=== PATIENT | female | born 1955 | race Caucasian/White ===

== ENCOUNTER 2017-07-23 10:05 | Outpatient (POV) | payer BC, SELFPAY | END 2017-07-23 13:45 | disposition home or self-care (01) | PROVIDERS: Visit Provider Podiatrist | DX: Z98.890 Other specified postprocedural states (principal) | CPT/HCPCS: 99024; 73630 ==

== ENCOUNTER → 2018-02-24 13:40 | Outpatient (POV) | payer BC, SELFPAY | PROVIDERS: Visit Provider Nurse Practitioner Acute Care | DX: Z00.00 Encounter for general adult medical examination without abnormal findings (principal) ==

== ENCOUNTER → 2018-03-19 13:29 | Outpatient (CLI) | payer BC, SELFPAY ==
--- NOTE | 2018-03-19 13:33 | XR_ITS ---
XR foot wt bearing LT 3V HISTORY: ITS.REASON: Pain ORDERING PHYSICIAN: Magda Mcrae DPM PATIENT AGE: 62 years COMPARISON: None FINDINGS: There are mild/moderate osteoarthritic changes of the first metatarsophalangeal joint. A small accessory center of ossification is present along the dorsal and proximal aspect of the navicular. There is a minimally displaced fracture involving the distal aspect of the proximal phalanx of the third digit age indeterminate. Not apparent on 04/18/2017. There is 2 mm lateral displacement of the distal fracture fragment. There is a longitudinal lucency through the mid and distal aspect of the proximal phalanx of the second toe. This however did have a similar appearance on the previous exam consistent with an old fracture IMPRESSION: 1. Non-displaced fracture distal aspect of the proximal phalanx of the fourth toe 2. Old fracture proximal phalanx second toe. 3. Osteoarthritis of the first MTP joint
== END ==
PROVIDERS: Visit Provider Podiatrist
DX: S99.922A Unspecified injury of left foot, initial encounter (principal)
CPT/HCPCS: 73630

== ENCOUNTER → 2018-05-05 10:45 | Outpatient (CLI) | payer BC, SELFPAY ==
[2018-05-05 10:57] LABS: Hematocrit 34.8 % (37.0-47.0); Hemoglobin 10.7 g/dL (12.2-16.2)
== END ==
PROVIDERS: Family Provider Family Medicine; PCP Family Medicine; Visit Provider Surgery
DX: D64.9 Anemia, unspecified (principal)
CPT/HCPCS: 36415; 85014; 85018

== ENCOUNTER → 2018-07-02 12:12 | Outpatient (CLI) | payer BC, SELFPAY ==
--- NOTE | 2018-07-02 12:17 | XR_ITS ---
XR hip RT 2-3V w/pelvis HISTORY: ITS.REASON: BACK AND RT HIP PAIN ORDERING PHYSICIAN: Deana Veras PATIENT AGE: 62 years COMPARISON: None FINDINGS: There are mild osteoarthritic changes of the right hip. No fracture or dislocation. No obvious lytic or blastic change. IMPRESSION: Mild osteoarthritis of the right hip
--- NOTE | 2018-07-02 12:17 | XR_ITS ---
EXAM: XR lumbar spine min 4V HISTORY: ITS.REASON: LOW BACK AND RT HIP PAIN ORDERING PHYSICIAN: Deana Veras PATIENT AGE: 62 years COMPARISON: None FINDINGS: There are 6 nonrib area in lumbar vertebra. Multilevel degenerative disc disease is present from L1 to S1. There is mild wedging at T11, T12 and L1 which appears old. Anterior osteophytes are present from T11 to L5. Severe degenerative disc disease is present at L3-L4 and L4-L5. There is mild retrolisthesis of L4 on L5 of 5 mm and mild anterolisthesis of L5 on SX of 4 mm. Facet hypertrophic changes are present at L4, L5, and L6. No acute fracture or dislocation. No lytic or blastic change. IMPRESSION: Multilevel lumbar spondylosis with osteophytes, degenerative disc disease, and facet arthritic change replacing above for detailed description
== END ==
PROVIDERS: PCP Family Medicine; Visit Provider Family Medicine
DX: M54.5 Low back pain (principal); M25.551 Pain in right hip
CPT/HCPCS: 72110; 73502

== ENCOUNTER → 2018-07-14 12:57 | Outpatient (POV) | payer BC, SELFPAY ==
[2018-07-14 13:16] VITALS: BP 150/93; PULSE 96; RESP 18; O2SAT 99
--- NOTE | 2018-07-14 15:03 | HMH.PMCON ---
Assessment and Plan (1) Sacroiliitis Current visit: Yes Status: Chronic Category: Medical Code(s): M46.1 - Sacroiliitis, not elsewhere classified - Assessment and plan all Dx Assessment and Plan for all problems:: We will schedule bilateral SI joint injections for the patient. Patient has completed physical therapy and is continuing a home stretching program. She is on anti-inflammatories at this time. This note was dictated using voice recognition software and may contain errors or omissions HPI - Data of Consult Consult date: 07/14/18 Requesting Physician: Kely Engle APRN Primary Care Provider: Deana Veras - Consult Narrative Reason for consult: Hip pain History of present illness: Ms. Gonzalez is a 62 year old female resents today for consultation in regards to her chronic low back pain and right hip pain. Patient states all activity increases pain while heat rest and elevation of her hip decreases pain. She has sharp pains in her right leg at times it does not ever past her knee. Patient has tried and completed physical therapy with no relief. Patient is tried multiple medications including [place], meloxicam, morphine, oxycodone, venlafaxine with no relief. She rates her pain a 7 out of 10 today. CC: Kely Engle APRN [facility] History I have reviewed the patient's past medical history: Yes Medical History: Reports:: Cancer, Hyperlipidemia, Hypertension Denies:: Diabetes Mellitus Type 1, Diabetes Mellitus Type 2, Internal Pacemaker, Lung Disease, Seizures Other Medical History: Denies: Blood Transfusion Reaction Laterality Cases: Bilateral: Tonsillectomy, Other Other Surgeries: Yes: Colon Resection, Colostomy, Hysterectomy-Total, Sinus Surgery, Thyroidectomy, Other. No: Pacemaker Amputation: No Fractures: No - *Social History Smoking Status: Never smoker Alcohol Intake: never Alcohol Intake Frequency:: holidays/special occasions only Occupational Status: other Housing: house - Psychiatric History Expresses thoughts of harming self/others: None Suicide Plan Description: No Plan *Family Hx:: Heart Attack, Hypertension, Diabetes Review of Systems - Review of Systems ROS General: no recent weight change, no fever, no sleep disturbances Respiratory: no cough, no shortness of air, no recurring pulmonary infections Cardiovascular/Peripheral Vascular: No chest pain, No palpitations, no edema, no shortness of breath. Gastrointestinal: no incontinence, normal bowel movements reported Genitourinary: no incontinence Musculoskeletal: Right hip pain, low back pain Psychiatric: normal mood/ affect Neurological: [denies weakness in extremities], [denies balance issues] Meds Home Medications Medication Instructions Recorded Confirmed Type biotin 5 mg capsule 5 mg PO QDAY 08/07/17 05/14/18 History bisoprolol fumarate 5 mg tablet 5 mg PO QDAY 08/07/17 05/14/18 History docosahexanoic acid (dha)-epa 120 1 cap PO QDAY 08/07/17 05/14/18 History mg-180 mg capsule estradiol 1 mg tablet 0.5 mg PO QDAY 08/07/17 05/14/18 History fenofibrate nanocrystallized 145 145 mg PO ONCE 08/07/17 05/14/18 History mg tablet fexofenadine 180 mg tablet 180 mg PO Q24H 08/07/17 05/14/18 History levothyroxine 175 mcg tablet 175 mcg PO DAILY 08/07/17 05/14/18 History magnesium 250 mg tablet 250 mg PO ONCE 08/07/17 05/14/18 History omeprazole 20 mg capsule,delayed 20 mg PO ONCE 08/07/17 05/14/18 History release Calcium Carbonate/Vitamin D3 1 each PO BID 04/03/18 05/14/18 History [Calcium 500-Vit D3 600 Tablet] Cyanocobalamin (Vitamin B-12) 1,000 mcg PO DAILY 04/03/18 05/14/18 History [Vitamin B12 2.5mg Tab] Ergocalciferol (Vitamin D2) 500 unit PO DAILY 04/03/18 05/14/18 History [Vitamin D] Fluticasone Furoate [Flonase 1 spray NS DAILY 04/03/18 05/14/18 History Sensimist] Folic Acid [Folic Acid 1mg tablet] 1 mg PO DAILY 04/03/18 05/14/18 History Ipratropium [place] [Ipratropium
--- NOTE | 2018-07-14 15:07 | P.CONS_ITS ---
Assessment and Plan (1) Sacroiliitis Current visit: Yes Status: Chronic Category: Medical Code(s): M46.1 - Sacroiliitis, not elsewhere classified - Assessment and plan all Dx Assessment and Plan for all problems:: We will schedule bilateral SI joint injections for the patient. Patient has completed physical therapy and is continuing a home stretching program. She is on anti-inflammatories at this time. This note was dictated using voice recognition software and may contain errors or omissions HPI - Data of Consult Consult date: 07/14/18 Requesting Physician: Kely Engle APRN Primary Care Provider: Deana Veras - Consult Narrative Reason for consult: Hip pain History of present illness: Ms. Gonzalez is a 62 year old female resents today for consultation in regards to her chronic low back pain and right hip pain. Patient states all activity increases pain while heat rest and elevation of her hip decreases pain. She has sharp pains in her right leg at times it does not ever past her knee. Patient has tried and completed physical therapy with no relief. Patient is tried multiple medications including [place], meloxicam, morphine, oxycodone, venlafaxine with no relief. She rates her pain a 7 out of 10 today. CC: Kely Engle APRN [facility] History I have reviewed the patient's past medical history: Yes Medical History: Reports:: Cancer, Hyperlipidemia, Hypertension Denies:: Diabetes Mellitus Type 1, Diabetes Mellitus Type 2, Internal Pacemaker, Lung Disease, Seizures Other Medical History: Denies: Blood Transfusion Reaction Laterality Cases: Bilateral: Tonsillectomy, Other Other Surgeries: Yes: Colon Resection, Colostomy, Hysterectomy-Total, Sinus Surgery, Thyroidectomy, Other. No: Pacemaker Amputation: No Fractures: No - *Social History Smoking Status: Never smoker Alcohol Intake: never Alcohol Intake Frequency:: holidays/special occasions only Occupational Status: other Housing: house - Psychiatric History Expresses thoughts of harming self/others: None Suicide Plan Description: No Plan *Family Hx:: Heart Attack, Hypertension, Diabetes Review of Systems - Review of Systems ROS General: no recent weight change, no fever, no sleep disturbances Respiratory: no cough, no shortness of air, no recurring pulmonary infections Cardiovascular/Peripheral Vascular: No chest pain, No palpitations, no edema, no shortness of breath. Gastrointestinal: no incontinence, normal bowel movements reported Genitourinary: no incontinence Musculoskeletal: Right hip pain, low back pain Psychiatric: normal mood/ affect Neurological: [denies weakness in extremities], [denies balance issues] Meds Home Medications Medication Instructions Recorded Confirmed Type biotin 5 mg capsule 5 mg PO QDAY 08/07/17 05/14/18 History bisoprolol fumarate 5 mg tablet 5 mg PO QDAY 08/07/17 05/14/18 History docosahexanoic acid (dha)-epa 120 1 cap PO QDAY 08/07/17 05/14/18 History mg-180 mg capsule estradiol 1 mg tablet 0.5 mg PO QDAY 08/07/17 05/14/18 History fenofibrate nanocrystallized 145 145 mg PO ONCE 08/07/17 05/14/18 History mg tablet fexofenadine 180 mg tablet 180 mg PO Q24H 08/07/17 05/14/18 History levothyroxine 175 mcg tablet 175 mcg PO DAILY 08/07/17 05/14/18 History magnesium 250 mg tablet 250 mg PO ONCE 08/07/17 05/14/18 History omeprazole 20 mg capsule,delayed 20 mg PO ONCE 08/07/17
== END ==
PROVIDERS: PCP Family Medicine; Visit Provider Clinical Nurse Specialist Family Health
DX: M46.1 Sacroiliitis, not elsewhere classified (principal)
CPT/HCPCS: 99202

== ENCOUNTER → 2018-08-18 10:08 | Outpatient (POV) | payer BC, SELFPAY ==
[2018-08-18 10:18] VITALS: BP 121/78; PULSE 100; RESP 18; O2SAT 99; BMI 33.9
--- NOTE | 2018-08-18 10:38 | HMH.PAINSOAP ---
[facility] Pain Management SOAP Note Subjective:: Patient is a pleasant 62-year-old white female who presents today for follow-up after bilateral SI joint injections. Patient had 80% relief of the pain in her legs however she still having back pain. Patient states pain is worse when she is walking and standing however it is alleviated when she leans forward. Patient finds herself leaning forward quite a bit. Patient has not had any epidural injections or a recent MRI. We will start with an epidural injection to see if this is beneficial for her if not we did discuss potentially a mild procedure. ROS General: no recent weight change, no fever, no sleep disturbances Respiratory: no cough, no shortness of air, no recurring pulmonary infections Cardiovascular/Peripheral Vascular: No chest pain, No palpitations, no edema, no shortness of breath. Gastrointestinal: no incontinence, normal bowel movements reported Genitourinary: no incontinence Musculoskeletal: Back pain the leg pain Psychiatric: normal mood/ affect Neurological: [denies weakness in extremities], [denies balance issues] Objective:: Physical Exam General: Alert and oriented x3, no acute distress, pleasant and cooperative, [on room air] Lungs: Resps E/U, Symmetrical chest expansion, Eyes: PERRL Musculoskeletal: Flexion and extension of lumbar spine somewhat guarded secondary to pain, deep tendon reflexes normal, strength in upper and lower extremities [5/5], [abnormal gait noted] Neurological: speech clear, in file operator equal, no gross sensory deficits Assessment:: Degenerative disc disease lumbar spine with lumbar radiculopathy, spinal stenosis, sacroiliitis Plan:: We will plan on L4-L5 lumbar epidural steroid injection to see if this beneficial for the patient if it is not we will get an updated MRI to determine her level spinal stenosis. Patient may be a mild candidate in the future. I did briefly discuss this with her and provide her information. This note was dictated using voice recognition software and may contain errors or omissions
== END ==
PROVIDERS: PCP Family Medicine; Visit Provider Clinical Nurse Specialist Family Health
DX: M51.16 Intervertebral disc disorders with radiculopathy, lumbar region (principal); M46.1 Sacroiliitis, not elsewhere classified; M48.00 Spinal stenosis, site unspecified
CPT/HCPCS: 99213

== ENCOUNTER → 2018-09-29 11:31 | Outpatient (POV) | payer BC, SELFPAY ==
--- NOTE | 2018-09-29 12:23 | P.CONS_ITS ---
[facility] Pain Management SOAP Note Subjective:: Patient is a pleasant 62-year-old white female who we are treating for back pain. Patient status post lumbar epidural steroid injection she rates her pain a 0 out of 10 right now she is doing extremely well. She has 80-90% relief of her symptoms. She is much more functional. Patient is not on any anticoagulation therapy and she is continuing a home stretching program. ROS General: no recent weight change, no fever, no sleep disturbances Respiratory: no cough, no shortness of air, no recurring pulmonary infections Cardiovascular/Peripheral Vascular: No chest pain, No palpitations, no edema, no shortness of breath. Gastrointestinal: no incontinence, normal bowel movements reported Genitourinary: no incontinence Musculoskeletal: Back pain, leg pain Psychiatric: normal mood/ affect Neurological: [denies weakness in extremities], [denies balance issues] Objective:: Physical Exam General: Alert and oriented x3, no acute distress, pleasant and cooperative, [on room air] Lungs: Resps E/U, Symmetrical chest expansion, Eyes: PERRL Musculoskeletal: Flexion and extension of lumbar spine somewhat guarded secondary to pain, deep tendon reflexes normal, strength in upper and lower extremities [5/5], [abnormal gait noted] Neurological: speech clear, process safety manager equal, no gross sensory deficits Assessment:: Degenerative disc disease lumbar spine with lumbar radiculopathy Plan:: We will schedule an L4-L5 lumbar epidural steroid injection for the patient in 2 months. She has been instructed to call the office if she has any issues prior to this. Dr. Aguilar has reviewed this note and agrees with this plan of care. This note was dictated using voice recognition software and may contain errors or omissions
[2018-09-29 12:31] VITALS: BP 131/86; PULSE 92; RESP 18; O2SAT 98; BMI 32.3
== END ==
PROVIDERS: PCP Family Medicine; Visit Provider Clinical Nurse Specialist Family Health
DX: M51.16 Intervertebral disc disorders with radiculopathy, lumbar region (principal)
CPT/HCPCS: 99213

== ENCOUNTER → 2018-09-30 14:26 | Outpatient (CLI) | payer BC, SELFPAY ==
--- NOTE | 2018-09-30 14:30 | XR_ITS ---
XR foot wt bearing RT 3V HISTORY: ITS.REASON: pain ORDERING PHYSICIAN: Magda Mcrae DPM PATIENT AGE: 62 years COMPARISON: 07/23/2017 FINDINGS: There has been prior bunionectomy and osteotomy of the distal aspect of the first metatarsal with mild lateral angulation of the distal aspect of the first metatarsal. A small K wire and a dorsally placed screw through the distal first metatarsal is once again noted. Moderate osteoarthritic changes are present at the second metatarsophalangeal joint with minimal dysplastic changes of the distal aspect of the second metatarsal. This has a similar appearance compared to the previous exam. Normal alignment. IMPRESSION: Overall no change status post bunionectomy and osteotomy at the distal first metatarsal with mild osteoarthritis of the first MTP joint No change moderate osteoarthritic changes of the second MTP joint
== END ==
PROVIDERS: PCP Family Medicine; Visit Provider Podiatrist
DX: M79.671 Pain in right foot (principal)
CPT/HCPCS: 73630

== ENCOUNTER → 2018-10-30 14:26 | Outpatient (CLI) | payer BC, SELFPAY ==
[2018-10-30 14:41] LABS: Basophils # 0.1 K/mm3 (0-0.2); Basophils % 0.9 % (0.1-2.0); Eosinophils # 0.3 K/mm3 (0.0-0.4); Eosinophils % 3.3 % (0.1-12.0); Hematocrit 43.6 % (37.0-47.0); Lymphocytes # 2.6 K/mm3 (0.7-4.5); Lymphocytes % 30.4 % (10-50); Mean Corpuscular HGB Conc 32.2 g/dL (31.8-35.4); Mean Corpuscular Hemoglobin 27.5 pg (27.0-31.2); Mean Corpuscular Volume 85.6 fl (81-99); Mean Platelet Volume 7.7 fl (7.4-10.4); Monocytes # 0.5 K/mm3 (0.1-1.0); Monocytes % 5.2 % (1.7-9.3); Neutrophils # 5.2 K/mm3 (1.8-7.8); Neutrophils % 60.2 % (37.0-80.0); Platelet Count 328 K/mm3 (142-424); White Blood Count 8.6 K/mm3 (4.8-10.8)
[2018-10-30 15:27] LABS: Ferritin 25 ng/mL (8-388)
[2018-11-01 07:16] LABS: Iron 76 ug/dL (27-139); UIBC 329 ug/dL (118-369)
[2018-11-01 14:27] LABS: Peripheral Smear Review Scanned Result
[2018-11-02 18:26] LABS: Iron Saturation 19 % (15-55)
== END ==
PROVIDERS: Visit Provider Internal Medicine Medical Oncology
DX: R79.9 Abnormal finding of blood chemistry, unspecified (principal); Z86.2 Personal history of diseases of the blood and blood-forming organs and certain disorders involving the immune mechanism; Z85.850 Personal history of malignant neoplasm of thyroid
CPT/HCPCS: 36415; 82728; 83540; 83550; 85025

== ENCOUNTER → 2018-11-10 10:38 | Outpatient (CLI) | payer BC, SELFPAY ==
--- NOTE | 2018-11-10 10:43 | XR_ITS ---
XR foot wt bearing RT 3V HISTORY: Follow-up ORIF ITS.REASON: post-op ORDERING PHYSICIAN: Magda Mcrae DPM PATIENT AGE: 62 years COMPARISON: 10/22/2018 FINDINGS: AP and is once again noted extending from the tip of the distal phalanx of the second digit to the distal aspect of the second metatarsal with good alignment. Osteoarthritic changes are present at the second metatarsophalangeal junction and there has been a prior osteotomy at the distal aspect of the proximal phalanx and at the PIP joint. Postsurgical changes are present at the distal aspect of the first metatarsal. IMPRESSION: Overall no change in the postsurgical change of the second digit and the older postsurgical changes at the first digit.
== END ==
PROVIDERS: PCP Family Medicine; Visit Provider Podiatrist
DX: Z98.890 Other specified postprocedural states (principal)
CPT/HCPCS: 73630

== ENCOUNTER → 2018-11-25 09:48 | Outpatient (CLI) | payer BC, SELFPAY ==
--- NOTE | 2018-11-25 09:53 | XR_ITS ---
XR foot wt bearing RT 3V HISTORY: Follow-up surgery, pain ITS.REASON: post-op ORDERING PHYSICIAN: Magda Mcrae DPM PATIENT AGE: 62 years COMPARISON: 11/10/2018 FINDINGS: A pin and is once again noted extending from the tip of the distal phalanx of the second digit to the distal aspect of the second metatarsal with good alignment. Osteoarthritic changes are present at the second metatarsophalangeal junction and there has been a prior osteotomy at the distal aspect of the proximal phalanx and at the PIP joint. Postsurgical changes are present at the distal aspect of the first metatarsal. IMPRESSION: Overall no change in the postsurgical change of the second digit and the older postsurgical changes at the first digit.
== END ==
PROVIDERS: PCP Family Medicine; Referring Provider Urology; Visit Provider Podiatrist
DX: Z98.890 Other specified postprocedural states (principal)
CPT/HCPCS: 73630

== ENCOUNTER → 2018-11-26 09:53 | Outpatient (CLI) | payer BC, SELFPAY ==
--- NOTE | 2018-11-26 09:54 | US_ITS ---
US Kidney CLINICAL INDICATION: ITS.REASON: N39.0 Urinary tract infection, site not specified ORDERING PHYSICIAN: Braulio Monaco MD PATIENT AGE: 62 years Comparison: None FINDINGS: No hydronephrosis mass perinephric fluid or other significant anomalies are evident. IMPRESSION: Negative bilateral renal ultrasound
--- NOTE | 2018-11-26 09:54 | XR_ITS ---
XR KUB HISTORY: ITS.REASON: recuurent uti ORDERING PHYSICIAN: Braulio Monaco MD PATIENT AGE: 62 years COMPARISON: 07/02/2018 FINDINGS: The bowel gas pattern is unremarkable. No obvious obstruction.. No abnormal calcifications are evident. No obvious renal or ureteral calculi.. Degenerative changes are present in the lumbar spine. Calcification noted in the left upper pelvis unchanged. Osteoarthritic changes are present in the right hip. IMPRESSION: No acute finding
== END ==
PROVIDERS: PCP Family Medicine; Visit Provider Urology
DX: N39.0 Urinary tract infection, site not specified (principal)
CPT/HCPCS: 74018; 76770

== ENCOUNTER → 2018-12-22 13:33 | Outpatient (POV) | payer MEDICARE, SELFPAY ==
[2018-12-22 13:54] VITALS: BP 133/87; PULSE 92; RESP 18; O2SAT 99; BMI 33.9
--- NOTE | 2018-12-22 14:53 | HMH.PAINSOAP ---
[facility] Pain Management SOAP Note Subjective:: The patient is a pleasant 62-year-old white female who we are treating for back pain lumbar radicular symptoms. She is a follow-up for a lumbar epidural steroid injection. She had improvement, rating pain 0 out of 10. She does report some continued pain with standing and walking. We did discuss the mild procedure and asked about recent diagnostic imaging. Patient does report relief of symptoms when leaning forward. She continues a home stretching program and anti-inflammatories. ROS General: no recent weight change, no fever, no sleep disturbances Respiratory: no cough, no shortness of air, no recurring pulmonary infections Cardiovascular/Peripheral Vascular: No chest pain, No palpitations, no edema, no shortness of breath. Gastrointestinal: no incontinence, normal bowel movements reported Genitourinary: no incontinence Musculoskeletal: Back pain, leg pain Psychiatric: normal mood/ affect, Neurological: [denies weakness in extremities], [denies balance issues] Objective:: Physical Exam General: Alert and oriented x3, no acute distress, pleasant and cooperative, [on room air] Lungs: Resps E/U, Symmetrical chest expansion, Eyes: PERRL Musculoskeletal: Flexion and extension of lumbar spine somewhat guarded secondary to pain, deep tendon reflexes normal, strength in upper and lower extremities [5/5], slightly antalgic gait noted Neurological: speech clear, rotary cutter feeder equal, no gross sensory deficits Assessment:: Degenerative disc of lumbar spine with lumbar radicular symptoms and spinal stenosis with neurogenic claudication. Plan:: We will order imaging studies, MRI for the patient and determine if she is a candidate for the mild procedure. We will follow-up with the patient after the MRI and discuss plan of care. Patient has been instructed to call with any issues prior to the next appointment. Dr. Aguilar has reviewed this note and agrees with this plan of care. This note was dictated using voice recognition software and may contain errors or omissions
--- NOTE | 2018-12-22 14:57 | P.CONS_ITS ---
[facility] Pain Management SOAP Note Subjective:: The patient is a pleasant 62-year-old white female who we are treating for back pain lumbar radicular symptoms. She is a follow-up for a lumbar epidural steroid injection. She had improvement, rating pain 0 out of 10. She does report some continued pain with standing and walking. We did discuss the mild procedure and asked about recent diagnostic imaging. Patient does report relief of symptoms when leaning forward. She continues a home stretching program and anti-inflammatories. ROS General: no recent weight change, no fever, no sleep disturbances Respiratory: no cough, no shortness of air, no recurring pulmonary infections Cardiovascular/Peripheral Vascular: No chest pain, No palpitations, no edema, no shortness of breath. Gastrointestinal: no incontinence, normal bowel movements reported Genitourinary: no incontinence Musculoskeletal: Back pain, leg pain Psychiatric: normal mood/ affect, Neurological: [denies weakness in extremities], [denies balance issues] Objective:: Physical Exam General: Alert and oriented x3, no acute distress, pleasant and cooperative, [on room air] Lungs: Resps E/U, Symmetrical chest expansion, Eyes: PERRL Musculoskeletal: Flexion and extension of lumbar spine somewhat guarded secondary to pain, deep tendon reflexes normal, strength in upper and lower extremities [5/5], slightly antalgic gait noted Neurological: speech clear, 3rd mate equal, no gross sensory deficits Assessment:: Degenerative disc of lumbar spine with lumbar radicular symptoms and spinal stenosis with neurogenic claudication. Plan:: We will order imaging studies, MRI for the patient and determine if she is a candidate for the mild procedure. We will follow-up with the patient after the MRI and discuss plan of care. Patient has been instructed to call with any issues prior to the next appointment. Dr. Aguilar has reviewed this note and agrees with this plan of care. This note was dictated using voice recognition software and may contain errors or omissions
== END ==
PROVIDERS: PCP Family Medicine; Visit Provider Clinical Nurse Specialist Family Health
DX: M48.062 Spinal stenosis, lumbar region with neurogenic claudication (principal)
CPT/HCPCS: 99212

== ENCOUNTER → 2018-12-31 08:29 | Outpatient (CLI) | payer MEDICARE, SELFPAY | PROVIDERS: PCP Family Medicine; Visit Provider Clinical Nurse Specialist Family Health | DX: M54.9 Dorsalgia, unspecified (principal); F40.240 Claustrophobia; Z53.8 Procedure and treatment not carried out for other reasons ==

== ENCOUNTER → 2019-01-06 09:55 | Outpatient (CLI) | payer MEDICARE, SELFPAY ==
--- NOTE | 2019-01-06 10:00 | XR_ITS ---
XR foot wt bearing RT 3V HISTORY: ITS.REASON: pain ORDERING PHYSICIAN: Magda Mcrae DPM PATIENT AGE: 63 years COMPARISON: 11/25/2018 FINDINGS: The pin has been removed from the second toe. There has been a prior osteotomy of the distal aspect of the proximal phalanx of the second toe. There is good alignment. Osteoarthritic changes are present at the second metatarsophalangeal joint and there are postsurgical changes of the first metatarsal distally. IMPRESSION: Follow-up hardware removal of the second toe with good alignment
== END ==
PROVIDERS: PCP Family Medicine; Visit Provider Podiatrist
DX: Z98.890 Other specified postprocedural states (principal)
CPT/HCPCS: 73630

== ENCOUNTER → 2019-01-08 07:46 | Outpatient (CLI) | payer MEDICARE, SELFPAY ==
[2019-01-08 08:11] LABS: Basophils # 0.1 K/mm3 (0-0.2); Basophils % 0.7 % (0.1-2.0); Eosinophils # 0.2 K/mm3 (0.0-0.4); Eosinophils % 2.5 % (0.1-12.0); Hematocrit 42.5 % (37.0-47.0); Lymphocytes # 2.9 K/mm3 (0.7-4.5); Lymphocytes % 36.1 % (10-50); Mean Platelet Volume 7.9 fl (7.4-10.4); Monocytes # 0.5 K/mm3 (0.1-1.0); Monocytes % 6.1 % (1.7-9.3); Neutrophils # 4.3 K/mm3 (1.8-7.8); Neutrophils % 54.6 % (37.0-80.0); Platelet Count 280 K/mm3 (142-424); Red Blood Count 5.01 M/mm3 (4.20-5.40); Red Cell Distribution Width 14.8 % (11.5-17.5); White Blood Count 7.9 K/mm3 (4.8-10.8)
[2019-01-08 11:07] LABS: Ferritin 71 ng/mL (8-388)
[2019-01-08 11:08] LABS: Alanine Aminotransferase 69 U/L (12-78); Albumin Level 3.2 gm/dL (3.4-5.0); Alkaline Phosphatase 53 U/L (46-116); Anion Gap 16.5 mEq/L (5-15); Aspartate Amino Transferase 30 U/L (15-37); Bilirubin,Total 0.4 mg/dL (0.2-1.0); Blood Urea Nitrogen 21 mg/dL (7-18); Calcium 7.9 mg/dL (8.5-10.1); Carbon Dioxide 23 mmol/L (21.0-32.0); Chloride 104 mmol/L (98-107); Creatinine,Serum 1.01 mg/dL (0.55-1.02); Estimated Glomerular Filt Rate 55 ml/min (>60); GFR (African American) 67 ML/MIN (>60); Globulin 3.3 gm/dl (1.3-3.2); Glucose 140 mg/dL (74-106); Potassium 4.5 mmoL/L (3.5-5.1); Sodium 139 mmol/L (136-145); Total Protein,Serum 6.5 gm/dL (6.4-8.2)
[2019-01-08 11:11] LABS: C-Reactive Protein < 0.2 mg/L (0.0-0.9)
[2019-01-08 11:57] LABS: Erythrocyte Sedimentation Rate 10 mm/hr (0-30)
[2019-01-09 07:18] LABS: Iron 136 ug/dL (27-139); UIBC 216 ug/dL (118-369)
[2019-01-09 20:51] LABS: Iron Saturation 39 % (15-55)
[2019-01-10 07:49] LABS: Peripheral Smear Review Scanned Result
== END ==
PROVIDERS: Internal Medicine Medical Oncology; Visit Provider Podiatrist
DX: Z98.890 Other specified postprocedural states (principal); D64.9 Anemia, unspecified
CPT/HCPCS: 36415; 80053; 82728; 83540; 83550; 85025; 85651; 86140

== ENCOUNTER 2019-01-14 09:45 | Outpatient (RCR) | payer MEDICARE, SELFPAY ==
--- NOTE | 2019-01-14 10:16 | HMH.PTOPWND ---
Rehab Outpt Wound Evaluation Rehab OP Wound Evaluation Start: 01/14/19 09:50 Freq: Status: Active Protocol: Document 01/14/19 10:05 JANETTE (Rec: 01/14/19 10:16 PHOJEANNE [id number]) Electronically Signed By Herman Tam, PT 01/14/19 10:05 Subjective/History History History Pt is 63 yowf who presents 12 wks S/P right 2nd toe hammertoe repair with ORIF. She presents with c/o increased edema in the right 2nd toe and less in the right foot. She reprts no c/opain at rest, but some pain with walking rated 3/10. She reports PMH of right 1st toe bunionectomy, right foot neuroma removal, MARLENI, bladder repair, colon resection, and basal cell carcinoma removal. Subjective Subjective Currently no c/o pain, only pain with walking. Lymphedema Eval Classification of Lymphedema Secondary Lymphedema Yes Stemmer's sign Stemmer's Sign no Stage of Lymphedema Lymphedema stages Stage 0 (subjective c/o heaviness and aching) Skin Changes Dry Skin Yes Discoloration of Skin Yes Pain Scale Pain Scale (0-10) 3 Affected Extremities Areas Affected by Lymphedema/Edema Right Lower Extremity Manual Lymphatic Drainage Treatment Area MLD Treatment Area Right Lower Extremity Wound Problems/Impairments Impairments Problems/Impairmments Impaired Strength,Impaired Endurance,Impaired Gait Pattern,Impaired Walking, Increased Edema,Lymphedema Present,Subjective C/O Pain, Impaired Self Care/Self Management Prognosis Rehab Potential Good Clinical Impression Consistent with Diagnosis Yes Short Term Goals Number of Weeks 4 Increase Ability to Walk Yes Decrease Edema Yes: by 25% Decrease Subjective C/O Pain Yes: 2/10 Patient to Understand Lymphedema Yes Treatment and Exercises [facility] Goals Number of Weeks 8 Increase Ability to Walk Yes Decrease Edema Yes: by 75% Decrease Subjective C/O Pain Yes: 1/ Patient to be Ind w/ HEP Yes Patient to be Ind w/ Lymphedema Yes Management Patient to Adhere Lymphedema Precautio
== END 2019-01-14 09:50 | disposition home or self-care (01) ==
LOC: PT 09:45
PROVIDERS: Visit Provider Podiatrist
DX: R60.0 Localized edema (principal); Z98.890 Other specified postprocedural states
CPT/HCPCS: 97110; 97140; 97162

== ENCOUNTER → 2019-05-18 08:32 | Outpatient (CLI) | payer MEDICARE, SELFPAY ==
--- NOTE | 2019-05-18 08:36 | XR_ITS ---
PROCEDURE: XR KNEE LT 4V CLINICAL INDICATION: Bilateral knee pain Left knee pain the COMPARISON: [id number] KNEE-4 OR 5 VIEWS-RT from 02/19/2017 FINDINGS: No fracture or dislocation. No lytic or blastic change. There is normal mineralization. There are moderate to severe osteoarthritic changes involving all 3 compartments worse at the patellofemoral joint with severe loss of joint space laterally at the patellofemoral joint. No fracture or dislocation. Osteophyte versus loose body noted lateral to the patella. IMPRESSION: Moderate to severe osteoarthritic changes most severe at the patellofemoral joint Dictated by: Ollie Laguna MD 05/18/2019 09:35 Electronically signed by Ollie Laguna MD in [place] 05/18/2019 09:35
--- NOTE | 2019-05-18 08:36 | XR_ITS ---
PROCEDURE: XR KNEE RT 4V CLINICAL INDICATION: knee pain Worsening knee pain COMPARISON: [id number] KNEE-4 OR 5 VIEWS-RT from 02/19/2017 FINDINGS: No fracture or dislocation. No lytic or blastic change. There is normal mineralization. There are moderate to severe osteoarthritic changes of the lateral compartment and patellofemoral joint. There is mild right lateral tibial translation. There is prominent bony spurring. Along the lateral aspect of the medial compartment posteriorly there is a loose body which measures approximately 7 mm. An additional loose body is present along the right superior lateral aspect of the patella at 10 mm. Other findings:None. IMPRESSION: Moderate to severe osteoarthritis which is slightly progressed since the previous exam with loose bodies Dictated by: Ollie Laguna MD 05/18/2019 09:33 Electronically signed by Ollie Laguna MD in [place] 05/18/2019 09:33
== END ==
PROVIDERS: PCP Family Medicine; Visit Provider Orthopaedic Surgery
DX: M25.562 Pain in left knee (principal); M25.561 Pain in right knee
CPT/HCPCS: 73564

== ENCOUNTER → 2019-08-25 11:20 | Outpatient (CLI) | payer MEDICARE, SELFPAY ==
[2019-08-25 12:11] LABS: Basophils # 0.1 K/mm3 (0-0.2); Basophils % 0.8 % (0.1-2.0); Eosinophils # 0.2 K/mm3 (0.0-0.4); Eosinophils % 1.9 % (0.1-12.0); Hematocrit 46.4 % (37.0-47.0); Hemoglobin 14.5 g/dL (12.2-16.2); Lymphocytes # 2.6 K/mm3 (0.7-4.5); Lymphocytes % 25.8 % (10-50); Mean Corpuscular HGB Conc 31.3 g/dL (31.8-35.4); Mean Corpuscular Hemoglobin 26.7 pg (27.0-31.2); Mean Corpuscular Volume 85.3 fl (81-99); Mean Platelet Volume 8.7 fl (7.4-10.4); Monocytes # 0.4 K/mm3 (0.1-1.0); Monocytes % 4.5 % (1.7-9.3); Neutrophils # 6.7 K/mm3 (1.8-7.8); Neutrophils % 67.1 % (37.0-80.0); Platelet Count 341 K/mm3 (142-424); Red Blood Count 5.44 M/mm3 (4.20-5.40); Red Cell Distribution Width 14.7 % (11.5-17.5)
[2019-08-25 14:13] LABS: Alanine Aminotransferase 40 U/L (12-78); Albumin Level 3.4 gm/dL (3.4-5.0); Anion Gap 14.9 mEq/L (5-15); Aspartate Amino Transferase 27 U/L (15-37); Bilirubin,Total 0.5 mg/dL (0.2-1.0); Blood Urea Nitrogen 24 mg/dL (7-18); Calcium 8.6 mg/dL (8.5-10.1); Carbon Dioxide 26 mmol/L (21.0-32.0); Chloride 104 mmol/L (98-107); Creatinine,Serum 1.23 mg/dL (0.55-1.02); Estimated Glomerular Filt Rate 44 ml/min (>60); GFR (African American) 53 ML/MIN (>60); Globulin 3.3 gm/dl (1.3-3.2); Potassium 4.9 mmoL/L (3.5-5.1); Sodium 140 mmol/L (136-145); Total Protein,Serum 6.7 gm/dL (6.4-8.2)
[2019-08-25 14:22] LABS: Alkaline Phosphatase 2 U/L (46-116); Glucose 151 mg/dL (74-106)
== END ==
PROVIDERS: Visit Provider Surgery
DX: K46.9 Unspecified abdominal hernia without obstruction or gangrene (principal)
CPT/HCPCS: 36415; 80053; 85025

== ENCOUNTER → 2019-09-01 09:42 | Outpatient (CLI) | payer MEDICARE, SELFPAY ==
--- NOTE | 2019-09-01 09:42 | CT_ITS ---
PROCEDURE: CT ABDOMEN PELVIS WO CON CLINICAL INDICATION: HO Colostomy/HO ileostomy and take down Hernia, fistula, palpable abnormality at prior ileostomy site COMPARISON: ABDPELW/O CT ABD PELVIS W/O CONTRAST from 08/21/2016 TECHNIQUE: Axial images obtained with sagittal and coronal reformats. All CT scans at the facility use one or more dose reduction, viz: automated exposure control, ma/kV adjustment per patient size (including targeted exams where dose is matched to indication, i.e. head), or iterative reconstruction technique. FINDINGS: LOWER THORAX: No acute finding ABDOMEN & PELVIS: There is diffuse fatty infiltration of the liver. The gallbladder, spleen, adrenal glands, and pancreas have an unremarkable unenhanced CT appearance. Kidneys also have an unremarkable unenhanced appearance. No renal or ureteral calculi. There is a small hiatal hernia. Oral contrast was given. No intestinal obstruction or free air is evident. IV access was not able to be obtained. There are post surgical changes of the transverse colon with a suture line at this area. There is a BB placed along the skin surface in the right lower abdomen anteriorly. This was the site of the previous ileostomy. There is some stranding of the fat in this area. There is no evidence of hernia or abscess. There is also stranding of the fat in the anterior abdominal wall more medial to the placed BB toward the umbilical region. There is diverticulosis of the sigmoid colon but no evidence of diverticulitis. There has been a prior hysterectomy. No evidence of appendicitis. No intestinal obstruction or free air. There are degenerative changes of the lumbar spine. Lipoma is present in the left ileo psoas muscle in the proximal thigh region measuring 3.7 by 5.7 cm IMPRESSION: 1. Postsurgical changes of the anterior abdominal wall from previous ileostomy takedown. No evidence of abscess or hernia at this region 2. Other nonacute findings as described above. Dictated by: Ollie Laguna MD 09/02/2019 10:41 Electronically signed by Ollie Laguna MD in [place] 09/02/2019 10:41
== END ==
PROVIDERS: PCP Family Medicine; Visit Provider Surgery
DX: K46.9 Unspecified abdominal hernia without obstruction or gangrene (principal); L98.8 Other specified disorders of the skin and subcutaneous tissue
CPT/HCPCS: 74176

== ENCOUNTER → 2019-09-29 09:09 | Outpatient (POV) | payer MEDICARE, SELFPAY ==
[2019-09-29 09:21] VITALS: BP 101/80; PULSE 95; RESP 18; O2SAT 99; BMI 33.9
--- NOTE | 2019-09-29 09:26 | HMH.PAINSOAP ---
[facility] Pain Management SOAP Note Subjective:: Patient is a pleasant 63-year-old white female who presents today for follow-up. Patient had epidural injections back in November and did extremely well. She was set up for an MRI however was unable to do it due to claustrophobia. Patient and I had a discussion at that time about a mild procedure she still interested in potentially pursuing this. She has difficulty with walking and standing. She finds herself leaning forward to get relief. Patient also would like to have an additional epidural given the efficacy of the last one. She had 80% relief up to 3 months. Patient is continuing a home stretching program. Patient would like to avoid surgery if possible. We will set her up for an epidurogram and a lumbar epidural steroid injection. She rates her pain a 6 out of 10 today. ROS General: no recent weight change, no fever, no sleep disturbances Respiratory: no cough, no shortness of air, no recurring pulmonary infections Cardiovascular/Peripheral Vascular: No chest pain, No palpitations, no edema, no shortness of breath. Gastrointestinal: no new onset incontinence, normal bowel movements reported Genitourinary: no new onset incontinence Musculoskeletal: Back pain, leg pain Psychiatric: normal mood/ affect, [denies depression], [denies anxiety] Neurological: [denies new onset weakness in extremities], [denies new onset balance issues] Objective:: Physical Exam General: Alert and oriented x3, no acute distress, pleasant and cooperative, [on room air] Lungs: Resps E/U, Symmetrical chest expansion, Eyes: PERRL Musculoskeletal: Flexion and extension of lumbar spine somewhat guarded secondary to pain, deep tendon reflexes normal, strength in upper and lower extremities [5/5], antalgic gait noted Neurological: speech clear, health care legal assistant equal, no gross sensory deficits Assessment:: Degenerative disc disease lumbar spine with lumbar radiculopathy, spinal stenosis with neurogenic claudication Plan:: We will set the patient up for an L4-L5 lumbar epidural steroid injection and epidurogram to determine if she is a mild candidate. I will follow-up with her after this reassess her symptoms at that time she has been instructed to call the office if she has any issues prior to her next appointment. She was given information on the mild procedure. Patient's not on any anticoagulation therapy. Dr. Aguilar has reviewed this note and agrees with this plan of care. This note was dictated using voice recognition software and may contain errors or omissions [facility] History I have reviewed the patient's past medical history: Yes Medical History: Reports:: Cancer, Gastroesophageal Reflux Disease(GERD), Hyperlipidemia, Hypertension Denies:: Diabetes Mellitus Type 1, Diabetes Mellitus Type 2, Internal Pacemaker, Lung Disease, MRSA, Seizures *Have you ever received a pneumonia vaccine?: No *Have you received a flu vaccine this season?: No Other Medical History: Reports: Hypothyroidism. Denies: Blood Transfusion Reaction Laterality Cases: Bilateral: Tonsillectomy, Other Other Surgeries: Yes: Cancer Surgery, Colonoscopy, Colon Resection, Colostomy, EGD, Hysterectomy-Total, Sinus Surgery, Thyroidectomy, Other. No: Pacemaker Amputation: No Fractures: No - *Social History Smoking Status: Never smoker Alcohol Intake: current Alcohol Intake Frequency:: holidays/special occasions only Substance Use Type: denies use *Occupational Status:: retired Housing: house Household Members: significant other *Travel in the last 8 weeks: None Family Hx:: Cancer, Coronary Artery Disease, Diabetes, Heart Attack, Hyperlipidemia, Hypertension
== END ==
PROVIDERS: PCP Family Medicine; Visit Provider Clinical Nurse Specialist Family Health
DX: M51.16 Intervertebral disc disorders with radiculopathy, lumbar region (principal); M48.062 Spinal stenosis, lumbar region with neurogenic claudication
CPT/HCPCS: 99212

== ENCOUNTER → 2019-10-26 15:22 | Outpatient (POV) | payer MEDICARE, SELFPAY ==
--- NOTE | 2019-10-27 10:59 | HMH.PAINSOAP ---
[facility] Pain Management SOAP Note Subjective:: Patient is a very pleasant 63-year-old white female. Patient is following up after lumbar epidural steroid injection. Patient does get minimal relief from this. However she does need an epidurogram to determine if she is a candidate for a mild procedure. Patient does have neurogenic claudication when standing and walking. Pain is relieved by sitting and bending forward. Patient is not on any blood thinners. She rates her pain today a 6 out of 10. ROS General: no recent weight change, no fever, no sleep disturbances Respiratory: no cough, no shortness of air, no recurring pulmonary infections Cardiovascular/Peripheral Vascular: No chest pain, No palpitations, no edema, no shortness of breath. Gastrointestinal: no new onset incontinence, normal bowel movements reported Genitourinary: no new onset incontinence Musculoskeletal: Back pain, leg pain Psychiatric: normal mood/ affect, Neurological: Leg weakness when walking, [denies new onset balance issues] Objective:: Physical Exam General: Alert and oriented x3, no acute distress, pleasant and cooperative, [on room air] Lungs: Resps E/U, Symmetrical chest expansion, Eyes: PERRL Musculoskeletal: Flexion and extension of lumbar spine somewhat guarded secondary to pain, deep tendon reflexes normal, strength in upper and lower extremities [5/5], slightly antalgic gait noted Neurological: speech clear, certified diabetes educator equal, no gross sensory deficits Assessment:: Degenerative disc disease lumbar spine with lumbar spinal stenosis and neurogenic claudication Plan:: We will set the patient up for an epidurogram to determine if she is a candidate for a mild procedure. I discussed the procedure with her she would like to move forward with this. I have answered all of her questions. She is been instructed to call the office if she has any issues prior to her next appointment. Dr. Aguilar has reviewed this note and agrees with this plan of care. This note was dictated using voice recognition software and may contain errors or omissions [facility] History I have reviewed the patient's past medical history: Yes Medical History: Reports:: Cancer (thyroid CA), Gastroesophageal Reflux Disease(GERD), Hyperlipidemia, Hypertension Denies:: Diabetes Mellitus Type 1, Diabetes Mellitus Type 2, Internal Pacemaker, Lung Disease, MRSA, Seizures *Have you ever received a pneumonia vaccine?: Yes *Have you received a flu vaccine this season?: Yes Other Medical History: Reports: Hypothyroidism, Thyroid Disease. Denies: Blood Transfusion Reaction Laterality Cases: Bilateral: Tonsillectomy, Other Other Surgeries: Yes: Cancer Surgery, Colonoscopy, Colon Resection, Colostomy, EGD, Hysterectomy-Total, Sinus Surgery, Thyroidectomy, Other. No: Pacemaker Amputation: No Fractures: No - *Social History Smoking Status: Never smoker Alcohol Intake: never Alcohol Intake Frequency:: holidays/special occasions only Substance Use Type: denies use *Occupational Status:: retired Housing: house Household Members: significant other *Travel in the last 8 weeks: None Family Hx:: Cancer, Coronary Artery Disease, Diabetes, Heart Attack, Hyperlipidemia, Hypertension
== END ==
PROVIDERS: Visit Provider Clinical Nurse Specialist Family Health
DX: M48.062 Spinal stenosis, lumbar region with neurogenic claudication (principal); Z79.899 Other long term (current) drug therapy; Z79.890 Hormone replacement therapy; Z91.048 Other nonmedicinal substance allergy status
CPT/HCPCS: 99211

== ENCOUNTER 2019-11-13 10:34 | Day surgery (SDC) | payer MEDICARE, SELFPAY ==
[2019-11-13 10:45] VITALS: BP 171/97; PULSE 101; RESP 18; TEMP 35.9; O2SAT 98
--- NOTE | 2019-11-13 11:00 | HMH.PMPROC ---
- Procedure Date: 11/13/19 Time: 11:00 Anesthesiologist:: Maycol Aguilar MD Complications:: None Pre-procedure Diagnosis:: Degenerative disc disease of lumbar spine with lumbar radiculopathy symptoms with neurogenic claudication symptoms and spinal stenosis of lumbar spine Post-procedure Diagnosis:: Degenerative disc disease of lumbar spine with lumbar radiculopathy symptoms and spinal stenosis with neurogenic claudication symptoms Indications for Procedure:: Patient is a pleasant 63-year-old white female who we are treating for low back pain with lumbar radicular symptoms. She does have significant neurogenic claudication symptoms especially with standing and walking. Most of her pain is in her back and down her legs. She is unable to exercise. She is also had severe pain in her back and down her legs recently. We will do a lumbar epidural steroid injection today with an epidurogram to assess levels of spinal stenosis. Her pain is affecting activities of daily living and affecting her functionality. We will do a lumbar epidural steroid injection today to keep her out of the emergency room and off of oral opioids. Procedure Details:: Lumbar epidural steroid injection under fluoroscopy Informed consent was obtained and the risk and benefits of the procedure was explained to the patient. The patient was taken to the procedure room. The patient was placed prone on the procedure table. The patient was prepped and draped in sterile fashion. C-arm fluoroscopy was used to view the lumbar spine. Skin and subcutaneous tissues were anesthetized using lidocaine. I placed an 18-gauge epidural needle and advanced into the L4-L5 interspace using fluoroscopic guidance and [id number] to air. After confirmation of needle placement in the epidural space with dye I injected 2 mL of lidocaine 1.5% with Depo-Medrol 80 mg. Patient tolerated the procedure well with no complications. Plan and Disposition:: We will follow-up with her in 2 weeks. Will reevaluate her symptoms. Given the spread of dye she does have significant stenosis at L3-L4 and L4-L5. I do believe she would benefit from minimally invasive lumbar decompression at L3-L4 and L4-L5 bilaterally.
[2019-11-13 11:03] VITALS: BP 140/78; PULSE 85; RESP 18
[2019-11-13 11:04] VITALS: BP 148/89; PULSE 79; RESP 18; O2SAT 99
[2019-11-13 11:15] VITALS: BP 151/83; PULSE 99; RESP 18; O2SAT 95
== END 2019-11-13 11:16 | disposition home or self-care (01) ==
LOC: SC.PAINP 10:36
PROVIDERS: PCP Family Medicine; Visit Provider Anesthesiology
DX: M51.16 Intervertebral disc disorders with radiculopathy, lumbar region (principal); M48.062 Spinal stenosis, lumbar region with neurogenic claudication
CPT/HCPCS: 62323; J1040; Q9966

== ENCOUNTER → 2019-11-30 13:33 | Outpatient (POV) | payer MEDICARE, SELFPAY ==
--- NOTE | 2019-11-30 14:03 | HMH.VVPMSO ---
[facility] Virtual Visit SOAP Consent for virtual visit:: With the recent concerns about the COVID-19, we are trying to minimize exposure to you by shifting to telehealth appointments whenever possible. It restricts me from seeing you in person, but the trade off is protecting you during this pandemic. Can you see and hear me okay, and do you consent to this option? If not, I would be happy to see if we can reschedule your appointment in the future, when feasible. Has patient consented to this virtual visit?: Yes Subjective:: Patient is a pleasant 63-year-old white female who presents today for follow-up after epidurogram to determine if she is a candidate for a minimally invasive lumbar decompression. Patient is a candidate at the L3-L4 L4-L5 level. We will plan on moving forward with this. Most of her pain is in her back and down her legs. She is unable to exercise. Patient gets some relief from epidural injections but nothing that increases her functionality. Patient has difficulty with standing and walking. She has significant neurogenic claudication symptoms.She is she rates her pain today a 4 out of 10. ROS General: no recent weight change, no fever, no sleep disturbances Respiratory: no cough, no shortness of air, no recurring pulmonary infections Cardiovascular/Peripheral Vascular: No chest pain, No palpitations, no edema, no shortness of breath. Gastrointestinal: no new onset incontinence, normal bowel movements reported Genitourinary: no new onset incontinence Musculoskeletal: Back pain, leg pain Psychiatric: normal mood/ affect, [denies depression], [denies anxiety] Neurological: Weakness in bilateral lower extremities when standing and walking, [denies new onset balance issues] Objective:: Physical exam: Constitutional: Healthy appearing, well-developed, alert, in no acute distress Psychiatric: Judgment and insight intact, Alert and oriented x4 Mood and affect: Mood normal, affect appropriate Head and face: Inspection: Normocephalic atraumatic, extraocular movement intact Respiratory: Breathing nonlabored, nondyspneic Cardiovascular: No cyanosis, clubbing, or edema observed Skin: Head and neck: Skin with no lesions or rash observed Gait: Able to walk without assistive device: Able to heel and toe walk Neurologic: Sensation grossly intact per patient Musculoskeletal: Decreased range of motion lumbar spine noted on video Assessment:: Degenerative disc disease lumbar spine with lumbar radiculopathy symptoms with spinal stenosis and neurogenic claudication Plan:: We will plan a minimally invasive lumbar decompression procedure on the L3-L4 L4-L5 levels bilaterally. I will follow-up with the patient afterwards to reassess her symptoms at that time. She is not on any anticoagulation therapy. This encounter was performed as a telemedicine visit via secure 2 way video and audio to minimize risk and transmission of Covid-19. The patient and we understand the limitations of a telemedicine visit including inability to check reflexes, possibly missing subtle findings on physical exam. Alternative options were presented to the patient and the patient elected to proceed with the visit. We specifically discussed risk factors for Covid-19 including age, heart or lung disease, diabetes, immunosuppression and travel. We also discussed that NSAIDs may worsen Covid-19 infection symptoms and that they should not be used to treat Covid-19 symptoms. Patient was also informed that corticosteroids in any form oral or injectable will decrease immune response and may increase risk of Covid-[address] Aguilar has reviewed this patient's chart and this note and agrees with plan of care. Patient has been instructed to call the office if they have any issues prior to the next appointment. Time In:: 13:40 Time Out:: 13:50 [facility] History I have reviewed the patient's past medical history: Yes Medical History: Reports:: Cancer (
== END ==
PROVIDERS: Visit Provider Clinical Nurse Specialist Family Health
DX: M51.16 Intervertebral disc disorders with radiculopathy, lumbar region (principal); M48.062 Spinal stenosis, lumbar region with neurogenic claudication
CPT/HCPCS: 99212

== ENCOUNTER → 2019-12-29 07:31 | Outpatient (CLI) | payer MEDICARE, SELFPAY ==
[2019-12-29 08:00] LABS: Basophils # 0.1 K/mm3 (0-0.2); Basophils % 1.5 % (0.1-2.0); Eosinophils # 0.2 K/mm3 (0.0-0.4); Eosinophils % 2.4 % (0.1-12.0); Lymphocytes # 2.3 K/mm3 (0.7-4.5); Lymphocytes % 32.9 % (10-50); Mean Corpuscular HGB Conc 33.3 g/dL (31.8-35.4); Mean Corpuscular Hemoglobin 29.1 pg (27.0-31.2); Mean Corpuscular Volume 87.3 fl (81-99); Mean Platelet Volume 8.4 fl (7.4-10.4); Monocytes # 0.4 K/mm3 (0.1-1.0); Monocytes % 5.6 % (1.7-9.3); Neutrophils # 4.1 K/mm3 (1.8-7.8); Neutrophils % 57.5 % (37.0-80.0); Platelet Count 269 K/mm3 (142-424); Red Blood Count 4.81 M/mm3 (4.20-5.40); Red Cell Distribution Width 14.6 % (11.5-17.5); White Blood Count 7.1 K/mm3 (4.8-10.8)
[2019-12-29 08:56] LABS: Coronavirus 19 IgG Antibody Negative (Negative); Coronavirus 19 IgM Antibody Negative (Negative)
[2019-12-29 09:25] LABS: Chloride 104 mmol/L (98-107); Potassium 4.3 mmoL/L (3.5-5.1); Sodium 137 mmol/L (136-145)
[2019-12-29 09:28] LABS: Anion Gap 12.3 mEq/L (5-15); Blood Urea Nitrogen 21 mg/dl (7-17); Calcium 8.5 mg/dl (8.4-10.2); Carbon Dioxide 25 mmol/L (22.0-30.0); Estimated Glomerular Filt Rate 56 ml/min (>60); GFR (African American) 67 ML/MIN (>60); Glucose 143 mg/dl (74-100)
== END ==
PROVIDERS: Visit Provider Anesthesiology
DX: Z01.818 Encounter for other preprocedural examination (principal)
CPT/HCPCS: 36415; 80048; 85025; 86328

== ENCOUNTER 2019-12-30 10:32 | Day surgery (SDC) | payer MEDICARE, SELFPAY ==
--- NOTE | 2019-12-24 11:44 | SUR.PREOP ---
12/24/2019 @ 2974--PHONE CALL MADE TO PATIENT. PATIENT UNDERSTANDS THAT LAB WORK AND COVID TESTING NEEDS TO BE COMPLETED @ 730 ON 12/29/2019. PATIENT UNDERSTANDS IF LAB WORK AND COVID-19 TESTS ARE NOT COMPLETED BY 12PM ON THAT DATE, THE SURGERY SCHEDULED WILL BE CANCELLED AND RESCHEDULED FOR ANOTHER TIME.
[2019-12-29 13:25] VITALS: BMI 34.7
[2019-12-30 10:51] VITALS: BP 150/98; PULSE 83; RESP 18; TEMP 36.2; O2SAT 95
[2019-12-30 15:04] VITALS: BP 130/77; PULSE 79; RESP 18; O2SAT 96
[2019-12-30 15:19] VITALS: BP 129/76; PULSE 84; RESP 18; TEMP 36.3; O2SAT 92
--- NOTE | 2019-12-30 15:32 | HMH.OPNOTE ---
Date of procedure: 12/30/19 Pre-op Diagnosis:: Degenerative disc disease of lumbar spine with lumbar radiculopathy symptoms and spinal stenosis with neurogenic claudication symptoms Post-op Diagnosis:: Same Procedure performed:: Minimally invasive lumbar decompression L3-L4 and L4-L5 bilaterally Surgeon:: Maycol Aguilar MD PATIENT COORDINATOR FRONT DESK:: Harvinder Steve Anesthesia: MAC Estimated blood loss (mL): 2 Clinical Note:: This patient is a pleasant 63-year-old white female who we are treating for low back pain with lumbar spondylosis and lumbar radiculopathy symptoms with spinal stenosis and neurogenic claudication symptoms. Patient has significant stenosis at L3-L4 and L4-L5 based on MRI and epidurogram. Most of her pain is in her back and down her legs. She is unable exercise. She has some relief from epidural injections but it does not increase her functionality. She is failed all other conservative therapy including physical therapy injections and oral medications. She presents today for minimally invasive lumbar decompression of L3-L4 and L4-L5 bilaterally. Operative findings:: None Operative note:: Informed consent was obtained and the risk and benefits of the procedure was explained to the patient. The patient was taken to the operating room and placed prone on the procedure table. The patient was prepped and draped in sterile fashion. C-arm fluoroscopy was used to view the lumbar spine. The skin and subcutaneous tissues were anesthetized using lidocaine. A epidural needle was inserted and advanced into the L3-L4 interspace. After confirmation of needle placement in the epidural space, dye was injected in a contralateral oblique view. There was an epidurogram seen at L3-L4 and L4-L5. Significant stenosis was seen at L3-L4 and L4-L5. The skin and subcutaneous tissues again were anesthetized using lidocaine. An incision was made and a access trocar was inserted and advanced to contact at the superior aspect of the L4 lamina on the left side. And a contralateral oblique view the side was viewed. Using a bone rongeur and tissue sculptor we debulked bone from the L3-L4 and L4-L5 interspace on the left side. We then used the tissue sculptor to debulk ligament at the L3-L4 and L4-L5 interspace on the left side. We then moved over to the right side and debulked bone and ligament from L3-L4 and L4-L5 on the right side. There is opening of the stenosis at L3-L4 and L4-L5 bilaterally. The access trocar was removed. A total of 3 mL's of dye was used. There is good spread of dye above and below this level as well. We injected 80 mg Depo-Medrol through the epidural needle. The epidural needle was removed and dressings were placed. This encounter for exam is for normal comparison and control in a clinical research program Patient was taken to recovery in stable condition. Patient was discharged home neurologically intact and with good relief of pain symptoms. Plan and disposition: We will follow-up with this patient in 2 weeks. Will reevaluate symptoms at that time. Condition: stable Disposition: PACU Complications:: None
[2019-12-30 15:34] VITALS: BP 120/83; PULSE 82; RESP 18; O2SAT 94
[2019-12-30 15:49] VITALS: BP 140/81; PULSE 79; RESP 18; O2SAT 95
[2019-12-30 16:30] VITALS: BP 128/75; PULSE 80; RESP 18; TEMP 36.4
== END 2019-12-30 16:30 | disposition home or self-care (01) ==
LOC: OR 10:34
PROVIDERS: PCP Family Medicine; Visit Provider Anesthesiology
PROC: (CPT 0275T; principal; 2019-12-30 12:00)
DX: M48.062 Spinal stenosis, lumbar region with neurogenic claudication (principal); Z00.6 Encounter for examination for normal comparison and control in clinical research program; M51.16 Intervertebral disc disorders with radiculopathy, lumbar region; K21.9 Gastro-esophageal reflux disease without esophagitis; I10 Essential (primary) hypertension; E03.9 Hypothyroidism, unspecified; Z79.899 Other long term (current) drug therapy; Z79.890 Hormone replacement therapy
CPT/HCPCS: 0275T; 96374; C1889; J1040; J2405; J3370; Q9966

== ENCOUNTER → 2020-01-11 13:07 | Outpatient (POV) | payer MEDICARE, SELFPAY ==
[2020-01-11 13:38] VITALS: BP 122/78; PULSE 85; RESP 18; TEMP 36.6; O2SAT 99; BMI 34.8
--- NOTE | 2020-01-11 14:35 | P.CONS_ITS ---
[facility] Pain Management SOAP Note Subjective:: Patient is a pleasant 64-year-old white female who presents today for follow-up after mild procedure. Patient is doing extremely well she rates her pain 3 out of 10. She states she is 80% better. Patient is able to stand and walk without pain. She does not find herself bending forward as she typically would to decrease her pain symptomology. ROS General: no recent weight change, no fever, no sleep disturbances Respiratory: no cough, no shortness of air, no recurring pulmonary infections Cardiovascular/Peripheral Vascular: No chest pain, No palpitations, no edema, no shortness of breath. Gastrointestinal: no new onset incontinence, normal bowel movements reported Genitourinary: no new onset incontinence Musculoskeletal: Back pain, leg pain Psychiatric: normal mood/ affect Neurological: [denies new onset weakness in extremities], [denies new onset balance issues] Objective:: Physical Exam General: Alert and oriented x3, no acute distress, pleasant and cooperative, [on room air] Lungs: Resps E/U, Symmetrical chest expansion, Eyes: PERRL Musculoskeletal: Flexion and extension of lumbar spine somewhat guarded secondary to pain, deep tendon reflexes normal, strength in upper and lower extremities [5/5], slightly antalgic gait noted Neurological: speech clear, computer programming professor equal, no gross sensory deficits Assessment:: Degenerative disc disease lumbar spine with lumbar spinal stenosis and neurogenic claudication Plan:: Overall patient is doing well we will follow-up with her in 1 month reassess her symptoms at that time she has been instructed to call the office if she has any issues prior to her next appointment. Dr. Aguilar has reviewed this note and agrees with this plan of care. This note was dictated using voice recognition software and may contain errors or omissions [facility] History I have reviewed the patient's past medical history: Yes Medical History: Reports:: Cancer (thyroid), Gastroesophageal Reflux Disease (GERD), Hyperlipidemia, Hypertension Denies:: Diabetes Mellitus Type 1, Diabetes Mellitus Type 2, Internal Pacemaker, Lung Disease, MRSA, Seizures *Have you ever received a pneumonia vaccine?: Yes *Have you received a flu vaccine this season?: Yes Other Medical History: Reports: Hypothyroidism, Thyroid Disease. Denies: Blood Transfusion Reaction Laterality Cases: Bilateral: Tonsillectomy, Other Other Surgeries: Yes: Cancer Surgery, Colonoscopy, Colon Resection, Colostomy, EGD, Hysterectomy-Total, Sinus Surgery, Thyroidectomy, Other. No: Pacemaker Amputation: No Fractures: No - *Social History Smoking Status: Never smoker Alcohol Intake: never Alcohol Intake Frequency:: holidays/special occasions only Substance Use Type: denies use *Occupational Status:: other Housing: house Household Members: spouse *Travel in the last 8 weeks: None Family Hx:: Cancer, Diabetes, Heart Attack
== END ==
PROVIDERS: PCP Family Medicine; Visit Provider Clinical Nurse Specialist Family Health
DX: Z09 Encounter for follow-up examination after completed treatment for conditions other than malignant neoplasm (principal); M51.16 Intervertebral disc disorders with radiculopathy, lumbar region; M48.062 Spinal stenosis, lumbar region with neurogenic claudication
CPT/HCPCS: 99212

== ENCOUNTER → 2020-01-27 13:10 | Outpatient (CLI) | payer MEDICARE, SELFPAY ==
--- NOTE | 2020-01-27 13:13 | XR_ITS ---
PROCEDURE: XR DEXA AXIAL SKELETON CLINICAL HISTORY: POST MENOPAUSAL The COMPARISON: No exams were available for comparison FINDINGS: The distal radius 33 percent density is 0.679 grams/centimeters sq with a T-score of 0.2. Right femoral neck density is 0.949 grams/centimeters sq with a T-score of 0.9. Left femoral neck density is 0.877 grams/centimeters sq with a T-score of 0.3. L-spine density not utilized due to sclerosis IMPRESSION: Normal bone density. Recommend follow-up exam in 2 years Dictated by: Ollie Laguna MD 01/28/2020 07:47 Electronically signed by Ollie Laguna MD in [place] 01/28/2020 07:47
== END ==
PROVIDERS: PCP Family Medicine; Visit Provider Obstetrics & Gynecology
DX: Z78.0 Asymptomatic menopausal state (principal); E07.9 Disorder of thyroid, unspecified
CPT/HCPCS: 77080

== ENCOUNTER → 2020-02-01 09:04 | Outpatient (POV) | payer MEDICARE, SELFPAY ==
[2020-02-01 09:14] VITALS: BP 185/89; PULSE 83; RESP 18; O2SAT 98; BMI 35.2
--- NOTE | 2020-02-01 09:23 | HMH.PAINSOAP ---
[facility] Pain Management SOAP Note Subjective:: Patient is pleasant 64-year-old white female who presents today for follow-up. Patient had a mild procedure and was doing well until just recently on Saturday she had a extreme pain after rotational movement of her lumbar spine. Patient rates her pain a 10 out of 10 she is extremely uncomfortable unable to sleep. She is unable to stand up or lay down. She has radiation of pain into bilateral lower extremities ROS General: no recent weight change, no fever, no sleep disturbances Respiratory: no cough, no shortness of air, no recurring pulmonary infections Cardiovascular/Peripheral Vascular: No chest pain, No palpitations, no edema, no shortness of breath. Gastrointestinal: no new onset incontinence, normal bowel movements reported Genitourinary: no new onset incontinence Musculoskeletal: Back pain, leg pain Psychiatric: normal mood/ affect Neurological: [denies new onset weakness in extremities], [denies new onset balance issues] Objective:: Physical Exam General: Alert and oriented x3, no acute distress, pleasant and cooperative, [on room air] Lungs: Resps E/U, Symmetrical chest expansion, Eyes: PERRL Musculoskeletal: Flexion and extension of lumbar spine somewhat guarded secondary to pain, deep tendon reflexes normal, strength in upper and lower extremities [5/5], [abnormal gait noted] Neurological: speech clear, keypuncher equal, no gross sensory deficits Assessment:: Degenerative disc disease lumbar spine lumbar spinal stenosis with neurogenic claudication status post mild procedure Plan:: We will give the patient prednisone 20 mg 1 p.o. twice daily for 5 days we will also give her Robaxin 500 mg 1 p.o. 3 times daily to see if this is beneficial. If she is not feeling better by Saturday we will plan on a L4-L5 lumbar epidural steroid injection to help with pain. She is not on any anticoagulation therapy. I will follow-up with her after this reassess her symptoms at that time she has been instructed to call the office if she has any issues prior to her next appointment. Dr. Aguilar has reviewed this note and agrees with this plan of care. This note was dictated using voice recognition software and may contain errors or omissions [facility] History I have reviewed the patient's past medical history: Yes Medical History: Reports:: Cancer (thyroid), Gastroesophageal Reflux Disease(GERD), Hyperlipidemia, Hypertension Denies:: Diabetes Mellitus Type 1, Diabetes Mellitus Type 2, Internal Pacemaker, Lung Disease, MRSA, Seizures *Have you ever received a pneumonia vaccine?: Yes *Have you received a flu vaccine this season?: Yes Other Medical History: Reports: Hypothyroidism, Thyroid Disease. Denies: Blood Transfusion Reaction Laterality Cases: Bilateral: Tonsillectomy, Other Other Surgeries: Yes: Cancer Surgery, Colonoscopy, Colon Resection, Colostomy, EGD, Hysterectomy-Total, Sinus Surgery, Thyroidectomy, Other. No: Pacemaker Amputation: No Fractures: No - *Social History Smoking Status: Never smoker Alcohol Intake: never Alcohol Intake Frequency:: holidays/special occasions only Substance Use Type: denies use *Occupational Status:: other Housing: house Household Members: spouse *Travel in the last 8 weeks: None Family Hx:: Cancer, Diabetes, Heart Attack
== END ==
PROVIDERS: PCP Family Medicine; Visit Provider Clinical Nurse Specialist Family Health
DX: M48.062 Spinal stenosis, lumbar region with neurogenic claudication (principal); M51.36 Other intervertebral disc degeneration, lumbar region; Z98.890 Other specified postprocedural states
CPT/HCPCS: 99212

== ENCOUNTER 2020-02-05 08:31 | Day surgery (SDC) | payer MEDICARE, SELFPAY ==
[2020-02-05 08:50] VITALS: BP 160/87; PULSE 70; RESP 18; TEMP 36.4; O2SAT 96; BMI 35.2
[2020-02-05 09:33] VITALS: BP 182/89; PULSE 85; RESP 18
[2020-02-05 09:34] VITALS: BP 185/88; PULSE 88; RESP 18; O2SAT 99
--- NOTE | 2020-02-05 09:41 | P.PCN_ITS ---
- Procedure Date: 02/05/20 Time: 09:41 Anesthesiologist:: Maycol Aguilar MD Complications:: None Pre-procedure Diagnosis:: Degenerative disc disease of lumbar spine with lumbar radiculopathy symptoms and spinal stenosis Post-procedure Diagnosis:: Same Indications for Procedure:: This patient is a pleasant 64-year-old white female who we are treating for low back pain with spinal stenosis and neurogenic claudication symptoms. She was doing well up until last week when she was twisting and tweaked her low back having some increased pain on her left side going all the way down her leg. We will do a lumbar pleural steroid injection today to help her with her exacerbated pain. Most of her pain is on her left side going all the way down her leg. Procedure Details:: Lumbar epidural steroid injection under fluoroscopy Informed consent was obtained and the risk and benefits of the procedure was explained to the patient. The patient was taken to the procedure room. The patient was placed prone on the procedure table. The patient was prepped and draped in sterile fashion. C-arm fluoroscopy was used to view the lumbar spine. Skin and subcutaneous tissues were anesthetized using lidocaine. I placed an 18-gauge epidural needle and advanced into the L4-L5 interspace using fluoroscopic guidance and [id number] to air. After confirmation of n eedle placement in the epidural space with dye I injected 2 mL of lidocaine 1.5% with Depo-Medrol 80 mg. Patient tolerated the procedure well with no complications. Plan and Disposition:: We will follow-up with her and 2 weeks. Will reevaluate symptoms at that time.
[2020-02-05 09:45] VITALS: BP 145/91; PULSE 62; RESP 18; O2SAT 96
== END 2020-02-05 09:45 | disposition home or self-care (01) ==
LOC: SC.PAINP 08:33
PROVIDERS: PCP Family Medicine; Visit Provider Anesthesiology
DX: M51.16 Intervertebral disc disorders with radiculopathy, lumbar region (principal); M48.062 Spinal stenosis, lumbar region with neurogenic claudication; I10 Essential (primary) hypertension; K21.9 Gastro-esophageal reflux disease without esophagitis; E78.5 Hyperlipidemia, unspecified; E89.0 Postprocedural hypothyroidism; Z85.850 Personal history of malignant neoplasm of thyroid; Z90.49 Acquired absence of other specified parts of digestive tract; Z90.710 Acquired absence of both cervix and uterus; Z80.9 Family history of malignant neoplasm, unspecified; Z82.49 Family history of ischemic heart disease and other diseases of the circulatory system; Z91.048 Other nonmedicinal substance allergy status
CPT/HCPCS: 62323; J1040; Q9966

== ENCOUNTER → 2020-02-15 09:44 | Outpatient (POV) | payer MEDICARE, SELFPAY ==
[2020-02-15 09:59] VITALS: BP 142/71; PULSE 81; RESP 18; O2SAT 98; BMI 29.0
--- NOTE | 2020-02-15 10:26 | HMH.PAINSOAP ---
[facility] Pain Management SOAP Note Subjective:: Is a pleasant 64-year-old white female who we are treating for low back pain with spinal stenosis and neurogenic claudication. Patient is doing slightly better after her lumbar epidural steroid injection she rates her pain a 2 out of 10 however she states that any activity increases it significantly. Patient is unable to lay in bed. Most of her pain now is in her left leg. Patient is not having any low back pain just left radicular symptomology. Patient and I discussed an additional left transforaminal epidural steroid injection. She would like to pursue this. She is not on any anticoagulation therapy. ROS General: no recent weight change, no fever, no sleep disturbances Respiratory: no cough, no shortness of air, no recurring pulmonary infections Cardiovascular/Peripheral Vascular: No chest pain, No palpitations, no edema, no shortness of breath. Gastrointestinal: no new onset incontinence, normal bowel movements reported Genitourinary: no new onset incontinence Musculoskeletal: Back pain, leg pain Psychiatric: normal mood/ affect Neurological: [denies new onset weakness in extremities], [denies new onset balance issues] Objective:: Physical Exam General: Alert and oriented x3, no acute distress, pleasant and cooperative, [on room air] Lungs: Resps E/U, Symmetrical chest expansion, Eyes: PERRL Musculoskeletal: Flexion and extension of lumbar spine somewhat guarded secondary to pain, deep tendon reflexes normal, strength in upper and lower extremities [5/5], [abnormal gait noted] Neurological: speech clear, 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 I will follow-up with patient after this reassess her symptoms at that time she has been instructed to call the office if she has any issues prior to her next appointment. Dr. Aguilar has reviewed this note and agrees with this plan of care. This note was dictated using voice recognition software and may contain errors or omissions [facility] History I have reviewed the patient's past medical history: Yes Medical History: Reports:: Gastroesophageal Reflux Disease(GERD), Hyperlipidemia, Hypertension Denies:: Cancer, Diabetes Mellitus Type 1, Diabetes Mellitus Type 2, Internal Pacemaker, Lung Disease, MRSA, Seizures *Have you ever received a pneumonia vaccine?: Yes *Have you received a flu vaccine this season?: Yes Other Medical History: Reports: Hypothyroidism, Thyroid Disease. Denies: Blood Transfusion Reaction Laterality Cases: Bilateral: Tonsillectomy, Other Other Surgeries: Yes: Cancer Surgery, Colonoscopy, Colon Resection, Colostomy, EGD, Hysterectomy-Total, Sinus Surgery, Thyroidectomy, Other. No: Pacemaker Amputation: No Fractures: No - *Social History Smoking Status: Never smoker Alcohol Intake: never Alcohol Intake Frequency:: holidays/special occasions only Substance Use Type: denies use *Occupational Status:: other Housing: house Household Members: spouse *Travel in the last 8 weeks: None Family Hx:: Cancer, Diabetes, Heart Attack
== END ==
PROVIDERS: PCP Family Medicine; Visit Provider Clinical Nurse Specialist Family Health
DX: M51.16 Intervertebral disc disorders with radiculopathy, lumbar region (principal); M48.062 Spinal stenosis, lumbar region with neurogenic claudication
CPT/HCPCS: 99212

== ENCOUNTER 2020-02-26 11:28 | Day surgery (SDC) | payer MEDICARE, SELFPAY ==
[2020-02-26 11:42] VITALS: BP 119/82; PULSE 89; RESP 18; TEMP 36.6; O2SAT 94; BMI 35.5
[2020-02-26 12:21] VITALS: BP 135/55; BP 138/88; PULSE 79; PULSE 85; RESP 18; O2SAT 98
--- NOTE | 2020-02-26 12:37 | HMH.PMPROC ---
- Procedure Date: 02/26/20 Time: 12:37 Anesthesiologist:: Maycol Aguilar MD Complications:: None Pre-procedure Diagnosis:: Degenerative disc disease of lumbar spine with lumbar radicular symptoms down the left leg Post-procedure Diagnosis:: Same Indications for Procedure:: This patient is a pleasant 64-year-old white female who we have been treating for low back pain with lumbar radicular symptoms. Her low back is doing much better. She now has just left leg radicular symptoms into her calf and foot. We will do left transforaminal epidural steroid injections of L4-5 and L5-S1 today. Procedure Details:: Transforaminal epidural steroid injection Informed consent was obtained risk and benefits of the procedure were explained to the patient. Patient was taken to the procedure room. The back was prepped using ChloraPrep. The skin and subcutaneous tissues were anesthetized using lidocaine. A 22-gauge needle was placed into the intervertebral foramen of L4-5 and L5-S1 the left side. Needle placement was confirmed with dye. We then injected 5 mL bupivacaine 0.25% Depo-Medrol 20 mg into each transfemoral epidural space of L4-5 and L5-S1. We use a total of 40 mg Depo-Medrol for both levels. The patient tolerated the procedure well with no complications. Plan and Disposition:: We will follow-up with her in 2 weeks. Will reevaluate symptoms at that time.
[2020-02-26 13:18] VITALS: BP 135/73; PULSE 74; RESP 18; O2SAT 98
== END 2020-02-26 13:19 | disposition home or self-care (01) ==
LOC: SC.PAINP 11:29
PROVIDERS: PCP Family Medicine; Visit Provider Anesthesiology
DX: M51.16 Intervertebral disc disorders with radiculopathy, lumbar region (principal); E78.5 Hyperlipidemia, unspecified; I10 Essential (primary) hypertension; E89.0 Postprocedural hypothyroidism; Z85.850 Personal history of malignant neoplasm of thyroid; Z87.19 Personal history of other diseases of the digestive system; Z87.39 Personal history of other diseases of the musculoskeletal system and connective tissue; Z90.89 Acquired absence of other organs; Z79.890 Hormone replacement therapy; Z79.899 Other long term (current) drug therapy; Z91.048 Other nonmedicinal substance allergy status
CPT/HCPCS: 62323; J1040; Q9966

== ENCOUNTER → 2020-03-17 11:41 | Outpatient (POV) | payer MEDICARE, SELFPAY ==
[2020-03-17 12:33] VITALS: BP 133/78; PULSE 85; RESP 18; O2SAT 98; BMI 35.2
--- NOTE | 2020-03-17 12:44 | HMH.PAINSOAP ---
[facility] Pain Management SOAP Note Subjective:: Patient is a pleasant 64-year-old white female who presents today for follow-up. She has been treated for low back pain with radiation into her left leg. Patient has undergone a minimally invasive lumbar decompression procedure. She rates her pain a 0 out of 10. She says she has some numbness and tingling in her lower extremity. She also underwent left transforaminal epidural steroid injections at L4-L5 and L5-S1. Patient says she did get relief. She is, however, now having pain in her low back. She would like to try an injection again. She is not on any anticoagulation therapy. Review of Systems General: No recent weight changes, no fever, no sleep disturbances Respiratory: No cough, no shortness of air, no recurring pulmonary infections Cardiovascular/peripheral vascular: No chest pain, no palpitations, no edema, no shortness of breath Gastrointestinal: No new onset incontinence, normal bowel movements reported Genitourinary: No new onset incontinence Musculoskeletal: Low back pain Psychiatric: Normal mood/affect Neurological: [Denies weakness in extremities], [denies balance issues] Objective:: Physical exam General: Alert and oriented x3, no acute distress, pleasant and cooperative, [on room air] Lungs: Respirations even and unlabored, symmetrical chest expansion Eyes: PERRL Musculoskeletal: Flexion and extension of lumbar spine somewhat guarded secondary to pain, deep tendon reflexes normal, strength in upper and lower extremities [5/5], [abnormal gait noted] Neurological: Speech clear, statistical assistant equal, no gross sensory deficit Assessment:: Degenerative disc disease lumbar spine with lumbar radiculopathy symptoms Plan:: We will schedule her for a lumbar epidural steroid injection at L4-L5. She is not on any anticoagulation therapy. We will see her back in the clinic afterwards to reassess her symptoms and see if it is helping with her mid low back pain. She has been instructed to contact clinic if she has any concerns before next appointment. The patient and I specifically discussed risk factors for COVID19. These risks include, but are not limited to age greater than 60, heart or lung disease, diabetes, immunosuppression, and travel. We also discussed NSAIDs may worsen COVID19 infection or symptoms. Patient should not use NSAIDs to treat COVID19 signs or symptoms. Patient was also informed that any type of corticosteroid of any form (oral or injection) will decrease the patient's immune system response and may increase the likelihood of COVID19 infection [address] symptoms[address]. Aguilar has reviewed this note and agrees with this plan of care. This note was dictated using voice recognition software and make contain errors or omissions. [facility] History I have reviewed the patient's past medical history: Yes Medical History: Reports:: Cancer (Thyroid), Gastroesophageal Reflux Disease(GERD), Hyperlipidemia, Hypertension Denies:: Diabetes Mellitus Type 1, Diabetes Mellitus Type 2, Internal Pacemaker, Lung Disease, MRSA, Seizures *Have you ever received a pneumonia vaccine?: Yes *Have you received a flu vaccine this season?: Yes Other Medical History: Reports: Hypothyroidism, Thyroid Disease. Denies: Blood Transfusion Reaction Laterality Cases: Bilateral: Tonsillectomy, Other Other Surgeries: Yes: Cancer Surgery, Colonoscopy, Colon Resection, Colostomy, EGD, Hysterectomy-Total, Sinus Surgery, Thyroidectomy, Other. No: Pacemaker Amputation: No Fractures: No - *Social History Smoking Status: Never smoker Alcohol Intake: current Alcohol Intake Frequency:: holidays/special occasions only Substance Use Type: denies use *Occupational Status:: other Housing: house Household Members: spouse *Travel in the last 8 weeks: None Family Hx:: Cancer, Diabetes, Heart Attack
== END ==
PROVIDERS: PCP Family Medicine; Visit Provider Clinical Nurse Specialist Family Health
DX: M51.16 Intervertebral disc disorders with radiculopathy, lumbar region (principal)
CPT/HCPCS: 99212

== ENCOUNTER 2020-03-25 11:08 | Day surgery (SDC) | payer MEDICARE, SELFPAY ==
[2020-03-25 11:50] VITALS: BP 139/80; PULSE 82; RESP 18; TEMP 36.4; O2SAT 96; BMI 35.2
[2020-03-25 12:23] VITALS: BP 138/78; BP 140/78; PULSE 85; RESP 18; O2SAT 98
--- NOTE | 2020-03-25 12:29 | P.PCN_ITS ---
- Procedure Date: 03/25/20 Time: 12:29 Anesthesiologist:: Maycol Aguilar MD Complications:: None Pre-procedure Diagnosis:: Degenerative disc disease of lumbar spine with lumbar radiculopathy symptoms Post-procedure Diagnosis:: Same Indications for Procedure:: This patient is a pleasant 64-year-old white female who we have been treating for low back pain with lumbar radiculopathy symptoms and spinal stenosis with neurogenic claudication symptoms. She is status post minimally invasive lumbar decompression and transforaminal epidural steroid injection. She continues to have some increasing pain in her low back and left leg. This is worse with some activity. We will do lumbar epidural steroid injection today as she is having some increasing low back pain radiating to left hip. Procedure Details:: Lumbar epidural steroid injection under fluoroscopy Informed consent was obtained and the risk and benefits of the procedure was explained to the patient. The patient was taken to the procedure room. The patient was placed prone on the procedure table. The patient was prepped and draped in sterile fashion. C-arm fluoroscopy was used to view the lumbar spine. Skin and subcutaneous tissues were anesthetized using lidocaine. I placed an 18-gauge epidural needle and advanced into the L4-L5 interspace using fluoroscopic guidance and [id number] to air. After confirmation of needle placement in the epidural space with dye I injected 2 mL of lidocaine 1.5% with Depo-Medrol 80 mg. Patient tolerated the procedure well with no complications. Plan and Disposition:: We will follow-up with her in 2 weeks. Will reevaluate symptoms at that time. We will give her information on spinal cord stimulation which will be more of a definitive therapy for her. We will give her information on the [email or web address] system and have the termite control service representative contact her. Believe she would be a good candidate for spinal cord stimulation to help with her low back pain and left leg pain.
[2020-03-25 12:45] VITALS: BP 124/73; PULSE 78; RESP 18; O2SAT 96
== END 2020-03-25 12:46 | disposition home or self-care (01) ==
LOC: SC.PAINP 11:08
PROVIDERS: PCP Family Medicine; Visit Provider Anesthesiology
DX: M51.16 Intervertebral disc disorders with radiculopathy, lumbar region (principal); Z87.39 Personal history of other diseases of the musculoskeletal system and connective tissue; Z87.19 Personal history of other diseases of the digestive system; Z90.89 Acquired absence of other organs; E89.0 Postprocedural hypothyroidism; Z79.899 Other long term (current) drug therapy; Z79.890 Hormone replacement therapy; Z91.048 Other nonmedicinal substance allergy status
CPT/HCPCS: 62323; J1040; Q9966

== ENCOUNTER 2020-04-20 13:54 | Day surgery (SDC) | payer MEDICARE, SELFPAY ==
[2020-04-20 14:41] VITALS: BP 175/86; PULSE 78; RESP 18; O2SAT 97; BMI 29.0
[2020-04-20 15:16] VITALS: BP 142/78; PULSE 85; RESP 18; TEMP 36.8; O2SAT 98
[2020-04-20 15:18] VITALS: BP 142/78; PULSE 85; RESP 18; O2SAT 98
[2020-04-20 15:23] VITALS: BP 136/76; PULSE 69; RESP 18; O2SAT 96
--- NOTE | 2020-04-20 15:35 | HMH.PMPROC ---
- Procedure Date: 04/20/20 Time: 15:35 Anesthesiologist:: Maycol Aguilar MD Complications:: None Pre-procedure Diagnosis:: Sacroiliitis Post-procedure Diagnosis:: Same Indications for Procedure:: This patient is a pleasant 64-year-old white female who we have been treating for low back pain with lumbar spinal stenosis and neurogenic claudication symptoms. She is also had some residual left leg radicular symptoms. She is done well in the past with epidural steroid injections and a left transforaminal epidural steroid injection. She is also had a mild procedure a few months ago. She is now developed some acute left-sided hip and leg pain. This occurred while she was standing in the grocery store. Pain is going all the way down her left leg. She is tender over her left SI joint. She has a positive Corey's test on left side. She has a positive Niecy test on left side. She has a positive SI joint compression test. Her pain may be originating from her left SI joint. We will do a left SI joint injection under fluoroscopy today to see if this helps with her pain symptoms. She is scheduled for a MRI of the lumbar spine on Saturday. We will evaluate this MRI to discern any changes and possible neurosurgical evaluation. Procedure Details:: Left SI joint injection under fluoroscopy Informed consent was obtained and the risks and benefits of the procedure was explained to the patient. Patient was taken to the procedure room. Patient was placed prone on the procedure table. The left hip was prepped using ChloraPrep. The skin and subcutaneous tissues were anesthetized using lidocaine. I placed a 22-gauge spinal needle into the inferior aspect of the left SI joint. Needle placement was confirmed with dye. After this we injected 5 mL bupivacaine 0.25% and Depo-Medrol 40 mg into the left SI joint. The patient tolerated the procedure well with no complication. Plan and Disposition:: We will follow-up with her next week. We will reevaluate her symptoms. We will follow-up on MRI of the lumbar spine. If she does need neurosurgical evaluation we will send her to Dr. Fatima.
== END 2020-04-20 15:23 | disposition home or self-care (01) ==
LOC: SC.PAINP 13:56
PROVIDERS: PCP Family Medicine; Visit Provider Anesthesiology
DX: M46.1 Sacroiliitis, not elsewhere classified (principal); I10 Essential (primary) hypertension; K21.9 Gastro-esophageal reflux disease without esophagitis; E03.9 Hypothyroidism, unspecified; E78.5 Hyperlipidemia, unspecified; F41.9 Anxiety disorder, unspecified; F32.9 Major depressive disorder, single episode, unspecified; Z87.39 Personal history of other diseases of the musculoskeletal system and connective tissue; Z90.89 Acquired absence of other organs
CPT/HCPCS: 27096; G0260; J1040; Q9966

== ENCOUNTER 2020-04-21 18:26 | Observation (INO) | payer MEDICARE, SELFPAY ==
[2020-04-21] VITALS (7 sets, daily range): BP systolic 142–197; BP diastolic 89–103; PULSE 57–92; RESP 18–22; TEMP 36.3–36.8; O2SAT 91–98; BMI 35.2; BMI 33.5
--- NOTE | 2020-04-21 18:39 | HMH.EDGENADL ---
ED Disposition Clinical Impression: Lumbar radiculopathy Sciatica Qualifiers: Laterality: left Qualified Code(s): M54.32 - Sciatica, left side Disposition: Admitted as Observation Condition on Discharge: Fair Referrals: Deana Veras [Primary Care Provider] - - Critical Care Critical Care Time: No Attestation: On 04/21/20, the high probability of a clinically significant, sudden or life threatening deterioration of the following system(s) required my full and direct attention, intervention and personal management. The time I documented below is in addition to time spent performing reported procedures but includes the following listed in this critical care notation. Medical Decision Making - Medical Records Medical records reviewed: Yes: I reviewed the patient's medical records. - Juliano Inquiry Pt receiving controlled substance: Yes Juliano was queried for this patient: No Reason not queried -: Emergent pt cond-no time Risks and benefits of using a controlled substance: were not discussed with pt by me Vital Signs: 04/21/20 18:32 04/21/20 19:11 04/21/20 19:12 Temperature 98.2 F Temperature Source Oral Pulse Rate [Radial] 92 H 68 Respiratory Rate 22 Blood Pressure [Right Arm] 197/103 H 177/100 H Blood Pressure Mean [Right Arm] 134 125 Blood Pressure Position [Right Arm] Sitting 02 Sat by Pulse Oximetry 98 91 L 94 L Oxygen Delivery Method Room Air Room Air Nasal Cannula Oxygen Flow Rate (LPM) 2 - Lab Data Lab Results 04/21/20 18:45: WBC 19.3 H, RBC 5.24, Hgb 15.6, Hct 45.2, MCV 86.1, MCH 29.8, MCHC 34.6, RDW 14.9, Plt Count 351, MPV 8.3, Neut % (Auto) 78.1, Lymph % (Auto) 15.3, [place] % (Auto) 4.9, Eos % (Auto) 1.1, Baso % (Auto) 0.6, Neut # (Auto) 15.1 H, Lymph # (Auto) 3.0, [place] # (Auto) 0.9, Eos # (Auto) 0.2, Baso # (Auto) 0.1 04/21/20 18:45: Sodium 141, Potassium 4.2, Chloride 108 H Result diagrams: 04/21/20 18:45 04/21/20 18:45 Orders (Tests/Meds): ED MEDICATIONS Discontinued Medications Generic Name Dose Route Start Last Admin Trade Name Jack PRN Reason Stop Dose Admin Dexamethasone Sodium Phosphate 10 mg 04/21/20 18:51 04/21/20 19:06 Decadron 4mg/Ml 1ml Vial IV 04/21/20 18:52 10 mg ONCE ONE Administration Hydromorphone HCl 1 mg 04/21/20 18:51 04/21/20 19:06 Dilaudid 2mg/Ml Syringe IV 04/21/20 18:52 1 mg ONCE ONE Administration Ondansetron HCl 4 mg 04/21/20 18:51 04/21/20 19:06 Zofran 4mg/2ml Vial IV 04/21/20 18:52 4 mg ONCE ONE Administration ORDERS Category Date Time Status BMP [Basic Metabolic Panel] Stat Lab 04/21/20 18:45 Results Complete Blood Count Auto Diff Stat Lab 04/21/20 18:45 Results - Physician Consults Physician Consulted: [place] Time: 19:10 Reason -: Admission Comment/Response: Agrees to admit the patient to the hospital. We discussed the patient's clinical information, including history, exam, laboratory and radiology results and ED course. Per hospital procedure, I will write temporary bridge inpatient orders on the patient. Specific orders requested by the admitting physician: Pain medication and intravenous steroids. Advises that this will likely be the extent of what we can offered the patient. Likely would not be able to get an MRI done here. In fact, patient says that she is having her MRI done in [place] because it is an open MRI, which is not available here. Likely will be discharged tomorrow. I explained all this to the patient and she is agreeable. General Adult HPI - General Chief complaint: Back Pain/Injury Stated complaint: leg pain Time Seen by Provider: 04/21/20 18:40 Mode of Arrival: Ambulatory Limitations: No Limitations Description of Symptoms (Recalled from ER Triage Doc. by RN): TO ED PER PVT CAR WITH C/O LOWER BACK PAIN RADIATING DOWN LT LEG PAIN PROGRESSIVELY GETTING WORSE SEEN BY DR COOL YESTERDAY AND GIVEN STEROID INJECTION PT STATES NO IMPROVEMENT WITH MEDICATIONS. D
--- NOTE | 2020-04-21 19:05 | PC.NURSE ---
Dr. Brown speaking with Dr Nice.
[2020-04-21 19:09] LABS: Basophils # 0.1 K/mm3 (0-0.2); Basophils % 0.6 % (0.1-2.0); Eosinophils # 0.2 K/mm3 (0.0-0.4); Eosinophils % 1.1 % (0.1-12.0); Hematocrit 45.2 % (37.0-47.0); Hemoglobin 15.6 g/dL (12.2-16.2); Lymphocytes % 15.3 % (10-50); Mean Corpuscular HGB Conc 34.6 g/dL (31.8-35.4); Mean Corpuscular Hemoglobin 29.8 pg (27.0-31.2); Mean Corpuscular Volume 86.1 fl (81-99); Mean Platelet Volume 8.3 fl (7.4-10.4); Monocytes # 0.9 K/mm3 (0.1-1.0); Monocytes % 4.9 % (1.7-9.3); Neutrophils # 15.1 K/mm3 (1.8-7.8); Neutrophils % 78.1 % (37.0-80.0); Platelet Count 351 K/mm3 (142-424); Red Blood Count 5.24 M/mm3 (4.20-5.40); Red Cell Distribution Width 14.9 % (11.5-17.5); White Blood Count 19.3 K/mm3 (4.8-10.8)
[2020-04-21 19:10] LABS: MANUAL DIFFERENTIAL MANUAL DIFFERENTIAL (MANUAL DIFF)
[2020-04-21 19:13] LABS: Chloride 108 mmol/L (98-107); Potassium 4.2 mmoL/L (3.5-5.1); Sodium 141 mmol/L (136-145)
[2020-04-21 19:16] LABS: Anion Gap 15.2 mEq/L (5-15); Blood Urea Nitrogen 26 mg/dl (7-17); Calcium 8.7 mg/dl (8.4-10.2); Carbon Dioxide 22 mmol/L (22.0-30.0); Creatinine Clearance Estimated 86 mL/min (50-200); Estimated Glomerular Filt Rate 55 ml/min (>60); GFR (African American) 67 ML/MIN (>60); Glucose 162 mg/dl (74-100)
[2020-04-21 19:23] LABS: Lymphocytes % 15 % (10-50); Monocytes % 4 % (2-9); Neutrophils % 81 % (42-76); Total Cells Counted 100
[2020-04-21 19:24] LABS: Platelet Estimate Normal; RBC Morphology Normal
[2020-04-21 19:53] LABS: Coronavirus 19 IgG Antibody Negative (Negative); Coronavirus 19 IgM Antibody Negative (Negative)
--- NOTE | 2020-04-21 20:26 | PC.NURSE ---
PT ARRIVED TO THE FLOOR VIA STRETCHER W/STAFF FROM ED AT 2024.
--- NOTE | 2020-04-22 03:26 | PC.NURSE ---
Pt has rested intermittently this shift. Pt is A&O x4. Lung sounds remain clear t/o all fletcher. Pt has c/o left leg pain radiating to lower back x2 this shift. PRN pain meds administered per MAR. During reassessment, pt states pain is at a 0-1 on the numeric scale. Pt requested to use the bedpan x1 this shift, but was not able to use it comfortably, so pt then requested to use the toilet to urinate. Pt had to be assisted x2 to the bathroom. Pt did not tolerate walking to and from very well with x2 assist, and has stated she would rather use the bedpan for now. Pt has had one episode of N/V this shift. Small amount of clear emesis noted during episode. Pt refused PRN zofran stating throwing that up made me feel better, I don't need anything extra. Extra pillows applied to bed to help with leg pain along with left bottom rail of bed was brought up at pt's request so her leg can rest on the rail. No bowel movement noted this shift. Active bowel sounds in all 4 quads. Pt did refuse mag citrate this shift stating it's only been one day, I dont want to keep getting up to go to the bathroom . Call light remains within reach. No other acute changes at this time. Will continue to monitor.
[2020-04-22 04:00] VITALS: BP 139/78; PULSE 81; RESP 17; TEMP 36.6; O2SAT 94
--- NOTE | 2020-04-22 04:31 | PC.NURSE ---
Pt had an additional episode of N/V since previous note. Pt had a small amount of clear, yellow emesis. PRN zofran administered per MAR. Pain scale is at a 2 currently.
--- NOTE | 2020-04-22 07:25 | HMH.HP ---
*Admission Date: 04/22/20 *Chief complaint: Low back pain radiating to left leg *History of present illness: 64-year-old female with lumbar spinal stenosis and neurogenic claudication with left leg radiculopathy that is now been present to some degree for 2 months. Patient has been seeing local pain management and is recently as Saturday had an SI joint injection. Earlier in the week patient had been standing at a local grocery store when all of a sudden she developed pain in the lower left back radiating into the left hip and down the left leg to the calf. With straightening of her leg she admits that she will start to develop numbness and tingling in the toes. She describes pain as burning and throbbing. She was seen by Dr. Christopher scheduled for sacroiliac joint injection. Patient did not get any relief from the injection. Yesterday evening she presented to the emergency department with continued pain that was not responding to prednisone and Percocet 5 mg that her primary care physician had prescribed her. Patient seem to be in quite severe pain and was admitted for pain control. Patient has a previously scheduled MRI tomorrow. Patient has received a transient response from epidural steroid injections in the past. Patient has difficulty urinating and having a bowel movement secondary to her pain. She does get relief from pain by flexing, abducting and externally rotating the left hip. Currently she rates her pain at 1 while she is reclined in bed with her leg in its preferred position. [facility] History I have reviewed the patient's past medical history: Yes Medical History: Reports:: Cancer, Gastroesophageal Reflux Disease(GERD), Hyperlipidemia, Hypertension Denies:: Diabetes Mellitus Type 1, Diabetes Mellitus Type 2, Internal Pacemaker, Lung Disease, MRSA, Seizures *Have you ever received a pneumonia vaccine?: No *Have you received a flu vaccine this season?: No Other Medical History: Reports: Arthritis, Cataracts, Hypothyroidism, Sinus Problems, Thyroid Disease. Denies: Blood Transfusion Reaction Laterality Cases: Bilateral: Cataract, Tonsillectomy, Other Other Surgeries: Yes: Cancer Surgery, Colonoscopy, Colon Resection, Colostomy, EGD, Hysterectomy-Total, Sinus Surgery, Skin Cancer Excision, Thyroidectomy, Other (MILD procedure). No: Pacemaker Amputation: No Fractures: No - *Social History Last grade of school completed: Advanced degree Smoking Status: Never smoker Alcohol Intake: current Alcohol Intake Frequency:: holidays/special occasions only Substance Use Type: denies use *Occupational Status:: retired Housing: house Household Members: spouse *Travel in the last 8 weeks: None Family Hx:: Asthma, Cancer, Diabetes, Heart Attack, Hyperlipidemia, Hypertension Review of Systems - Constitutional Denies anorexia, Denies body ache(s), Denies chills - *Cardiovascular Denies chest pain, Denies chest pain at rest - *Respiratory Denies change in phlegm color, Denies chest congestion, Denies cough - *Gastrointestinal Denies abdominal pain, Denies belching, Denies bloating - *Musculoskeletal Reports abnormal walking, Reports joint pain, Reports back pain, Reports radiating pain into limb, Reports tingling (When leg is straight) - *Neurologic Reports tingling (Left toes) Meds Home Medications Medication Instructions Recorded Confirmed Type biotin 5 mg capsule 5 mg PO QDAY 08/07/17 04/21/20 History bisoprolol fumarate 5 mg tablet 5 mg PO QDAY 08/07/17 04/21/20 History fenofibrate nanocrystallized 145 145 mg PO ONCE 08/07/17 04/21/20 History mg tablet fexofenadine 180 mg tablet 180 mg PO Q24H 08/07/17 04/21/20 History magnesium 250 mg tablet 250 mg PO ONCE 08/07/17 04/21/20 History omeprazole 20 mg capsule,delayed 20 mg PO ONCE 08/07/17 04/21/20 History release Ipratropium [place] [Ipratropium 1 spray NS HS 04/03/18 04/21/20 History [place] 0.021mg/act NS] levothyroxine 200 mcg tablet 175 mcg PO DAILY #30 tab 11/25/
--- NOTE | 2020-04-22 07:38 | HMH.PHAVTE ---
[facility] Pharmacy VTE Monitoring - Patient Demographics Admission date: 04/22/20 Report Date: 04/22/20 Time: 07:38 Allergies/Adverse Reactions: Patient Allergies adhesive tape [ADHESIVE TAPE] Allergy (Intermediate, Verified 04/20/20 14:41) I-RASH Height: 1.68 m Weight: 94.064 kg Patient Problems: Current Active Problems Lumbar radiculopathy (Acute) Sciatica (Acute) Lumbar spinal stenosis (Acute) - VTE Risk Labs: VTE Related Lab Results Hgb 15.6 g/dL (12.2-16.2) 04/21/20 18:45 Hct 45.2 % (37.0-47.0) 04/21/20 18:45 Plt Count 351 K/mm3 (142-424) 04/21/20 18:45 BUN 26 mg/dl (7-17) H 04/21/20 18:45 Creatinine 1.00 mg/dl (0.52-1.04) 04/21/20 18:45 Estimated Creat Clear 86 mL/min (50-200) 04/21/20 18:45 Was VTE Risk Assessment Performed: Yes VTE Score: 6 VTE Risk Level: Moderate Risk Clinical Trial Participant: No - Prophylaxis VTE Prophylaxis Ordered?: Yes Types of VTE Prophylaxis: TEDS Knee High Location of Applied Device: Bilateral Lower Extremeties
[2020-04-22 07:55] VITALS: BP 148/80; PULSE 73; RESP 18; TEMP 36.4; O2SAT 92
--- NOTE | 2020-04-22 08:10 | PC.NURSE ---
spoke with office about consult
[2020-04-22 08:11] VITALS: PULSE 73; RESP 18; O2SAT 92
--- NOTE | 2020-04-22 12:46 | HMH.PMCON ---
Assessment and Plan (1) Lumbar radiculopathy Current visit: Yes Status: Acute Category: Medical Code(s): M54.16 - Radiculopathy, lumbar region (2) Lumbar spinal stenosis Current visit: Yes Status: Acute Category: Medical Code(s): M48.061 - Spinal stenosis, lumbar region without neurogenic claudication (3) Sciatica Current visit: Yes Status: Acute Qualifiers: Laterality: left Qualified Code(s): M54.32 - Sciatica, left side Category: Medical Code(s): M54.30 - Sciatica, unspecified side - Assessment and plan all Dx Assessment and Plan for all problems:: We will await results from her MRI which she is getting on Saturday. We have addressed and done a left SI joint injection which hopefully will help relieve some of her symptoms. This was done on Saturday. We will follow-up with her MRI Saturday to determine whether she needs neurosurgical consultation. HPI - Data of Consult Patient: known to practice within the last 3 years Consult date: 04/22/20 Requesting Physician: Harvinder Nice MD Primary Care Provider: Deana Veras - Consult Narrative Reason for consult: Increasing left leg pain History of present illness: Ms. Gonzalez is a 64 year old female who is well-known to is being treated for degenerative disc disease of lumbar spine with lumbar radiculopathy symptoms. She has had epidural steroid injections in the past along with a minimally invasive lumbar decompression several months ago. She also recently had a left SI joint injection 2 days ago. She has had some acute left leg pain which started last Saturday. Patient has trouble walking. She has pain if her leg is extended. There does not knee seem to be any neurological deficits. Motor strength of the lower extremities is 5 out of 5. There is no gross sensory deficit. Patient does have increasing pain while standing and walking. All of this is left leg radicular symptoms all the way to her foot. CC: Harvinder Nice MD [facility] History I have reviewed the patient's past medical history: Yes Medical History: Reports:: Cancer, Gastroesophageal Reflux Disease(GERD), Hyperlipidemia, Hypertension Denies:: Diabetes Mellitus Type 1, Diabetes Mellitus Type 2, Internal Pacemaker, Lung Disease, MRSA, Seizures *Have you ever received a pneumonia vaccine?: No *Have you received a flu vaccine this season?: No Other Medical History: Reports: Arthritis, Cataracts, Hypothyroidism, Sinus Problems, Thyroid Disease. Denies: Blood Transfusion Reaction Laterality Cases: Bilateral: Cataract, Tonsillectomy, Other Other Surgeries: Yes: Cancer Surgery, Colonoscopy, Colon Resection, Colostomy, EGD, Hysterectomy-Total, Sinus Surgery, Skin Cancer Excision, Thyroidectomy, Other (MILD procedure). No: Pacemaker Amputation: No Fractures: No - *Social History Last grade of school completed: Advanced degree Smoking Status: Never smoker Alcohol Intake: current Alcohol Intake Frequency:: holidays/special occasions only Substance Use Type: denies use *Occupational Status:: retired Housing: house Household Members: spouse *Travel in the last 8 weeks: None Family Hx:: Asthma, Cancer, Diabetes, Heart Attack, Hyperlipidemia, Hypertension Review of Systems - Review of Systems Review of systems:: pertinent systems reviewed and negative unless documented below - *Musculoskeletal Reports radiating pain into limb, Reports tingling - *Neurologic Reports abnormal walking, Reports tingling (When leg is straight) Meds Home Medications Medication Instructions Recorded Confirmed Type bisoprolol fumarate 5 mg tablet 5 mg PO DAILY 08/07/17 04/22/20 History fenofibrate nanocrystallized 145 145 mg PO DAILY 08/07/17 04/22/20 History mg tablet fexofenadine 180 mg tablet 180 mg PO DAILY 08/07/17 04/22/20 History omeprazole 20 mg capsule,delayed 20 mg PO BID 08/07/17 04/22/20 History release Ipratropium [place] [Ipratropium 1 spray NS HS 04/03/18 04/21/20 Histo
--- NOTE | 2020-04-22 15:45 | PC.NURSE ---
Pt has been pleasant and cooperative this shift. A&O X4. Pt has had frequent complaints of pain and has been medicated per MAR with Percocet. Pt received Zofran before receiving Decadron and has not had any nausea or vomiting. Lungs CTA. No edema noted. Pt ambulates with stand-by assistance to the bathroom and voids clear, yellow urine without issue. No BM this shift. 20 G peripheral IV in the LT AC is patent and SL. VSS. Call light within reach.
[2020-04-22 16:00] VITALS: BP 135/72; PULSE 68; RESP 18; TEMP 36.5; O2SAT 98
--- NOTE | 2020-04-22 19:14 | PC.NURSE ---
report given to barbie
[2020-04-22 19:30] VITALS: PULSE 63; RESP 16; O2SAT 93
[2020-04-22 21:14] VITALS: BP 140/77; PULSE 63; RESP 16; TEMP 36.6; O2SAT 93
--- NOTE | 2020-04-23 05:44 | PC.NURSE ---
shift summary, pt has rested well t/o shift, complained of pain one time and was treated per MAR successfully, zofran given before dexamethasone and pt reports no N/V
[2020-04-23 05:52] VITALS: BP 137/74; PULSE 58; RESP 16; TEMP 36.6; O2SAT 91; BMI 33.2
--- NOTE | 2020-04-23 07:10 | HMH.DCSUM ---
General - General Admission date:: 04/21/20 Discharge date: 04/23/20 HPI HPI: 64-year-old female with lumbar spinal stenosis and neurogenic claudication with left leg radiculopathy that is now been present to some degree for 2 months. Patient has been seeing local pain management and is recently as Saturday had an SI joint injection. Earlier in the week patient had been standing at a local grocery store when all of a sudden she developed pain in the lower left back radiating into the left hip and down the left leg to the calf. With straightening of her leg she admits that she will start to develop numbness and tingling in the toes. She describes pain as burning and throbbing. She was seen by Dr. Christopher scheduled for sacroiliac joint injection. Patient did not get any relief from the injection. Yesterday evening she presented to the emergency department with continued pain that was not responding to prednisone and Percocet 5 mg that her primary care physician had prescribed her. Patient seem to be in quite severe pain and was admitted for pain control. Patient has a previously scheduled MRI tomorrow. Patient has received a transient response from epidural steroid injections in the past. Patient has difficulty urinating and having a bowel movement secondary to her pain. She does get relief from pain by flexing, abducting and externally rotating the left hip. Currently she rates her pain at 1 while she is reclined in bed with her leg in its preferred position. Hospital Course Hospital Course: Patient was admitted for pain control. She was initially given intravenous pain medicines which did reduce her pain. On the morning of April 22 I transitioned her to an oral regimen of Percocet 10 mg every 4 hours as needed, gabapentin 300 mg 3 times daily with availability of intravenous pain medication. Patient's pain became tolerable. Dr. Aguilar of the pain management service was consulted and recommended proceeding with pain control and patient's MRI which was scheduled for April 23. Patient's pain remained tolerable. She was discharged from the hospital on April 23 in anticipation of an MRI that was scheduled in [place]. Patient will follow-up with Dr. Aguilar regarding her MRI results. Objective Vital signs: Temp Pulse Resp BP Pulse Ox 97.9 F 58 L 16 137/74 91 L 04/23/20 05:52 04/23/20 05:52 04/23/20 05:52 04/23/20 05:52 04/23/20 05:52 no acute distress - *Routine Respiratory Exam Present: CTA bilaterally - *Routine Cardiovascular Exam Present: RRR DS: Diagnosis - Discharge Diagnosis (1) Lumbar radiculopathy Status: Acute (2) Lumbar spinal stenosis Status: Acute (3) Sciatica Status: Acute Discharge Plan - Patient Discharge Instructions ACTIVITY: Continue current activity DIET: continue same diet Patient Instructions: Sciatica, DI for Sciatica, DI for Chronic Pain -- Adult, Lumbar Radiculopathy, DI for Lumbar Radiculopathy - Follow up Plan Follow up with: Maycol Aguilar MD [Staff Physician] - Deana Veras [Primary Care Provider] - Disposition: Home, Self-Skilled Nursing Medications: Home Medications Medication Instructions Recorded Confirmed Type bisoprolol fumarate 5 mg tablet 5 mg PO DAILY 08/07/17 04/22/20 History fenofibrate nanocrystallized 145 145 mg PO DAILY 08/07/17 04/22/20 History mg tablet fexofenadine 180 mg tablet 180 mg PO DAILY 08/07/17 04/22/20 History omeprazole 20 mg capsule,delayed 20 mg PO BID 08/07/17 04/22/20 History release Ipratropium [place] [Ipratropium 1 spray NS HS 04/03/18 04/21/20 History [place] 0.021mg/act NS] cholecalciferol (vitamin D3) 125 5,000 unit PO DAILY 01/06/19 04/21/20 History mcg (5,000 unit) capsule estradiol 0.1 mg/24 hr semiweekly 1 patch TOPICAL MOFR #24 each 01/06/19 04/22/20 History transdermal patch fluticasone propionate 50 2 sprays INTRANASAL DAILY #16 g 01/06/19 04/22/20 History mcg/actuation
[2020-04-23 08:00] VITALS: BP 145/79; PULSE 70; RESP 18; TEMP 36.9; O2SAT 94
--- NOTE | 2020-04-23 09:42 | HMH.PHAINT ---
DISCHARGE COUNSELING COMPLETED ON PATIENT. NEW PRESCRIPTIONS FOR PERCOCET 10 AND GABAPENTIN 300MG. BOTH WERE SENT TO CLINIC PHARMACY. PATIENT IS TO CONTINUE ALL OTHER HOME MEDICATIONS WITH THE EXCEPTION OF HER OLD PERCOCET, PREDNISONE, AND VALIUM. PATIENT VERBALIZED UNDERSTANDING AND HAD NO QUESTIONS. -JESUS POPE, MESFIND
== END 2020-04-23 09:05 | disposition home or self-care (01) ==
LOC: ER 19:15 → 2ND 19:23
PROVIDERS: Admitting Provider Family Medicine; Emergency Provider Emergency Medicine; PCP Family Medicine; Visit Provider Family Medicine
DX: M48.062 Spinal stenosis, lumbar region with neurogenic claudication (principal); M54.16 Radiculopathy, lumbar region; I10 Essential (primary) hypertension; E03.9 Hypothyroidism, unspecified; E78.5 Hyperlipidemia, unspecified
CPT/HCPCS: 80048; 85007; 85025; 86328; 96374; 96375; 99284; G0378; J2405

== ENCOUNTER 2020-04-29 08:55 | Day surgery (SDC) | payer MEDICARE, SELFPAY ==
[2020-04-29 09:14] VITALS: BP 145/89; PULSE 79; RESP 20; TEMP 36.7; O2SAT 96; BMI 33.4
[2020-04-29 10:10] VITALS: BP 125/78; PULSE 85; RESP 18
[2020-04-29 10:11] VITALS: BP 142/74; PULSE 84; RESP 18; O2SAT 99
[2020-04-29 10:26] VITALS: BP 128/77; PULSE 82; RESP 18; O2SAT 99
--- NOTE | 2020-04-29 10:31 | HMH.PMPROC ---
- Procedure Date: 04/29/20 Time: 10:31 Anesthesiologist:: Maycol Aguilar MD Complications:: None Pre-procedure Diagnosis:: Degenerative disc disease of lumbar spine with lumbar radiculopathy symptoms Post-procedure Diagnosis:: Same Indications for Procedure:: This patient is a pleasant 64-year-old white female who we have been treating for low back pain with acute left-sided radicular symptoms. She was admitted to the hospital with increasing pain. We did do a left SI joint injection which did not give her much relief. She was given muscle relaxants and steroids as well as pain medicine while in the hospital. We did review her MRI and did not see any acute changes. She does not have any significant neurological symptoms other than increased pain. We will plan on a lumbar epidural steroid injection today to see if this will help with her pain symptoms. Procedure Details:: Informed consent was obtained and the risk and benefits of the procedure was explained to the patient. The patient was taken to the procedure room. The patient was placed prone on the procedure table. The patient was prepped and draped in sterile fashion. C-arm fluoroscopy was used to view the lumbar spine. Skin and subcutaneous tissues were anesthetized using lidocaine. I placed an 18-gauge epidural needle and advanced into the L4-L5 interspace using fluoroscopic guidance and [id number] to air. After confirmation of needle placement in the epidural space with dye I injected 2 mL of lidocaine 1.5% with Depo-Medrol 80 mg. Patient tolerated the procedure well with no complications. Plan and Disposition:: We have contacted Dr. Fatima's office to see if they could see her earlier than her scheduled appointment on June 06. She does have acute left-sided pain symptoms she may have a herniated disc which needs addressing we will plan on a repeat epidural if she does get some relief with this injection. We will also plan on following up with Dr. Fatima.
== END 2020-04-29 10:27 | disposition home or self-care (01) ==
PROVIDERS: PCP Family Medicine; Visit Provider Anesthesiology
DX: M51.16 Intervertebral disc disorders with radiculopathy, lumbar region (principal); I10 Essential (primary) hypertension; K21.9 Gastro-esophageal reflux disease without esophagitis; E78.5 Hyperlipidemia, unspecified; E89.0 Postprocedural hypothyroidism; F32.9 Major depressive disorder, single episode, unspecified; Z90.89 Acquired absence of other organs; Z82.49 Family history of ischemic heart disease and other diseases of the circulatory system; Z85.828 Personal history of other malignant neoplasm of skin; Z90.49 Acquired absence of other specified parts of digestive tract; Z87.39 Personal history of other diseases of the musculoskeletal system and connective tissue; Z79.899 Other long term (current) drug therapy
CPT/HCPCS: 62323; J1040; Q9966

== ENCOUNTER 2020-05-06 09:41 | Day surgery (SDC) | payer MEDICARE, SELFPAY ==
[2020-05-06 09:52] VITALS: BP 132/92; PULSE 88; RESP 20; TEMP 36.6; O2SAT 94; BMI 33.4
[2020-05-06 10:02] VITALS: BP 140/74; BP 148/78; PULSE 74; PULSE 85; RESP 18; O2SAT 98
--- NOTE | 2020-05-06 10:05 | HMH.PMPROC ---
- Procedure Date: 05/06/20 Time: 10:05 Anesthesiologist:: Maycol Aguilar MD Complications:: None Pre-procedure Diagnosis:: Degenerative disc disease of lumbar spine with lumbar radiculopathy symptoms and acute left-sided hip and leg pain Post-procedure Diagnosis:: Same Indications for Procedure:: This patient is a pleasant 64-year-old white female who we are treating for low back pain and acute left-sided hip and leg pain. We reviewed her MRI and sent her imaging to Dr. Fatima. We are trying to move her appointment up with Dr. Fatima for possible surgical intervention. She did get some relief from the last lumbar epidural steroid injection is allowing her to rest better. She still has some residual pain. We will do a repeat lumbar epidural steroid injection under fluoroscopy today. Procedure Details:: Lumbar epidural steroid injection under fluoroscopy informed consent was obtained and the risk and benefits of the procedure was explained to the patient. The patient was taken to the procedure room. The patient was placed prone on the procedure table. The patient was prepped and draped in sterile fashion. C-arm fluoroscopy was used to view the lumbar spine. Skin and subcutaneous tissues were anesthetized using lidocaine. I placed an 18-gauge epidural needle and advanced into the L4-L5 interspace using fluoroscopic guidance and [id number] to air. After confirmation of needle placement in the epidural space with dye I injected 2 mL of lidocaine 1.5% with Depo-Medrol 80 mg. Patient tolerated the procedure well with no complications. Plan and Disposition:: We will follow-up with her in 2 weeks. Will reevaluate symptoms at that time. We will continue to try to move her appointment up with Dr. Fatima and follow his treatment recommendations.
[2020-05-06 10:20] VITALS: BP 137/85; PULSE 83; RESP 18; O2SAT 94
== END 2020-05-06 10:20 | disposition home or self-care (01) ==
PROVIDERS: PCP Family Medicine; Visit Provider Anesthesiology
DX: M51.16 Intervertebral disc disorders with radiculopathy, lumbar region (principal); M25.552 Pain in left hip; M79.605 Pain in left leg; K21.9 Gastro-esophageal reflux disease without esophagitis; E03.9 Hypothyroidism, unspecified; I10 Essential (primary) hypertension; E78.5 Hyperlipidemia, unspecified
CPT/HCPCS: 62323; J1040

== ENCOUNTER 2020-05-13 09:07 | Day surgery (SDC) | payer MEDICARE, SELFPAY ==
[2020-05-13 09:10] VITALS: BP 143/83; PULSE 90; RESP 18; TEMP 36.3; O2SAT 95; BMI 33.4
[2020-05-13 09:24] VITALS: BP 132/85; PULSE 85; RESP 18
[2020-05-13 09:25] VITALS: BP 139/89; PULSE 85; RESP 18; O2SAT 98
--- NOTE | 2020-05-13 09:33 | P.PCN_ITS ---
- Procedure Date: 05/13/20 Time: 09:34 Anesthesiologist:: Maycol Aguilar MD Complications:: None Pre-procedure Diagnosis:: Degenerative disc disease of lumbar spine with lumbar radiculopathy symptoms and acute left-sided hip and leg pain with herniated disc Post-procedure Diagnosis:: Same Indications for Procedure:: This patient is a pleasant 64-year-old white female who we are treating for low back pain and acute left-sided hip and leg pain. She has moved up her appointment Dr. Fatima to May 26. She is gotten some relief from previous epidural steroid injections. She is about 50% better. She still however has some exacerbations of pain into her left hip and leg however these are not as frequent. Will do repeat lumbar epidural steroid injection today to see if this will give her some relief until she sees Dr. Fatima for surgical evaluation. Procedure Details:: Lumbar epidural steroid injection under fluoroscopy Informed consent was obtained and the risk and benefits of the procedure was explained to the patient. The patient was taken to the procedure room. The patient was placed prone on the procedure table. The patient was prepped and dr aped in sterile fashion. C-arm fluoroscopy was used to view the lumbar spine. Skin and subcutaneous tissues were anesthetized using lidocaine. I placed an 18-gauge epidural needle and advanced into the L4-L5 interspace using fluoroscopic guidance and [id number] to air. After confirmation of needle placement in the epidural space with dye I injected 2 mL of lidocaine 1.5% with Depo-Medrol 80 mg. Patient tolerated the procedure well with no complications. Plan and Disposition:: We will follow-up with her after she sees Dr. Fatima to discuss his treatment rosibel montesinos
[2020-05-13 09:38] VITALS: BP 127/84; PULSE 107; RESP 20; O2SAT 95
== END 2020-05-13 09:39 | disposition home or self-care (01) ==
PROVIDERS: PCP Family Medicine; Visit Provider Anesthesiology
DX: M51.16 Intervertebral disc disorders with radiculopathy, lumbar region (principal); M25.552 Pain in left hip; M51.26 Other intervertebral disc displacement, lumbar region; I10 Essential (primary) hypertension; E78.5 Hyperlipidemia, unspecified; E89.0 Postprocedural hypothyroidism; Z79.890 Hormone replacement therapy; Z79.899 Other long term (current) drug therapy; Z85.828 Personal history of other malignant neoplasm of skin
CPT/HCPCS: 62323; J1040; Q9966

== ENCOUNTER 2020-09-13 09:00 | Outpatient (RCR) | payer MEDICARE, SELFPAY | END 2020-09-13 09:05 | disposition home or self-care (01) | LOC: PT 09:00 | PROVIDERS: PCP Family Medicine; Visit Provider Neurological Surgery | DX: M54.5 Low back pain (principal) | CPT/HCPCS: 97110; 97163; 97164 ==

== ENCOUNTER → 2021-01-16 09:50 | Outpatient (POV) | payer MEDICARE, SELFPAY ==
[2021-01-16 10:14] VITALS: BP 146/86; PULSE 93; RESP 18; O2SAT 96; BMI 35.5
--- NOTE | 2021-01-16 12:47 | HMH.PAINSOAP ---
[facility] Pain Management SOAP Note Subjective:: Patient is a 65-year-old white female who presents today for follow-up. The patient is being treated for degenerative disc disease lumbar spine with lumbar radiculopathy symptoms and spinal stenosis with neurogenic claudication type symptoms. Patient has undergone injective therapy in our clinic in the past and got significant relief, however, no long-term relief. As a result, the patient was sent to Dr. Fatima in [facility]. Patient did undergo surgical intervention at the L4-L5 area. She no longer has radicular pain. Her pain is primarily in her low back on bilateral sides. She says that the right side is worse. She says that standing and walking makes the pain worse as well. She does report that sitting for 2 to 3 minutes lessens the pain, however, as she stands her pain starts once again. She did undergo physical therapy which did not give her relief. She underwent more than 6 weeks of relief and is currently in physical therapy with no relief. She does home stretching with no relief. She also tried anti-inflammatories with no significant relief. Bending forward gives the patient relief. She denies saddle anesthesia or paresthesia into her lower extremities. She rates her pain a 7 out of 10 today. She says that her pain is obtained with weakness in her low back. Review of Systems General: No recent weight changes, no fever, no sleep disturbances Respiratory: No cough, no shortness of air, no recurring pulmonary infections Cardiovascular/peripheral vascular: No chest pain, no palpitations, no edema, no shortness of breath Gastrointestinal: No new onset incontinence, normal bowel movements reported Genitourinary: No new onset incontinence Musculoskeletal: Low back pain relieved with leaning forward Psychiatric: Normal mood/affect Neurological: [Denies weakness in extremities], [denies balance issues] Objective:: Physical exam General: Alert and oriented x3, no acute distress, pleasant and cooperative, [on room air] Lungs: Respirations even and unlabored, symmetrical chest expansion Eyes: PERRL Musculoskeletal: Flexion and extension of lumbar spine somewhat guarded secondary to pain, deep tendon reflexes normal, strength in upper and lower extremities [5/5], [abnormal gait noted] Neurological: Speech clear, scanning manager equal, no gross sensory deficit Assessment:: Degenerative disc disease lumbar spine with lumbar radiculopathy symptoms Plan:: Patient I reviewed her last MRI from 2018. At that time, she was noted to also have per the MRI report and annular tear along with caudal disc extrusion at L3-L4 area. She would like to try an injection to the area to see if this gives her relief. She is not on anticoagulation therapy. She is continue with home stretching and physical therapy and anti-inflammatories. We will follow up with her after her injection for reevaluation of her symptoms. Risks and benefits of the procedure have been explained to the patient. Patient would like to proceed with the procedure. Patient has been instructed to contact the clinic with any concerns before the next appointment. Dr. Cadena has reviewed this note and agrees with this plan of care. This note was dictated using voice recognition software and make contain errors or omissions. [facility] History I have reviewed the patient's past medical history: Yes Medical History: Reports:: Cancer, Gastroesophageal Reflux Disease(GERD), Hyperlipidemia, Hypertension Denies:: Diabetes Mellitus Type 1, Diabetes Mellitus Type 2, Internal Pacemaker, Lung Disease, MRSA, Seizures *Have you ever received a pneumonia vaccine?: Yes *Have you received a flu vaccine this season?: Yes Other Medical History: Reports: Arthritis, Cataracts, Hypothyroidism, Sinus Problems, Thyroid Disease. Denies: Blood Transfusion Reaction Laterality Cases: Bilateral: Tonsillectomy, Other Other Surgeries: Yes: Cancer Surgery, [place]
== END ==
PROVIDERS: Visit Provider Clinical Nurse Specialist Family Health
DX: M51.16 Intervertebral disc disorders with radiculopathy, lumbar region (principal)
CPT/HCPCS: 99212; G0463

== ENCOUNTER → 2021-01-23 10:40 | Outpatient (CLI) | payer MEDICARE, SELFPAY ==
[2021-01-24 09:54] LABS: Estradiol 90.6 pg/mL (.); FSH 7.7 mIU/mL (.)
[2021-01-27 15:59] LABS: Testosterone, Total, LC/MS 9.3 ng/dL (7.0-40.0); Testosterone,Free 2.7 pg/mL (0.0-4.2)
== END ==
PROVIDERS: Visit Provider Obstetrics & Gynecology
DX: N95.1 Menopausal and female climacteric states (principal); Z79.890 Hormone replacement therapy
CPT/HCPCS: 36415; 82670; 83001; 84402; 84403

== ENCOUNTER → 2021-01-27 09:21 | Day surgery (SDC) | payer MEDICARE, SELFPAY ==
[2021-01-27 09:48] VITALS: BP 137/86; PULSE 93; RESP 20; TEMP 36.9; O2SAT 96; BMI 35.5
[2021-01-27 10:14] VITALS: BP 157/95; PULSE 89; RESP 18; O2SAT 96
[2021-01-27 10:17] VITALS: BP 132/82; PULSE 82; RESP 18; O2SAT 95
[2021-01-27 11:00] VITALS: BP 141/90; PULSE 78; RESP 20; O2SAT 96
--- NOTE | 2021-01-27 17:45 | HMH.PMPROC ---
- Procedure Date: 01/27/21 Time: 17:45 Anesthesiologist:: Mimi Cadena MD Complications:: None Pre-procedure Diagnosis:: Degenerative Disc disease of the lumbar spine, lumbar radiculopathy, lumbar facet arthropathy, lumbar spinal stenosis with neurogenic claudication type symptoms, postlaminectomy syndrome of lumbar spine Post-procedure Diagnosis:: Same Indications for Procedure:: This is a pleasant 65-year-old white female who presents today with chronic back pain with no radiation of pain into her legs to the above diagnosis. Also reports that she has undergone previous spine surgeries to L4-L5 in the past with Dr. Fatima in [facility]. He is trialed and failed conservative treatment including oral pain medication and is currently in physical therapy with minimal relief. She also does home stretching with no relief. Plan for today is for her to undergo lumbar epidural steroid injection at L3-L4. Procedure Details:: Informed consent was obtained and the risk and benefits of the procedure was explained to the patient. The patient was taken to the procedure room. The patient was placed prone on the procedure table. The patient was prepped and draped in sterile fashion. C-arm fluoroscopy was used to view the lumbar spine. Skin and subcutaneous tissues were anesthetized using lidocaine. I placed an 18-gauge epidural needle and advanced into the L3-L4 interspace using fluoroscopic guidance and [id number] to air and saline. Urgently, patient became very tearful and anxious during this procedure and requested to prematurely terminate the procedure. I remove the 18-gauge epidural needle. Patient was monitored in recovery without any complications. Plan and Disposition:: We will follow-up with this patient in 2 weeks and will reevaluate symptoms at that time. I believe that the patient may benefit potentially from lumbar facet/medial branch block injections in the future should she not get any pain relief with lumbar epidural steroid injections for axial back pain. However, the patient was very tearful and anxious during the procedure today which may be a limiting factor.
== END ==
PROVIDERS: PCP Family Medicine; Visit Provider Anesthesiology Pain Medicine
DX: M51.16 Intervertebral disc disorders with radiculopathy, lumbar region (principal); M54.06 Panniculitis affecting regions of neck and back, lumbar region; M48.062 Spinal stenosis, lumbar region with neurogenic claudication; M96.1 Postlaminectomy syndrome, not elsewhere classified; E03.9 Hypothyroidism, unspecified; E78.5 Hyperlipidemia, unspecified; I10 Essential (primary) hypertension; K21.9 Gastro-esophageal reflux disease without esophagitis; M19.90 Unspecified osteoarthritis, unspecified site
CPT/HCPCS: 62323; J1040; Q9966

== ENCOUNTER → 2021-02-20 13:06 | Outpatient (CLI) | payer MEDICARE, SELFPAY ==
--- NOTE | 2021-02-20 13:11 | XR_ITS ---
PROCEDURE: XR FOOT WT BEARING RT 3V CLINICAL INDICATION: pain COMPARISON: CR [id number] XR foot wt bearing RT 3V from 09/30/2018 CR [id number] XR foot RT min 3V from 10/22/2018 CR [id number] XR foot RT 2V from 10/22/2018 CR [id number] XR foot wt bearing RT 3V from 11/10/2018 FINDINGS: Interval removal of the pin in the 2nd digit is noted. Internal fixation of the 1st metatarsal head is again noted, demonstrates no significant interval change compared to prior study. Minor erosive changes are noted at the head of the 1st metatarsal, unchanged. Degenerative changes are noted at the 2nd MTP joint. Otherwise the visualized tarsals, metatarsals and phalanges are unremarkable. Bone density is normal. No significant soft tissue abnormality is noted. IMPRESSION: Postsurgical changes are described above. Degenerative changes of the 2nd MTP joint. Dictated by: Erlinda Singh 02/20/2021 15:17 Erlinda Singh in OV 02/20/2021 15:17
== END ==
PROVIDERS: PCP Family Medicine; Visit Provider Podiatrist
DX: M79.671 Pain in right foot (principal)
CPT/HCPCS: 73630

== ENCOUNTER → 2021-08-31 13:00 | Outpatient (POV) | payer MEDICARE, SELFPAY ==
[2021-08-31 13:21] VITALS: BP 148/92; PULSE 100; RESP 18; O2SAT 96; BMI 34.7
--- NOTE | 2021-08-31 13:52 | HMH.PAINSOAP ---
[facility] Pain Management SOAP Note Subjective:: Patient is a 65-year-old white female who presents today for follow-up. She was seen in January 2021 was scheduled for a lumbar epidural steroid injection. Unfortunately she did not feel comfortable proceeding with the procedure with Dr. Cadena. She says Dr. Cadena was very make and timid . As result, she did not feel like proceeding with the procedure. She says that she does not want Dr. Cadena to perform any further injections on her and would only feel comfortable with Dr. Aguilar in the future. She does think that she may have possibly been charged for the procedure and the medication though the procedure was not completely performed. She will review her feel to be certain. Patient is seeing Dr. Hall and is scheduled to have a hip replacement in November. Today, she rates her pain a 3 out of 10. She says that she has had excruciating pain since May, but says over the last 3 to 4 days the pain has improved. Review of Systems General: No recent weight changes, no fever, no sleep disturbances Respiratory: No cough, no shortness of air, no recurring pulmonary infections Cardiovascular/peripheral vascular: No chest pain, no palpitations, no edema, no shortness of breath Gastrointestinal: No new onset incontinence, normal bowel movements reported Genitourinary: No new onset incontinence Musculoskeletal: Low back pain with radiation into lower extremity Psychiatric: [Normal mood/affect] Neurological: [Denies weakness in extremities], [denies balance issues] Objective:: Physical exam General: Alert and oriented x3, no acute distress, pleasant and cooperative Lungs: Respirations even and unlabored, symmetrical chest expansion Eyes: PERRL Musculoskeletal: Flexion and extension of lumbar [spine] somewhat guarded secondary to pain, [antalgic gait noted] Neurological: Speech clear, no gross sensory deficit Assessment:: Degenerative disc disease lumbar spine with lumbar radiculopathy symptoms, spinal stenosis with neurogenic claudication symptoms Plan:: Patient is following up after a planned lumbar epidural steroid injection. Due to the patient's nervousness, the injection was not performed. She says that and the future she would prefer Dr. Aguilar perform her injections only. At this time she is scheduled to have a hip replacement with Dr. Hall. Following that procedure, she may discuss further interventional therapies in our clinic. For now she will contact the clinic if she is having pain. Patient has been instructed to contact the clinic with any concerns before the next appointment. Dr. Aguilar has reviewed this note and agrees with this plan of care. This note was dictated using voice recognition software and make contain errors or omissions. [facility] History I have reviewed the patient's past medical history: Yes Medical History: Reports:: Cancer, Gastroesophageal Reflux Disease(GERD), Hyperlipidemia, Hypertension Denies:: Diabetes Mellitus Type 1, Diabetes Mellitus Type 2, Internal Pacemaker, Lung Disease, MRSA, Seizures *Have you ever received a pneumonia vaccine?: Yes *Have you received a flu vaccine this season?: Yes Other Medical History: Reports: Arthritis, Cataracts, Hypothyroidism, Sinus Problems, Thyroid Disease. Denies: Blood Transfusion Reaction Laterality Cases: Bilateral: Tonsillectomy, Other Other Surgeries: Yes: Cancer Surgery (thyroid), Colonoscopy, Colon Resection, Colostomy, EGD, Hysterectomy-Total, Sinus Surgery, Skin Cancer Excision, Thyroidectomy, Other. No: Pacemaker Amputation: No Fractures: No - *Social History Smoking Status: Never smoker Alcohol Intake: current Alcohol Intake Frequency:: holidays/special occasions only Substance Use Type: denies use *Occupational Status:: unemployed Housing: house Household Members: spouse *Travel in the last 8 weeks: None Family Hx:: Asthma, Cancer, Diabetes, Heart Attack, Hyperlipidemia, Hypertension
== END ==
PROVIDERS: Visit Provider Clinical Nurse Specialist Family Health
DX: M51.16 Intervertebral disc disorders with radiculopathy, lumbar region (principal); M48.062 Spinal stenosis, lumbar region with neurogenic claudication
CPT/HCPCS: 99212; G0463

== ENCOUNTER → 2021-09-22 09:15 | Outpatient (CLI) | payer MEDICARE, SELFPAY ==
--- NOTE | 2021-09-22 09:17 | XR_ITS ---
FINAL REPORT TECHNIQUE: Bone densitometry calculations of the lumbar spine and left hip were obtained. CLINICAL HISTORY: . post menopausal FINDINGS: Using the 1/3 radius, the bone mineral density is 0.645 g/cm2, corresponding to T-score of -0.8. Using the left hip, the bone mineral density of the femoral neck is 0.845 g/cm2, corresponding to a T-score of 0.0. NOTE: T-score: Standard deviation compared with peak bone mass of young adult mean. *Following the recommendations of the International Society of Bone densitometry, classification of hip BMD is based on the lower of two T-scores; total hip or femoral neck. FRAX not reported because all T-scores are at or above -1.0. IMPRESSION: Normal bone mineral density of the lumbar spine and hip. Reviewed, Interpreted and Dictated by Richardson Tai III, MD Transcribed by Kitty Montoya Authenticated by Richardson Tai III, MD on 09/22/2021 10:43:24 AM [facility]
== END ==
PROVIDERS: PCP Family Medicine; Visit Provider Obstetrics & Gynecology
DX: Z78.0 Asymptomatic menopausal state (principal)
CPT/HCPCS: 77080

== ENCOUNTER 2022-03-15 10:00 | Outpatient (RCR) | payer MEDICARE, SELFPAY | END 2022-03-15 10:05 | disposition home or self-care (01) | LOC: PT 10:00 | PROVIDERS: PCP Family Medicine; Visit Provider Physician Assistant Medical | DX: M54.50 Low back pain, unspecified (principal); Z48.89 Encounter for other specified surgical aftercare | CPT/HCPCS: 97010; 97014; 97110; 97163; G0283 ==

== ENCOUNTER 2022-06-24 07:44 | Emergency (ER) | payer MEDICARE, SELFPAY ==
[2022-06-24 07:45] VITALS: BP 147/81; PULSE 87; RESP 18; TEMP 36.7; O2SAT 99; BMI 30.7
--- NOTE | 2022-06-24 07:54 | XR_ITS ---
PROCEDURE INFORMATION: Exam: XR Right Hip Exam date and time: 06/24/2022 8:08 AM Age: 66 years old Clinical indication: Hip pain; Right hip; Additional info: Hip pain, previous sx-- had hip replacement nov felt pop and then pain this morning TECHNIQUE: Imaging protocol: Radiologic exam of the Right hip. Views: 2 or 3 views hip with pelvis when performed. COMPARISON: CT ABDOMEN PELVIS WO CON 09/01/2019 10:36 AM FINDINGS: Bones/joints: Right total hip arthoplasty appears in tact. No findings to suggest loosening. Anatomic alignment. Lumbosacral fusion hardware appears in tact. No findings to suggest loosening. Anatomic alignment. Soft tissues: Unremarkable. IMPRESSION: 1. Right total hip arthoplasty appears in tact. No findings to suggest loosening. Anatomic alignment. 2. Lumbosacral fusion hardware appears in tact. No findings to suggest loosening. Anatomic alignment.
[2022-06-24 08:00] VITALS: BP 128/79; PULSE 80; RESP 20; O2SAT 97
--- NOTE | 2022-06-24 08:29 | HMH.EDGENADL ---
Discharge Plan Disposition Patient Disposition: Home, Self-Care Condition: Good Prescriptions Prescriptions: No Action omeprazole 20 mg capsule,delayed release(DR/EC) 20 mg PO BID fexofenadine [Angie Allergy] 180 mg tablet 180 mg PO DAILY bisoprolol fumarate 5 mg tablet 5 mg PO DAILY fenofibrate nanocrystallized 145 mg tablet 145 mg PO DAILY fluticasone propionate 50 mcg/actuation spray,suspension 2 sprays INTRANASAL DAILY Qty: 16 Label Comments: INSTILL 2 SPRAYS INTO EACH NOSTRIL ONCE DAILY cholecalciferol (vitamin D3) 5,000 unit capsule 5,000 unit PO DAILY estradiol 0.1 mg/24 hr patch semiweekly 1 patch TOPICAL MOFR Qty: 24 Label Comments: APPLY 1 PATCH TOPICALLY TWICE A WEEK DIRECTED ipratropium bromide 30 ML spray,non-aerosol 1 spray NS HS levothyroxine 175 MCG tablet 175 mcg PO DAILY biotin 5 MG capsule 5 mg PO DAILY calcium carbonate 600 MG tablet 600 mg PO BID magnesium 250 MG tablet 250 mg PO DAILY omega-3 fatty acids-fish oil 1 EACH capsule 1 each PO DAILY polyethylene glycol 3350 [Miralax] 17 gram Powder In Packet 17 g PO DAILY atorvastatin 10 mg tablet 10 mg PO DAILY Metamucil Packet 1 packet PO DAILY Rx Instructions: mix into at least 8 oz of water or juice before administering metformin 500 mg tablet extended release 24 hr 1,000 mg PO BID Referrals Follow up/Referrals: Deana Veras [Primary Care Provider] - See instructions Activity Restrictions/Add. Instructions Additional Instructions/Restrictions: Continue oxycodone as needed for pain. Follow-up with Dr. Hall if persistent problems. Clinical Impressions Clinical Impression: Strain of right hip Discharge ED Provider: Ari Brown General Adult HPI General Chief complaint: PAIN Stated complaint: right hip pain Time Seen by Provider: 06/24/22 08:29 Mode of Arrival: EMS Source of Information: Patient Limitations: No Limitations Description of Symptoms (Recalled from ER Triage Doc. by RN): c/o right hip pain, pt states that she was getting into bed and heard a pop and some pain when turning to that side. She does have some pain when she turns due to her right hip surgery back on June 12 but feels the pain might be a little more. History of Present Illness HPI narrative: The patient arrives by ambulance. Patient states that she had a right hip replacement June 12 for osteoarthritis. Her orthopedist was Dr. Hall at [facility] in [place]. She says that she has had a previous lumbar fusion and because of that Dr. Hall told her that he needed to use a different type of right hip prosthesis that was less prone to dislocation, because her prior lumbar fusion made her more prone to dislcating a prosthesis. She says that she walked to the bathroom this morning with her walker came back and sat on the bed. She swung her left leg up on the bed and then used her foot window/distribution clerk to swing her right leg up on the bed, which she has done repetitively since surgery. This time she felt and heard a loud pop in her right hip when she did so. She was immediately afraid that she had dislocated her right hip prosthesis. Currently she says she has no pain. She is able to move her hip. She has some mild right thigh pain when she flexes her hip, but says this has been present ever since surgery. She has no pain when she rotates her hip. No numbness or weakness. She has oxycodone at home for pain and took 1 after this happened. Related Data Home Medications Medication Instructions Recorded Confirmed bisoprolol fumarate 5 mg tablet 5 mg PO DAILY BLOOD PRESSURE 08/07/17 06/24/22 fenofibrate nanocrystallized 145 145 mg PO DAILY Cholesterol 08/07/17 06/24/22 mg tablet fexofenadine 180 mg tablet 180 mg PO DAILY Allergy symptoms 08/07/17 06/24/22 (Angie Allergy) omeprazole 20 mg capsule,delayed 20 m
[2022-06-24 08:49] VITALS: BP 140/82; PULSE 76; RESP 20; O2SAT 95
--- NOTE | 2022-06-24 08:56 | PC.NURSE ---
DR. SIMENTAL AT BEDSIDE TO UPDATE PT ON POC
[2022-06-24 09:10] VITALS: BP 140/82; PULSE 76; RESP 20; TEMP 36.6; O2SAT 95
== END 2022-06-24 09:14 | disposition home or self-care (01) ==
PROVIDERS: Emergency Provider Emergency Medicine; PCP Family Medicine
DX: S76.011A Strain of muscle, fascia and tendon of right hip, initial encounter (principal); M16.9 Osteoarthritis of hip, unspecified; Z79.1 Long term (current) use of non-steroidal anti-inflammatories (NSAID); Z79.890 Hormone replacement therapy; Z79.899 Other long term (current) drug therapy; Z88.2 Allergy status to sulfonamides; Z91.048 Other nonmedicinal substance allergy status; Z98.1 Arthrodesis status; Z96.641 Presence of right artificial hip joint
CPT/HCPCS: 73502; 99283

== ENCOUNTER → 2022-08-16 09:51 | Outpatient (CLI) | payer MEDICARE, SELFPAY ==
--- NOTE | 2022-08-16 09:56 | XR_ITS ---
FINAL REPORT CLINICAL HISTORY: knee pain FINDINGS: RIGHT KNEE: Three views of the right knee were obtained. There is no acute fracture or dislocation. There are moderate and severe degenerative changes, worst at the patellofemoral compartment. There is no joint effusion. Soft tissues are unremarkable. IMPRESSION: Degenerative changes without acute bony abnormality. Reviewed, Interpreted and Dictated by Richardson Tai III, MD Transcribed by Yahaira John Authenticated and [facility]
--- NOTE | 2022-08-16 09:56 | XR_ITS ---
FINAL REPORT CLINICAL HISTORY: knee pain FINDINGS: LEFT KNEE: Three views of the left knee were obtained. There is no acute fracture or dislocation. Probable loose bodies are seen posteriorly and laterally. There are moderate and severe degenerative changes, worse at the patellofemoral compartment. There is no joint effusion. Soft tissues are unremarkable. IMPRESSION: Degenerative changes without acute bony abnormality. Reviewed, Interpreted and Dictated by Richardson Tai III, MD Transcribed by Yahaira John Authenticated and [facility]
== END ==
PROVIDERS: PCP Family Medicine; Visit Provider Orthopaedic Surgery
DX: M25.561 Pain in right knee (principal); M25.562 Pain in left knee
CPT/HCPCS: 73562

== ENCOUNTER 2022-08-20 08:30 | Outpatient (RCR) | payer MEDICARE, SELFPAY | END 2022-08-20 08:35 | disposition home or self-care (01) | LOC: PT 08:30 | PROVIDERS: PCP Family Medicine; Visit Provider Physician Assistant | DX: M25.551 Pain in right hip (principal); Z96.641 Presence of right artificial hip joint | CPT/HCPCS: 97110; 97112; 97163 ==

== ENCOUNTER → 2022-09-10 15:57 | Outpatient (CLI) | payer MEDICARE, SELFPAY ==
[2022-09-12 11:14] LABS: Estradiol 48.6 pg/mL (.); FSH 16.1 mIU/mL (.)
[2022-09-17 15:13] LABS: Testosterone, Total, LC/MS 3.3 ng/dL (7.0-40.0); Testosterone,Free <0.2 pg/mL (0.0-4.2)
== END ==
PROVIDERS: PCP Family Medicine; Visit Provider Obstetrics & Gynecology
DX: N95.1 Menopausal and female climacteric states (principal); Z79.890 Hormone replacement therapy
CPT/HCPCS: 36415; 82670; 83001; 84402; 84403

== ENCOUNTER → 2022-12-06 12:10 | Outpatient (CLI) | payer MEDICARE, SELFPAY | PROVIDERS: PCP Family Medicine; Visit Provider Nurse Practitioner | DX: L50.9 Urticaria, unspecified (principal) | CPT/HCPCS: 36415 ==

== ENCOUNTER 2023-04-18 08:06 | Emergency (ER) | payer MEDICARE, SELFPAY ==
[2023-04-18 08:11] VITALS: BP 114/81; PULSE 92; RESP 18; TEMP 36.7; O2SAT 98; BMI 30.2
--- NOTE | 2023-04-18 08:35 | EXP.UTC ---
Discharge Plan Disposition Patient Disposition: Home, Self-Care Condition: Good Prescriptions Prescriptions: New mupirocin 2 % ointment 1 applic topical TID 7 Days Qty: 15 0RF clindamycin HCl 300 mg capsule 300 mg PO Q8H Qty: 30 0RF No Action fexofenadine [Angie Allergy] 180 mg tablet 180 mg PO DAILY bisoprolol fumarate 5 mg tablet 5 mg PO DAILY fenofibrate nanocrystallized 145 mg tablet 145 mg PO DAILY fluticasone propionate 50 mcg/actuation spray,suspension 2 sprays INTRANASAL DAILY Qty: 16 Patient Comments: INSTILL 2 SPRAYS INTO EACH NOSTRIL ONCE DAILY cholecalciferol (vitamin D3) 5,000 unit capsule 5,000 unit PO DAILY estradiol 0.1 mg/24 hr patch semiweekly 1 patch TOPICAL MOFR Qty: 24 Patient Comments: APPLY 1 PATCH TOPICALLY TWICE A WEEK DIRECTED ipratropium bromide 30 ML spray,non-aerosol 1 spray intranasal HS levothyroxine 175 MCG tablet 150 mcg PO DAILY biotin 5 MG capsule 5 mg PO DAILY calcium carbonate 600 MG tablet 600 mg PO BID magnesium 250 MG tablet 250 mg PO DAILY omega-3 fatty acids-fish oil 1 EACH capsule 1 each PO DAILY polyethylene glycol 3350 [Miralax] 17 gram Powder In Packet 17 g PO DAILY atorvastatin 10 mg tablet 10 mg PO DAILY metformin 500 mg tablet extended release 24 hr 1,000 mg PO BID omeprazole 20 mg capsule,delayed release(DR/EC) 20 mg PO DAILY Patient Comments: TAKE ONE CAPSULE BY MOUTH TWICE DAILY azelastine 137 mcg (0.1 %) aerosol,spray 1 spray INTRANASAL DAILY Patient Comments: instill 1-2 SPRAYS IN EACH NOSTRIL TWICE DAILY Referrals Follow up/Referrals: Deana Veras [Primary Care Provider] - See instructions Activity Restrictions/Add. Instructions Additional Instructions/Restrictions: Keep the affected area clean and dry. Follow up with your regular doctor. Take the antibiotics as directed and apply the topical antibiotics as directed. Apply warm wet compresses to the affected area three or four times per day. GO TO THE ER FOR ANY WORSENING SYMPTOMS Clinical Impressions Clinical Impression: Cellulitis of left forearm Instructions Patient Instructions: Cellulitis Discharge ED Provider: Chidi Cook [facility] General Stated complaint: possible spider bite on left wrist Mode of Arrival: Ambulatory Source of Information: Patient Limitations: No Limitations Time Seen by Provider: 04/18/23 08:34 Description of Symptoms (Recalled from Triage Doc. by RN): Spider bite on the left wrist this happened saturday HEENT Symptoms (Recalled from RN notes): No Resp Symptoms (Recalled from RN notes): No Skin Symptoms (Recalled from RN notes): Yes MS Symptoms (Recalled from RN notes): No Functional Status (Recalled from RN notes): n/a History of Present Illness Provider Complaint: She states that she has had a red area on her left forearm for the past 3 days. She saw a spider on her arm in the area before her symptoms started. She denies any fever or chills. Related Data Home Medications Medication Instructions Recorded Confirmed bisoprolol fumarate 5 mg tablet 5 mg PO DAILY BLOOD PRESSURE 08/07/17 04/18/23 fenofibrate nanocrystallized 145 145 mg PO DAILY Cholesterol 08/07/17 04/18/23 mg tablet fexofenadine 180 mg tablet 180 mg PO DAILY Allergy symptoms 08/07/17 04/18/23 (Angie Allergy) ipratropium bromide 21 mcg (0.03 1 spray intranasal HS Allergy 04/03/18 04/18/23 %) nasal spray symptoms cholecalciferol (vitamin D3) 125 5,000 unit PO DAILY Supplement 01/06/19 04/18/23 mcg (5,000 unit) capsule estradiol 0.1 mg/24 hr semiweekly 1 patch topical MOFR hormone #24 ea 01/06/19 04/18/23 transdermal patch fluticasone propionate 50 2 sprays intranasal DAILY 01/06/19 04/18/23 mcg/actuation nasal allergies #16 grams spray,suspension omega-3 fatty acids-fish oil 340 1 each PO DAILY Supplement 12/04
[2023-04-18 08:49] VITALS: BP 114/81; PULSE 92; RESP 18; TEMP 36.7; O2SAT 98
== END 2023-04-18 08:49 | disposition home or self-care (01) ==
PROVIDERS: Emergency Provider Nurse Practitioner Family; PCP Family Medicine
DX: L03.114 Cellulitis of left upper limb (principal); E11.9 Type 2 diabetes mellitus without complications; E03.9 Hypothyroidism, unspecified; M17.0 Bilateral primary osteoarthritis of knee; Z79.84 Long term (current) use of oral hypoglycemic drugs
CPT/HCPCS: 99204; 99212; G0463

== ENCOUNTER 2023-07-19 14:30 | Outpatient (RCR) | payer MEDICARE, SELFPAY | END 2023-07-19 15:30 | disposition home or self-care (01) | LOC: PT 14:30 | PROVIDERS: PCP Family Medicine; Visit Provider Orthopaedic Surgery | DX: M25.561 Pain in right knee (principal); Z96.651 Presence of right artificial knee joint | CPT/HCPCS: 97010; 97014; 97016; 97110; 97140; 97163; 97164; 97530; G0283 ==

== ENCOUNTER 2023-09-06 14:00 | Outpatient (RCR) | payer MEDICARE, SELFPAY | END 2023-09-06 15:00 | disposition home or self-care (01) | LOC: PT 14:00 | PROVIDERS: PCP Family Medicine; Visit Provider Family Medicine | DX: R42 Dizziness and giddiness (principal) | CPT/HCPCS: 95992; 97110; 97163 ==

== ENCOUNTER 2023-10-14 07:48 | Outpatient (CLI) | payer MEDICARE, SELFPAY ==
--- NOTE | 2023-10-14 07:48 | CT_ITS ---
FINAL REPORT CLINICAL HISTORY: abdominal pain & two abdominal hernias FINDINGS: Axial CT images of the abdomen and pelvis were obtained without intravenous contrast. Coronal reformatted images were also obtained.This study was performed with techniques to keep radiation doses as low as reasonably achievable (ALARA). Individualized dose reduction techniques using automated exposure control or adjustment of mA and/or kV according to the patient's size were employed. Abdomen:The lung bases are clear. There is no evidence of renal stone or hydronephrosis. There is mild fatty infiltration of the liver. The spleen and pancreas have an unremarkable, unenhanced appearance. No mass or adenopathy is seen. No inflammatory process is identified. Pelvis: The appendix is normal. There is descending and sigmoid diverticulosis. Postoperative changes are seen in the abdominal and pelvic bowel. There is no evidence of bowel obstruction. No localized inflammatory process is seen. A lipoma is seen in the left sartorial muscle. There is a small supraumbilical hernia containing fat and a portion of transverse colon. Postoperative changes are seen in the right hip and lumbar spine. IMPRESSION: Mild fatty liver. Descending and sigmoid diverticulosis. Small umbilical hernia containing fat and a portion of transverse colon. Reviewed, Interpreted and Dictated by Richardson Tai III, MD Transcribed by Lidya Urias Authenticated and [facility]
== END 2023-10-14 23:59 ==
LOC: RAD 07:48
PROVIDERS: PCP Family Medicine; Visit Provider Surgery
DX: K43.2 Incisional hernia without obstruction or gangrene (principal)
CPT/HCPCS: 74176

== ENCOUNTER 2023-11-27 08:48 | Outpatient (CLI) | payer MEDICARE, SELFPAY ==
--- NOTE | 2023-11-27 08:57 | XR_ITS ---
FINAL REPORT CLINICAL HISTORY: Left Foot Pain COMPARISON: None FINDINGS: LEFT FOOT Three views of the left foot demonstrate no obvious acute fracture or dislocation. There is mild deformity of the distal portion of the 4th proximal phalanx, probably chronic. There is [id number] hypertrophic change of osteoarthritis of the 1st MTP. The soft tissues are unremarkable. 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 Probable chronic deformity 4th proximal phalanx. Reviewed, Interpreted and Dictated by Braulio Mota MD Transcribed by Jessica Burgess Authenticated and [facility]
== END 2023-11-27 23:59 | disposition home or self-care (01) ==
LOC: RAD 08:51
PROVIDERS: PCP Family Medicine; Visit Provider Nurse Practitioner
DX: M79.672 Pain in left foot (principal)
CPT/HCPCS: 73630

== ENCOUNTER 2024-02-04 14:47 | Outpatient (CLI) | payer MEDICARE, SELFPAY ==
--- NOTE | 2024-02-04 15:09 | US_ITS ---
FINAL REPORT CLINICAL HISTORY: SOFT TISSUE MASS POSTERIOR TO LT KNEE FINDINGS: ULTRASOUND SOFT TISSUES OF THE LEFT POSTERIOR KNEE TECHNIQUE: Limited sonographic imaging of the soft tissues of the left posterior knee were obtained. FINDINGS: A 6.8 cm complex cystic mass is seen in the left posterior knee. This may represent a complex popliteal cyst or other cystic mass. IMPRESSION: Cystic mass posterior to the left knee as above. Consider follow-up ultrasound or MRI for further evaluation. Reviewed, Interpreted and Dictated by Richardson Tia III, MD Transcribed by Lidya Urias Authenticated and [facility]
== END 2024-02-04 23:59 | disposition home or self-care (01) ==
LOC: RAD 14:47
PROVIDERS: PCP Family Medicine; Visit Provider Family Medicine
DX: D48.7 Neoplasm of uncertain behavior of other specified sites (principal)
CPT/HCPCS: 76882

== ENCOUNTER 2024-11-16 08:09 | Outpatient (CLI) | payer MEDICARE, SELFPAY ==
[2024-11-16 09:05] LABS: Free T4 (Free Thyroxine) 1.84 ng/dl (0.78-2.19)
[2024-11-16 09:19] LABS: Thyroid Stimulating Hormone 0.04 uIU/mL (0.465-4.68)
== END 2024-11-16 23:59 | disposition home or self-care (01) ==
LOC: LAB 08:10
PROVIDERS: PCP Family Medicine; Visit Provider Physician Assistant
DX: E89.0 Postprocedural hypothyroidism (principal); Z85.850 Personal history of malignant neoplasm of thyroid
CPT/HCPCS: 36415; 84439; 84443

== ENCOUNTER 2025-05-27 11:00 | Outpatient (RCR) | payer MEDICARE, SELFPAY | END 2025-05-27 23:59 | disposition home or self-care (01) | LOC: PT 11:00 | PROVIDERS: Visit Provider Physician Assistant | DX: Z47.1 Aftercare following joint replacement surgery (principal); Z96.652 Presence of left artificial knee joint | CPT/HCPCS: 97016; 97110; 97140; 97162; 97530 ==

== ENCOUNTER 2025-06-28 14:38 | Outpatient (CLI) | payer MEDICARE, SELFPAY ==
--- OUTSIDE RECORDS SUMMARY | 2021-03-13 11:36 | XMS_ITS | Encounter Summary ---
[facility] Address [address] [place] [address] Care Team Providers Care Drywall Finishing Foreman Name Role Phone Deana Veras DO Primary Care Provider [phone] Reason for Visit * Diagnostic Imaging (Routine) - Closed Specialty Diagnoses / Procedures Referred By Scott t Referred To Contact Radiology Diagnoses History of thyroid cancer Procedures US Thyroid Sara Arora PA [address] [address] Phone: tel: fax: [facility] [address] [address] Phone: tel: fax: Referral ID Status Reason Start Date Expiration Date Visits Re quested Visits Authorized [id number] Closed 03/13/2021 03/13/2022 1 1 Encounter Details Date Type Department Care Team (Late st Contact Info) Description 03/13/2021 12:36 PM EDT Hospital Encounter [facility] [address] [phone] Social History Tobacco Use Types Packs/Day Years Used Date Smoking Tobacco: Never Smokeless Tobacco: Never Alcohol Use Standard Drinks/Week Comments Not Currently 0 (1 standard drink = 0.6 oz pur e alcohol) Very seldom use AUDIT-C Answer Date Recorded Q1: How often do you have a drink containing alcohol? Never 05/21/2023 Q2: How many drinks containi ng alcohol do you have on a typical day when you are drinking? Patient does not drink Q3: How often do you have si x or more drinks on one occasion? Never 05/21/2023 Abuse Screen Answer Date Recorded Feels Unsafe at Home or Work/School no 05/04/2025 Feels Threatened by Someone no 04/07 Does Anyone Try to Keep You From Having Contact with Others or Doing Things Outside Your Home? no 05/04/2025 Physical Signs of Abuse Present no 05/04/2025 Housing Stability Answer Date Recorded Current Living Arrangements home 04/07 Potentially Unsafe Housing Conditions Not on ariel e 05/04/2025 Disabilities Answer Date Recorded Difficulty Concentrating, Remembering or Making Decisions no 05/04/2025 Difficulty Managing Errands Independently no 05/04/2025 Education Answer Date Recorded Help with school or training? Not on file Preferred Language Belizean 04/20/2025 Comments No Sex and Gender Information Value Date Recorded Sex Assigned at Female 12/28/2024 10:17 AM EDT Legal Sex Female 11:26 AM EDT Gender Identity Not on file Sexual Orientation Straight 12/28/2024 10 :17 AM EDT documented as of this encounter Functional Status * Question Answer Date of Assessment Author 1. Wish to be (Past 1 Month) No 025 8:31 AM EDT Stephanie Tierney, JONATHAN 2. Non-Specific Active Suici dudley Thoughts (Past 1 Month) No 05/04/2025 8:31 AM EDT Nancy Tierney RN * Calculated C-SSRS Risk Score (Lifetime/Recent) Answer Date of Assessment Author No Risk Indicated 05/04/2025 8:31 AM EDT Stephanie Tierney RN * [place] Suicide Severity Rating Scale (Screener/Recent Self-Report) Question Answer Date of Assessment Author 6. Suicidal Behavior (Lifetime) No 8:31 AM EDT Stephanie Tierney, JONATHAN documented as of this encounter Plan of Treatment Upcoming Encounters Date Type Department Care Team (Late st Contact Info) Description 07/07/2025 10:30 AM EST Office Visit [facility] [address] [place] [address] [address] [place] [address] Germania Perry PA-C 1760 [facility] [address] [place] [address] 09/23/2025 1:00 PM EST Office Visit [facility] [address] [facility] [address] [place] [address] Sara Arora PA [address] [facility] [address] [place] [address] documented as of this encounter Procedures Procedure Name Priority Date/Time Associated Diagnosis Comments US THYROID Routine 03/13/2021 12:36 PM EDT History of thyroid cancer documented in this encounter Results * US Thyroid (03/13/2021 12:36 PM EDT) Narrative SYSTEMGENERATED, DOCUMENTATION - 03/13/2021 12:36 PM EDT Please see performing physician's note for result. us Sara GUTIERREZ IMG US ORDERABLES Final R esult documented in this encounter Visit Diagnoses Not on filedocumented in this encounter Additional Health Concerns Infection Onset Date Last Indicated Resolved Time COVID Screen (preop/placement) 07/03/2021 07/03/2021 01/22/2022 7:05 AM EDT documented as of this encounter Care Teams Drywall Finishing Foreman Relationship Specialty Start Date End Date Deana Veras DO [facility] [place] [facility] [place] [address] PCP - General 10/06/15 documented as of this encounter
--- OUTSIDE RECORDS SUMMARY | 2022-03-20 13:39 | XMS_ITS | Encounter Summary ---
[facility] [address] [place] [address] Care Team Providers Care Park Services Specialist Name Role Phone Deana Veras DO Primary Care Provider [phone] Reason for Visit * Diagnostic Imaging (Routine) - Closed Specialty Diagnoses / Procedures Referred By Scott t Referred To Contact Radiology Diagnoses Postsurgical hypothyroidism History of thyroid cancer Procedures Thyroid Sara Arora PA [address] [address] Phone: tel: fax: [facility] [address] [address] Phone: tel: fax: Referral ID Status Reason Start Date Expiration Date Visits Re quested Visits Authorized [id number] Closed 03/20/2022 03/20/2023 1 1 Encounter Details Date Type Department Care Team (Late st Contact Info) Description 03/20/2022 2:39 PM EDT Hospital Encounter [facility] [address] [address] Social History Tobacco Use Types [...] or training? Not on file Preferred Language Vincentian 04/20/2025 Comments No Sex and Gender Information [...] 8:31 AM EDT Stephanie Tierney RN * [place] Suicide Severity Rating Scale (Screener/Recent Self-Report) Question Answer Date of Assessment Author 6. Suicidal Behavior (Lifetime) No 8:31 AM EDT Stephanie Tierney, JONATHAN documented as of this encounter Plan of Treatment Upcoming Encounters Date Type Department Care Team (Late st Contact Info) Description 07/07/2025 10:30 AM EST Office Visit [facility] [address] [facility] [address] [place] [address] Germania Perry PA-C 1760 [facility] [address] [place] [address] 09/23/2025 1:00 PM EST Office Visit [facility] [address] [facility] [address] [place] [id number] Sara Arora PA [address] [facility] [address] [place] [address] documented as of this encounter Procedures Procedure Name Priority Date/Time Associated Diagnosis Comments US THYROID Routine 03/20/2022 2:39 PM EDT Postsurgical hypothyroidism History of thyroid cancer documented in this encounter Results * US Thyroid (03/20/2022 2:39 PM EDT) Narrative SYSTEMGENERATED, DOCUMENTATION - 03/20/2022 2:39 PM EDT Please see performing physician's note for result. us Sara GUTIERREZ IMG US ORDERABLES Final R esult documented in this encounter Visit Diagnoses Not on filedocumented in this encounter Care Teams Park Services Specialist Relationship Specialty Start Date End Date Deana Veras DO [address] [place] [address] PCP - General 10/06/15 documented as of this encounter
--- OUTSIDE RECORDS SUMMARY | 2023-03-21 13:52 | XMS_ITS | Encounter Summary ---
Author Organization [facility] Address [address] [place] [address] Care Team Providers Care Hotel Front Desk Agent Name Role Phone Deana Veras DO Primary Care Provider [phone] Reason for Visit * Diagnostic Imaging (Routine) - Closed Specialty Diagnoses / Procedures Referred By Scott frances Referred To Contact Radiology Diagnoses Postsurgical hypothyroidism History of thyroid cancer Procedures Thyroid Sara Arora PA [address] [place] [id number] Phone: tel: fax: Referral ID Status Reason Start Date Expiration Date Visits Re quested Visits Authorized [id number] Closed 03/21/2023 03/20/2024 1 1 Encounter Details Date Type Department Care Team (Late st Contact Info) Description 03/21/2023 2:52 PM EDT Hospital Encounter [facility] [place] [id number] Social History Tobacco Use Types Packs/Day Years [...] or training? Not on file Preferred Language Micronesian 04/20/2025 Comments No Sex and Gender Information [...] Risk Indicated 05/04/2025 8:31 AM EDT Stephanie Tierney, JONATHAN * [place] Suicide Severity Rating Scale (Screener/Recent Self-Report) Question Answer Date of Assessment Author 6. Suicidal Behavior (Lifetime) No 8:31 AM EDT Stephanie Tierney, RN documented as of this encounter Plan of Treatment Upcoming Encounters Date Type Department Care Team (Late st Contact Info) Description 07/07/2025 10:30 AM EST Office Visit [facility] [address] [address] Germania Perry PA-C [address] [facility] [address] [place] [address] 09/23/2025 1:00 PM EST Office Visit [facility] [address] [facility] [address] [place] [id number] Sara Arora PA [address] [facility] [address] [place], [place] [id number] documented as of this encounter Procedures Procedure Name Priority Date/Time Associated Diagnosis Comments US THYROID Routine 03/21/2023 2:52 PM EDT Postsurgical hypothyroidism History of thyroid cancer documented in this encounter Results * US Thyroid (03/21/2023 2:52 PM EDT) Narrative SYSTEMGENERATED, DOCUMENTATION - 03/21/2023 2:52 PM EDT Please see performing physician's note for result. us Sara GUTIERREZ IMG US ORDERABLES Final R esult documented in this encounter Visit Diagnoses Not on filedocumented in this encounter Care Teams Hotel Front Desk Agent Relationship Specialty Start Date End Date Deana Veras DO [facility] [place] [address] PCP - General 10/06/15 documented as of this encounter
--- OUTSIDE RECORDS SUMMARY | 2024-03-19 13:18 | XMS_ITS | Encounter Summary ---
Author Organization [facility] Address [address] [place] [address] Care Team Providers Care Principal Technical Specialist Name Role Phone Deana Veras DO Primary Care Provider [phone] Reason for Referral * Diagnostic Imaging (Routine) - Closed Specialty Diagnoses / Procedures Referred By Scott frances Referred To Contact Radiology Diagnoses Postsurgical hypothyroidism History of thyroid cancer Procedures Thyroid Sara Arora PA [address] [place] [address] Phone: tel: fax: Referral ID Status Reason Start Date Expiration Date Visits Re quested Visits Authorized [id number] Closed 03/19/2024 03/19/2025 1 1 Reason for Visit * Diagnostic Imaging (Routine) - Closed Specialty Diagnoses / Procedures Referred By Scott frances Referred To Contact Radiology Diagnoses Postsurgical hypothyroidism History of thyroid cancer Procedures US Thyroid Sara Arora PA [facility] [place] [address] Phone: tel: fax: Referral ID Status Reason Start Date Expiration Date Visits Re quested Visits Authorized [id number] Closed 03/19/2024 03/19/2025 1 1 Encounter Details Date Type Department Care Team (Latest Contact Info) Description 03/19/2024 2:18 PM EDT Hospital Encounter [facility] END[facility]CR[facility] [address] [facility] [address] [place] [address] Postsurgical hypothyroidism; History of thyroid cancer Social History Tobacco Use Types Packs/Day Years [...] Month) No 025 8:31 AM EDT Stephanie Tierney RN 2. Non-Specific Active Suici dudley Thoughts (Past 1 Month) No 05/04/2025 8:31 AM EDT Nancy Tierney RN * Calculated C-SSRS Risk Score (Lifetime/Recent) Answer Date of Assessment Author No Risk Indicated 05/04/2025 8:31 AM EDT Stephanie Tierney JONATHAN * [place] Suicide Severity Rating Scale (Screener/Recent Self-Report) Question Answer Date of Assessment Author 6. Suicidal Behavior (Lifetime) No 8:31 AM EDT Stephanie Tierney, RN documented as of this encounter Plan of Treatment Upcoming Encounters Date Type Department Care Team (Late st Contact Info) Description 07/07/2025 10:30 AM EST Office Visit [facility] [address] [facility] [address] [place] [address] Germania Perry PA-C [address] [facility] [address] [place] [address] 09/23/2025 1:00 PM EST Office Visit [facility] [address] [facility] [address] [place] [address] Sara Arora PA [address] [facility] [address] [place] [address] documented as of this encounter Procedures Procedure Name Priority Date/Time Associated Diagnosis Comments US THYROID Routine 03/19/2024 2:18 PM EDT Postsurgical hypothyroidism History of thyroid cancer documented in this encounter Results * US Thyroid (03/19/2024 2:18 PM EDT) Narrative SYSTEMGENERATED, DOCUMENTATION - 03/19/2024 2:18 PM EDT Please see performing physician's note for result. us Sara GUTIERREZ IMG US ORDERABLES Final R esult documented in this encounter Visit Diagnoses Diagnosis Postsurgical hypothyroidism History of thyroid cancer Personal history of malignant neoplasm of thyroid documented in this encounter Care Teams Principal Technical Specialist Relationship Specialty Start Date End Date Deana Veras DO [address] [place] [address] PCP - General 10/06/15 documented as of this encounter
--- OUTSIDE RECORDS SUMMARY | 2025-05-04 06:58 | XMS_ITS | Encounter Summary ---
[facility] [address] [place] [address] Care Team Providers Care Repairer General Name Role Phone TravisDeana brown Gena Primary Care Provider [phone] Reason for Visit * Auth/Cert Specialty Diagnoses / Procedures Referred By Contac t Referred To Contact Diagnoses Primary osteoarthritis of left knee Primary osteoarthritis of left knee [M17.12] Procedures SC ARTHRP KNE CONDYLE&PLATU MEDIAL&LAT COMPARTMENTS Left total knee arthroplasty Referral ID Status Reason Start Date Expiration Date Visits Re quested Visits Authorized [id number] 1 1 Encounter Details Date Type Department Care Team (Late st Contact Info) Description 05/04/2025 7:58 AM EDT - 05/05/2025 12:44 PM EDT Hospital Encounter [place] [id number] Romero Hall MD [address] [place] [address] S/P TKR (total knee replacement), left (Primary Dx); Primary osteoarthritis of left knee Discharge Disposition: Home or Self Care Social History Tobacco Use Types Packs/Day Years [...] or training? Not on file Preferred Language Slovenian 04/20/2025 Comments No Sex and Gender Information Value Date Recorded Sex Assigned at Female 12/28/2024 10:17 AM EDT Legal Sex Female 11:26 AM EDT Gender Identity Not on file Sexual Orientation Straight 12/28/2024 10 :17 AM EDT documented as of this encounter Last Filed Vital Signs Vital Sign Reading Time Taken Comments Blood Pressure 145/75 05/05/2025 7:32 AM EDT Pulse 76 05/05/2025 7:32 AM EDT Temperature 36.9 C (98.5 F) 05/05/2025 7:32 AM EDT Respiratory Rate 16 05/05/2025 7:32 AM EDT Oxygen Saturation 95% 05/05/2025 7:32 AM EDT Inhaled Oxygen Concentration - - Weight 78.5 kg (173 lb) 05/04/2025 8:42 AM EDT Height 167.6 cm (5' 6 ) 05/04/2025 8:42 AM EDT Body Mass Index 27.92 05/04/2025 8:42 AM EDT documented in this encounter Functional Status * Question Answer [...] 8:31 AM EDT Stephanie Tierney RN * [place] Suicide Severity Rating Scale (Screener/Recent Self-Report) Question Answer Date of Assessment Author 6. Suicidal Behavior (Lifetime) No 8:31 AM EDT Stephanie Tierney RN documented as of this encounter Discharge Instructions * Discharge Instructions* Zaida Leigh RN - 05/05/2025 11:14 AM EDT Images from the original note were not included. COLD THERAPY - PATIENT INSTRUCTION SHEET Cold Compression Therapy for your comfort and rehabilitation Your caregivers want you to be productive in your rehab and comfortable during your stay. In keeping with those goals, you will be receiving a Cold Therapy Wrap to help ease post-operative pain and swelling that might keep you from getting back on track! Your Cold Therapy Wrap is effective and [id number], and you will be encouraged to apply it throughout your hospital stay and at home through the duration of your recovery. When you are ready to go home Be sure to take your Cold Therapy Wrap and both sets of Gel Bags with you for continued comfort anduse throughout your rehabilitation. If you don't already have them, ask your nurse or aide to retrieve your Gel Bags from the patient freezer. Home use precautions Always follow your medical professional's application instructions upon discharge. Your Cold Therapy Wrap and Gel Bags are designed to last for months following your surgery. Never heat the Gel Bags.Supervision is advised when using this product on children or geriatric patients. To avoid danger of suffocation, please keep the outer plastic packaging away from children & pets. Cold Therapy Instructions Place Gel Bags in a freezer set ?? of the way to max temperature for at least (4) hours. For best results, lay the Gel Bags flat and [id number] in the freezer. Once frozen, slide Gel Bags into the gel pouch and secure your wrap to the affected area with the straps. Gel wraps that have been stored in a freezer for an extended period of time may require a (10) minute period of softening up in a room temperature environment before application. The gel pouch acts as a protective barrier. NEVER place frozen bags directly onto skin, as this maycause frostbite injury. The Cold Therapy Wrap is designed to be able to be worn while ambulating. The compression straps can be secured well enough so that the wrap won't fall off while moving. An additional protective barrier such as clothing, a washcloth, hand-towel or pillowcase may be used during prolonged treatment applications. The Gel-Pouch and Wrap are both Latex-Free and the Gel Bag ingredients are non toxic. Cold Wrap care instructions The Cold Therapy Wrap may be hand washed and hung to dry when needed. InfuBLOCK - Patient Information What is a pain pump? The InfuBLOCK pump delivers post-operative, non-narcotic, numbing medication to the nerve near the surgical site for pain relief. Where can I find information about my pain pump? For more information about your pain pump, scan the QR code. For additional patient resources, visit [employer]/iycytwqak-yqta-[email or web address]. While your physician is your primary source for information about your treatment there may be timesduring your treatment that you need assistance with your infusion pump. If you need assistance take the following steps: The [employer] Protect Nursing Hotline is Here for You 25/02. Please call for the following concerns or complications: Answers to questions about your infusion pump Tubing disconnect Assistance with pump alarms Dislodged catheter Excessive leakage noted from pump Inadequate pain control 2. [facility] Anesthesia Acute Pain Service: is available 25/02 for any furtherneeds or concerns about medication or pain control. Nerve Catheter Removal Instructions When your device is empty: Remove your catheter by pulling the dressing off slowly (like you would remove a regular bandage). The catheter should pull right out of the skin. Check that the BLUE tip is intact. If the catheter is stuck, reposition your extremity and pull slowly until removed. *If catheter is HURTING and WON'T come out, stop and call for further assistance. Remove medication bag from the black carrying case. Cut the tubing on right and left side of pump, and discard the medication bag and tubing into garbage. Place the pump and black carrying case into the plastic bag and then place this into the return box. Seal box with blue stickers and return to [place] postal service. THIS IS PRE-PAID POSTAGE. * Attachments The following attachments cannot be sent through Care Everywhere. * Total Knee Replacement Surgery: What to Know After (Slovenian) * How to Use a Walker (Slovenian) * Fall Prevention in the Home Adult Vabb-eb-Lexp (Slovenian) * How to Prevent Constipation After Surgery (Slovenian) * Acetaminophen Capsules or Tablets (Slovenian) * Aspirin Tablets (Slovenian) * Docusate Capsules or Tablets (Slovenian) * Meloxicam Tablets (Slovenian) * Oxycodone Capsules or Tablets (Slovenian) documented in this encounter Medications at Time of Discharge ascorbic acid (VITAMIN C) 1000 MG tablet Take 1 tablet by mouth Every Other Day. aspirin (ASPIR) 81 MG EC tablet Take 1 tablet by mouth 2 (Two) Times a Day. 60 tablet 05/05/2025 11:31 AM EDT 05/05/2025 atorvastatin (LIPITOR) 10 MG tablet Take 1 tablet by mouth Every Evening. 06/13/2023 Biotin 5 MG tablet Take 1 tablet by mouth 2 (Two) Times a Day. bisoprolol (ZEBeta) 5 MG tablet Take 1 tablet by mouth Every Evening. 07/09/2020 BLACK CURRANT SEED OIL PO Take 1 dose by mouth 2 (two) times a day. Calcium Carb-Cholecalcif vance 600-400 MG-UNIT tablet Take 600 mg by mouth 2 (two) times a day. escitalopram (LEXAPRO) 10 MG tablet Take 1 tablet by mouth Daily. esomeprazole (nexIUM) 20 MG capsule Take 1 capsule by mouth Every Morning. 09/09/2024 estradiol (VIVELLE-DOT) 0.1 MG/24HR patch 1 patch 2 (Two) Times a Week. Sundays and 08/08/2020 fenofibrate (TRICOR) 145 MG tablet Take 1 tablet by mouth Daily. 08/08/2020 ferrous sulfate 325 (65 FE) MG tablet Take 1 tablet by mouth Daily With Breakfast. fexofenadine (AMA) 180 MG tablet Take 1 tablet by mouth Daily. fluticasone (FLONASE) 50 MCG/ACT nasal spray 2 sprays by Each Nare route Daily. 07/26/2020 ipratropium (ATROVENT) 0.06 % nasal spray INSTILL 2 SPRAYS IN EACH NOSTRIL THREE TIMES DAILY 12/09/2024 levothyroxine (SYNTHROID, LEVOTHROID) 137 MCG tablet Take 1 tablet by mouth Daily. NEW DOSE 90 tablet 1 03/23/2025 magnesium gluconate 250 MG tablet tablet Take 2 tablets by mouth 2 (Two) Times a Day. METAMUCIL FIBER PO Take 1 dose by mouth Every Evening. metFORMIN ER (GLUCOPHAGE-XR) 500 MG 24 hr tablet Take 2 tablets by mouth 2 (Two) Times a Day. 01/19/2022 oxyCODONE (Roxicodone) 5 MG immediate release tabletIndication s:S/P TKR (total knee replacement), left Take 1 tablet by mouth Every 4 (Four) Hours As Needed for Moderate Pain. 30 tablet 05/05/2025 11:31 AM EDT 05/04/2025 Ozempic, 0.25 or 0.5 MG/DOSE, 2 MG/3ML solution pen-injector Inject 0.5 mg under the skin into the appropriate area as directed 1 (One) Time Per Week. 12/09/2024 polyethylene glycol (MIRALAX) 17 GM/SCOOP powder Take 17 g by mouth Daily. ropivacaine (NAROPIN) 0.2 % infusion (INFUSYSTEM) 4 mg/hr by Peripheral Nerve route Continuous. 05/04/2025 acetaminophen (TYLENOL) 500 MG tablet Take 2 tablets by mouth EVERY 8 hours for 7 days; THEN take every 8 hours only NEEDED thereafter 60 tablet 05/05/2025 11:31 AM EDT 05/04/2025 5 docusate sodium (COLACE) 100 MG capsule Take 1 capsule by mouth 2 (Two) Times a Day for 15 days. 30 capsule 05/05/2025 11:31 AM EDT 05/04/2025 5 meloxicam (MOBIC) 15 MG tablet Take 1 tablet by mouth Daily for 15 days. 15 tablet 05/05/2025 11:31 AM EDT 05/05/2025 5 documented as of this encounter Progress Notes * Earl Hayes CRNA - 05/05/2025 8:12 AM EDT [facility] Acute pain service Inpatient Progress Note Patient Name: Marah Gonzalez : 1955 Acute Pain Service Inpatient Progress Note: Analgesia:Good LOC: alert and awake Resp Status: room air Cardiac: VS stable Side Effects:None Catheter Site:clean, dressing intact and dry Cath type: peripheral nerve cath(InfuSystem) Infusion rate: Fem/ Add: Basal: 1ml/hr, PIB: 8ml q 8h, MEDIA MONITOR: 8ml q 30 min (1mL,8ml, 8ml InfuSystem Pump) Catheter Plan:Catheter to remain Insitu and Continue catheter infusion rate unchanged Comments: Patient sitting up in bed, eating breakfast, very alert and attentive. Complains of rough afternoonafter PT yesterday, but states it is much better today. Anterior knee Is numb to pressure and without pain, posterior knee is tender to touch and patient complains that is the most intense part of her discomfort, patient instructed per nerve block and fusion and postoperative pain control measures.Thank you * Romero Hall MD - 05/05/2025 7:26 AM EDT Images from the original note were not included. [facility] [place] Subjective LOS: 0 days Patient Care Team: Deana Veras DO as PCP - General Deana Veras DO as PCP - Family Medicine Sara Arora PA as Physician Engineering Team Supervisor (Endocrinology) CC: Left knee pain Interval History: Patient resting comfortably in bed this morning. Pain well-controlled. She would like to go home today. Doing much better than yesterday. Objective Vital Signs Temp (24hrs), Av.7 ??F (36.5 ??C), Min:97 ??F (36.1 ??C), Max:98.5 ??F (36.9 ??C) BP 140/84 (BP Location: Right arm, Patient Position: Lying) Pulse 77 Temp 97.9 ??F (36.6 ??C) (Oral) Resp 16 Ht 167.6 cm (66 ) Wt 78.5 kg (173 lb) LMP (LMP Unknown) SpO2 94% BMI 27.92kg/m?? Examination: Examination of the left knee: The wound is clean, dry, and intact. Ankle dorsiflexion, ankle plantar flexion, and EHL are intact. Sensation intact in the foot to light touch. 2+ dorsalis pedis pulse.Straight leg raise is intact. Labs: Results from last 7 days Lab Units 05/05/25 0513 WBC 10*3/mm3 15.22* HEMOGLOBIN g/dL 10.8* HEMATOCRIT % 33.5* MCV fL 88.6 PLATELETS 10*3/mm3 316 Radiology: Imaging Results (Last 24 Hours) Procedure Component Value Units Date/Time XR Knee 1 or 2 View Left [[id number]] Collected: 05/04/25 1259 Updated: 05/04/25 1303 Narrative: XR KNEE 1 OR 2 VW LEFT Date of Exam: 05/04/2025 12:20 PM EDT Indication: post-op. Comparison: None available. Findings: Postoperative changes of knee arthroplasty without radiographic evidence of immediate complication.Surrounding soft tissue edema and subcutaneous emphysema, favored postoperative. No acute fracture or dislocation. Impression: Impression: Postoperative changes of knee arthroplasty without radiographic evidence of immediate complication. Electronically Signed: Jarad Sanches MD 05/04/2025 12:59 PM EDT Workstation ID: [id number] PT: Physical Therapy - Plan of Care Review - Outcome Summary: Outcome Evaluation: PT eval completed. Pt presents s/p L TKA with significant pain, LLE deficits, balance deficits, and decreased activity tolerance. Pt ambulated 20 ft w/ FWW, CGA x2. Further mobility limited by significant pain. Pt would benefit from IP PT services while hospitalized. Anticipate pt to be able to d/c home w/ 25/02 assist and HHPT once pain is controlled, however will continue to monitor progress closely. (05/04/25 8809)] Results Review: I reviewed the patient's new clinical results. Assessment and Plan Assessment: 1 Day Post-Op status post left total knee arthroplasty S/P TKR (total knee replacement), left HTN (hypertension) DM2 (diabetes mellitus, type 2) GERD (gastroesophageal reflux disease) Primary osteoarthritis of left knee Degenerative arthritis of left knee Plan for disposition: Plan for discharge home today as long as she is cleared medically and by physical therapy. Follow-up in 3 weeks as planned. Future Appointments Date Time Provider Department Center 05/26/2025 11:20 AM Germania Perry PA-C [facility] 09/23/2025 1:00 PM Sara Arora PA [facility] Romero Hall MD 05/05/25 07:28 EDT documented in this encounter H&P Notes * Kenji Alford MD - 05/04/2025 2:27 PM EDT Patient Name: Marah Gonzalez : 1955 DOS: 05/04/2025 Attending: Romero Hall MD Primary Care Provider: Deana Veras DO Chief complaint: Left knee Pain. Subjective Patient is a pleasant 69 y.o. female presented for scheduled surgery by Dr. Hall. Per his note: ( The patient is a 69 y.o. female with debilitating left knee pain secondary to osteoarthritis that failed to improve in spite of conservative treatment . Options have been discussed atlength with the patient and the patient has had an extended course of conservative treatment without long-term benefit. The patient has reached the point where the patient desires total knee arthroplasty surgery and understands the risks, benefits, and alternatives. Consent was obtained. Please seemy office notes for details with regard to preoperative counseling and operative rationale. ) She is known to us from prior hospitalizations for knee replacement and hip replacement. Today she patient underwent left total knee arthroplasty under spinal anesthesia, tolerated surgerywell. Adductor canal nerve block catheter was placed by acute pain service, and patient was admitted for further management. Seen postoperatively in PACU, doing well with good pain control, no complaints of nausea, vomiting,or shortness of breath. Patient has no history of DVT or PE. Reviewed with patient past medical history and home medications Allergies: Allergies Allergen Reactions Sulfa Antibiotics Rash Adhesive Tape Rash Wound Dressing Adhesive Rash blisters Meds: Medications Prior to Admission Medication Sig Dispense Refill Last Dose/Taking atorvastatin (LIPITOR) 10 MG tablet Take 1 tablet by mouth Every Evening. 05/03/2025 Evening bisoprolol (ZEBeta) 5 MG tablet Take 1 tablet by mouth Every Evening. 05/04/2025 at 6:00 AM Chlorhexidine Gluconate 4 % solution Apply 1 Application topically to the appropriate area as directed Daily. Shower with hibiclens solution as directed for 5 days prior to surgery 236 mL 0 05/03/2025Evening escitalopram (LEXAPRO) 10 MG tablet Take 1 tablet by mouth Daily. 05/03/2025 Evening esomeprazole (nexIUM) 20 MG capsule Take 1 capsule by mouth Every Morning. (Patient taking differently: Take 2 capsules by mouth Every Morning.) 05/03/2025 Morning fenofibrate (TRICOR) 145 MG tablet Take 1 tablet by mouth Daily. 05/03/2025 Morning fexofenadine (AMA) 180 MG tablet Take 1 tablet by mouth Daily. 05/03/2025 Morning fluticasone (FLONASE) 50 MCG/ACT nasal spray 2 sprays by Each Nare route Daily. 05/04/2025 at 6:00 AM ipratropium (ATROVENT) 0.06 % nasal spray INSTILL 2 SPRAYS IN EACH NOSTRIL THREE TIMES DAILY 05/04/2025 at 6:00 AM levothyroxine (SYNTHROID, LEVOTHROID) 137 MCG tablet Take 1 tablet by mouth Daily. NEW DOSE 90 tablet 1 05/04/2025 at 6:00 AM METAMUCIL FIBER PO Take 1 dose by mouth Every Evening. 05/03/2025 Evening metFORMIN ER (GLUCOPHAGE-XR) 500 MG 24 hr tablet Take 2 tablets by mouth 2 (Two) Times a Day. 05/03/2025 Evening polyethylene glycol (MIRALAX) 17 GM/SCOOP powder Take 17 g by mouth Daily. 05/03/2025 Evening ascorbic acid (VITAMIN C) 1000 MG tablet Take 1 tablet by mouth Every Other Day. 04/25/2025 Biotin 5 MG tablet Take 1 tablet by mouth 2 (Two) Times a Day. 04/25/2025 BLACK CURRANT SEED OIL PO Take 1 dose by mouth 2 (two) times a day. 04/25/2025 Calcium Carb-Cholecalciferol 600-400 MG-UNIT tablet Take 600 mg by mouth 2 (two) times a day. 04/25/2025 estradiol (VIVELLE-DOT) 0.1 MG/24HR patch 1 patch 2 (Two) Times a Week. Sundays and 05/02/2025 ferrous sulfate 325 (65 FE) MG tablet Take 1 tablet by mouth Daily With Breakfast. 04/25/2025 magnesium gluconate 250 MG tablet tablet Take 2 tablets by mouth 2 (Two) Times a Day. 04/25/2025 Ozempic, 0.25 or 0.5 MG/DOSE, 2 MG/3ML solution pen-injector Inject 0.5 mg under the skin into the appropriate area as directed 1 (One) Time Per Week. 04/21/2025 History: Past Medical History: Diagnosis Date Anemia Arthritis of back Arthritis of neck Diabetes mellitus 12/2021 monitored by PCP' metformin daily Elevated cholesterol GERD (gastroesophageal reflux disease) omeprazole bid Hip arthrosis History of anxiety History of diverticulitis 2019-required 2 surgeries History of skin cancer basal cell-left thigh History of transfusion colon surgery-2 units required ([facility]) no reactions Hypertension Knee swelling right Lumbosacral disc disease Malignant tumor of thyroid gland thyroidecotmy Osteoarthritis Postoperative hypothyroidism Primary hyperparathyroidism Type 2 diabetes mellitus 12/08/2021 Past Surgical History: Procedure Laterality Date BACK SURGERY BLEPHAROPLASTY, QUAD Bilateral 04/2006 BUNIONECTOMY Bilateral 11/2009 COLON RESECTION 07/11/2016 divertiuculitis COLON RESECTION WITH ILEOSTOMY 07/27/2016 diverticulitis COLONOSCOPY CYSTOCELE REPAIR ENDOSCOPY EYE SURGERY Bilateral cataracts FOOT SURGERY Right neuroma (aug 1989); bunionecotmy (05/22/2017); HAMMER TOE REPAIR Right 2019 HAND TENDON REPAIR Right 1973 3rd finger-due to injury HERNIA REPAIR 02/20/2024 Ventral hernia repair, component separation (Dr. Vaz) HYSTERECTOMY 05/2003 with BSO JOINT REPLACEMENT KNEE SURGERY LUMBAR DECOMPRESSION 2019 L4-L5 PARATHYROIDECTOMY 07/18/2018 with thyroid surgery (removed one) RECTOCELE REPAIR 09/26/2011 REFRACTIVE SURGERY Bilateral 10/1995 REPAIR PELVIC FLOOR DEFECT VAGINAL APPROACH W/ MESH 2004 REVISION / TAKEDOWN COLOSTOMY 12/12/2016 SINUS SURGERY Left 06/2004 endoscopic SKIN BIOPSY 10/2007 skin cancer removed from leg SPINAL FUSION 12/06/2021 S1-L5 THYROID SURGERY 07/2014 TONSILLECTOMY AND ADENOIDECTOMY 1964 TOOTH EXTRACTION with cadaver bone for implant TOTAL HIP ARTHROPLASTY Right 06/12/2022 Procedure: MODIFIED ANTERIOR TOTAL HIP ARTHROPLASTY - RIGHT; Surgeon: Romero Hall MD; Location: [facility]; Service: Orthopedics; Laterality: Right; TOTAL KNEE ARTHROPLASTY Right 05/21/2023 Procedure: TOTAL KNEE ARTHROPLASTY WITH CORI ROBOT - RIGHT; Surgeon: Romero Hall MD; Location: [facility]; Service: Robotics - Ortho; Laterality: Right; TOTAL THYROIDECTOMY 07/22/2014 WISDOM TOOTH EXTRACTION 1965 Family History Problem Relation Age of Onset Diabetes Mother Heart disease Mother Heart disease Father Cancer Brother Social History Tobacco Use Smoking status: Never Smokeless tobacco: Never Vaping Use Vaping status: Never Used Substance Use Topics Alcohol use: Not Currently Comment: Very seldom use Drug use: Never Review of Systems Pertinent items are noted in HPI Vital Signs BP 132/83 Pulse 75 Temp 97.7 ??F (36.5 ??C) Resp 17 Ht 167.6 cm (66 ) Wt 78.5 kg (173 lb) LMP (LMP Unknown) SpO2 97% BMI 27.92 kg/m?? Physical Exam: General Appearance: Alert, cooperative, in no acute distress Head: Normocephalic, without obvious abnormality, atraumatic Eyes: Lids and lashes normal, conjunctivae and sclerae normal, no icterus, no pallor, corneas clear Ears: Ears appear intact with no abnormalities noted Throat: No oral lesions, no thrush, oral mucosa moist Neck: No adenopathy, supple, trachea midline, no thyromegaly Lungs: Clear to auscultation,respirations regular, even and unlabored Heart: Regular rhythm and normal rate, normal S1 and S2, no murmur, no gallop Abdomen: Normal bowel sounds, no masses, no organomegaly, soft nontender, nondistended, no guarding, no rebound tenderness Genitalia: Deferred Extremities: Left LE, CDI dressing on knee, PNB cath present. Pulses: Pulses palpable and equal bilaterally Skin: No bleeding, bruising or rash Neurologic: Cranial nerves 2 - 12 grossly intact, decreased movement and sensation in the lower extremities due to spinal anesthesia effects when seen postop I reviewed the patient's new clinical results. Invalid input(s): NEUTOPHILPCT Invalid input(s): LABALBU , PROT Lab Results Component Value Date HGBA1C 5.23 04/20/2025 Lab Results Component Value Date GLUCOSE 92 04/20/2025 CALCIUM 8.2 (L) 04/20/2025 NA 140 04/20/2025 K 4.3 04/20/2025 CO2 24.4 04/20/2025 CL 106 04/20/2025 BUN 17.0 04/20/2025 CREATININE 0.78 04/20/2025 EGFR 81.3 04/20/2025 BCR 21.8 04/20/2025 ANIONGAP 9.6 04/20/2025 Lab Results Component Value Date WBC 10.47 04/20/2025 HGB 13.4 04/20/2025 HCT 42.3 04/20/2025 MCV 88.1 04/20/2025 PLT 352 04/20/2025 Assessment and Plan: S/P TKR (total knee replacement), left HTN (hypertension) DM2 (diabetes mellitus, type 2) GERD (gastroesophageal reflux disease) Primary osteoarthritis of left knee Degenerative arthritis of left knee Plan 1. PT/OT, Weight bearing as tolerated left LE 2. Pain control-prns, ACB cath with ropivacaine infusion. 3. IS-encourage 4. DVT proph- Mechanicals and aspirin 5. Bowel regimen 6. Resume home medications as appropriate 7. DC planning for home Patient is very motivated to work with physical therapy and achieve mobility and pain control amongother goals for possible discharge home later in the day. We reviewed these goals and discussed with patient tracking progress for the next few hours and if all is achieved to receive next antibiotic prophylactic dose and be discharged home. We discussed medications and precriptions at time of discharge including DVT prophylaxis, pain control, and bowel regimen. All questions were answered . Patient expressed understanding and agreement.. Lakesha disclaimer: Part of this encounter note is an electronic manager sales training/translation of spoken language to printed text. The electronic translation of spoken language may permit erroneous, or at times, nonsensicalwords or phrases to be inadvertently transcribed; Although I have reviewed the note for such errors, some may still exist. Kenji Alford MD 05/04/25 14:27 EDT * Romero Hall MD - 05/04/2025 8:48 AM EDT [facility] Pre-op Full history and physical note from office is attached. BP 143/86 (BP Location: Right arm, Patient Position: Sitting) Pulse 79 Temp 98 ??F (36.7 ??C) (Temporal) Resp 16 Ht 167.6 cm (66 ) Wt 78.5 kg (173 lb) LMP (LMP Unknown) SpO2 99% BMI 27.92 kg/m?? Immunizations: Influenza: UTD Pneumococcal: UTD Tetanus: UTD Review of Systems: Constitutional-- No fever, chills or sweats. No fatigue. CV-- No chest pain, palpitation or syncope Resp-- No SOB, cough, hemoptysis Skin--No rashes or lesions Physical Exam: Heart: Regular rate and rhythm, S1 and S2 normal Lungs: Clear to auscultation bilaterally, respirations unlabored LAB Results: Lab Results Component Value Date WBC 10.47 04/20/2025 HGB 13.4 04/20/2025 HCT 42.3 04/20/2025 MCV 88.1 04/20/2025 PLT 352 04/20/2025 NEUTROABS 6.88 04/20/2025 GLUCOSE 92 04/20/2025 BUN 17.0 04/20/2025 CREATININE 0.78 04/20/2025 NA 140 04/20/2025 K 4.3 04/20/2025 CL 106 04/20/2025 CO2 24.4 04/20/2025 MG 1.8 (L) 02/21/2024 CALCIUM 8.2 (L) 04/20/2025 PTT 32.0 04/20/2025 INR 0.92 04/20/2025 Cancer Staging (if applicable) Cancer Patient: __ yes __no __unknown__N/A; If yes, clinical stage T:__ N:__M:__, stage group or __N/A Impression: Primary osteoarthritis of left knee Plan: TOTAL KNEE ARTHROPLASTY LEFT Afsaneh Palomares APRN 05/04/2025 08:48 EDT Agree with above - plan for left TKA Romero Hall MD 05/04/25 09:51 EDT Source Note - Romero Hall MD - 04/12/2025 8:40 AM EDT Images from the original note were not included. [facility] [place] [place] Subjective Chief Complaint Patient presents with Follow-up 3 month f/u; Primary osteoarthritis of left knee HPI It has been 3 month(s) since Ms. Gonzalez's last visit. She returns to clinic today for follow-up of left knee arthritis. The issue has been ongoing for 8 year(s). She rates her pain a 4/10 on the painscale. Previous/current treatments: steroid injection (last injection 01/04/25). Current symptoms: same as prior visit. The pain is worse with sleeping and lying on affected side; pain medication and/or NSAID improve the pain. Overall, she is doing worse. She has reached a point where she would like to proceed with left total knee arthroplasty surgery. She has exhausted conservative treatment. Her can help out postoperatively. No history of clots or clotting disorders. No blood thinners. 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 HTN (hypertension) DM2 (diabetes mellitus, type 2) GERD (gastroesophageal reflux disease) Status post total replacement of right hip Postoperative pain Degenerative arthritis of right knee S/P total knee arthroplasty, right Primary osteoarthritis of left knee Degenerative arthritis of left knee Past Medical History: Diagnosis Date Anemia Arthritis of back Arthritis of neck Diabetes mellitus 12/2021 monitored by PCP' metformin daily Elevated cholesterol GERD (gastroesophageal reflux disease) omeprazole bid Hip arthrosis History of anxiety History of diverticulitis 2019-required 2 surgeries History of skin cancer basal cell-left thigh History of transfusion colon surgery-2 units required ([facility]) Hypertension Knee swelling right Lumbosacral disc disease Malignant tumor of thyroid gland thyroidecotmy Osteoarthritis Postoperative hypothyroidism Primary hyperparathyroidism Type 2 diabetes mellitus 12/08/2021 Past Surgical History: Procedure Laterality Date BACK SURGERY BLEPHAROPLASTY, QUAD Bilateral 04/2006 BUNIONECTOMY Bilateral 11/2009 COLON RESECTION 07/11/2016 divertiuculitis COLON RESECTION WITH ILEOSTOMY 07/27/2016 diverticulitis COLONOSCOPY CYSTOCELE REPAIR ENDOSCOPY FOOT SURGERY Right neuroma (aug 1989); bunionecotmy (05/22/2017); HAMMER TOE REPAIR Right 2019 HAND TENDON REPAIR Right 1974 3rd finger-due to injury HYSTERECTOMY 05/2003 with BSO JOINT REPLACEMENT KNEE SURGERY LEG SURGERY 05/21/2023 right leg LUMBAR DECOMPRESSION 2019 L4-L5 PARATHYROIDECTOMY 07/18/2018 with thyroid surgery (removed one) RECTOCELE REPAIR 09/26/2011 REFRACTIVE SURGERY Bilateral 10/1995 REPAIR PELVIC FLOOR DEFECT VAGINAL APPROACH W/ MESH 2004 REVISION / TAKEDOWN COLOSTOMY 12/12/2016 SINUS SURGERY Left 06/2004 endoscopic SKIN BIOPSY 10/2007 skin cancer removed from leg SPINAL FUSION 12/06/2021 S1-L5 THYROID SURGERY 07/2014 TONSILLECTOMY AND ADENOIDECTOMY 1964 TOOTH EXTRACTION with cadaver bone for implant TOTAL HIP ARTHROPLASTY Right 06/12/2022 Procedure: MODIFIED ANTERIOR TOTAL HIP ARTHROPLASTY - RIGHT; Surgeon: Romero Hall MD; Location: [facility]; Service: Orthopedics; Laterality: Right; TOTAL KNEE ARTHROPLASTY Right 05/21/2023 Procedure: TOTAL KNEE ARTHROPLASTY WITH CORI ROBOT - RIGHT; Surgeon: Romero Hall MD; Location: [facility]; Service: Robotics - Ortho; Laterality: Right; TOTAL THYROIDECTOMY 07/22/2014 WISDOM TOOTH EXTRACTION 1965 Family History Problem Relation Age of Onset Diabetes Mother Heart disease Mother Heart disease Father Cancer Brother Social History Socioeconomic History Marital status: Tobacco Use Smoking status: Never Smokeless tobacco: Never Vaping Use Vaping status: Never Used Substance and Sexual Activity Alcohol use: Not Currently Comment: Very seldom use Drug use: Never Sexual activity: Not Currently Partners: Male control/protection: Post-menopausal, Vasectomy, Hysterectomy Current Outpatient Medications on File Prior to Visit Medication Sig Dispense Refill ascorbic acid (VITAMIN C) 1000 MG tablet Take 1 tablet by mouth Every Other Day. atorvastatin (LIPITOR) 10 MG tablet Take 1 tablet by mouth Every Evening. Biotin 5 MG tablet Take 1 tablet by mouth 2 (Two) Times a Day. bisoprolol (ZEBeta) 5 MG tablet Take 1 tablet by mouth Daily. BLACK CURRANT SEED OIL PO Take 1 dose by mouth 2 (two) times a day. Calcium Carb-Cholecalciferol 600-400 MG-UNIT tablet Take 600 mg by mouth 2 (two) times a day. escitalopram (LEXAPRO) 10 MG tablet Take 1 tablet by mouth Daily. esomeprazole (nexIUM) 20 MG capsule Take 1 capsule by mouth Every Morning. (Patient taking differently: Take 2 capsules by mouth Every Morning.) estradiol (VIVELLE-DOT) 0.1 MG/24HR patch 1 patch 2 (Two) Times a Week. Sundays and fenofibrate (TRICOR) 145 MG tablet Take 1 tablet by mouth Daily. fexofenadine (AMA) 180 MG tablet Take 1 tablet by mouth Daily. fluticasone (FLONASE) 50 MCG/ACT nasal spray 2 sprays by Each Nare route Daily. ipratropium (ATROVENT) 0.06 % nasal spray INSTILL 2 SPRAYS IN EACH NOSTRIL THREE TIMES DAILY levothyroxine (SYNTHROID, LEVOTHROID) 137 MCG tablet Take 1 tablet by mouth Daily. NEW DOSE 90 tablet 1 magnesium gluconate 250 MG tablet tablet Take 2 tablets by mouth 2 (Two) Times a Day. METAMUCIL FIBER PO Take 1 dose by mouth Every Evening. metFORMIN ER (GLUCOPHAGE-XR) 500 MG 24 hr tablet Take 2 tablets by mouth 2 (Two) Times a Day. Ozempic, 0.25 or 0.5 MG/DOSE, 2 MG/3ML solution pen-injector Inject 0.5 mg under the skin into the appropriate area as directed 1 (One) Time Per Week. polyethylene glycol (MIRALAX) 17 GM/SCOOP powder Take 17 g by mouth Daily. Psyllium (Metamucil) wafer wafer Take by mouth Daily. vitamin D3 125 MCG (5000 UT) capsule capsule Take 2,000 Units by mouth Daily. Pt states she is taking 2000 units daily No current facility-administered medications on file prior to visit. Allergies Allergen Reactions Sulfa Antibiotics Rash Adhesive Tape Unknown - Low Severity Wound Dressing Adhesive Rash blisters Review of Systems Objective Physical Exam BP 122/82 Ht 167.6 cm (65.98 ) Wt 78.5 kg (173 lb 2.4 oz) LMP (LMP Unknown) BMI 27.96 kg/m?? Body mass index is 27.96 kg/m??. General: Mental Status: Alert Appearance: Cooperative, in no acute distress Build and Nutrition: Well-nourished well-developed female Orientation: Alert and oriented to person, place and time Posture: Normal Gait: Nonantalgic Integument: Left knee: No skin lesions, no rash, no ecchymosis Lower Extremities: Left Knee: Tenderness: Medial/lateral joint line tenderness Effusion: 1+ Swelling: None Crepitus: Positive Range of motion: Extension: 5?? Flexion: 120?? Instability: No varus laxity, no valgus laxity, negative anterior drawer Deformities: Mild varus Imaging/Studies Imaging Results (Last 24 Hours) Procedure Component Value Units Date/Time XR Knee 4+ View Left [[id number]] Resulted: 04/12/25936 Updated: 04/12/25936 Narrative: Left Knee Radiographs Indication: left knee pain Views: Standing AP's and skiers of both knees, with lateral and sunrise views of the left knee Comparison: 04/13/2024 Findings: Bone contact medial compartment, tricompartmental osteophytes, advanced knee arthritis, worsening compared to the previous imaging. Assessment and Plan Diagnoses and all orders for this visit: 1. Primary osteoarthritis of left knee (Primary) - XR Knee 4+ View Left - Case Request; Standing - Instructions on coughing, deep breathing, and incentive spirometry.; Future - CBC and Differential; Future - Basic metabolic panel; Future - Protime-INR; Future - APTT; Future - Hemoglobin A1c; Future - Sedimentation rate; Future - C-reactive protein; Future - Tranexamic Acid 1,000 mg in sodium chloride 0.9 % 100 mL - Tranexamic Acid 1,000 mg in sodium chloride 0.9 % 100 mL - ethyl alcohol 62 % 2 each - ceFAZolin (ANCEF) 2 g in sodium chloride 0.9 % 100 mL IVPB - Case Request Other orders - Outpatient In A Bed; Standing - Follow Anesthesia Guidelines / Protocol; Future - Follow Anesthesia Guidelines / Protocol; Standing - Nerve Block; Standing - Verify NPO Status; Standing - Verify The Time Patient Completed ERAS Hydration Drink; Standing - SCD (sequential compression device)- to be placed on patient in Pre-op; Standing - Clip operative site; Standing - Provide Patient With Carbo Loading Instructions - Provide Patient With ERAS Booklet(s)/Handout - Chlorhexidine Gluconate 4 % solution; Apply 1 Application topically to the appropriate area as directed Daily. Shower with hibiclens solution as directed for 5 days prior to surgery Dispense: 236 mL; Refill: 0 1. Primary osteoarthritis of left knee I reviewed my findings with the patient. She would like to proceed with left total knee arthroplasty surgery. She has exhausted conservative treatment. She would like to proceed in the near future. Risk, benefits, alternatives surgery been discussed. Please see my counseling note for details. Surgical Counseling I have informed the patient of the diagnosis and the prognosis. Exhaustive conservative treatment modalities have not resulted in mcfp pain relief. The symptoms have progressed to the point of daily pain and inability to perform activities of daily living without significant pain. The patient has reached the point of desiring to proceed with total knee arthroplasty after discussing the risks, benefits and alternatives to the procedure. The surgical procedure itself was discussed in detail.Risks of the procedure were discussed, which included but are not limited to, bleeding, infection, damage to blood vessels and nerves, incomplete pain relief, loosening of the prosthesis (early or late), deep infection (early or late), need for further surgery, loss of limb, deep venous thrombosis,pulmonary embolus, , heart attack, stroke, kidney failure, liver failure, and anesthetic complications. In addition, the potential for deep infection developing in the future was discussed, which could require further surgery. The knee would have to be re-opened, debrided, and potentially remove the prosthesis, which may or may not be replaced in the future. Also, the possibility for loosening of the prosthesis has been mentioned. If the prosthesis loosened, a revision arthroplasty could be performed, with results that are not as predictable compared to the original procedure. The typical rehabilitative course has also been discussed, and full recovery may take up to a year to see the maximum benefit. The importance of patient cooperation in the rehabilitative efforts has also been discussed. No guarantees were given. The patient understands the potential risks versus the benefits and desires to proceed with total knee arthroplasty at a mutually convenient time. Return for surgery. Romero Hall MD 04/12/25 09:44 EDT Dictated Utilizing [id number] Dictation documented in this encounter Nursing Notes * Barry Mendoza, PT - 05/05/2025 8:44 AM EDT Goal Outcome Evaluation: Plan of Care Reviewed With: patient Progress: improving Outcome Evaluation: Patient was able to ambulate on burgos with walker and demonstrate good control without loss of balance or buckling. She is going home with assistance and will recieve outpatient PTat discharge. Anticipated Discharge Disposition (PT): home with 24/7 care, home with home health * Li Nagy RN - 05/05/2025 5:48 AM EDT Goal Outcome Evaluation: No significant events overnight. Patient is A&Ox4 on RA. VSS. Pain treated with prn PO medication. Patient got up to the [facility] [place] with gait belt, walker and assist x1. Voiding spontaneously * Latoya Ramirez, PT - 05/04/2025 3:08 PM EDT Goal Outcome Evaluation: Plan of Care Reviewed With: patient, spouse Outcome Evaluation: PT eval completed. Pt presents s/p L TKA with significant pain, LLE deficits, balance deficits, and decreased activity tolerance. Pt ambulated 20 ft w/ FWW, CGA x2. Further mobility limited by significant pain. Pt would benefit from IP PT services while hospitalized. Anticipate pt to be able to d/c home w/ 25/02 assist and HHPT once pain is controlled, however will continue to monitor progress closely. Anticipated Discharge Disposition (PT): home with 24/7 care, home with home health documented in this encounter OR Notes * Op Note - Romero Hall MD - 05/04/2025 12:24 PM EDT DATE OF PROCEDURE: 05/04/25 PREOPERATIVE DIAGNOSIS: left knee arthritis POSTOPERATIVE DIAGNOSIS: left knee arthritis PROCEDURES PERFORMED: left total knee arthroplasty with [employer]hew Legion components (# 5 narrow cruciate retaining femur, # 3 tibia, 10 mm polyethylene, with 32 three peg patella) with CORI robotic assitance Surgical Approach: Knee Medial Parapatellar SURGEON: Romero Hall MD CHUTE PULLER: Marycarmen Wheatley PA-C (Marycarmen Wheatley PA-C was present and necessary for positioning, draping, retraction, instrumentation and closure.) SPECIMENS: None IMPLANTS: Implant Name Type Inv. Item Serial No. Social Media Content Specialist Lot No. LRB No. Used Action CMT BONE PALACOS R HI/VISC 1X40 - [id number] Implant CMT BONE PALACOS R HI/VISC 1X40 [facility] [id number] Left 1 Implanted CMT BONE PALACOS R HI/VISC 1X40 - [id number] Implant CMT BONE PALACOS R HI/VISC 1X40 [facility] [id number] Left 1 Implanted DEV CONTRL TISS STRATAFIX SPIRAL MNCRYL UD 3/0 PLS 60CM - [id number] Implant DEV CONTRL TISS STRATAFIX SPIRAL MNCRYL UD 3/0 PLS 60CM [employer] DIV OF J AND J [id number] Left 1 Implanted DEV CONTRL TISS STRATAFIX SYMM PDS PLUS SAUNDRA CT-1 45CM - [id number] Implant DEV CONTRL TISS STRATAFIX SYMM PDS PLUS SAUNDRA CT-1 45CM ETHICON DIV OF J AND J [id number] Left 1 Implanted COMP FEM LEGION OXINIUM CR NRW SZ5 LT - [id number] Implant COMP FEM LEGION OXINIUM CR NRW SZ5 LT HARRY AND [employer]PHEW [id number] Left 1 Implanted BASE TIB/KN GEN2 NONPOR TI SZ3 LT - [id number] Implant BASE TIB/KN GEN2 NONPOR TI SZ3 LT HARRY ANDNEPHEW [id number] Left 1 Implanted PATELLA RESRF GEN2 7.5X32MM - [id number] Implant PATELLA RESRF GEN2 7.5X32MM [employer] [id number] Left 1 Implanted INSRT ART/KN LEGION CR HF XLPE SZ3TO4 10MM - [id number] Implant INSRT ART/KN LEGION CR HF XLPE SZ3TO4 10MM [employer] [id number] Left 1 Implanted ANESTHESIA: Spinal STAFF: Director Of Tax Services: Nneka Vyas RN Physician Engineering Team Supervisor: Marycarmen Wheatley PA-C Scrub Person: Jarek Miller; Beltran Burgos CST Vendor Transformation Consultant: Dharmesh Estrada (Harry & Nephew) Linoleum Layer Apprentice: Marycarmen Taylor TOURNIQUET TIME: 13 minutes ESTIMATED BLOOD LOSS: 100 mL COMPLICATIONS: None PREOPERATIVE ANTIBIOTICS: Ancef 2 g INDICATIONS: The patient is a 69 y.o. female with debilitating left knee pain secondary to osteoarthritis that failed to improve in spite of conservative treatment . Options have been discussed at length with the patient and the patient has had an extended course of conservative treatment without long-term benefit. The patient has reached the point where the patient desires total knee arthroplasty surgery and understands the risks, benefits, and alternatives. Consent was obtained. Please see myoffice notes for details with regard to preoperative counseling and operative rationale. DESCRIPTION OF PROCEDURE: The patient was positively identified in the preoperative holding area and brought to the operating suite and placed in a supine position. After adequate spinal anesthetic had been achieved, the left lower extremity was prepped and draped in the usual sterile fashion. After application of a tourniquet to the left upper thigh, which was used during the procedure for a total 13 minutes during the cementation process only. Landmarks of the knee were identified and timeoutprocedure was performed to confirm the operative site, as well as other parameters. Following the sterile prep and drape, a skin incision was made just off the medial aspect of midline for a medial parapatellar approach. Following a sharp skin incision, dissection was carried down to the level of the extensor mechanism and a medial parapatellar arthrotomy was made and the patella was tucked into the lateral gutter. Anterior horns of the medial and lateral menisci were removed, and ACL transected. Osteophytes were also removed. Description of arthritis: Cdwi-vo-cdfj contact medial and patellofemoral compartments, with advanced lateral compartment degeneration with whdh-mh-byxg contact. BlockBeacon robotic system was then employed to assist with preparation of the femoral and tibial bone surfaces. Femoral and tibial arrays were placed, as well as markers in both the femur and tibia. System was registered in a systematic fashion, and 3D models created of both the femoral and tibial aspects. Range of motion and gap assessments were also performed, and implants were selected and appropriately sized and oriented virtually on both the femur and tibial aspects starting with the flexion gap, and then progressing to the extension gap. Planning was made for a 5 narrow cruciate retaining femoral component and a 3 tibial component with a 9 mm insert. The patella was prepared with the cutting guide for a 32 implant and a trial patella placed. Once virtual balancing had been achieved, distal femoral surface was then prepared with the CORI sheridan, followed by preparation for the 4-in-1 cutting block. Proximal tibial cut was then performed in a guided fashion, posterior condyles were freedof osteophytes, and trial implants placed, namely a 5 cruciate retaining femur with a 3 tibia and a10 mm trial insert. Range of motion and gap assessments were again performed with excellent balancing noted and the patella had excellent tracking. Therefore the trial components were removed, and preparations made for final placement, and final components were cemented in place with namely a # 3 tibia, # 5 narrow cruciate retaining femur, and a32 three peg patella with a trial 10 mm insert for cement compression. All the excess cement was removed from the bone implant interface and allowed to harden. Tourniquet was deflated. Hemostasis wasobtained with electrocautery. There was no brisk bleeding noted in the popliteal fossa in particular. Therefore, the knee was copiously irrigated as it was between major steps, and the final 10 mm insert was placed as this was deemed appropriate for the patient's anatomy with full flexion and extension and no instability and attention was then directed towards closure. The medial parapatellar arthrotomy was closed with #1 Vicryl in an interrupted tnlggd-lg-ueogn fashion in 4 strategic locationsfollowed by oversewing this from proximal to distal with a #1 StrataFix symmetric, which nicely sealed the joint, followed by closure of the deep fascial layer with #1 Vicryl in a buried interrupted fashion, followed by closure of the subcutaneous layer with 2-0 Vicryl and the skin with 3-0 Stratafix in a running subcuticular fashion. Adhesive wound closure dressing was applied followed by a sterile dressing with 4 x 4's, abdominal pad, soft roll and Kash wrap. The patient tolerated the procedure well and was brought to the recovery room in good condition. PLAN: 1. The patient will begin early range of motion and weight-bearing per the post total knee arthroplasty protocol. 2. I anticipate brief hospitalization for initial rehabilitation and pain control followed by continued rehabilitation in an outpatient physical therapy setting. Patient likely ready for discharge later today if she is cleared medically and by physical therapy. Follow-up in 3 weeks as planned. 3. Postoperative medical management with Dr. Alford. 4. Aspirin 81 mg p.o. twice daily for 1 month will be utilized for DVT prophylaxis. Romero Hall MD 05/04/25 12:27 EDT documented in this encounter Miscellaneous Notes * Case Management/Social Work - Joe Farfan RN - 05/05/2025 12:44 PM EDT Continued Stay Note [facility] Patient Name: Marah Gonzalez Today's Date: 05/05/2025 Admit Date: 05/04/2025 Plan: home Discharge Plan Row Name 05/05/25 1328 Plan Plan home Patient/Family in Agreement with Plan yes Plan Comments Met with patient and her at the bedside to initiate discharge planning. Patient lives with her in a house in [facility]. There are 2 steps to enter the home and no stairs inside the house. At baseline, patient is independent with ADLs and has a walker, crutches, commode, cane, shower chair, and grab bars. Patient denies any home health services or home oxygen use. Patient has [employer] Medicare with prescription benefits and prefers to fill scripts [facility]. Patient's plan is home. will transport. No discharge needs identified. CM will continue to follow and assist with discharge planning as recommendations become availab le. Final Discharge Disposition Code 01 - home or self-care Discharge Codes No documentation. Expected Discharge Date and Time Expected Discharge Date Expected Discharge Time May 05, 2025 Joe Farfan RN * Therapy Treatment Note - Barry Mendoza PT - 05/05/2025 8:44 AM EDT Images from the original note were not included. Patient Name: Marah Gonzalez : 1955 Today's Date: 05/05/2025 Admit Date: 05/04/2025 Visit Dx: ICD-10-CM ICD-9-CM 1. S/P TKR (total knee replacement), left Z96.652 V43.65 2. Primary osteoarthritis of left knee M17.12 715.16 Patient Active Problem List Diagnosis History of thyroid cancer Postsurgical hypothyroidism Primary osteoarthritis of right hip HTN (hypertension) DM2 (diabetes mellitus, type 2) GERD (gastroesophageal reflux disease) Status post total replacement of right hip Postoperative pain Degenerative arthritis of right knee S/P total knee arthroplasty, right Primary osteoarthritis of left knee Degenerative arthritis of left knee S/P TKR (total knee replacement), left Past Medical History: Diagnosis Date Anemia Arthritis of back Arthritis of neck Diabetes mellitus 12/2021 monitored by PCP' metformin daily Elevated cholesterol GERD (gastroesophageal reflux disease) omeprazole bid Hip arthrosis History of anxiety History of diverticulitis 2019-required 2 surgeries History of skin cancer basal cell-left thigh History of transfusion colon surgery-2 units required ([facility]) no reactions Hypertension Knee swelling right Lumbosacral disc disease Malignant tumor of thyroid gland thyroidecotmy Osteoarthritis Postoperative hypothyroidism Primary hyperparathyroidism Type 2 diabetes mellitus 12/08/2021 Past Surgical History: Procedure Laterality Date BACK SURGERY BLEPHAROPLASTY, QUAD Bilateral 04/2006 BUNIONECTOMY Bilateral 11/2009 COLON RESECTION 07/11/2016 divertiuculitis COLON RESECTION WITH ILEOSTOMY 07/27/2016 diverticulitis COLONOSCOPY CYSTOCELE REPAIR ENDOSCOPY EYE SURGERY Bilateral cataracts FOOT SURGERY Right neuroma (aug 1989); bunionecotmy (05/22/2017); HAMMER TOE REPAIR Right 2019 HAND TENDON REPAIR Right 1973 3rd finger-due to injury HERNIA REPAIR 02/20/2024 Ventral hernia repair, component separation (Dr. Vaz) HYSTERECTOMY 05/2003 with BSO JOINT REPLACEMENT KNEE SURGERY LUMBAR DECOMPRESSION 2019 L4-L5 PARATHYROIDECTOMY 07/18/2018 with thyroid surgery (removed one) RECTOCELE REPAIR 09/26/2011 REFRACTIVE SURGERY Bilateral 10/1995 REPAIR PELVIC FLOOR DEFECT VAGINAL APPROACH W/ MESH 2004 REVISION / TAKEDOWN COLOSTOMY 12/12/2016 SINUS SURGERY Left 06/2004 endoscopic SKIN BIOPSY 10/2007 skin cancer removed from leg SPINAL FUSION 12/06/2021 S1-L5 THYROID SURGERY 07/2014 TONSILLECTOMY AND ADENOIDECTOMY 1964 TOOTH EXTRACTION with cadaver bone for implant TOTAL HIP ARTHROPLASTY Right 06/12/2022 Procedure: MODIFIED ANTERIOR TOTAL HIP ARTHROPLASTY - RIGHT; Surgeon: Romero Hall MD; Location: [facility] OR; Service: Orthopedics; Laterality: Right; TOTAL KNEE ARTHROPLASTY Right 05/21/2023 Procedure: TOTAL KNEE ARTHROPLASTY WITH CORI ROBOT - RIGHT; Surgeon: Romero Hall MD; Location: [facility]; Service: Robotics - Ortho; Laterality: Right; TOTAL THYROIDECTOMY 07/22/2014 WISDOM TOOTH EXTRACTION 1965 General Information Row Name 05/05/25943 Physical Therapy Time and Intention Document Type discharge treatment -OR Mode of Treatment physical therapy -OR Row Name 05/05/25943 General Information Patient Profile Reviewed yes -OR Existing Precautions/Restrictions fall;other (see comments) nerve cath -OR Row Name 05/05/25943 Cognition Orientation Status (Cognition) oriented x 3 -OR Row Name 05/05/25943 Safety Issues/Impairments Affecting Functional Mobility Impairments Affecting Function (Mobility) balance;endurance/activity tolerance;pain;range of motion(ROM);strength -OR Comment, Safety Issues/Impairments (Mobility) alert, following commands -OR User Russo (r) = Recorded By, (t) = Taken By, (c) = Cosigned By Initials Name Provider Type OR Barry Mendoza PT Physical Therapist Mobility Row Name 05/05/25944 Bed Mobility Bed Mobility supine-sit;scooting/bridging -OR Scooting/Bridging [place] (Bed Mobility) independent -OR Supine-Sit [place] (Bed Mobility) minimum assist (75% patient effort);1 person assist;verbal cues -OR Comment, (Bed Mobility) worked on getting out of flat bed with some hand held assist . Able to movelegs independently. present for education -OR Row Name 05/05/25944 Transfers Comment, (Transfers) cues for hand placement -OR Row Name 05/05/25944 Sit-Stand Transfer Sit-Stand [place] (Transfers) modified independence;verbal cues -OR Assistive Device (Sit-Stand Transfers) walker, front-wheeled -OR Row Name 05/05/25944 Gait/Stairs (Locomotion) [place] Level (Gait) verbal cues;contact guard -OR Assistive Device (Gait) walker, front-wheeled -OR Distance in Feet (Gait) 200 -OR Deviations/Abnormal Patterns (Gait) left sided deviations;antalgic;stride length decreased;weight shifting decreased -OR Left Sided Gait Deviations heel strike decreased -OR Assistive Device (Stairs) walker, front-wheeled -OR Number of Steps (Stairs) 1 up backwards with VC for seqauencing -OR Comment, (Gait/Stairs) Gt training focused on walking with step through gait pattern. Encouraged heel strike with full wt shifting and upright posture. Patient demonstrated good control without loss of balance or buckling. On stair, she was given cues for sequencing and preformed with good control.-OR Row Name 05/05/25 0998 Mobility Extremity Weight-bearing Status left lower extremity -OR Left Lower Extremity (Weight-bearing Status) weight-bearing as tolerated (WBAT) -OR User Russo (r) = Recorded By, (t) = Taken By, (c) = Cosigned By Initials Name Provider Type OR Barry Mendoza, PT Physical Therapist Obj/Interventions Row Name 05/05/2550 Range of Motion Comprehensive Comment, General Range of Motion 0-50 L knee: painful flexion -OR Row Name 05/05/25947 Motor Skills Therapeutic Exercise knee;ankle -OR Row Name 05/05/25947 Knee (Therapeutic Exercise) Knee (Therapeutic Exercise) isometric exercises;strengthening exercise -OR Knee Isometrics (Therapeutic Exercise) bilateral;quad sets;3 second hold;10 repetitions -OR Knee Strengthening (Therapeutic Exercise) SAQ (short arc quad);SLR (straight leg raise);heel slides;LAQ (long arc quad);sitting;supine;10 repetitions -OR Row Name 05/05/2577 Ankle (Therapeutic Exercise) Ankle (Therapeutic Exercise) AROM (active range of motion) -OR Ankle AROM (Therapeutic Exercise) bilateral;dorsiflexion;plantarflexion;10 repetitions -OR User Russo (r) = Recorded By, (t) = Taken By, (c) = Cosigned By Initials Name Provider Type OR Barry Mendoza, PT Physical Therapist Goals/Plan Row Name 05/05/25 6637 Bed Mobility Goal 1 (PT) Activity/Assistive Device (Bed Mobility Goal 1, PT) sit to supine/supine to sit -OR [place] Level/Cues Needed (Bed Mobility Goal 1, PT) standby assist -OR Time Frame (Bed Mobility Goal 1, PT) short term goal (STG);3 days -OR Progress/Outcomes (Bed Mobility Goal 1, PT) goal met -OR Row Name 05/05/25 0901 Transfer Goal 1 (PT) Activity/Assistive Device (Transfer Goal 1, PT) [id number] -OR [place] Level/Cues Needed (Transfer Goal 1, PT) modified independence -OR Time Frame (Transfer Goal 1, PT) termite inspector goal (LTG);5 days -OR Progress/Outcome (Transfer Goal 1, PT) goal met -OR Row Name 05/05/2570 Gait Training Goal 1 (PT) Activity/Assistive Device (Gait Training Goal 1, PT) gait (walking locomotion);assistive device use-OR [place] Level (Gait Training Goal 1, PT) modified independence -OR Distance (Gait Training Goal 1, PT) 100 ft -OR Time Frame (Gait Training Goal 1, PT) termite inspector goal (LTG);5 days -OR Progress/Outcome (Gait Training Goal 1, PT) goal met -OR Row Name 05/05/2550 ROM Goal 1 (PT) ROM Goal 1 (PT) Surgical Knee ROM: 0-90 -OR Time Frame (ROM Goal 1, PT) long-term goal (LTG);3 days -OR Progress/Outcome (ROM Goal 1, PT) goal not met -OR Row Name 05/05/2542 Stairs Goal 1 (PT) Activity/Assistive Device (Stairs Goal 1, PT) ascending stairs;descending stairs;using handrail, left;using handrail, right;assistive device use -OR [place] Level/Cues Needed (Stairs Goal 1, PT) contact guard required -OR Number of Stairs (Stairs Goal 1, PT) 1+1 -OR Time Frame (Stairs Goal 1, PT) [facility] goal (LTG);5 days -OR Progress/Outcome (Stairs Goal 1, PT) goal met met going backwards -OR User Russo (r) = Recorded By, (t) = Taken By, (c) = Cosigned By Initials Name Provider Type OR Barry Mendoza, PT Physical Therapist Clinical Impression Row Name 05/05/2575 Pain Pain Location knee -OR Pain Side/Orientation left -OR Pain Management Interventions cold applied -OR Response to Pain Interventions activity participation with tolerable pain -OR Additional Documentation Pain Scale: FACES Pre/Post-Treatment (Group) -OR Row Name 05/05/2580 Pain Scale: FACES Pre/Post-Treatment Pain: FACES Scale, Pretreatment 4-->hurts little more -OR Posttreatment Pain Rating 6-->hurts even more -OR Row Name 05/05/2512 Plan of Care Review Plan of Care Reviewed With patient -OR Progress improving -OR Outcome Evaluation Patient was able to ambulate on burgos with walker and demonstrate good control without loss of balance or buckling. She is going home with assistance and will recieve outpatient PT at discharge. She does not need OT -OR Row Name 05/05/25948 Therapy Assessment/Plan (PT) Patient/Family Therapy Goals Statement (PT) go hme -OR Rehab Potential (PT) good -OR Criteria for Skilled Interventions Met (PT) yes;meets criteria;skilled treatment is necessary -OR Therapy Frequency (PT) 2 times/day -OR Row Name 05/05/25948 Positioning and Restraints Pre-Treatment Position in bed -OR Post Treatment Position chair -OR In Chair notified nsg;reclined;sitting;encouraged to call for assist;call light within reach;exit alarm on;with family/caregiver -OR User Russo (r) = Recorded By, (t) = Taken By, (c) = Cosigned By Initials Name Provider Type OR Barry Mendoza, PT Physical Therapist Outcome Measures Row Name 05/05/25950 How much help from another person do you currently need... Turning from your back to your side while in flat bed without using bedrails? 4 -SC Moving from lying on back to sitting on the side of a flat bed without bedrails? 3 -SC Moving to and from a bed to a chair (including a wheelchair)? 3 -SC Standing up from a chair using your arms (e.g., wheelchair, bedside chair)? 3 -SC Climbing 3-5 steps with a railing? 3 -SC To walk in hospital room? 3 -OR AM-PAC 6 Clicks Score (PT) 19 -OR Highest Level of Mobility Goal Walk 10 Steps or More-6 -OR Row Name 05/05/25950 Functional Assessment Outcome Measure Options AM-PAC 6 Clicks Basic Mobility (PT);PADD -OR User Russo (r) = Recorded By, (t) = Taken By, (c) = Cosigned By Initials Name Provider Type OR Barry Mendoza PT Physical Therapist Physical Therapy Education Title: PT OT STORE STOCK HELP Therapies (In Progress) Topic: Physical Therapy (Done) Point: Mobility training (Done) Learning Progress Summary Patient Michaela Hernandez,JESE,Tad, ZANDRA,GIGI by OR at 05/05/2025 0951 Comment: reviewed HEP Michaela Eubanks VU,NR by at 05/04/2025 1611 Significant Other Eager, E,TB,D, DU,VU by OR at 05/05/202551 Comment: reviewed HEP Acceptance, E, VU,NR by at 05/04/2025 161 Point: Home exercise program (Done) Learning Progress Summary Patient Eager, E,TB,D, DU,VU by OR at 05/05/202551 Comment: reviewed HEP Acceptance, E, VU,NR by at 05/04/2025 161 Significant Other Eager, E,TB,D, DU,VU by OR at 05/05/202551 Comment: reviewed HEP Acceptance, E, VU,NR by at 05/04/2025 161 Point: Body mechanics (Done) Learning Progress Summary Patient Eager, E,TB,D, DU,VU by OR at 05/05/202551 Comment: reviewed HEP Acceptance, E, VU,NR by at 05/04/2025 1611 Significant Other Eager, E,TB,D, DU,VU by OR at 05/05/202551 Comment: reviewed HEP Acceptance, E, VU,NR by at 05/04/2025 161 Point: Precautions (Done) Learning Progress Summary Patient Eager, E,TB,D, DU,VU by OR at 05/05/202551 Comment: reviewed HEP Acceptance, E, VU,NR by at 05/04/2025 161 Significant Other Eager, E,TB,D, DU,VU by OR at 05/05/202551 Comment: reviewed HEP Acceptance, E, VU,NR by at 05/04/2025 161 User Russo Initials Effective Dates Name Provider Type Discipline OR 09/07/22 - Barry Mendoza, PT Physical Therapist PT 04/25/23 - Latoya Ramirez PT Physical Therapist PT PT Recommendation and Plan Recommended discharge disposition is based on the functional assessment performed by PT/OT/Speech therapy (as applicable) and may not reflect the medical necessity determined by your provider or services covered by an individual patient's insurance plan or patient resource. Therapy Frequency (PT): 2 times/day Progress: improving Outcome Evaluation: Patient was able to ambulate on burgos with walker and demonstrate good control without loss of balance or buckling. She is going home with assistance and will recieve outpatient PTat discharge. She does not need OT Time Calculation: PT Charges Row Name 05/05/25 0844 Time Calculation Start Time 0844 -OR PT Received On 05/05/25 -OR Timed Charges 99158 - PT Therapeutic Exercise Minutes 20 -SC 27457 - Gait Training Minutes 25 -SC 65987 - PT Therapeutic Activity Minutes 5 -SC Total Minutes Timed Charges Total Minutes 50 -SC Total Minutes 50 -SC User Russo (r) = Recorded By, (t) = Taken By, (c) = Cosigned By Initials Name Provider Type SC Barry Mendoza PT Physical Therapist Therapy Charges for Today Code Description Service Date Service Provider Modifiers Qty [id number] HC PT THER PROC EA 15 MIN 05/05/2025 Barry Mendoza PT GP 1 [id number] HC GAIT TRAINING EA 15 MIN 05/05/2025 Barry Mendoza PT GP 2 PT G-Codes Outcome Measure Options: AM-PAC 6 Clicks Basic Mobility (PT), PADD AM-PAC 6 Clicks Score (PT): 19 PT Discharge Summary Anticipated Discharge Disposition (PT): home with 25/02 care, home with home health Barry Mendoza, PT 05/05/2025 * Therapy Evaluation - Latoya Ramirez, PT - 05/04/2025 3:08 PM EDT Images from the original note were not included. Patient Name: Marah Gonzalez : 1955 Today's Date: 05/04/2025 Admit Date: 05/04/2025 Visit Dx: ICD-10-CM ICD-9-CM 1. S/P TKR (total knee replacement), left Z96.652 V43.65 2. Primary osteoarthritis of left knee M17.12 715.16 Patient Active Problem List Diagnosis History of thyroid cancer Postsurgical hypothyroidism Primary osteoarthritis of right hip HTN (hypertension) DM2 (diabetes mellitus, type 2) GERD (gastroesophageal reflux disease) Status post total replacement of right hip Postoperative pain Degenerative arthritis of right knee S/P total knee arthroplasty, right Primary osteoarthritis of left knee Degenerative arthritis of left knee S/P TKR (total knee replacement), left Past Medical History: Diagnosis Date Anemia Arthritis of back Arthritis of neck Diabetes mellitus 12/2021 monitored by PCP' metformin daily Elevated cholesterol GERD (gastroesophageal reflux disease) omeprazole bid Hip arthrosis History of anxiety History of diverticulitis 2019-required 2 surgeries History of skin cancer basal cell-left thigh History of transfusion colon surgery-2 units required ([facility]) no reactions Hypertension Knee swelling right Lumbosacral disc disease Malignant tumor of thyroid gland thyroidecotmy Osteoarthritis Postoperative hypothyroidism Primary hyperparathyroidism Type 2 diabetes mellitus 12/08/2021 Past Surgical History: Procedure Laterality Date BACK SURGERY BLEPHAROPLASTY, QUAD Bilateral 04/2006 BUNIONECTOMY Bilateral 11/2009 COLON RESECTION 07/11/2016 divertiuculitis COLON RESECTION WITH ILEOSTOMY 07/27/2016 diverticulitis COLONOSCOPY CYSTOCELE REPAIR ENDOSCOPY EYE SURGERY Bilateral cataracts FOOT SURGERY Right neuroma (aug 1989); bunionecotmy (05/22/2017); HAMMER TOE REPAIR Right 2019 HAND TENDON REPAIR Right 1973 3rd finger-due to injury HERNIA REPAIR 02/20/2024 Ventral hernia repair, component separation (Dr. Vaz) HYSTERECTOMY 05/2003 with BSO JOINT REPLACEMENT KNEE SURGERY LUMBAR DECOMPRESSION 2019 L4-L5 PARATHYROIDECTOMY 07/18/2018 with thyroid surgery (removed one) RECTOCELE REPAIR 09/26/2011 REFRACTIVE SURGERY Bilateral 10/1995 REPAIR PELVIC FLOOR DEFECT VAGINAL APPROACH W/ MESH 2004 REVISION / TAKEDOWN COLOSTOMY 12/12/2016 SINUS SURGERY Left 06/2004 endoscopic SKIN BIOPSY 10/2007 skin cancer removed from leg SPINAL FUSION 12/06/2021 S1-L5 THYROID SURGERY 07/2014 TONSILLECTOMY AND ADENOIDECTOMY 1964 TOOTH EXTRACTION with cadaver bone for implant TOTAL HIP ARTHROPLASTY Right 06/12/2022 Procedure: MODIFIED ANTERIOR TOTAL HIP ARTHROPLASTY - RIGHT; Surgeon: Romero Hall MD; Location: [facility]; Service: Orthopedics; Laterality: Right; TOTAL KNEE ARTHROPLASTY Right 05/21/2023 Procedure: TOTAL KNEE ARTHROPLASTY WITH CORI ROBOT - RIGHT; Surgeon: Romero Hall MD; Location: [facility]; Service: Robotics - Ortho; Laterality: Right; TOTAL THYROIDECTOMY 07/22/2014 WISDOM TOOTH EXTRACTION 1965 General Information Row Name 05/04/25 1548 Physical Therapy Time and Intention Document Type evaluation - Mode of Treatment physical therapy -[facility] Name 05/04/25 1548 General Information Patient Profile Reviewed yes - Prior Level of Function independent:;all household mobility;community mobility;gait;transfer;bed mobility;ADL's Has FWW - Existing Precautions/Restrictions fall;other (see comments) s/p L TKA, LLE WBAT, adductor canal nerve catheter - Barriers to Rehab none identified -[facility] Name 05/04/25 1548 Living Environment Current Living Arrangements home - People in Home spouse -[facility] Name 05/04/25 1548 Home Main Entrance Number of Stairs, Main Entrance two;other (see comments) 1+1 - Stair Railings, Main Entrance other (see comments) B handrails on 1st step, no handrails on 2nd step -[facility] Name 05/04/25 1548 Stairs Within Home, Primary Number of Stairs, Within Home, Primary none -[facility] Name 05/04/25 1548 Cognition Orientation Status (Cognition) oriented x 3 -[facility] Name 05/04/25 1548 Safety Issues/Impairments Affecting Functional Mobility Safety Issues Affecting Function (Mobility) awareness of need for assistance;insight into deficits/self-awareness;safety precaution awareness;safety precautions follow-through/compliance - Impairments Affecting Function (Mobility) balance;endurance/activity tolerance;pain;range of motion(ROM);strength - User Russo (r) = Recorded By, (t) = Taken By, (c) = Cosigned By Initials Name Provider Type Latoya Ramirez, WEST Physical Therapist Mobility Row Name 05/04/25 1552 05/04/25 1508 Bed Mobility Bed Mobility -- - supine-sit - Supine-Sit [place] (Bed Mobility) -- - minimum assist (75% patient effort);1 person assist;verbal cues - Assistive Device (Bed Mobility) -- - bed rails;head of bed elevated - Comment, (Bed Mobility) -- VCs for hand placement and sequencing. Marisela required at LLE and to lowerLE to ground. Pt reports increased pain w/ all mobility. Decreased knee flexion w/ mobility - Row Name 05/04/25 1508 Transfers Comment, (Transfers) VCs for hand placement and sequencing w/ FWW. Cues to step out LLE prior to transfers -[facility] Name 05/04/25 1508 Sit-Stand Transfer Sit-Stand [place] (Transfers) minimum assist (75% patient effort);2 person assist;verbal cues - Assistive Device (Sit-Stand Transfers) walker, front-wheeled - Comment, (Sit-Stand Transfer) STS from EOB and toilet -[facility] Name 05/04/25 1508 Gait/Stairs (Locomotion) [place] Level (Gait) contact guard;2 person assist;verbal cues - Assistive Device (Gait) walker, front-wheeled - Patient was able to Ambulate yes - Distance in Feet (Gait) 20 - Deviations/Abnormal Patterns (Gait) left sided deviations;antalgic;sylvia decreased;gait speed decreased;stride length decreased;weight shifting decreased - Bilateral Gait Deviations forward flexed posture - Left Sided Gait Deviations weight shift ability decreased;heel strike decreased - Comment, (Gait/Stairs) Pt demo step to gait pattern w/ antalgic gait and decreased speed. VCs for sequencing, upright posture, increased WB through LLE, and AD management. No overt LOB or knee buckling noted. Increased time and effort to complete all mobility, however little assist needed. Distancelimited by significant pain -[facility] Name 05/04/25 1552 05/04/25 1508 Mobility Extremity Weight-bearing Status -- - left lower extremity - Left Lower Extremity (Weight-bearing Status) -- - weight-bearing as tolerated (WBAT) - User Russo (r) = Recorded By, (t) = Taken By, (c) = Cosigned By Initials Name Provider Type Latoya Ramirez PT Physical Therapist Obj/Interventions [facility] Name 05/04/25 1603 Range of Motion Comprehensive General Range of Motion lower extremity range of motion deficits identified - Comment, General Range of Motion L knee ROM: 15-52 (PROM knee flexion) -[facility] Name 05/04/25 1603 Strength Comprehensive (MMT) General Manual Muscle Testing (MMT) Assessment lower extremity strength deficits identified - Comment, General Manual Muscle Testing (MMT) Assessment Pt able to perform B active ankle DF. SLR limited d/t pain -[facility] Name 05/04/25 1603 Motor Skills Therapeutic Exercise knee;ankle -[facility] 05/04/25 1603 Knee (Therapeutic Exercise) Knee (Therapeutic Exercise) isometric exercises;strengthening exercise - Knee Isometrics (Therapeutic Exercise) left;quad sets;3 repetitions - Knee Strengthening (Therapeutic Exercise) left;heel slides;3 repetitions -[facility] Name 05/04/25 160 Ankle (Therapeutic Exercise) Ankle (Therapeutic Exercise) AROM (active range of motion) - Ankle AROM (Therapeutic Exercise) bilateral;dorsiflexion;plantarflexion;5 repetitions -[facility] Name 05/04/25 1603 Balance Balance Assessment sitting static balance;sitting dynamic balance;standing static balance;standing dynamic balance - Static Sitting Balance standby assist - Dynamic Sitting Balance contact guard;verbal cues - Position, Sitting Balance unsupported;sitting edge of bed - Static Standing Balance contact guard;2-person assist;verbal cues - Dynamic Standing Balance contact guard;2-person assist;verbal cues - Position/Device Used, Standing Balance supported;walker, front-wheeled - Balance Interventions sitting;standing;sit to stand;occupation based/functional task;supported;static;dynamic - Comment, Balance No LOB or knee buckling -[facility] Name 05/04/25 1603 Sensory Assessment (Somatosensory) Sensory Assessment (Somatosensory) LE sensation intact - User Russo (r) = Recorded By, (t) = Taken By, (c) = Cosigned By Initials Name Provider Type Latoya Ramirez, PT Physical Therapist Goals/Plan [facility] Name 05/04/25 1610 Bed Mobility Goal 1 (PT) Activity/Assistive Device (Bed Mobility Goal 1, PT) sit to supine/supine to sit - [place] Level/Cues Needed (Bed Mobility Goal 1, PT) standby assist - Time Frame (Bed Mobility Goal 1, PT) short term goal (STG);3 days -[facility] Name 05/04/25 1610 Transfer Goal 1 (PT) Activity/Assistive Device (Transfer Goal 1, PT) [id number] - [place] Level/Cues Needed (Transfer Goal 1, PT) modified independence - Time Frame (Transfer Goal 1, PT) termite inspector goal (LTG);5 days -[facility] Name 05/04/25 1610 Gait Training Goal 1 (PT) Activity/Assistive Device (Gait Training Goal 1, PT) gait (walking locomotion);assistive device use- [place] Level (Gait Training Goal 1, PT) modified independence - Distance (Gait Training Goal 1, PT) 100 ft - Time Frame (Gait Training Goal 1, PT) termite inspector goal (LTG);5 days -[facility] Name 05/04/25 1610 ROM Goal 1 (PT) ROM Goal 1 (PT) Surgical Knee ROM: 0-90 - Time Frame (ROM Goal 1, PT) long-term goal (LTG);3 days -[facility] Name 05/04/25 1610 Stairs Goal 1 (PT) Activity/Assistive Device (Stairs Goal 1, PT) ascending stairs;descending stairs;using handrail, left;using handrail, right;assistive device use - [place] Level/Cues Needed (Stairs Goal 1, PT) contact guard required - Number of Stairs (Stairs Goal 1, PT) 1+1 - Time Frame (Stairs Goal 1, PT) termite inspector goal (LTG);5 days - Progress/Outcome (Stairs Goal 1, PT) new goal -[facility] Name 05/04/25 1610 Therapy Assessment/Plan (PT) Planned Therapy Interventions (PT) balance training;bed mobility training;gait training;home exercise program;ROM (range of motion);patient/family education;stair training;strengthening;stretching;transfer training;motor coordination training;neuromuscular re-education [facility] User Russo (r) = Recorded By, (t) = Taken By, (c) = Cosigned By Initials Name Provider Type Latoya Ramirez, PT Physical Therapist Clinical Impression [facility] Name 05/04/25 1605 Pain Pretreatment Pain Rating 4/10 - Posttreatment Pain Rating 4/10 - Pain Location knee - Pain Side/Orientation left;generalized - Pain Management Interventions activity modification encouraged;exercise or physical activity utilized;positioning techniques utilized;cold applied;nursing notified - Response to Pain Interventions activity participation with increased pain - Pre/Posttreatment Pain Comment Pt crying in pain w/ all mobility -[facility] Name 05/04/25 1605 Plan of Care Review Plan of Care Reviewed With patient;spouse - Outcome Evaluation PT eval completed. Pt presents s/p L TKA with significant pain, LLE deficits, balance deficits, and decreased activity tolerance. Pt ambulated 20 ft w/ FWW, CGA x2. Further mobility limited by significant pain. Pt would benefit from IP PT services while hospitalized. Anticipate pt to be able to d/c home w25/02 assist and HHPT once pain is controlled, however will continue to monitor progress closely. - Row Name 05/04/25 1605 Therapy Assessment/Plan (PT) Patient/Family Therapy Goals Statement (PT) to go home - Rehab Potential (PT) good - Criteria for Skilled Interventions Met (PT) yes;meets criteria;skilled treatment is necessary - Therapy Frequency (PT) 2 times/day - Predicted Duration of Therapy Intervention (PT) 5 days -[facility] Name 05/04/25 1605 Vital Signs Pre Systolic BP Rehab 148 -LH Pre Treatment Diastolic BP 88 -LH Post Systolic BP Rehab 143 -LH Post Treatment Diastolic BP 75 -LH Pre Patient Position Supine - Post Patient Position Sitting -[facility] Name 05/04/25 1605 Positioning and Restraints Pre-Treatment Position in bed - Post Treatment Position chair - In Chair notified nsg;reclined;sitting;call light within reach;encouraged to call for assist;exit alarm on;with family/caregiver;waffle cushion;legs elevated;compression device;with nsg - User Russo (r) = Recorded By, (t) = Taken By, (c) = Cosigned By Initials Name Provider Type Latoya Ramirez, PT Physical Therapist Outcome Measures Row Name 05/04/25 1611 How much help from another person do you currently need... Turning from your back to your side while in flat bed without using bedrails? 3 -LH Moving from lying on back to sitting on the side of a flat bed without bedrails? 3 -LH Moving to and from a bed to a chair (including a wheelchair)? 3 -LH Standing up from a chair using your arms (e.g., wheelchair, bedside chair)? 3 -LH Climbing 3-5 steps with a railing? 2 -LH To walk in hospital room? 3 -LH AM-PAC 6 Clicks Score (PT) 17 - Highest Level of Mobility Goal Stand (1 or More Minutes)-5 - Row Name 05/04/25 1611 PADD Diagnosis 1 - Gender 1 - Age Group 1 - Gait Distance 0 - Assist Level 1 - Home Support 3 - PADD Score 7 - Patient Preference home with outpatient rehab - Prediction by PADD Score extended rehabilitation - Row Name 05/04/25 1611 Functional Assessment Outcome Measure Options AM-PAC 6 Clicks Basic Mobility (PT);PADD - User Russo (r) = Recorded By, (t) = Taken By, (c) = Cosigned By Initials Name Provider Type Latoya Ramirez PT Physical Therapist Physical Therapy Education Title: PT OT STORE STOCK HELP Therapies (In Progress) Topic: Physical Therapy (Done) Point: Mobility training (Done) Learning Progress Summary Patient Acceptance, E, VU,NR by at 05/04/2025 161 Significant Other Acceptance, E, VU,NR by at 05/04/2025 161 Point: Home exercise program (Done) Learning Progress Summary Patient Acceptance, E, VU,NR by at 05/04/2025 161 Significant Other Acceptance, E, VU,NR by at 05/04/2025 161 Point: Body mechanics (Done) Learning Progress Summary Patient Acceptance, E, VU,NR by at 05/04/2025 1611 Significant Other Acceptance, E, VU,NR by at 05/04/2025 161 Point: Precautions (Done) Learning Progress Summary Patient Acceptance, E, VU,NR by at 05/04/2025 161 Significant Other Acceptance, E, VU,NR by at 05/04/2025 161 User Russo Initials Effective Dates Name Provider Type [facility] 04/25/23 - Latoya Ramirez PT Physical Therapist PT PT Recommendation and Plan Recommended discharge disposition is based on the functional assessment performed by PT/OT/Speech therapy (as applicable) and may not reflect the medical necessity determined by your provider or services covered by an individual patient's insurance plan or patient resource. Planned Therapy Interventions (PT): balance training, bed mobility training, gait training, home exercise program, ROM (range of motion), patient/family education, stair training, strengthening, stretching, transfer training, motor coordination training, neuromuscular re-education Therapy Frequency (PT): 2 times/day Outcome Evaluation: PT eval completed. Pt presents s/p L TKA with significant pain, LLE deficits, balance deficits, and decreased activity tolerance. Pt ambulated 20 ft w/ FWW, CGA x2. Further mobility limited by significant pain. Pt would benefit from IP PT services while hospitalized. Anticipate pt to be able to d/c home w/ 25/02 assist and HHPT once pain is controlled, however will continue to monitor progress closely. Time Calculation: PT Evaluation Complexity History, PT Evaluation Complexity: 3 or more personal factors and/or comorbidities Examination of Body Systems (PT Eval Complexity): total of 4 or more elements Clinical Presentation (PT Evaluation Complexity): evolving Clinical Decision Making (PT Evaluation Complexity): moderate complexity Overall Complexity (PT Evaluation Complexity): moderate complexity PT Charges Row Name 05/04/25 1612 Time Calculation Start Time 1508 -LH PT Received On 05/04/25 - PT Goal Re-Cert Due Date 05/14/25 - Timed Charges 62903 - Gait Training Minutes 8 -LH Untimed Charges PT Eval/Re-eval Minutes 62 -LH Total Minutes Timed Charges Total Minutes 8 -LH Untimed Charges Total Minutes 62 -LH Total Minutes 70 -LH User Russo (r) = Recorded By, (t) = Taken By, (c) = Cosigned By Initials Name Provider Type Latoya Ramirez, PT Physical Therapist Therapy Charges for Today Code Description Service Date Service Provider Modifiers Qty [id number] HC GAIT TRAINING EA 15 MIN 05/04/2025 Latoya Ramirez, PT GP 1 [id number] HC-PT EVAL MOD COMPLEXITY 5 05/04/2025 Latoya Ramirez, PT 1 [id number] HC PT THER SUPP EA 15 MIN 05/04/2025 Latoya Ramirez, PT GP 3 PT G-Codes Outcome Measure Options: AM-PAC 6 Clicks Basic Mobility (PT), PADD AM-PAC 6 Clicks Score (PT): 17 PT Discharge Summary Anticipated Discharge Disposition (PT): home with 25/02 care, home with home health Latoya Ramirez PT 05/04/2025 documented in this encounter Plan of Treatment Upcoming Encounters Date Type Department Care Team (Late st Contact Info) Description 07/07/2025 10:30 AM EST Office Visit [facility] ORTHOPEDICS & SPORTS MEDICINE [address] [place] [address] Germania Perry PA-C [address] [facility] [address] [place] [address] 09/23/2025 1:00 PM EST Office Visit [facility] [address] [facility] [facility] [address] [facility] [address] [place] [id number] Sara Arora PA [address] [facility] [address] [place] [address] documented as of this encounter Procedures Procedure Name Priority Date/Time Associated Diagnosis Comments CBC (NO DIFF) Routine 05/05/2025 5:13 AM EDT BASIC METABOLIC PANEL Routine 05/05/2025 5:13 AM EDT XR KNEE 1 OR 2 VW LEFT STAT 05/04/2025 12:57 PM EDT SC ARTHRP KNE CONDYLE&PLATU MEDIAL&LAT COMPARTMENTS 05/04/2025 10:15 AM EDT Primary osteoarthritis of left knee Special Needs * POCT GLUCOSE FINGERSTICK Routine 05/04/2025 9:15 AM EDT documented in this encounter Results * (ABNORMAL) CBC (No Diff) (05/05/2025 5:13 AM EDT) WBC 15.22(H) 3.40 - 10.80 10*3/mm3 05/05/2025 5:25 AM EDT [facility] RBC 3.78 3.77 - 5.28 10*6/mm3 05/05/2025 5:25 AM EDT [facility] Hemoglobin 10.8(L) 12.0 - 15.9 g/dL 05/05/2025 5:25 AM EDT [facility] Hematocrit 33.5(L) 34.0 - 46.6 % 05/05/2025 5:25 AM EDT [facility] MCV 88.6 79.0 - 97.0 fL 05/05/2025 5:25 AM EDT [facility] MCH 28.6 26.6 - 33.0 pg 05/05/2025 5:25 AM EDT [facility] MCHC 32.2 31.5 - 35.7 g/dL 05/05/2025 5:25 AM EDT [facility] RDW 15.0 12.3 - 15.4 % 05/05/2025 5:25 AM EDT [facility] RDW-SD 48.8 37.0 - 54.0 fl 05/05/2025 5:25 AM EDT [facility] MPV 10.4 6.0 - 12.0 fL 05/05/2025 5:25 AM EDT [facility] Platelets 316 140 - 450 10*3/mm3 05/05/2025 5:25 AM EDT [facility] Blood Venipuncture / Unknown 05/05/2025 5:13 AM EDT 05/05/2025 5:19 AM EDT Romero Hall MD LAB BLOOD ORDERABLES Final Res ult [facility]
[address] [place] [address], * (ABNORMAL) Basic Metabolic Panel (05/05/2025 5:13 AM EDT) Glucose 110(H) 65 - 99 mg/dL 05/05/2025 6:16 AM EDT [facility] BUN 12.7 8.0 - 23.0 mg/dL 05/05/2025 6:16 AM EDT [facility] Creatinine 0.80 0.57 - 1.00 mg/dL 05/05/2025 6:16 AM EDT [facility] Sodium 137 136 - 145 mmol/L 05/05/2025 6:16 AM EDT [facility] Potassium 4.3 3.5 - 5.2 mmol/L 05/05/2025 6:16 AM EDT [facility] Chloride 105 98 - 107 mmol/L 05/05/2025 6:16 AM EDT [facility] CO2 21.3(L) 22.0 - 29.0 mmol/L 05/05/2025 6:16 AM EDT [facility] Calcium 7.6(L) 8.6 - 10.5 mg/dL 05/05/2025 6:16 AM EDT [facility] BUN/Creatinine Ratio 15.9 7.0 - 25.0 05/05/2025 6:16 AM EDT [facility] Anion Gap 10.7 5.0 - 15.0 mmol/L 05/05/2025 6:16 AM EDT [facility] eGFR 78.9 >60.0 mL/min/1.7 3 05/05/2025 6:16 AM EDT [facility] Blood Venipuncture / Unknown 05/05/2025 5:13 AM EDT 05/05/2025 5:19 AM EDT [facility] - 05/05/2025 6:16 AM EDT GFR Categories in Chronic Kidney Disease (CKD) GFR Category GFR (mL/min/1.73) Interpretation G1 90 or greater Normal or high (1) G2 60-89 Mild decrease (1) G3a 45-59 Mild to moderate decrease G3b 30-44 Moderate to severe decrease G4 15-29 Severe decrease G5 14 or less Kidney failure (1)In the absence of evidence of kidney disease, neither GFR category G1 or G2 fulfill the criteria for CKD. eGFR calculation 2020 CKD-EPI creatinine equation, which does not include race as a factor Kenji Alford MD LAB BLOOD ORDERABLES Final Result [facility]
[address] [place] [address], * XR Knee 1 or 2 View Left (05/04/2025 12:57 PM EDT) Anatomical Region Laterality Modality Lower Extremities, Knee Left Radiogra phic Imaging 05/04/2025 12:5 9 PM EDT Impressions 05/04/2025 12:59 PM EDT Impression: Postoperative changes of knee arthroplasty without radiographic evidence of immediate complication. Electronically Signed: Jarad Sanches MD 05/04/2025 12:59 PM EDT Workstation ID: [id number] Narrative 05/04/2025 12:59 PM EDT XR KNEE 1 OR 2 VW LEFT Date of Exam: 05/04/2025 12:20 PM EDT Indication: post-op. Comparison: None available. Findings: Postoperative changes of knee arthroplasty without radiographic evidence of immediate complication. Surrounding soft tissue edema and subcutaneous emphysema, favored postoperative. No acute fracture or dislocation. Procedure Note Jarad Sanches MD - 05/04/2025 XR KNEE 1 OR 2 VW LEFT Date of Exam: 05/04/2025 12:20 PM EDT Indication: post-op. Comparison: None available. Findings: Postoperative changes of knee arthroplasty without radiographic evidenceof immediate complication. Surrounding soft tissue edema and subcutaneousemphysema, favored postoperative. No acute fracture or dislocation. IMPRESSION: Impression: Postoperative changes of knee arthroplasty without radiographic evidenceof immediate complication. Electronically Signed: Jarad Sanches MD 05/04/2025 12:59 PM EDT Workstation ID: [id number] us Romero Hall MD IM DIAGNOSTIC IMAGING ORDERAB LES Final Result * POC Glucose Once (05/04/2025 9:15 AM EDT) Glucose 82 70 - 130 mg/dL 05/04/2025 9:20 AM EDT [facility] Comment:Serial Number: [id number]: [id number] Blood 05/04/2025 9:15 AM EDT 05/04/2025 9:20 AM EDT us Richardson Fernandez Jr., MD POINT OF CARE TEST ORDE JOSE Final Result [facility]
[address] [place] [address], documented in this encounter Visit Diagnoses Diagnosis S/P TKR (total knee replacement), left- Primary Primary osteoarthritis of left knee S/P TKR (total knee replacement), left Primary osteoarthritis of left knee HTN (hypertension) Unspecified essential hypertension GERD (gastroesophageal reflux disease) Esophageal reflux DM2 (diabetes mellitus, type 2) documented in this encounter Admitting Diagnoses Diagnosis Primary osteoarthritis of left knee Degenerative arthritis of left knee Osteoarthrosis, unspecified whether generalized or localized, lower leg documented in this encounter Administered Medications Inactive Administered Medications - up to 3 most recent administrations Medication Order MAR Action Action Date Dose Rate Site acetaminophen (TYLENOL) tablet 1,000 mg 1,000 mg, Oral, Every 8 Hours Scheduled, First dose on Sat05/04/25 at 1500, For 48 hours, If given for fever, use fever parameter: fever greater than 100.4 F Based on patient request - if ordered for moderate or severe pain, provider allows for administration of a medication prescribed for a lower pain scale. Do not exceed 4 grams of acetaminophen in a 24 hr period. Max dose of 2gm for AST/ALT greater than 120 units/L. If given for pain, use the following pain scale: Mild Pain = Pain Score of 1-3, CPOT 1-2 Moderate Pain = Pain Score of 4-6, CPOT 3-4 Severe Pain = Pain Score of 7-10, CPOT 5-8 Given 05/05/2025 5:58 AM EDT 1,000 mg Given 05/04/2025 10:02 PM EDT 1,000 mg Given 05/04/2025 3:50 PM EDT 1,000 mg aspirin EC tablet 81 mg 81 mg, Oral, Every 12 Hours Scheduled, First dose on Sat05/05/25 at 0900, Do not crush or chew the capsules or tablets. The drug may not work as designed if the capsule or tablet is crushed or chewed. Swallow whole. Do not exceed 4 grams of aspirin in a 24 hr period. If given for pain, use the following pain scale: Mild Pain = Pain Score of 1-3, CPOT 1-2 Moderate Pain = Pain Score of 4-6, CPOT 3-4 Severe Pain = Pain Score of 7-10, CPOT 5-8, Indications: VTE ProphylaxisIndications:VTE Prophylaxis Given 05/05/2025 9:35 AM EDT 81 mg atorvastatin (LIPITOR) tablet 10 mg 10 mg, Oral, Every Evening, First dose on Sat05/04/25 at 1700, Avoid grapefruit juice. Given 05/04/2025 4:00 PM EDT 10 mg ceFAZolin 1000 mg IVPB in 100 mL NS (MBP) 1,000 mg, Intravenous, Administer over 30 Minutes, Once, On Sat05/04/25 at 1216, For 1 dose, Administer this med on arrival to the PACU. Caution: Look alike/sound alike drug alert, Indications: Surgical ProphylaxisIndications:Surgical Prophylaxis New Bag 05/04/2025 1:00 PM EDT 1,000 mg ceFAZolin 2000 mg IVPB in 100 mL NS (MBP) 2 g, Intravenous, Administer over 30 Minutes, Every 8 Hours, First dose on Sat05/04/25 at 2000, For 2 doses, Time from pre-op dose Caution: Look alike/sound alike drug alert, Indications: Surgical ProphylaxisIndications:Surgical Prophylaxis New Bag 05/05/2025 3:13 AM EDT 2 g New Bag 05/04/2025 8:41 PM EDT 2 g escitalopram (LEXAPRO) tablet 10 mg 10 mg, Oral, Daily, First dose on Sat05/04/25 at 1630, Caution: Look alike/sound alike drug alert. Given 05/05/2025 9:35 AM EDT 10 mg Given 05/04/2025 3:50 PM EDT 10 mg ethyl alcohol 62 % 2 each 2 each (2 Swab), Nasal, Once, On Sat05/04/25 at 0832, For 1 dose, Administer 15-60 minutes prior to surgery following these steps: Clean nostrils with a tissue, apply a 62% ethyl alcohol swab to the right nostril gently rotating the swab for 30 seconds, repeat the process with the 2nd swab in the left nostril.Indications:Primary osteoarthritis of left knee Given 05/04/2025 10:28 AM EDT 2 each famotidine (PEPCID) tablet 20 mg 20 mg, Oral, Once, On Sat05/04/25 at 0832, For 1 dose Given 05/04/2025 8:58 AM EDT 20 mg HYDROcodone-acetaminophen (NORCO) 5-325 MG per tablet - ADS Override Pull Starting on Sat05/04/25 at 1320, For 1 dose, Created by patria bach [GENA] Do not exceed 4 grams of acetaminophen in a 24 hr period. Max dose of 2gm for AST/ALT greater than 120 units/L If given for pain, use the following pain scale: Mild Pain = Pain Score of 1-3, CPOT 1-2 Moderate Pain = Pain Score of 4-6, CPOT 3-4 Severe Pain = Pain Score of 7-10, CPOT 5-8 HYDROcodone-acetaminophen (NORCO) 5-325 MG per tablet 1 tablet 1 tablet, Oral, Every 4 Hours PRN, Moderate Pain, Starting on Sat05/04/25 at 1214, For 2 doses, May be given once in PACU and/or once for outpatient pain as needed. [GENA] Do not exceed 4 grams of acetaminophen in a 24 hr period. Max dose of 2gm for AST/ALT greater than 120 units/L If given for pain, use the following pain scale: Mild Pain = Pain Score of 1-3, CPOT 1-2 Moderate Pain = Pain Score of 4-6, CPOT 3-4 Severe Pain = Pain Score of 7-10, CPOT 5-8 Given 05/04/2025 1:23 PM EDT 1 tablet HYDROmorphone (DILAUDID) injection 0.5 mg 0.5 mg, Intravenous, Every 2 Hours PRN, Severe Pain, Starting on Sat05/04/25 at 1410, For 10 days, If given for pain, use the following pain scale: Mild Pain = Pain Score of 1-3, CPOT 1-2 Moderate Pain = Pain Score of 4-6, CPOT 3-4 Severe Pain = Pain Score of 7-10, CPOT 5-8 labetalol (NORMODYNE,TRANDATE) injection 10 mg 10 mg, Intravenous, Every 4 Hours PRN, High Blood Pressure, SBP over 170 or DBP over 105, Starting on Sat05/04/25 at 1426, For 3 doses, As needed for SBP greater than 170 or DBP greater than 105 Give IV Push over 2 minutes. lactated ringers infusion 9 mL/hr, Intravenous, Continuous, Starting on Sat05/05/25 at 0000, For 1 day, May switch to NS IV at KVO if renal / if indicated New Bag 05/04/2025 12:10 PM EDT Restarted 05/04/2025 11:38 AM EDT Currently Infusing 05/04/2025 10:29 AM EDT 9 mL /hr levothyroxine (SYNTHROID, LEVOTHROID) tablet 137 mcg 137 mcg, Oral, Every Decaler, First dose on Sat05/05/25 at 0600, Take on empty stomach. Given 05/05/2025 5:57 AM EDT 137 mcg lidocaine PF 1% (XYLOCAINE) injection 0.5 mL 0.5 mL, Injection, Once As Needed, IV Start, Starting on Sat05/04/25 at 0830, For 1 dose Given 05/04/2025 8:58 AM E DT 0.5 mL meloxicam (MOBIC) tablet 15 mg 15 mg, Oral, Daily, First dose on Sat05/04/25 at 1500, Take with food. If given for pain, use the following pain scale: Mild Pain = Pain Score of 1-3, CPOT 1-2 Moderate Pain = Pain Score of 4-6, CPOT 3-4 Severe Pain = Pain Score of 7-10, CPOT 5-8 Given 05/05/2025 9:35 AM EDT 15 mg Given 05/04/2025 3:50 PM EDT 15 mg morphine injection 4 mg 4 mg, Intravenous, Every 2 Hours PRN, Moderate Pain, Starting on Sat05/04/25 at 1410, For 10 doses, If given for pain, use the following pain scale: Mild Pain = Pain Score of 1-3, CPOT 1-2 Moderate Pain = Pain Score of 4-6, CPOT 3-4 Severe Pain = Pain Score of 7-10, CPOT 5-8 naloxone (NARCAN) injection 0.1 mg 0.1 mg, Intravenous, Every 5 Minutes PRN, Respiratory Depression, Starting on Sat05/04/25 at 1410, If respiratory rate is less than 8 breaths/minute or patient is difficult to arouse stop any narcotics and contact physician. Administer slow IV push. Repeat as ordered until patient's respiratory rate is greater than 12 breaths/minute. naloxone (NARCAN) injection 0.4 mg 0.4 mg, Intravenous, Every 5 Minutes PRN, Respiratory Depression, Starting on Sat05/04/25 at 1410, If respiratory rate is less than 8 breaths/minute or patient is difficult to arouse stop any narcotics and contact physician. Administer slow IV push. Repeat as ordered until patient's respiratory rate is greater than 12 breaths/minute. ondansetron (ZOFRAN) injection 4 mg 4 mg, Intravenous, Every 6 Hours PRN, Nausea, Vomiting, Starting on Sat05/04/25 at 1410, If BOTH ondansetron (ZOFRAN) and promethazine (PHENERGAN) are ordered use ondansetron first and THEN promethazine IF ondansetron is ineffective. Given 05/04/2025 2:19 PM EDT 4 mg ondansetron ODT (ZOFRAN-ODT) disintegrating tablet 4 mg 4 mg, Oral, Every 6 Hours PRN, Nausea, Vomiting, Starting on Sat05/04/25 at 1410, If BOTH ondansetron (ZOFRAN) and promethazine (PHENERGAN) are ordered use ondansetron first and THEN promethazine IF ondansetron is ineffective. Place on tongue and allow to dissolve. oxyCODONE (ROXICODONE) immediate release tablet 5 mg 5 mg, Oral, Every 4 Hours PRN, Moderate Pain, Starting on Sat05/04/25 at 1410, For 10 days, (GENA) If given for pain, use the following pain scale: Mild Pain = Pain Score of 1-3, CPOT 1-2 Moderate Pain = Pain Score of 4-6, CPOT 3-4 Severe Pain = Pain Score of 7-10, CPOT 5-8 Given 05/05/2025 11:20 AM EDT 5 mg Given 05/05/2025 2:27 AM EDT 5 mg Given 05/04/2025 10:01 PM EDT 5 mg ropivacaine (NAROPIN) 0.2 % infusion (INFUSYSTEM) Peripheral Nerve, Continuous, Starting on Sat05/04/25 at 1142, If pain greater than 7 out of 10, please notify the Latex Caster Provider at [phone](messages go to Thrill service). Thank you If Pt. Has a Hip Fx block(Fascia Iliacus), please remove Block Catheter prior to Discharge, Basal Rate: 1 mL/hr, Programmed Intermittent Bolus (PIB): 8 mL, PIB Lockout Interval: 120 min, MEDIA MONITOR Bolus: 8 mL, MEDIA MONITOR Lockout Interval: 30 min New Bag 05/04/2025 12:40 PM EDT 1,000 mg sodium chloride 0.9 % bolus 500 mL 500 mL, Intravenous, at 1,000 mL/hr, Administer over 0.5 Hours, 3 Times Daily PRN, SBP less than 95 or urine output less than 30 mL/h x 2 hours, Starting on Sat05/04/25 at 1426, For 3 days sodium chloride 0.9 % flush 10 mL 10 mL, Intravenous, Every 12 Hours Scheduled, First dose on Sat05/04/25 at 2100 Given 05/05/2025 9:36 AM EDT 10 mL Given 05/04/2025 8:42 PM EDT 10 mL sodium chloride 0.9 % infusion 120 mL/hr, Intravenous, Continuous, Starting on Sat05/04/25 at 1500, For 1 day New Bag 05/04/2025 3:49 PM EDT 120 mL/hr 120 mL/hr documented in this encounter Active and Recently Administered Medications Times are shown in EDT. Scheduled Medication Order 05/03/2025 05/04/2025 05/05/2025 acetaminophen (TYLENOL) tablet 1,000 mg 1,000 mg, Oral, Every 8 Hours Scheduled, First dose on Sat05/04/25 at 1500, For 48 hours, If given for fever, use fever parameter: fever greater than 100.4 F Based on patient request - if ordered for moderate or severe pain, provider allows for administration of a medication prescribed for a lower pain scale. Do not exceed 4 grams of acetaminophen in a 24 hr period. Max dose of 2gm for AST/ALT greater than 120 units/L. If given for pain, use the following pain scale: Mild Pain = Pain Score of 1-3, CPOT 1-2 Moderate Pain = Pain Score of 4-6, CPOT 3-4 Severe Pain = Pain Score of 7-10, CPOT 5-8 1550 (Given - Provider: Hugo Zuniga RN)2202 (Given - Provider: Li Nagy RN) 0558 (Given - Provider: Li Nagy RN) aspirin EC tablet 81 mg 81 mg, Oral, Every 12 Hours Scheduled, First dose on Sat05/05/25 at 0900, Do not crush or chew the capsules or tablets. The drug may not work as designed if the capsule or tablet is crushed or chewed. Swallow whole. Do not exceed 4 grams of aspirin in a 24 hr period. If given for pain, use the following pain scale: Mild Pain = Pain Score of 1-3, CPOT 1-2 Moderate Pain = Pain Score of 4-6, CPOT 3-4 Severe Pain = Pain Score of 7-10, CPOT 5-8, Indications: VTE Prophylaxis 0935 (Given - Provid er: May Winter RN) atorvastatin (LIPITOR) tablet 10 mg 10 mg, Oral, Every Evening, First dose on Sat05/04/25 at 1700, Avoid grapefruit juice. 1600 (Given - Provider: Hugo Zuniga RN) bisoprolol (ZEBeta) tablet 5 mg 5 mg, Oral, Every Evening, First dose on Sat05/05/25 at 1700, Hold for SBP less than 100, DBP less than 60, or heart rate less than 50. If a dose is held, please contact the provider. Caution: Look alike/sound alike drug alert ceFAZolin 1000 mg IVPB in 100 mL NS (MBP) (COMPLETED) 1,000 mg, Intravenous, Administer over 30 Minutes, Once, On Sat05/04/25 at 1216, For 1 dose, Administer this med on arrival to the PACU. Caution: Look alike/sound alike drug alert, Indications: Surgical Prophylaxis 1300 (New Bag - Provider: Yokasta Davies RN) ceFAZolin 2000 mg IVPB in 100 mL NS (MBP) (COMPLETED) 2 g, Intravenous, Administer over 30 Minutes, Once, On Sat05/04/25 at 0832, For 1 dose, Administer Within 1 Hour of Surgical Incision. Redose 4 Hours From Pre-Op Dose if Procedure Ongoing or Blood Loss Greater Than 1.5 L Caution: Look alike/sound alike drug alert, Indications: Surgical Prophylaxis 1039 (New Bag - Provider: SERENA Alvarez) ceFAZolin 2000 mg IVPB in 100 mL NS (MBP) (COMPLETED) 2 g, Intravenous, Administer over 30 Minutes, Every 8 Hours, First dose on Sat05/04/25 at 2000, For 2 doses, Time from pre-op dose Caution: Look alike/sound alike drug alert, Indications: Surgical Prophylaxis 2040 (New Bag - Provider: Li Nagy RN) 312 (New Bag - Provider: Li Nagy RN) escitalopram (LEXAPRO) tablet 10 mg 10 mg, Oral, Daily, First dose on Sat05/04/25 at 1630, Caution: Look alike/sound alike drug alert. 1550 (Given - Provider: Hugo Zuniga RN) 0935 (Given - Provider: May Winter, RN) ethyl alcohol 62 % 2 each (COMPLETED) 2 each (2 Swab), Nasal, Once, On Sat05/04/25 at 0832, For 1 dose, Administer 15-60 minutes prior to surgery following these steps: Clean nostrils with a tissue, apply a 62% ethyl alcohol swab to the right nostril gently rotating the swab for 30 seconds, repeat the process with the 2nd swab in the left nostril. 1028 (Given - Provider: Stephanie Tierney RN) famotidine (PEPCID) tablet 20 mg (COMPLETED) 20 mg, Oral, Once, On Sat05/04/25 at 0832, For 1 dose 0858 (Given - Provider: Stephanie Tierney RN) levothyroxine (SYNTHROID, LEVOTHROID) tablet 137 mcg 137 mcg, Oral, Every Decaler, First dose on Sat05/05/25 at 0600, Take on empty stomach. 0557 (Given - Provid er: Li Nagy RN) meloxicam (MOBIC) tablet 15 mg 15 mg, Oral, Daily, First dose on Sat05/04/25 at 1500, Take with food. If given for pain, use the following pain scale: Mild Pain = Pain Score of 1-3, CPOT 1-2 Moderate Pain = Pain Score of 4-6, CPOT 3-4 Severe Pain = Pain Score of 7-10, CPOT 5-8 1550 (Given - Provider: Hugo Zuniga RN) 0935 (Given - Provider: May Winter, RN) sodium chloride 0.9 % flush 10 mL 10 mL, Intravenous, Every 12 Hours Scheduled, First dose on Sat05/04/25 at 2100 2042 (Given - Provider: Li Nagy RN) 0936 (Given - Provider: May Winter RN) tranexamic acid 1000 mg in 100 mL 0.7% NaCl infusion (premix) (COMPLETED) 1,000 mg, Intravenous, Administer over 30 Minutes, Once, On Sat05/04/25 at 0832, For 1 dose, Give prior to incision. 1150 (New Bag - Provider: Stu Olivera CRNA) tranexamic acid 1000 mg in 100 mL 0.7% NaCl infusion (premix) (COMPLETED) 1,000 mg, Intravenous, Administer over 30 Minutes, Once, On Sat05/04/25 at 0832, For 1 dose, Hip Replacement: Give at start of incision closure. Knee Replacement: Give 5-10 minutes before tourniquet release. 1042 (New Bag - Provider: SERENA Alvarez) Continuous Medication Order 05/03/2025 05/04/2025 05/05/2025 lactated ringers infusion 9 mL/hr, Intravenous, Continuous, Starting on Sat05/05/25 at 0000, For 1 day, May switch to NS IV at KVO if renal / if indicated 0917 (New Bag - Provider: Stephanie Tierney RN)1029 (Currently Infusing - Provider: SERENA Alvarez)1137 (Paused - Provider: Stu Olivera CRNA - Comment: Switch to gravity)1138 (Restarted - Provider: Stu Olivera CRNA)1210 (New Bag - Provider: SERENA Alvarez) 0000 (Canceled Entry - Provider: Li Nagy RN)0916 (Due: Order Ending - Provider: Stephanie Tierney RN - Comment: [Order ends at this time. Document the following action when infusion is complete: Stopped]) lactated ringers infusion 9 mL/hr, Intravenous, Continuous, Starting on Sat05/04/25 at 1216, For 1 day 1216 (Due) ropivacaine (NAROPIN) 0.2 % infusion (INFUSYSTEM) Peripheral Nerve, Continuous, Starting on Sat05/04/25 at 1142, If pain greater than 7 out of 10, please notify the Latex Caster Provider at [phone](messages go to beeper service). Thank you If Pt. Has a Hip Fx block(Fascia Iliacus), please remove Block Catheter prior to Discharge, Basal Rate: 1 mL/hr, Programmed Intermittent Bolus (PIB): 8 mL, PIB Lockout Interval: 120 min, MEDIA MONITOR Bolus: 8 mL, MEDIA MONITOR Lockout Interval: 30 min 1240 (New Bag - Provider: Yokasta Davies RN) 1444 (Due: Order Ending - Provider: Automatic Discharge Provider - Comment: [Order ends at this time. Document the following action when infusion is complete: Stopped]) sodium chloride 0.9 % infusion 120 mL/hr, Intravenous, Continuous, Starting on Sat05/04/25 at 1500, For 1 day 1549 (New Bag - Provider: Hugo Zuniga RN) 1444 (Due: Order Ending - Provider: Automatic Discharge Provider - Comment: [Order ends at this time. Document the following action when infusion is complete: Stopped]) PRN Medication Order 05/03/2025 05/04/2025 05/05/2025 HYDROcodone-acetaminophen (NORCO) 5-325 MG per tablet 1 tablet (CANCELED) 1 tablet, Oral, Every 4 Hours PRN, Moderate Pain, Starting on Sat05/04/25 at 1214, For 2 doses, May be given once in PACU and/or once for outpatient pain as needed. [GENA] Do not exceed 4 grams of acetaminophen in a 24 hr period. Max dose of 2gm for AST/ALT greater than 120 units/L If given for pain, use the following pain scale: Mild Pain = Pain Score of 1-3, CPOT 1-2 Moderate Pain = Pain Score of 4-6, CPOT 3-4 Severe Pain = Pain Score of 7-10, CPOT 5-8 1323 (Given - Provider: Yokasta Davies RN) HYDROmorphone (DILAUDID) injection 0.5 mg(Linked Group 1) 0.5 mg, Intravenous, Every 2 Hours PRN, Severe Pain, Starting on Sat05/04/25 at 1410, For 10 days, If given for pain, use the following pain scale: Mild Pain = Pain Score of 1-3, CPOT 1-2 Moderate Pain = Pain Score of 4-6, CPOT 3-4 Severe Pain = Pain Score of 7-10, CPOT 5-8 labetalol (NORMODYNE,TRANDATE) injection 10 mg 10 mg, Intravenous, Every 4 Hours PRN, High Blood Pressure, SBP over 170 or DBP over 105, Starting on Sat05/04/25 at 1426, For 3 doses, As needed for SBP greater than 170 or DBP greater than 105 Give IV Push over 2 minutes. lidocaine PF 1% (XYLOCAINE) injection 0.5 mL (COMPLETED) 0.5 mL, Injection, Once As Needed, IV Start, Starting on Sat05/04/25 at 0830, For 1 dose 0858 (Given - Provider: Stephanie Tierney RN) morphine injection 4 mg(Linked Group 2) 4 mg, Intravenous, Every 2 Hours PRN, Moderate Pain, Starting on Sat05/04/25 at 1410, For 10 doses, If given for pain, use the following pain scale: Mild Pain = Pain Score of 1-3, CPOT 1-2 Moderate Pain = Pain Score of 4-6, CPOT 3-4 Severe Pain = Pain Score of 7-10, CPOT 5-8 naloxone (NARCAN) injection 0.1 mg(Linked Group 1) 0.1 mg, Intravenous, Every 5 Minutes PRN, Respiratory Depression, Starting on Sat05/04/25 at 1410, If respiratory rate is less than 8 breaths/minute or patient is difficult to arouse stop any narcotics and contact physician. Administer slow IV push. Repeat as ordered until patient's respiratory rate is greater than 12 breaths/minute. naloxone (NARCAN) injection 0.4 mg(Linked Group 2) 0.4 mg, Intravenous, Every 5 Minutes PRN, Respiratory Depression, Starting on Sat05/04/25 at 1410, If respiratory rate is less than 8 breaths/minute or patient is difficult to arouse stop any narcotics and contact physician. Administer slow IV push. Repeat as ordered until patient's respiratory rate is greater than 12 breaths/minute. ondansetron (ZOFRAN) injection 4 mg(Linked Group 3) 4 mg, Intravenous, Every 6 Hours PRN, Nausea, Vomiting, Starting on Sat05/04/25 at 1410, If BOTH ondansetron (ZOFRAN) and promethazine (PHENERGAN) are ordered use ondansetron first and THEN promethazine IF ondansetron is ineffective. 1419 (Given - Provider: Hugo Zuniga RN) ondansetron ODT (ZOFRAN-ODT) disintegrating tablet 4 mg(Linked Group 3) 4 mg, Oral, Every 6 Hours PRN, Nausea, Vomiting, Starting on Sat05/04/25 at 1410, If BOTH ondansetron (ZOFRAN) and promethazine (PHENERGAN) are ordered use ondansetron first and THEN promethazine IF ondansetron is ineffective. Place on tongue and allow to dissolve. 1419 (Not Given: See Alt - Provider: Hugo Zuniga RN) oxyCODONE (ROXICODONE) immediate release tablet 5 mg 5 mg, Oral, Every 4 Hours PRN, Moderate Pain, Starting on Sat05/04/25 at 1410, For 10 days, (GENA) If given for pain, use the following pain scale: Mild Pain = Pain Score of 1-3, CPOT 1-2 Moderate Pain = Pain Score of 4-6, CPOT 3-4 Severe Pain = Pain Score of 7-10, CPOT 5-8 1756 (Given - Provider: Hugo Zuniga RN)2201 (Given - Provider: Li Nagy, RN) 0227 (Given - Provider: Li Nagy, JONATHAN)1120 (Given - Provider: May Winter RN) ropivacaine (NAROPIN) 0.5 % injection (CANCELED) As Needed, Starting on Sat05/04/25 at 1055 1055 (Given - Provider: Romero Hall MD) sodium chloride (NS) irrigation solution (CANCELED) As Needed, Starting on Sat05/04/25 at 1114 1100 (Given - Provider: Romero Hall MD)1102 (Given - Provider: Romero Hall MD) sodium chloride 0.9 % bolus 500 mL 500 mL, Intravenous, at 1,000 mL/hr, Administer over 0.5 Hours, 3 Times Daily PRN, SBP less than 95 or urine output less than 30 mL/h x 2 hours, Starting on Sat05/04/25 at 1426, For 3 days sodium chloride 0.9 % flush 1-10 mL 1-10 mL, Intravenous, As Needed, Line Care, Starting on Sat05/04/25 at 1410 sodium chloride 0.9 % infusion 40 mL 40 mL, Intravenous, As Needed, Line Care, Starting on Sat05/04/25 at 1410, Following administration of an IV intermittent medication, flush line with 40mL NS at 100mL/hr. sterile water irrigation solution (CANCELED) As Needed, Starting on Sat05/04/25 at 1100 1100 (Given - Provider: Romero Hall MD - Comment: for fire safety/insts) Linked Groups Order Group 1: HYDROmorphone (DILAUDID) injection 0.5 mgJump to med 0.5 mg, Intravenous, Every 2 Hours PRN, Severe Pain, Starting on Sat05/04/25 at 1410, For 10 days, If given for pain, use the following pain scale: Mild Pain = Pain Score of 1-3, CPOT 1-2 Moderate Pain = Pain Score of 4-6, CPOT 3-4 Severe Pain = Pain Score of 7-10, CPOT 5-8 And naloxone (NARCAN) injection 0.1 mgJump to med 0.1 mg, Intravenous, Every 5 Minutes PRN, Respiratory Depression, Starting on Sat05/04/25 at 1410, If respiratory rate is less than 8 breaths/minute or patient is difficult to arouse stop any narcotics and contact physician. Administer slow IV push. Repeat as ordered until patient's respiratory rate is greater than 12 breaths/minute. Group 2: morphine injection 4 mgJump to med 4 mg, Intravenous, Every 2 Hours PRN, Moderate Pain, Starting on Sat05/04/25 at 1410, For 10 doses, If given for pain, use the following pain scale: Mild Pain = Pain Score of 1-3, CPOT 1-2 Moderate Pain = Pain Score of 4-6, CPOT 3-4 Severe Pain = Pain Score of 7-10, CPOT 5-8 And naloxone (NARCAN) injection 0.4 mgJump to med 0.4 mg, Intravenous, Every 5 Minutes PRN, Respiratory Depression, Starting on Sat05/04/25 at 1410, If respiratory rate is less than 8 breaths/minute or patient is difficult to arouse stop any narcotics and contact physician. Administer slow IV push. Repeat as ordered until patient's respiratory rate is greater than 12 breaths/minute. Group 3: ondansetron ODT (ZOFRAN-ODT) disintegrating tablet 4 mgJump to med 4 mg, Oral, Every 6 Hours PRN, Nausea, Vomiting, Starting on Sat05/04/25 at 1410, If BOTH ondansetron (ZOFRAN) and promethazine (PHENERGAN) are ordered use ondansetron first and THEN promethazine IF ondansetron is ineffective. Place on tongue and allow to dissolve. Or ondansetron (ZOFRAN) injection 4 mgJump to med 4 mg, Intravenous, Every 6 Hours PRN, Nausea, Vomiting, Starting on Sat05/04/25 at 1410, If BOTH ondansetron (ZOFRAN) and promethazine (PHENERGAN) are ordered use ondansetron first and THEN promethazine IF ondansetron is ineffective. documented in this encounter Care Teams Repairer General Relationship Specialty Start Date End Date Deana Veras DO [facility] [employer] [place] [phone] PCP - General 10/06/15 documented as of this encounter
--- OUTSIDE RECORDS SUMMARY | 2025-05-04 08:44 | XMS_ITS | Encounter Summary ---
[facility] Address [address] [place] [address] Care Team Providers Care Compliance Attorney Name Role Phone TravisDeana brown Gena Primary Care Provider [phone] Reason for Visit * Auth/Cert Specialty Diagnoses / Procedures Referred By Contac t Referred To Contact Diagnoses Primary osteoarthritis of left knee Primary osteoarthritis of left knee [M17.12] Procedures AR ARTHRP KNE CONDYLE&PLATU MEDIAL&LAT COMPARTMENTS Left total knee arthroplasty Referral ID Status Reason Start Date Expiration Date Visits Re quested Visits Authorized [id number] 1 1 Encounter Details Date Type Department Care Team (Late st Contact Info) Description 05/04/2025 9:44 AM EDT - 05/04/2025 12:13 PM EDT Surgery [place] [id number] Romero Hall MD [address] [place] [address] [place] [address] TOTAL KNEE ARTHROPLASTY WITH CORI ROBOT [54854 (CPT )] Social History Tobacco Use Types Packs/Day Years [...] or training? Not on file Preferred Language Iranian 04/20/2025 Comments No Sex and Gender Information Value Date Recorded Sex Assigned at Female 12/28/2024 10:17 AM EDT Legal Sex Female 11:26 AM EDT Gender Identity Not on file Sexual Orientation Straight 12/28/2024 10 :17 AM EDT documented as of this encounter Last Filed Vital Signs Vital Sign Reading Time Taken Comments Blood Pressure 143/86 05/04/2025 8:42 AM EDT Pulse 79 05/04/2025 8:42 AM EDT Temperature 36.7 C (98 F) 05/04/2025 8:42 AM EDT Respiratory Rate 16 05/04/2025 8:42 AM EDT Oxygen Saturation 99% 05/04/2025 8:42 AM EDT Inhaled Oxygen Concentration - - Weight 78.5 kg (173 lb) 05/04/2025 8:42 AM EDT Height 167.6 cm (5' 6 ) 05/04/2025 8:42 AM EDT Body Mass Index 27.92 05/04/2025 8:42 AM EDT documented in this encounter Functional Status * Question Answer Date of Assessment Author 1. Wish to be (Past 1 Month) No 025 8:31 AM EDT Stephanie Tierney, RN 2. Non-Specific Active Suici dudley Thoughts (Past 1 Month) No 05/04/2025 8:31 AM EDT Nancy Tierney RN * Calculated C-SSRS Risk Score (Lifetime/Recent) Answer Date of Assessment Author No Risk Indicated 05/04/2025 8:31 AM EDT Stephanie Tierney RN * [place] Suicide Severity Rating Scale (Screener/Recent Self-Report) Question [...] Your Cold Therapy Wrap is effective and ifjcjy-tp-vmg, and you will be encouraged to apply [...] results, lay the Gel Bags flat and iuka-yx-vcpo in the freezer. Once frozen, slide Gel [...] QR code. For additional patient resources, visit [email or web address]. While your physician is your primary source for information about your treatment there may be timesduring your treatment that you need assistance with your infusion pump. If you need assistance take the following steps: The [employer] Nursing Hotline is Here for You 25/02. Please call for the following concerns or complications: Answers to questions about your infusion pump Tubing disconnect Assistance with pump alarms Dislodged catheter Excessive leakage noted from pump Inadequate pain control 2. [facility] Anesthesia Acute Pain Service: is available 25/02 [...] Knee Replacement Surgery: What to Know After (Iranian) * How to Use a Walker (Iranian) * Fall Prevention in the Home Adult Thpg-kl-Zidt (Iranian) * How to Prevent Constipation After Surgery (Iranian) * Acetaminophen Capsules or Tablets (Iranian) * Aspirin Tablets (Iranian) * Docusate Capsules or Tablets (Iranian) * Meloxicam Tablets (Iranian) * Oxycodone Capsules or Tablets (Iranian) documented in this encounter Medications at Time [...] 60 tablet 05/05/2025 11:31 AM EDT 05/04/2025 docusate sodium (COLACE) 100 MG capsule Take [...] Hayes CRNA - 05/05/2025 8:12 AM EDT [facility] Acute pain service Inpatient Progress Note Patient Name: Marah Gonzalez : 1955 Acute Pain Service Inpatient Progress Note: Analgesia:Good LOC: alert and awake Resp Status: room air Cardiac: VS stable Side Effects:None Catheter Site:clean, dressing intact and dry Cath type: peripheral nerve cath(InfuSystem) Infusion rate: Fem/ Add: Basal: 1ml/hr, PIB: 8ml q 8h, SOLAR MANUFACTURER'S REPRESENTATIVE: 8ml q 30 min (1mL,8ml, 8ml InfuSystem [...] from the original note were not included. [facility] Orthopaedic Surgery Progress Note Subjective LOS: 0 days Patient Care Team: Deana Veras DO as PCP - General Deana Veras DO as PCP - Family Medicine Sara Arora PA as Physician Associate Financial Analyst (Endocrinology) CC: Left knee pain Interval History: [...] XR Knee 1 or 2 View Left [[id number]] Collected: 05/04/25 1259 Updated: 05/04/25 1303 Narrative: [...] MD 05/04/2025 12:59 PM EDT Workstation ID: [id number] PT: Physical Therapy - Plan of Care [...] will continue to monitor progress closely. (05/04/25 6854)] Results Review: I reviewed the patient's new [...] History of transfusion colon surgery-2 units required ([facility]) no reactions Hypertension Knee swelling right [...] 1989); bunionecotmy (05/22/2017); HAMMER TOE REPAIR Right 2018 HAND TENDON REPAIR Right 1973 3rd finger-due [...] - RIGHT; Surgeon: Romero Hall MD; Location: [facility]; Service: Orthopedics; Laterality: Right; TOTAL KNEE ARTHROPLASTY Right 05/21/2023 Procedure: TOTAL KNEE ARTHROPLASTY WITH CORI ROBOT - RIGHT; Surgeon: Romero Hall MD; Location:[facility]; Service: Robotics - Ortho; Laterality: Right; TOTAL [...] of this encounter note is an electronic electrician chief/translation of spoken language to printed text. The electronic translation of spoken language may permit erroneous, or at times, nonsensicalwords or phrases to be inadvertently transcribed; Although I have reviewed the note for such errors, some may still exist. Kenji Alford MD 05/04/25 14:27 EDT * Romero Hall MD - 05/04/2025 8:48 AM EDT [facility] Pre-op Full history and physical note from [...] from the original note were not included. 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 The symptoms have progressed to [...] Hall MD 04/12/25 09:44 EDT Dictated Utilizing [employer] Dictation documented in this encounter Nursing Notes [...] PO medication. Patient got up to the [facility] with gait belt, walker and assist x1. [...] closely. Anticipated Discharge Disposition (PT): home with 7 care, home with home health documented in [...] Knee Medial Parapatellar SURGEON: Romero Hall MD SOURCING INTERNSHIP: Marycarmen Wheatley PA-C (Marycarmen Wheatley PA-C was present and necessary for positioning, draping, retraction, instrumentation and closure.) SPECIMENS: None IMPLANTS: Implant Name Type Inv. Item Serial No. Hybrid Corn Breeder Lot No. LRB No. Used Action CMT BONE PALACOS R HI/VISC 1X40 - [id number] Implant CMT BONE PALACOS R HI/VISC 1X40 [facility] [id number] Left 1 Implanted CMT BONE PALACOS R HI/VISC 1X40 - [id number] Implant CMT BONE PALACOS R HI/VISC 1X40 [facility] [id number] Left 1 Implanted DEV CONTRL TISS STRATAFIX SPIRAL MNCRYL UD 3/0 PLS 60CM - [id number] Implant DEV CONTRL TISS STRATAFIX SPIRAL MNCRYL UD 3/0 PLS 60CM [employer] [facility] J [employer] J [id number] Left 1 Implanted DEV CONTRL TISS STRATAFIX SYMM PDS PLUS SAUNDRA CT-1 45CM - [id number] Implant DEV CONTRL TISS STRATAFIX SYMM PDS PLUS SAUNDRA CT-1 45CM [employer] DIV [employer] J AND J [id number] Left 1 Implanted COMP FEM LEGION OXINIUM CR NRW SZ5 LT - [id number] Implant COMP FEM LEGION OXINIUM CR NRW SZ5 LT [employer] [id number] Left 1 Implanted BASE TIB/KN GEN2 NONPOR TI SZ3 LT - [id number] Implant BASE TIB/KN GEN2 NONPOR TI SZ3 LT [employer] [id number] Left 1 Implanted PATELLA RESRF GEN2 7.5X32MM - [id number] Implant PATELLA RESRF GEN2 7.5X32MM [employer] [id number] Left 1 Implanted INSRT ART/KN LEGION CR HF XLPE SZ3TO4 10MM - [id number] Implant INSRT ART/KN LEGION CR HF XLPE SZ3TO4 10MM [employer] [id number] Left 1 Implanted ANESTHESIA: Spinal STAFF: Scrubber Operator: Nneka Vyas RN Physician Associate Financial Analyst: Marycarmen Wheatley PA-C Scrub Person: Jarek Miller; Beltran Burgos CST Vendor Legal Transcriptionist: Dharmesh Estrada ([employer]) Inspector Plating: Marycarmen Taylor TOURNIQUET TIME: 13 minutes ESTIMATED [...] Osteophytes were also removed. Description of arthritis: Ztui-er-kzzk contact medial and patellofemoral compartments, with advanced lateral compartment degeneration with kuka-nw-nroj contact. [employer] robotic system was then employed to assist with preparation of the femoral and tibial bone surfaces. Femoral and tibial arrays were placed, as well as markers in both the femur and tibia. Systemwas registered in a systematic fashion, and 3D [...] in a guided fashion, posterior condyles were freed of osteophytes, and trial implants placed, namely a 5 cruciate retaining femur with a 3 tibia and a 10 mm trial insert. Range of motion and [...] closed with #1 Vicryl in an interrupted reppsn-qk-nllud fashion in 4 strategic locationsfollowed by oversewing [...] Notes * Case Management/Social Work - Joe Farfan, RN - 05/05/2025 12:44 PM EDT Continued Stay Note [facility] Patient Name: Marah Gonzalez Today's Date: 05/05/2025 Admit Date: 05/04/2025 Plan: home Discharge Plan Row Name 05/05/25 1328 Plan Plan home Patient/Family in Agreement with Plan yes Plan Comments Met with patient and her at the bedside to initiate discharge planning. Patient lives with her in a house in [place]. There are 2 steps to enter the home and no stairs inside the house. At baseline, patient is independent with ADLs and has a walker, crutches, commode, cane, shower chair, and grab bars. Patient denies any home health services or home oxygen use. Patient has [employer] Medicare with prescription benefits and prefers to [facility]. Patient's plan is home. will transport. No [...] History of transfusion colon surgery-2 units required ([facility]) no reactions Hypertension Knee swelling right [...] Time and Intention Document Type discharge treatment -DC Mode of Treatment physical therapy -DC Row Name 05/05/25943 General Information Patient Profile Reviewed yes -DC Existing Precautions/Restrictions fall;other (see comments) nerve cath -DC Row Name 05/05/25943 Cognition Orientation Status (Cognition) oriented x 3 -DC Row Name 05/05/25943 Safety Issues/Impairments Affecting Functional Mobility Impairments Affecting Function (Mobility) balance;endurance/activity tolerance;pain;range of motion(ROM);strength -DC Comment, Safety Issues/Impairments (Mobility) alert, following commands -DC User Russo (r) = Recorded By, (t) = Taken By, (c) = Cosigned By Initials Name Provider Type DC Barry Mendoza PT Physical Therapist Mobility Row Name 05/05/25944 Bed Mobility Bed Mobility supine-sit;scooting/bridging -DC Scooting/Bridging [place] (Bed Mobility) independent -DC Supine-Sit [place] (Bed Mobility) minimum assist (75% patient effort);1 person assist;verbal cues -DC Comment, (Bed Mobility) worked on getting out of flat bed with some hand held assist . Able to movelegs independently. present for education -DC Row Name 05/05/25944 Transfers Comment, (Transfers) cues for hand placement -DC Row Name 05/05/25944 Sit-Stand Transfer Sit-Stand [place] (Transfers) modified independence;verbal cues -DC Assistive Device (Sit-Stand Transfers) walker, front-wheeled -DC Row Name 05/05/25944 Gait/Stairs (Locomotion) [place] Level (Gait) verbal cues;contact guard -DC Assistive Device (Gait) walker, front-wheeled [facility] Distance in Feet (Gait) 200 -DC Deviations/Abnormal Patterns (Gait) left sided deviations;antalgic;stride length decreased;weight shifting decreased -DC Left Sided Gait Deviations heel strike decreased -DC Assistive Device (Stairs) walker, front-wheeled [facility] Number of Steps (Stairs) 1 up backwards with VC for seqauencing -DC Comment, (Gait/Stairs) Gt training focused on walking with step through gait pattern. Encouraged heel strike with full wt shifting and upright posture. Patient demonstrated good control without loss of balance or buckling. On stair, she was given cues for sequencing and preformed with good control.-DC Row Name 05/05/25 0945 Mobility Extremity Weight-bearing Status left lower extremity -DC Left Lower Extremity (Weight-bearing Status) weight-bearing as tolerated (WBAT) -DC User Russo (r) = Recorded By, (t) = Taken By, (c) = Cosigned By Initials Name Provider Type DC Barry Mendoza, PT Physical Therapist Obj/Interventions Row Name 05/05/25947 Range of Motion Comprehensive Comment, General Range of Motion 0-50 L knee: painful flexion -DC Row Name 05/05/25947 Motor Skills Therapeutic Exercise knee;ankle -DC Row Name 05/05/25947 Knee (Therapeutic Exercise) Knee (Therapeutic Exercise) isometric exercises;strengthening exercise -DC Knee Isometrics (Therapeutic Exercise) bilateral;quad sets;3 second hold;10 repetitions -DC Knee Strengthening (Therapeutic Exercise) SAQ (short arc quad);SLR (straight leg raise);heel slides;LAQ (long arc quad);sitting;supine;10 repetitions -[facility] Name 05/05/25947 Ankle (Therapeutic Exercise) Ankle (Therapeutic Exercise) AROM (active range of motion) -DC Ankle AROM (Therapeutic Exercise) bilateral;dorsiflexion;plantarflexion;10 repetitions -DC User Russo (r) = Recorded By, (t) = Taken By, (c) = Cosigned By Initials Name Provider Type DC Barry Mendoza, PT Physical Therapist Goals/Plan Row Name 05/05/25 0997 Bed Mobility Goal 1 (PT) Activity/Assistive Device (Bed Mobility Goal 1, PT) sit to supine/supine to sit -DC [place] Level/Cues Needed (Bed Mobility Goal 1, PT) standby assist -DC Time Frame (Bed Mobility Goal 1, PT) short term goal (STG);3 days -DC Progress/Outcomes (Bed Mobility Goal 1, PT) goal met -DC Row Name 05/05/25 0950 Transfer Goal 1 (PT) Activity/Assistive Device (Transfer Goal 1, PT) vya-az-ccxxj/sfpsg-xf-lje -DC [place] Level/Cues Needed (Transfer Goal 1, PT) modified independence -DC Time Frame (Transfer Goal 1, PT) [employer] goal (LTG);5 days -DC Progress/Outcome (Transfer Goal 1, PT) goal met -DC Row Name 05/05/2578 Gait Training Goal 1 (PT) Activity/Assistive Device (Gait Training Goal 1, PT) gait (walking locomotion);assistive device use-DC [place] Level (Gait Training Goal 1, PT) modified independence -DC Distance (Gait Training Goal 1, PT) 100 ft -DC Time Frame (Gait Training Goal 1, PT) [facility] goal (LTG);5 days -DC Progress/Outcome (Gait Training Goal 1, PT) goal met -DC Row Name 05/05/25949 ROM Goal 1 (PT) ROM Goal 1 (PT) Surgical Knee ROM: 0-90 -DC Time Frame (ROM Goal 1, PT) long-term goal (LTG);3 days -DC Progress/Outcome (ROM Goal 1, PT) goal not met -DC Row Name 05/05/25949 Stairs Goal 1 (PT) Activity/Assistive Device (Stairs Goal 1, PT) ascending stairs;descending stairs;using handrail, left;using handrail, right;assistive device use -DC [place] Level/Cues Needed (Stairs Goal 1, PT) contact guard required -DC Number of Stairs (Stairs Goal 1, PT) 1+1 -DC Time Frame (Stairs Goal 1, PT) [employer] goal (LTG);5 days -DC Progress/Outcome (Stairs Goal 1, PT) goal met met going backwards -DC User Russo (r) = Recorded By, (t) = Taken By, (c) = Cosigned By Initials Name Provider Type DC Barry Mendoza, PT Physical Therapist Clinical Impression Row Name 05/05/2593 Pain Pain Location knee -DC Pain Side/Orientation left -DC Pain Management Interventions cold applied -DC Response to Pain Interventions activity participation with tolerable pain -DC Additional Documentation Pain Scale: FACES Pre/Post-Treatment (Group) -DC Row Name 05/05/2541 Pain Scale: FACES Pre/Post-Treatment Pain: FACES Scale, Pretreatment 4-->hurts little more -DC Posttreatment Pain Rating 6-->hurts even more -DC Row Name 05/05/2523 Plan of Care Review Plan of Care Reviewed With patient -DC Progress improving -DC Outcome Evaluation Patient was able to ambulate on burgos with walker and demonstrate good control without loss of balance or buckling. She is going home with assistance and will recieve outpatient PT at discharge. She does not need OT -DC Row Name 05/05/25948 Therapy Assessment/Plan (PT) Patient/Family Therapy Goals Statement (PT) go hme -DC Rehab Potential (PT) good -DC Criteria for Skilled Interventions Met (PT) yes;meets criteria;skilled treatment is necessary -DC Therapy Frequency (PT) 2 times/day -DC Row Name 05/05/25948 Positioning and Restraints Pre-Treatment Position in bed -DC Post Treatment Position chair -DC In Chair notified nsg;reclined;sitting;encouraged to call for assist;call light within reach;exit alarm on;with family/caregiver -DC User Russo (r) = Recorded By, (t) = Taken By, (c) = Cosigned By Initials Name Provider Type Barry Cabrera, PT Physical Therapist Outcome Measures Row Name [...] -SC To walk in hospital room? 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) Topic: Physical Therapy (Done) Point: Mobility training (Done) Learning Progress Summary Patient Michaela Hernandez TB, D, DU,GIGI by DC at 05/05/2025 0951 Comment: reviewed HEP Michaela Eubanks VU,NR by at 05/04/2025 1611 Significant Other Michaela Hernandez TB, D, DU,GIGI by DC at 05/05/2025950 Comment: reviewed HEP Acceptance, E, VU,NR by at 05/04/20251610 Point: Home exercise program (Done) Learning Progress Summary Patient Eager, E,TB,D, DU,VU by DC at 05/05/2025950 Comment: reviewed HEP Acceptance, E, VU,NR by at 05/04/20251610 Significant Other Eager, E,TB,D, DU,VU by DC at 05/05/2025950 Comment: reviewed HEP Acceptance, E, VU,NR by at 05/04/20251610 Point: Body mechanics (Done) Learning Progress Summary Patient Eager, E,TB,D, DU,VU by DC at 05/05/2025950 Comment: reviewed HEP Acceptance, E, VU,NR by at 05/04/20251610 Significant Other Eager, E,TB,D, DU,VU by DC at 05/05/2025950 Comment: reviewed HEP Acceptance, E, VU,NR by at 05/04/2025 161 Point: Precautions (Done) Learning Progress Summary Patient Eager, E,TB,D, DU,VU by DC at 05/05/2025950 Comment: reviewed HEP Acceptance, E, VU,NR by at 05/04/20251610 Significant Other Eager, E,TB,D, DU,VU by DC at 05/05/2025950 Comment: reviewed HEP Acceptance, E, VU,NR by at 05/04/20251610 User Russo Initials Effective Dates Name Provider Type Discipline DC 09/07/22 - Barry Mendoza, PT Physical Therapist [...] 05/05/25 0844 Time Calculation Start Time 0844 -DC PT Received On 05/05/25 -DC Timed Charges 47964 - PT Therapeutic Exercise Minutes 20 -SC 11966 - Gait Training Minutes 25 -SC 23790 - PT Therapeutic Activity Minutes 5 -SC Total Minutes Timed Charges Total Minutes 50 -SC Total Minutes 50 -SC User Russo (r) = Recorded By, (t) = Taken By, (c) = Cosigned By Initials Name Provider Type DC Barry Mendoza PT Physical Therapist Therapy Charges for Today Code Description Service Date Service Provider Modifiers Qty [id number] HC PT THER PROC EA 15 MIN 05/05/2025 Barry Mendoza PT GP 1 [id number] HC GAIT TRAINING EA 15 MIN 05/05/2025 [...] History of transfusion colon surgery-2 units required ([facility]) no reactions Hypertension Knee swelling right [...] evaluation - Mode of Treatment physical therapy - Row Name 05/04/25 1548 General Information Patient Profile Reviewed yes - Prior Level of Function independent:;all household mobility;community mobility;gait;transfer;bed mobility;ADL's Has FWW - Existing Precautions/Restrictions fall;other (see comments) s/p L TKA, LLE WBAT, adductor canal nerve catheter - Barriers to Rehab none identified - Row Name 05/04/25 1548 Living Environment Current Living Arrangements home - People in Home spouse -[facility] Name 05/04/25 1548 Home Main Entrance Number of Stairs, Main Entrance two;other (see comments) 1+1 - Stair Railings, Main Entrance other (see comments) B handrails on 1st step, no handrails on 2nd step -[facility] Name 05/04/25 1548 Stairs Within Home, Primary Number of Stairs, Within Home, Primary none -[facility] Name 05/04/25 1548 Cognition Orientation Status (Cognition) oriented x 3 -[facility] Name 05/04/25 1548 Safety Issues/Impairments Affecting Functional Mobility Safety Issues Affecting Function (Mobility) awareness of need for assistance;insight into deficits/self-awareness;safety precaution awareness;safety precautions follow-through/compliance - Impairments Affecting Function (Mobility) balance;endurance/activity tolerance;pain;range of motion(ROM);strength - User Russo (r) = Recorded By, (t) = Taken By, (c) = Cosigned By Initials Name Provider Type Latoya Ramirez PT Physical Therapist Mobility Row Name 05/04/25 1552 05/04/25 1508 Bed Mobility Bed Mobility -- - supine-sit - Supine-Sit [place] (Bed Mobility) -- - minimum assist (75% patient effort);1 person assist;verbal cues - Assistive Device (Bed Mobility) -- - bed rails;head of bed elevated - Comment, (Bed Mobility) -- VCs for hand placement and sequencing. Marisela required at LLE and to lowerLE to ground. Pt reports increased pain w/ all mobility. Decreased knee flexion w/ mobility - Row Name 05/04/25 1500 Transfers Comment, (Transfers) VCs for hand placement and sequencing w/ FWW. Cues to step out LLE prior to transfers -LH Row Name 05/04/25 1508 Sit-Stand Transfer Sit-Stand [place] (Transfers) minimum assist (75% patient effort);2 person assist;verbal cues - Assistive Device (Sit-Stand Transfers) walker, front-wheeled - Comment, (Sit-Stand Transfer) STS from EOB and toilet -[facility] Name 05/04/25 1508 Gait/Stairs (Locomotion) [place] Level (Gait) contact guard;2 person assist;verbal cues [...] little assist needed. Distancelimited by significant pain -[facility] Name 05/04/25 1552 05/04/25 1508 Mobility Extremity Weight-bearing Status -- - left lower extremity - Left Lower Extremity (Weight-bearing Status) -- - weight-bearing as tolerated (WBAT) - User Russo (r) = Recorded By, (t) = Taken By, (c) = Cosigned By Initials Name Provider Type Latoya Ramirez PT Physical Therapist Obj/Interventions [facility] Name 05/04/25 1603 Range of Motion Comprehensive General Range of Motion lower extremity range of motion deficits identified - Comment, General Range of Motion L knee ROM: 15-52 (PROM knee flexion) -[facility] Name 05/04/25 1603 Strength Comprehensive (MMT) General Manual Muscle Testing (MMT) Assessment lower extremity strength deficits identified - Comment, General Manual Muscle Testing (MMT) Assessment Pt able to perform B active ankle DF. SLR limited d/t pain -[facility] Name 05/04/25 1603 Motor Skills Therapeutic Exercise knee;ankle -[facility] 05/04/25 1603 Knee (Therapeutic Exercise) Knee (Therapeutic Exercise) isometric exercises;strengthening exercise - Knee Isometrics (Therapeutic Exercise) left;quad sets;3 repetitions - Knee Strengthening (Therapeutic Exercise) left;heel slides;3 repetitions -[facility] Name 05/04/25 160 Ankle (Therapeutic Exercise) Ankle (Therapeutic Exercise) AROM (active range of motion) - Ankle AROM (Therapeutic Exercise) bilateral;dorsiflexion;plantarflexion;5 repetitions -[facility] Name 05/04/25 1603 Balance Balance Assessment sitting [...] Comment, Balance No LOB or knee buckling -[facility] 05/04/25 1603 Sensory Assessment (Somatosensory) Sensory Assessment (Somatosensory) LE sensation intact - User Russo (r) = Recorded By, (t) = Taken By, (c) = Cosigned By Initials Name Provider Type Latoya Ramirez, PT Physical Therapist Goals/Plan [facility] Name 05/04/25 161 Bed Mobility Goal 1 (PT) Activity/Assistive Device (Bed Mobility Goal 1, PT) sit to supine/supine to sit - [place] Level/Cues Needed (Bed Mobility Goal 1, PT) standby assist - Time Frame (Bed Mobility Goal 1, PT) short term goal (STG);3 days -[facility] Name 05/04/25 161 Transfer Goal 1 (PT) Activity/Assistive Device (Transfer Goal 1, PT) [id number] - [place] Level/Cues Needed (Transfer Goal 1, PT) modified independence - Time Frame (Transfer Goal 1, PT) [employer]orer [employer] goal (LTG);5 days -[facility] Name 05/04/25 161 Gait Training Goal 1 (PT) Activity/Assistive Device (Gait Training Goal 1, PT) gait (walking locomotion);assistive device use- [place] Level (Gait Training Goal 1, PT) modified independence - Distance (Gait Training Goal 1, PT) 100 ft - Time Frame (Gait Training Goal 1, PT) [facility] goal (LTG);5 days -[facility] Name 05/04/25 1610 ROM Goal 1 (PT) ROM Goal 1 (PT) Surgical Knee ROM: 0-90 - Time Frame (ROM Goal 1, PT) long-term goal (LTG);3 days -[facility] Name 05/04/25 1610 Stairs Goal 1 (PT) Activity/Assistive Device (Stairs Goal 1, PT) ascending stairs;descending stairs;using handrail, left;using handrail, right;assistive device use - [place] Level/Cues Needed (Stairs Goal 1, PT) contact guard required - Number of Stairs (Stairs Goal 1, PT) 1+1 - Time Frame (Stairs Goal 1, PT) [employer] goal (LTG);5 days - Progress/Outcome (Stairs Goal 1, PT) new goal -[facility] Name 05/04/25 1610 Therapy Assessment/Plan (PT) Planned Therapy Interventions (PT) balance training;bed mobility training;gait training;home exercise program;ROM (range of motion);patient/family education;stair training;strengthening;stretching;transfer training;motor coordination training;neuromuscular re-education [facility] User Russo (r) = Recorded By, (t) = Taken By, (c) = Cosigned By Initials Name Provider Type Latoya Ramirez, PT Physical Therapist Clinical Impression [facility] Name 05/04/25 1605 Pain Pretreatment Pain Rating 4/10 - Posttreatment Pain Rating 4/10 - Pain Location knee - Pain Side/Orientation left;generalized - Pain Management Interventions activity modification encouraged;exercise or physical activity utilized;positioning techniques utilized;cold applied;nursing notified - Response to Pain Interventions activity participation with increased pain - Pre/Posttreatment Pain Comment Pt crying in pain w/ all mobility -[facility] Name 05/04/25 1605 Plan of Care Review [...] pt to be able to d/c home 25/02 assist and HHPT once pain is controlled, however will continue to monitor progress closely. -[facility] Name 05/04/25 1605 Therapy Assessment/Plan (PT) Patient/Family Therapy Goals Statement (PT) to go home - Rehab Potential (PT) good - Criteria for Skilled Interventions Met (PT) yes;meets criteria;skilled treatment is necessary - Therapy Frequency (PT) 2 times/day - Predicted Duration of Therapy Intervention (PT) 5 days -[facility] Name 05/04/25 1605 Vital Signs Pre Systolic BP Rehab 148 -LH Pre Treatment Diastolic BP 88 -LH Post Systolic BP Rehab 143 -LH Post Treatment Diastolic BP 75 - Pre Patient Position Supine - Post Patient Position Sitting -[facility] Name 05/04/25 1605 Positioning and Restraints Pre-Treatment Position in bed - Post Treatment Position chair - In Chair notified nsg;reclined;sitting;call light within reach;encouraged to call for assist;exit alarm on;with family/caregiver;waffle cushion;legs elevated;compression device;with nsg - User Russo (r) = Recorded By, (t) = Taken By, (c) = Cosigned By Initials Name Provider Type Latoya Ramirez, PT Physical Therapist Outcome Measures [facility] Name 05/04/25 1611 How much help from [...] Therapist Physical Therapy Education Title: 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) Topic: Physical Therapy (Done) [...] Significant Other Acceptance, E, VU,NR by at 05/04/20251610 User Russo Initials Effective Dates Name Provider Type [facility] 04/25/23 - Latoya Ramirez PT Physical [...] to be able to d/c home w/ 24/7 assist and HHPT once pain is controlled, [...] Re-Cert Due Date 05/14/25 - Timed Charges 07924 - Gait Training Minutes 8 -LH Untimed [...] Description Service Date Service Provider Modifiers Qty [id number] HC GAIT TRAINING EA 15 MIN 05/04/2025 Latoya Ramirez, PT GP 1 [id number] HC-PT EVAL MOD COMPLEXITY 5 05/04/2025 Latoya Ramirez, PT 1 [id number] HC PT THER SUPP EA 15 MIN [...] Description 07/07/2025 10:30 AM EST Office Visit [facility] [address] [place] [address] Germania Perry PA-C [address] [place] [address] 09/23/2025 1:00 PM EST Office Visit [facility] ENDOCR[facility]OLOGY [address] [facility] [address] [place] [id number] Sara Arora PA [address] [facility] [address] [place] [address] documented as of this encounter Procedures Procedure Name Priority Date/Time Associated Diagnosis Comments CBC (NO DIFF) Routine 05/05/2025 5:13 AM EDT BASIC METABOLIC PANEL Routine 05/05/2025 5:13 AM EDT XR KNEE 1 OR 2 VW LEFT STAT 05/04/2025 12:57 PM EDT AR ARTHRP KNE CONDYLE&PLATU MEDIAL&LAT COMPARTMENTS 05/04/2025 10:15 AM EDT Primary osteoarthritis of left knee Special Needs * POCT GLUCOSE FINGERSTICK Routine 05/04/2025 9:15 AM EDT documented in this encounter Results * (ABNORMAL) CBC (No Diff) (05/05/2025 5:13 AM EDT) WBC 15.22(H) 3.40 - 10.80 10*3/mm3 05/05/2025 5:25 AM EDT [facility] RBC 3.78 3.77 - 5.28 10*6/mm3 05/05/2025 5:25 AM EDT [facility] Hemoglobin 10.8(L) 12.0 - 15.9 g/dL 05/05/2025 5:25 AM EDT [facility] Hematocrit 33.5(L) 34.0 - 46.6 % 05/05/2025 5:25 AM EDT [facility] MCV 88.6 79.0 - 97.0 fL 05/05/2025 5:25 AM EDT [facility] MCH 28.6 26.6 - 33.0 pg 05/05/2025 5:25 AM EDT [facility] MCHC 32.2 31.5 - 35.7 g/dL 05/05/2025 5:25 AM EDT [facility] RDW 15.0 12.3 - 15.4 % 05/05/2025 5:25 AM EDT [facility] RDW-SD 48.8 37.0 - 54.0 fl 05/05/2025 5:25 AM EDT [facility] MPV 10.4 6.0 - 12.0 fL 05/05/2025 5:25 AM EDT [facility] Platelets 316 140 - 450 10*3/mm3 05/05/2025 5:25 AM EDT [facility] Blood Venipuncture / Unknown 05/05/2025 5:13 AM EDT 05/05/2025 5:19 AM EDT us Romero Hall MD LAB BLOOD ORDERABLES Final Res ult [facility]
[address] [place] [address], * (ABNORMAL) Basic Metabolic Panel (05/05/2025 5:13 AM EDT) Glucose 110(H) 65 - 99 mg/dL 05/05/2025 6:16 AM EDT [facility] BUN 12.7 8.0 - 23.0 mg/dL 05/05/2025 6:16 AM EDT [facility] Creatinine 0.80 0.57 - 1.00 mg/dL 05/05/2025 6:16 AM EDT [facility] Sodium 137 136 - 145 mmol/L 05/05/2025 6:16 AM EDT [facility] Potassium 4.3 3.5 - 5.2 mmol/L 05/05/2025 6:16 AM EDT [facility] Chloride 105 98 - 107 mmol/L 05/05/2025 6:16 AM EDT [facility] CO2 21.3(L) 22.0 - 29.0 mmol/L 05/05/2025 6:16 AM EDT [facility] Calcium 7.6(L) 8.6 - 10.5 mg/dL 05/05/2025 6:16 AM EDT [facility] BUN/Creatinine Ratio 15.9 7.0 - 25.0 05/05/2025 6:16 AM EDT [facility] Anion Gap 10.7 5.0 - 15.0 mmol/L 05/05/2025 6:16 AM EDT [facility] eGFR 78.9 >60.0 mL/min/1.7 3 05/05/2025 6:16 AM EDT [facility] Blood Venipuncture / Unknown 05/05/2025 5:13 AM EDT 05/05/2025 5:19 AM EDT [facility] - 05/05/2025 6:16 AM EDT GFR [...] does not include race as a factor us Kenji Alford MD LAB BLOOD ORDERABLES Final Result [facility]
[address] [place] [address], * XR Knee 1 or 2 View Left (05/04/2025 12:57 PM EDT) Anatomical Region Laterality Modality Lower Extremities, Knee Left Radiogra phic Imaging 05/04/2025 12:5 9 PM EDT Impressions 05/04/2025 12:59 PM EDT Impression: Postoperative changes of knee arthroplasty without radiographic evidence of immediate complication. Electronically Signed: Jarad Sanches MD 05/04/2025 12:59 PM EDT Workstation ID: [id number] Narrative 05/04/2025 12:59 PM EDT XR KNEE [...] MD 05/04/2025 12:59 PM EDT Workstation ID: [id number] us Romero Hall MD IMG DIAGNOSTIC IMAGING ORDERAB LES Final Result * POC Glucose Once (05/04/2025 9:15 AM EDT) Glucose 82 70 - 130 mg/dL 05/04/2025 9:20 AM EDT [facility] Comment:Serial Number: [id number]: [id number] Blood 05/04/2025 9:15 AM EDT 05/04/2025 9:20 AM EDT us Richardson Fernandez Jr., MD POINT OF CARE TEST ORDE JOSE Final Result [facility]
[address] [place] [address], documented in this encounter Visit Diagnoses Diagnosis S/P TKR (total knee replacement), left- Primary Primary osteoarthritis of left knee Primary osteoarthritis of left knee Primary osteoarthritis of left knee documented in this encounter Admitting Diagnoses Diagnosis [...] at 1320, For 1 dose, Created by baileyt mikala [GENA] Do not exceed 4 grams of [...] tablet 137 mcg 137 mcg, Oral, Every Splunk Architect, First dose on Sat05/05/25 at 0600, Take [...] 7 out of 10, please notify the Campus Supervisor Provider at [phone](messages go to Shahiya service). Thank you If Pt. Has a Hip Fx block(Fascia Iliacus), please remove Block Catheter prior to Discharge, Basal Rate: 1 mL/hr, Programmed Intermittent Bolus (PIB): 8 mL, PIB Lockout Interval: 120 min, SOLAR MANUFACTURER'S REPRESENTATIVE Bolus: 8 mL, SOLAR MANUFACTURER'S REPRESENTATIVE Lockout Interval: 30 min New Bag 05/04/2025 12:40 PM EDT 1,000 mg ropivacaine (NAROPIN) 0.5 % injection As Needed, Starting on Sat05/04/25 at 1055 Given 05/04/2025 10:55 AM EDT 30 mL K nee Left sodium chloride (NS) irrigation solution As Needed, Starting on Sat05/04/25 at 1114 Given 05/04/2025 11:02 AM EDT 1,000 mL K nee Left Given 05/04/2025 11:00 AM EDT 3,000 mL K nee Left sodium chloride 0.9 % bolus 500 mL [...] 3:49 PM EDT 120 mL/hr 120 mL/hr sterile water irrigation solution As Needed, Starting on Sat05/04/25 at 1100 Given 05/04/2025 11:00 AM EDT 1,000 mL documented in this encounter Active and Recently [...] Hugo Zuniga RN)2202 (Given - Provider: Li Nagy, JONATHAN) 0558 (Given - Provider: Li Nagy RN) [...] Prophylaxis 2040 (New Bag - Provider: Li Nagy, JONATHAN) 031 (New Bag - Provider: Li Nagy, JONATHAN) escitalopram (LEXAPRO) tablet 10 mg 10 mg, Oral, Daily, First dose on Sat05/04/25 at 1630, Caution: Look alike/sound alike drug alert. 1550 (Given - Provider: Hugo Zuniga RN) 0935 (Given - Provider: May Winter RN) ethyl alcohol 62 % 2 each [...] tablet 137 mcg 137 mcg, Oral, Every Splunk Architect, First dose on Sat05/05/25 at 0600, Take [...] 7 out of 10, please notify the Campus Supervisor Provider at [phone](messages go to iovoxper service). Thank you If Pt. Has a Hip Fx block(Fascia Iliacus), please remove Block Catheter prior to Discharge, Basal Rate: 1 mL/hr, Programmed Intermittent Bolus (PIB): 8 mL, PIB Lockout Interval: 120 min, SOLAR MANUFACTURER'S REPRESENTATIVE Bolus: 8 mL, SOLAR MANUFACTURER'S REPRESENTATIVE Lockout Interval: 30 min 1240 (New Bag [...] Zuniga RN)2201 (Given - Provider: Li Nagy, JONATHAN) 0227 (Given - Provider: Li Nagy, JONATHAN)1120 (Given - Provider: May Winter, JONATHAN) ropivacaine (NAROPIN) 0.5 % injection (CANCELED) As [...] ineffective. documented in this encounter Care Teams Compliance Attorney Relationship Specialty Start Date End Date Deana Veras [place] [facility] [place] [address] PCP - General 10/06/15 documented as of this encounter
--- OUTSIDE RECORDS SUMMARY | 2025-05-04 09:29 | XMS_ITS | Encounter Summary ---
Author Organization [facility] Address [address] [place] [address] Care Team Providers Care Dental Associate Name Role Phone Deana Veras Primary Care Provider [phone] Reason for Visit * Auth/Cert Specialty Diagnoses / Procedures Referred By Contac t Referred To Contact Diagnoses Primary osteoarthritis of left knee Primary osteoarthritis of left knee [M17.12] Procedures TX ARTHRP KNE CONDYLE&PLATU MEDIAL&LAT COMPARTMENTS Left total knee arthroplasty Referral ID Status Reason Start Date Expiration Date Visits Re quested Visits Authorized [id number] 1 1 Encounter Details Date Type Department Care Team (Late st Contact Info) Description 05/04/2025 10:29 AM EDT Anesthesia Event [facility] OR [address] [place] [address] Richardson Fernandez Jr., MD [address] [place], [place] [id number] Mic Geller [facility] Anesthesia Record Procedure Summary Procedure Name Responsible Anesthesiologist Anesthesia Start Time Anesthesia Stop Time TOTAL KNEE ARTHROPLASTY WITH CORI ROBOT (Left: Knee) Richardson Fernandez Jr., MD 05/04/25 1029 05/04/25 1223 Events Date Time Event Comment 05/04/2025 0843 1029 AN Equip Check 1029 An Start The patient was reevaluated immediately before moderate or deep sedation use and before anesthesia induction. 1029 An Start Data 1040 Spinal Placed 1045 Quick Note 1135 An Tourn Inflated 1149 An Tourn Deflated 1221 an stop data 1223 Handoff to RN The following has been completed: 1. Identification of Patient, rayo family member(s) or patient surrogate 2. Identification of the responsible Practitioner (primary service) 3. Discussion of the pertinent/attainable medical history 4. Discussion of the surgical/procedure course (procedure, reason for surgery, procedure performed) 5. Intraoperative anesthetic management and issue/concerns to include things such as airway, hemodynamics, narcotic, sedation level and paralytic management and intravenous fluids/blood products and urine output during the procedure 6. Expectations/Plans for the early post-procedure period to include things such as anticipated course (anticipatory guidance), complications, need for laboratory or ECG and medication administration 7. Opportunity for questions and acknowledgment of understanding of report from the receiving PACU/ICU team 1223 An Stop Meds Name Total ceFAZolin 2000 mg IVPB in 100 mL NS (MBP ) 2 g tranexamic acid 1000 mg in 100 mL 0.7% N aCl infusion (premix) 1,000 mg tranexamic acid 1000 mg in 100 mL 0.7% N aCl infusion (premix) 1,000 mg lidocaine PF (XYLOCAINE) local injection 1% 30 mg propofol (DIPRIVAN) 10 mg/mL injection 1 00 mg propofol (DIPRIVAN) infusion 10 mg/mL 10 0 mL 899.22 mg Mepivacaine HCl (PF) (CARBOCAINE) 1.5 % injection 4 mL ondansetron (ZOFRAN) 2 mg/mL 4 mg dexamethasone (DECADRON) 4 mg/mL injecti on 4 mg bupivacaine PF (MARCAINE) 0.25 % injecti on 20 mL lactated ringers infusion 1,000 mL * Agents Name O2 N2O Air * Blood No blood administrations on file. Lines, Drains, and Airways Type Details Placement Removal Wound 05/21/23; 1012; Righ t; anterior; knee; Incision 05/21/23 1012 by Herman Collins, JONATHAN Nerve Block 05/04/25; 1051 (lissett copeland via procedure documentation); Mic Geller, SERENA; left; adductor canal block 05/04/25 1051 by Mic Geller, SERENA Wound 05/04/25; 1210; Left ; anterior; knee; Surgical; Closed Surgi; Exofin, 4x4, abd, softroll, jairo 05/04/25 1210 by Nneka Vyas RN Nerve Block 05/21/23; 1040 (crea min via procedure documentation); right; 05/04/25; 1051 (removed via procedure documentation) 05/21/23 1040 by Earl Hayes MASTICATOR 05/04/25 1051 by Mic Geller SRNA Peripheral IV Placement Date: 04/07 ; Placement Time: 09; Catheter Size: 20 G; Orientation: Distal, Posterior, Right; Location: Forearm; Site Prep: Chlorhexidine; Local Anes: None; Technique: Anatomical landmarks; Inserted by: Madeline Tan RN; Insertion Attempts: 2; Patient Tolerance: Tolerated well; Removal Date: 05/05/25; Removal Time: 1130 05/04/25 0916 by Stephanie Tierney RN 05/05/25 1130 by May Winter RN Peripheral IV Placement Date: 04/07 ; Placement Time: 1223; Catheter Size: 20 G; Orientation: Left; Location: Antecubital; Inserted by: Anesthesia; Removal Date: 05/05/25; Removal Time: 1130 05/04/25 1223 by Yokasta Davies RN 05/05/25 1130 by May Winter RN documented in this encounter Social History Tobacco Use Types Packs/Day Years [...] or training? Not on file Preferred Language Uzbek 04/20/2025 Comments No Sex and Gender Information [...] 8:31 AM EDT Stephanie Tierney RN * Fowler Suicide Severity Rating Scale (Screener/Recent Self-Report) Question Answer Date of Assessment Author 6. Suicidal Behavior (Lifetime) No 8:31 AM EDT Stephanie Tierney RN documented as of this encounter OR Notes * Anesthesia Postprocedure Evaluation - Stu Olivera CRNA - 05/04/2025 12:36 PM EDT Patient: Marah Gonzalez Procedure Summary Date: 05/04/25 Room / Location: [facility] Anesthesia Start: 1029 Anesthesia Stop: 1223 Procedure: TOTAL KNEE ARTHROPLASTY LEFT (Left: Knee) Diagnosis: Primary osteoarthritis of left knee (Primary osteoarthritis of left knee [M17.12]) Surgeons: Romero Hall MD Provider: Richardson Fernandez Jr., MD Anesthesia Type: spinal ASA Status: 3 Anesthesia Type: spinal Vitals Vitals Value Taken Time BP 111/72 05/04/25 12:30 Temp 97 ??F (36.1 ??C) 05/04/25 12:23 Pulse 72 05/04/25 12:34 Resp 18 05/04/25 12:23 SpO2 100 % 05/04/25 12:34 Vitals shown include unfiled device data. Post Anesthesia Care and Evaluation Patient location during evaluation: PACU Patient participation: complete - patient participated Level of consciousness: sleepy but conscious Pain management: adequate Airway patency: patent Anesthetic complications: No anesthetic complications PONV Status: none Cardiovascular status: hemodynamically stable and acceptable Respiratory status: nonlabored ventilation, acceptable and nasal cannula Hydration status: acceptable * Anesthesia Procedure Notes - Stu Olivera CRNA - 05/04/2025 10:50 AM EDT Associated Order(s): Adductor canal cath Adductor canal cath Patient reassessed immediately prior to procedure Patient location during procedure: post-op Stop time: 05/04/2025 12:26 PM Reason for block: at surgeon's request and post-op pain management Performed by SHAYY/CAA: Tanvir Daniel CRNA Assisted by: Becky White RNSRNA: Mic Geller SRNA Preanesthetic Checklist Completed: patient identified, IV checked, site marked, risks and benefits discussed, surgical consent, monitors and equipment checked, pre-op evaluation and timeout performed Prep: Pt Position: supine Sterile barriers:cap, gloves, mask, sterile barriers and washed/disinfected hands Prep: ChloraPrep Patient monitoring: blood pressure monitoring, continuous pulse oximetry and EKG Procedure Performed under: spinal Guidance:ultrasound guided ULTRASOUND INTERPRETATION. Using ultrasound guidance a 20 G gauge needle was placed in close proximity to the nerve, at which point, under ultrasound guidance anesthetic was injected in the area of the nerve and spread of the anesthesia was seen on ultrasound in close proximity thereto. There were no abnormalities seen on ultrasound; a digital image was taken; and the patient tolerated the procedure with no complications. Images:still images obtained, printed/placed on chart Laterality:left Block Type:adductor canal block Injection Technique:catheter Needle Type:Tuohy and echogenic Needle Gauge:18 G Resistance on Injection: none Catheter Size:20 G (20g) Cath Depth at skin: 9 cm Medications Used: bupivacaine PF (MARCAINE) 0.25 % injection - Injection 20 mL - 05/04/2025 12:26:00 PM Post Assessment Injection Assessment: negative aspiration for heme, incremental injection and no paresthesia on injection Patient Tolerance:comfortable throughout block Complications:no Additional Notes CATHETER A high-frequency linear transducer, with sterile cover, was placed on the anterior mid-thigh (between the anterior superior iliac spine and patella). The transducer was then moved medially to identify the Sartorius muscle (Rosa), Vastus Medialis muscle (VMM), Superficial Femoral Artery (SFA) and Vein. The transducer was then moved cephalad or caudad to position the SFA in the middle of the Rosa. The insertion site was prepped and draped in sterile fashion. Skin and cutaneous tissue was infiltrated with 2-5 ml of 1% Lidocaine. Using ultrasound-guidance, an 18-gauge Contiplex Ultra 360 Touhy needle was advanced in plane from lateral to medial. Preservative-free normal saline was utilized for hydro-dissection of tissue, advancement of Touhy, and to confirm needle placement below the fascial plane of the Rosa where the Nerve to the VMM is located. Local anesthetic (LA) 5 ml deposited here. TheTouhy needle continues its path lateral to the SFA at the level of the Saphenous Nerve. The remainder of the LA was deposited at the 10-11 o'clock position of the SFA. This injection created a space between the Rosa and the SFA. Aspiration every 5 ml to prevent intravascular injection. Injection wascompleted with negative aspiration of blood and negative intravascular injection. Injection pressures were normal with minimal resistance. A 20-gauge Contiplex Echo catheter was placed through the needle and advance out the tip of the Touhy 3-5 cm anterior to the SFA. The Touhy needle was then removed, and final catheter position verified at the 12 o'clock position to the SFA. The catheter was secured in the usual fashion with skin glue, benzoin, steri-strips, CHG tegaderm and label noting Nerve Block Catheter . Jerk tape applied at yellow connector and catheter connection. Performed by: Mic Geller SRNA * Anesthesia Procedure Notes - Mic Geller SRNA - 05/04/2025 10:49 AM EDT Associated Order(s): Spinal Block Spinal Block Patient reassessed immediately prior to procedure Patient location during procedure: OR Start Time: 05/04/2025 10:35 AM Indication:at surgeon's request Performed By SHAYY/CAA: Stu Olivera CRNASRNA: Mic Geller SRNA Preanesthetic Checklist Completed: patient identified, IV checked, site marked, risks and benefits discussed, surgical consent, monitors and equipment checked, pre-op evaluation and timeout performed Spinal Block Prep: Patient Position:sitting Carton Wrapper:cap, gloves, sterile barriers and mask Prep:Chloraprep Patient Monitoring:blood pressure monitoring, continuous pulse oximetry and EKG Spinal Block Procedure Approach:midline Guidance:landmark technique and palpation technique Location:L4-L5 Needle Type:Bal Needle Gauge:22 G Placement of Spinal needle event:cerebrospinal fluid aspirated Paresthesia: no Fluid Appearance:clear Medications: Mepivacaine HCl (PF) (CARBOCAINE) 1.5 % injection - Injection 4 mL - 05/04/2025 10:40:00 AM Post Assessment Patient Tolerance:patient tolerated the procedure well with no apparent complications Complications no Additional Notes Procedure: Pt assisted to sitting position, with legs in position of comfort over side of bed. Pt. instructed in optimal spine presentation, the spine was prepped/ Draped and the skin at insertion site was anesthetized with 1% Lidocaine 2 ml. The spinal needle was then advanced until CSF flow was obtained and LA was injected: Cosigned by Stu Olivera CRNA at 05/04/2025 1:19 PM EDT Associated attestation - Stu Olivera CRNA - 05/04/2025 1:19 PM EDT Personally placed spinal * Anesthesia Preprocedure Evaluation - Richardson Fernandez Jr., MD - 05/04/2025 8:16 AM EDT Anesthesia Evaluation Patient summary reviewed and Nursing notes reviewed no history of anesthetic complications: NPO Solid Status: > 8 hours NPO Liquid Status: > 2 hours Airway Mallampati: II TM distance: >3 FB Neck ROM: full No difficulty expected Dental - normal exam Pulmonary (-) COPD, asthma, recent URI, sleep apnea, no home oxygen Cardiovascular ECG reviewed (+) hypertension, hyperlipidemia (-) dysrhythmias, angina, orthopnea, ABURTO, cardiac stents Neuro/Psych (-) seizures, CVA GI/Hepatic/Renal/Endo (+) GERD, diabetes mellitus, thyroid problem hypothyroidism ROS Comment: On ozempic Musculoskeletal 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 Pre-procedure education provided Plan discussed with MASTICATOR. CODE STATUS: documented in this encounter Plan of Treatment Upcoming Encounters Date Type Department Care Team (Late st Contact Info) Description 07/07/2025 10:30 AM EST Office Visit [facility] [address] [address] Germania Perry PA-C [address] [address] 09/23/2025 1:00 PM EST Office Visit [facility] ENDOCR[facility]OLOG[facility] [address] [phone] Sara Arora PA [address] [facility] [address] [place] [phone] documented as of this encounter Procedures Procedure Name Priority Date/Time Associated Diagnosis Comments ANESTHESIA PERIPHERAL BLOCK Routine 05/04/2025 12:26 PM EDT SPINAL Routine 05/04/2025 10:49 AM EDT documented in this encounter Results * BH AN PERIPHERAL BLOCK CATHETER (05/04/2025 12:26 PM EDT) Narrative Stu Olivera CRNA - 05/04/2025 12:26 PM EDT Stu Olivera CRNA 05/04/2025 12:37 PM Adductor canal cath Patient reassessed immediately prior to procedure Patient location during procedure: post-op Stop time: 05/04/2025 12:26 PM Reason for block: at surgeon's request and post-op pain management Performed by SHAYY/CAA: Tanvir Daniel CRNA Assisted by: Becky White RNSRNA: Mic Geller SRNA Preanesthetic Checklist Completed: patient identified, IV checked, site marked, risks and benefits discussed, surgical consent, monitors and equipment checked, pre-op evaluation and timeout performed Prep: Pt Position: supine Sterile barriers:cap, gloves, mask, sterile barriers and washed/disinfected hands Prep: ChloraPrep Patient monitoring: blood pressure monitoring, continuous pulse oximetry and EKG Procedure Performed under: spinal Guidance:ultrasound guided ULTRASOUND INTERPRETATION. Using ultrasound guidance a 20 G gauge needle was placed in close proximity to the nerve, at which point, under ultrasound guidance anesthetic was injected in the area of the nerve and spread of the anesthesia was seen on ultrasound in close proximity thereto. There were no abnormalities seen on ultrasound; a digital image was taken; and the patient tolerated the procedure with no complications. Images:still images obtained, printed/placed on chart Laterality:left Block Type:adductor canal block Injection Technique:catheter Needle Type:Tuohy and echogenic Needle Gauge:18 G Resistance on Injection: none Catheter Size:20 G (20g) Cath Depth at skin: 9 cm Medications Used: bupivacaine PF (MARCAINE) 0.25 % injection - Injection 20 mL - 05/04/2025 12:26:00 PM Post Assessment Injection Assessment: negative aspiration for heme, incremental injection and no paresthesia on injection Patient Tolerance:comfortable throughout block Complications:no Additional Notes CATHETER A high-frequency linear transducer, with sterile cover, was placed on the anterior mid-thigh (between the anterior superior iliac spine and patella). The transducer was then moved medially to identify the Sartorius muscle (Rosa), Vastus Medialis muscle (VMM), Superficial Femoral Artery (SFA) and Vein. The transducer was then moved cephalad or caudad to position the SFA in the middle of the Rosa. The insertion site was prepped and draped in sterile fashion. Skin and cutaneous tissue was infiltrated with 2-5 ml of 1% Lidocaine. Using ultrasound-guidance, an 18-gauge Contiplex Ultra 360 Touhy needle was advanced in plane from lateral to medial. Preservative-free normal saline was utilized for hydro-dissection of tissue, advancement of Touhy, and to confirm needle placement below the fascial plane of the Rosa where the Nerve to the VMM is located. Local anesthetic (LA) 5 ml deposited here. The Touhy needle continues its path lateral to the SFA at the level of the Saphenous Nerve. The remainder of the LA was deposited at the 10-11 o'clock position of the SFA. This injection created a space between the Rosa and the SFA. Aspiration every 5 ml to prevent intravascular injection. Injection was completed with negative aspiration of blood and negative intravascular injection. Injection pressures were normal with minimal resistance. A 20-gauge Contiplex Echo catheter was placed through the needle and advance out the tip of the Touhy 3-5 cm anterior to the SFA. The Touhy needle was then removed, and final catheter position verified at the 12 o'clock position to the SFA. The catheter was secured in the usual fashion with skin glue, benzoin, steri-strips, CHG tegaderm and label noting Nerve Block Catheter . Jerk tape applied at yellow connector and catheter connection. Performed by: Mic Geller SRNA us Richardson Fernandez Jr., MD ANESTHESIA ORDERABLES F inal Result * [facility] AN SPINAL TRAY (05/04/2025 10:49 AM EDT) Stu Banks CRNA - 05/04/2025 10:49 AM EDT Stu Olivera CRNA 05/04/2025 1:19 PM Spinal Block Patient reassessed immediately prior to procedure Patient location during procedure: OR Start Time: 05/04/2025 10:35 AM Indication:at surgeon's request Performed By MASTICATOR/CAA: Stu Olivera, CRNASRNA: Mic Geller SRNA Preanesthetic Checklist Completed: patient identified, IV checked, site marked, risks and benefits discussed, surgical consent, monitors and equipment checked, pre-op evaluation and timeout performed Spinal Block Prep: Patient Position:sitting Carton Wrapper:cap, gloves, sterile barriers and mask Prep:Chloraprep Patient Monitoring:blood pressure monitoring, continuous pulse oximetry and EKG Spinal Block Procedure Approach:midline Guidance:landmark technique and palpation technique Location:L4-L5 Needle Type:Bal Needle Gauge:22 G Placement of Spinal needle event:cerebrospinal fluid aspirated Paresthesia: no Fluid Appearance:clear Medications: Mepivacaine HCl (PF) (CARBOCAINE) 1.5 % injection - Injection 4 mL - 05/04/2025 10:40:00 AM Post Assessment Patient Tolerance:patient tolerated the procedure well with no apparent complications Complications no Additional Notes Procedure: Pt assisted to sitting position, with legs in position of comfort over side of bed. Pt. instructed in optimal spine presentation, the spine was prepped/ Draped and the skin at insertion site was anesthetized with 1% Lidocaine 2 ml. The spinal needle was then advanced until CSF flow was obtained and LA was injected: Richardson Fernandez Jr., MD ANESTHESIA ORDERABLES F inal Result documented in this encounter Visit Diagnoses Not on filedocumented in this encounter Administered Medications Inactive Administered Medications - up to 3 most recent administrations Medication Order MAR Action Action Date Dose Rate Site bupivacaine (PF) (MARCAINE) 0.25 % injection Injection, One-Time Injection, Starting on Sat05/04/25 at 1226, For 1 dose Given 05/04/2025 12:26 PM EDT 20 mL ceFAZolin 2000 mg IVPB in 100 mL NS (MBP) 2 g, Intravenous, Administer over 30 Minutes, Once, On Sat05/04/25 at 0832, For 1 dose, Administer Within 1 Hour of Surgical Incision. Redose 4 Hours From Pre-Op Dose if Procedure Ongoing or Blood Loss Greater Than 1.5 L Caution: Look alike/sound alike drug alert, Indications: Surgical ProphylaxisIndications:Surgical Prophylaxis New Bag 05/04/2025 10:39 AM EDT 2 g dexAMETHasone (DECADRON) injection Intravenous, As Needed, Starting on Sat05/04/25 at 1043 Given 05/04/2025 10:43 AM EDT 4 mg lactated ringers infusion 9 mL/hr, Intravenous, Continuous, Starting on Sat05/05/25 at 0000, For 1 day, May switch to NS IV at KVO if renal / if indicated New Bag 05/04/2025 12:10 PM EDT Restarted 05/04/2025 11:38 AM EDT Currently Infusing 05/04/2025 10:29 AM EDT 9 mL /hr lidocaine PF 1% (XYLOCAINE) injection Intravenous, As Needed, Starting on Sat05/04/25 at 1034 Given 05/04/2025 10:34 AM EDT 30 mg Mepivacaine HCl (PF) (CARBOCAINE) 1.5 % injection Injection, One-Time Injection, Starting on Sat05/04/25 at 1040, For 1 dose Given 05/04/2025 10:40 AM EDT 4 mL ondansetron (ZOFRAN) injection Intravenous, As Needed, Starting on Sat05/04/25 at 1043 Given 05/04/2025 10:43 AM EDT 4 mg propofol (DIPRIVAN) infusion 10 mg/mL 100 mL Intravenous, Continuous PRN, Starting on Sat05/04/25 at 1040 Rate/Dose Change 05/04/2025 12:02 PM EDT 100 mcg/kg/min 47.1 mL/hr Rate/Dose Change 05/04/2025 10:45 AM EDT 115 mcg/kg/min 54 .165 mL/hr New Bag 05/04/2025 10:40 AM EDT 100 mcg/kg/min 47.1 mL/ hr propofol (DIPRIVAN) injection Intravenous, As Needed, Starting on Sat05/04/25 at 1034 Given 05/04/2025 10:43 AM EDT 50 mg Given 05/04/2025 10:34 AM EDT 50 mg tranexamic acid 1000 mg in 100 mL 0.7% NaCl infusion (premix) 1,000 mg, Intravenous, Administer over 30 Minutes, Once, On Sat05/04/25 at 0832, For 1 dose, Give prior to incision.Indications:Primary osteoarthritis of left knee New Bag 05/04/2025 11:50 AM EDT 1,000 mg tranexamic acid 1000 mg in 100 mL 0.7% NaCl infusion (premix) 1,000 mg, Intravenous, Administer over 30 Minutes, Once, On Sat05/04/25 at 0832, For 1 dose, Hip Replacement: Give at start of incision closure. Knee Replacement: Give 5-10 minutes before tourniquet release.Indications:Primary osteoarthritis of left knee New Bag 05/04/2025 10:42 AM EDT 1,000 mg documented in this encounter Care Teams Dental Associate Relationship Specialty Start Date End Date Deana Veras DO [address] [place] [address] PCP - General 10/06/15 documented as of this encounter
--- OUTSIDE RECORDS SUMMARY | 2025-05-04 09:55 | XMS_ITS | Encounter Summary ---
Author Organization [facility] Address [address] [place] [address] Care Team Providers Care Bleach Liquor Maker Name Role Phone Deana Vreas DO Primary Care Provider [phone] Reason for Visit * Auth/Cert Specialty Diagnoses / Procedures Referred By Contac t Referred To Contact Diagnoses Primary osteoarthritis of left knee Primary osteoarthritis of left knee [M17.12] Procedures NC ARTHRP KNE CONDYLE&PLATU MEDIAL&LAT COMPARTMENTS Left total knee arthroplasty Referral ID Status Reason Start Date Expiration Date Visits Re quested Visits Authorized [id number] 1 1 Encounter Details Date Type Department Care Team (Latest Contact Info) Description 05/04/2025 10:55 AM EDT Anesthesia Event Converted [facility] ANESTHESIA [address] [place] [address] Social History Tobacco Use Types Packs/Day Years [...] or training? Not on file Preferred Language Niuean 04/20/2025 Comments No Sex and Gender Information [...] 8:31 AM EDT Stephanie Tierney RN * [place] Suicide Severity Rating Scale (Screener/Recent Self-Report) Question Answer Date of Assessment Author 6. Suicidal Behavior (Lifetime) No 8:31 AM EDT Stephanie Tierney RN documented as of this encounter Plan of Treatment Upcoming Encounters Date Type Department Care Team (Late st Contact Info) Description 07/07/2025 10:30 AM EST Office Visit [facility] ORTHOPEDICS & SPORTS MEDICINE [address] [facility] [address] [place] [address] Germania Perry PA-C 1760 [facility] [address] [place] [address] 09/23/2025 1:00 PM EST Office Visit [facility] ENDOCRINOLOGY [address] [address] Sara Arora PA 30[address] [facility] 100 [place] [address] documented as of this encounter Procedures Procedure Name Priority Date/Time Associated Diagnosis Comments ANESTHESIA PERIPHERAL BLOCK Routine 05/04/2025 12:26 PM EDT documented in this encounter Results * [...] catheter connection. Performed by: Mic Geller SRNA Authorcristina Provider Result Type Result Stat us Richardson Fernandez Jr., MD ANESTHESIA ORDERABLES F inal Result documented in this encounter Visit Diagnoses Not on filedocumented in this encounter Care Teams Bleach Liquor Maker Relationship Specialty Start Date End Date Deana Veras DO [address] [place] [address] PCP - General 10/06/15 documented as of this encounter
--- OUTSIDE RECORDS SUMMARY | 2025-05-26 10:20 | XMS_ITS | Encounter Summary ---
Author Organization [facility] Address [address] [place] [address] Care Team Providers Care Presentation Team Member Name Role Phone TravisDeana brown Gena Primary Care Provider [phone] Reason for Visit * Reason Comments Post-op 3 week S/P- Left Tot al Knee Arthoplasty (DOS- 05/04/2025) Encounter Details Date Type Department Care Team (Late st Contact Info) Description 05/26/2025 11:20 AM EDT Office Visit [facility] ORTHOPEDICS & SPORTS MEDICINE [address] [place] [address] Germania Perry PA-C [address] [place] [address] Aftercare following left knee joint replacement surgery (Primary Dx) Social History Tobacco Use Types Packs/Day Years [...] or training? Not on file Preferred Language North Korean 04/20/2025 Comments No Sex and Gender Information Value Date Recorded Sex Assigned at Female 12/28/2024 10:17 AM EDT Legal Sex Female 11:26 AM EDT Gender Identity Not on file Sexual Orientation Straight 12/28/2024 10 :17 AM EDT documented as of this encounter Last Filed Vital Signs Vital Sign Reading Time Taken Comments Blood Pressure - - Pulse - - Temperature 36 C (96.8 F) 05/26/2025 11:18 AM EDT Respiratory Rate - - Oxygen Saturation - - Inhaled Oxygen Concentration - - Weight - - Height - - Body Mass Index - - documented in this encounter Progress Notes * Germania Perry PA-C - 05/26/2025 11:20 AM EDT Images from the original note were not included. [facility] Orthopaedic Surgery Office Follow Up Office Follow Up Visit Patient Name: Marah Gonzalez Chief Complaint: Chief Complaint Patient presents with Post-op 3 week S/P- Left Total Knee Arthoplasty (DOS- 05/04/2025) Referring Physician: No ref. provider found History of Present Illness: Marah Gonzalez returns to clinic today for f/up 3 weeks s/p L TKA with Dr. Hall. Patient reports she is doing well with PT, improving pain and motion. She is taking Tylenol and nsaids for pain. She reports recovery has been as expected based on her prior right TKA Subjective Review of Systems Constitutional: Negative. HENT: Negative. Eyes: Negative. Respiratory: Negative. Cardiovascular: Negative. Gastrointestinal: Negative. Endocrine: Negative. Genitourinary: Negative. Musculoskeletal: Positive for arthralgias. Skin: Negative. Allergic/Immunologic: Negative. Neurological: Negative. Hematological: Negative. Psychiatric/Behavioral: Negative. I have reviewed and updated the following portions of the patient's history and review of systems: allergies, current medications, past family history, past medical history, past social history, pastsurgical history and problem list. Medications: Current Outpatient Medications: ascorbic acid (VITAMIN C) 1000 MG tablet, Take 1 tablet by mouth Every Other Day., Disp: , Rfl: aspirin (ASPIR) 81 MG EC tablet, Take 1 tablet by mouth 2 (Two) Times a Day., Disp: 60 tablet, Rfl:0 atorvastatin (LIPITOR) 10 MG tablet, Take 1 tablet by mouth Every Evening., Disp: , Rfl: Biotin 5 MG tablet, Take 1 tablet by mouth 2 (Two) Times a Day., Disp: , Rfl: bisoprolol (ZEBeta) 5 MG tablet, Take 1 tablet by mouth Every Evening., Disp: , Rfl: BLACK CURRANT SEED OIL PO, Take 1 dose by mouth 2 (two) times a day., Disp: , Rfl: Calcium Carb-Cholecalciferol 600-400 MG-UNIT tablet, Take 600 mg by mouth 2 (two) times a day., Disp: , Rfl: escitalopram (LEXAPRO) 10 MG tablet, Take 1 tablet by mouth Daily., Disp: , Rfl: esomeprazole (nexIUM) 20 MG capsule, Take 1 capsule by mouth Every Morning. (Patient taking differently: Take 2 capsules by mouth Every Morning.), Disp: , Rfl: estradiol (VIVELLE-DOT) 0.1 MG/24HR patch, 1 patch 2 (Two) Times a Week. Sundays and , Disp: , Rfl: fenofibrate (TRICOR) 145 MG tablet, Take 1 tablet by mouth Daily., Disp: , Rfl: ferrous sulfate 325 (65 FE) MG tablet, Take 1 tablet by mouth Daily With Breakfast., Disp: , Rfl: fexofenadine (AMA) 180 MG tablet, Take 1 tablet by mouth Daily., Disp: , Rfl: fluticasone (FLONASE) 50 MCG/ACT nasal spray, 2 sprays by Each Nare route Daily., Disp: , Rfl: ipratropium (ATROVENT) 0.06 % nasal spray, INSTILL 2 SPRAYS IN EACH NOSTRIL THREE TIMES DAILY, Disp: , Rfl: levothyroxine (SYNTHROID, LEVOTHROID) 137 MCG tablet, Take 1 tablet by mouth Daily. NEW DOSE, Disp:90 tablet, Rfl: 1 magnesium gluconate 250 MG tablet tablet, Take 2 tablets by mouth 2 (Two) Times a Day., Disp: , Rfl: METAMUCIL FIBER PO, Take 1 dose by mouth Every Evening., Disp: , Rfl: metFORMIN ER (GLUCOPHAGE-XR) 500 MG 24 hr tablet, Take 2 tablets by mouth 2 (Two) Times a Day., Disp: , Rfl: oxyCODONE (Roxicodone) 5 MG immediate release tablet, Take 1 tablet by mouth Every 4 (Four) Hours As Needed for Moderate Pain., Disp: 30 tablet, Rfl: 0 Ozempic, 0.25 or 0.5 MG/DOSE, 2 MG/3ML solution pen-injector, Inject 0.5 mg under the skin into theappropriate area as directed 1 (One) Time Per Week., Disp: , Rfl: polyethylene glycol (MIRALAX) 17 GM/SCOOP powder, Take 17 g by mouth Daily., Disp: , Rfl: ropivacaine (NAROPIN) 0.2 % infusion (INFUSYSTEM), 4 mg/hr by Peripheral Nerve route Continuous. (Patient not taking: Reported on 05/26/2025), Disp: , Rfl: Allergies: Allergies Allergen Reactions Sulfa Antibiotics Rash Adhesive Tape Rash Wound Dressing Adhesive Rash blisters Objective Vital Signs: Vitals: 05/26/25 1118 Temp: 96.8 ??F (36 ??C) Ortho Exam: Left knee incision is healing well. ROM 5-90. Ligaments stable. NVI distally. Results Review: XR Knee 3+ View With Shepherd Left Left Knee Radiographs Indication: status-post left total knee arthroplasty Views: AP, lateral, and sunrise views of the left knee Comparison: no change compared to prior study, 05/04/2025 Findings: The components are well aligned, with no signs of loosening or failure. XR Knee 1 or 2 View Left Result Date: 05/04/2025 Impression: Postoperative changes of knee arthroplasty without radiographic evidence of immediate complication. Electronically Signed: Jarad Sanches MD 05/04/2025 12:59 PM EDT Workstation ID: [id number] Assessment / Plan Assessment: Diagnoses and all orders for this visit: 1. Aftercare following left knee joint replacement surgery (Primary) - XR Knee 3+ View With Shepherd Left Plan: Doing well s/p L TKA with Dr. Hall on 05/04/25. Patient is doing well with improving motion and strength. She will continue with PT and Tylenol for pain. RTC to see Dr. Hall in 6 weeks, sooner if needed. Germania Perry PA-C [facility] Orthopedic Surgery Dictated using [employer] Speech Recognition. Answers submitted by the patient for this visit: Post-Op on 05/26/2025 11:20 AM with Germania Perry Post Operative Visit (Submitted on 05/24/2025) Chief Complaint: Follow-up Pain Control: well controlled Fever: no fever Diet: adequate intake Activity: returning to normal Operative Site Issues: No documented in this encounter Plan of Treatment Upcoming Encounters Date Type Department Care Team (Late st Contact Info) Description 07/07/2025 10:30 AM EST Office Visit [facility] ORTHOPEDICS & SPORTS MEDICINE [address] [address] eGrmania Perry PA-C [address] [address] 09/23/2025 1:00 PM EST Office Visit [facility] ENDOCRINOLOGY [address] [facility] [address] [place] [address] Sara Arora PA [address] [facility] [place] [address] documented as of this encounter Procedures Procedure Name Priority Date/Time Associated Diagnosis Comments XR KNEE 3+ VW W SUNRISE LEFT Routine 05/26/2025 11:34 AM EDT Aftercare following left knee joint replacement surgery documented in this encounter Results * XR Knee 3+ View With Shepherd Left (05/26/2025 11:34 AM EDT) Anatomical Region Laterality Modality Lower Extremities, Knee Left Xray Narrative 05/26/2025 11:36 AM EDT Left Knee Radiographs Indication: status-post left total knee arthroplasty Views: AP, lateral, and sunrise views of the left knee Comparison: no change compared to prior study, 05/04/2025 Findings: The components are well aligned, with no signs of loosening or failure. Romero Hall MD IMG DIAGNOSTIC IMAGING ORDERAB LES Final Result documented in this encounter Visit Diagnoses Diagnosis Aftercare following left knee joint replacement surgery- Primary documented in this encounter Care Teams Presentation Team Member Relationship Specialty Start Date End Date Deana Veras DO [address] [place] [address] PCP - General 10/06/15 documented as of this encounter
--- OUTSIDE RECORDS SUMMARY | 2025-06-02 09:30 | XMS_ITS | Encounter Summary ---
Author Organization [facility] Address [address] [place] [address] Care Team Providers Care Rehabilitation Therapist Name Role Phone TravisDeana brown Gena Primary Care Provider [phone] Reason for Visit * Reason Comments Follow-up Left Total Knee Arth oplasty (DOS- 05/04/2025) Encounter Details Date Type Department Care Team (Late st Contact Info) Description 06/02/2025 10:30 AM EDT Office Visit [facility] ORTHOPEDICS & SPORTS MEDICINE [address] [place] [address] Germania Perry PA-C 1760 [place] [address] Aftercare following left knee joint replacement surgery [...] or training? Not on file Preferred Language New Zealander 04/20/2025 Comments No Sex and Gender Information Value Date Recorded Sex Assigned at Female 12/28/2024 10:17 AM EDT Legal Sex Female 11:26 AM EDT Gender Identity Not on file Sexual Orientation Straight 12/28/2024 10 :17 AM EDT documented as of this encounter Last Filed Vital Signs Vital Sign Reading Time Taken Comments Blood Pressure 140/70 06/02/2025 10:49 AM EDT Pulse - - Temperature - - Respiratory Rate - - Oxygen Saturation - - Inhaled Oxygen Concentration - - Weight 78.5 kg (173 lb) 06/02/2025 10:49 AM EDT Height 167.6 cm (5' 5.98 ) 06/02/2025 10:49 AM E DT Body Mass Index 27.94 06/02/2025 10:49 AM EDT documented in this encounter Progress Notes * Germania Perry PA-C - 06/02/2025 10:30 AM EDT Images from the original note were not included. [facility] Orthopaedic Surgery Office Follow Up Office Follow Up Visit Patient Name: Marah Gonzalez Chief Complaint: Chief Complaint Patient presents with Follow-up Left Total Knee Arthoplasty (DOS- 05/04/2025) Referring Physician: No ref. provider found History of Present Illness: Marah Gonzalez returns to clinic today for follow-up left total knee. She was concerned severalnights ago she was getting in and out of bed and felt a pop in the knee with increased pain and swelling. She complains of pain on the medial side and back of the knee. She was having to lift her legto get in and out of the bed in and out of the car. It got worse but since that time it is gotten progressively better. She is status post knee 05/04/2025 and doing PT at [facility]. She deniesany fever chills erythema or increased swelling in the knee. Subjective Review of Systems Constitutional: Negative. HENT: [...] (INFUSYSTEM), 4 mg/hr by Peripheral Nerve route Continuous., Disp: , Rfl: meloxicam (MOBIC) 15 MG tablet, Take 1 tablet by mouth Daily., Disp: 30 tablet, Rfl: 2 Allergies: Allergies Allergen Reactions Sulfa Antibiotics Rash Adhesive Tape Rash Wound Dressing Adhesive Rash blisters Objective Vital Signs: Vitals: 06/02/25 1049 BP: 140/70 Weight: 78.5 kg (173 lb) Height: 167.6 cm (65.98 ) Ortho Exam: Left knee exam: Anterior knee incision is healing well. Range of motion 0-100. Ligament stable. Neurovascular intact distally. No effusion, no erythema. Mild warmth as expected. Results Review: Assessment / Plan Assessment: Diagnoses and all orders for this visit: 1. Aftercare following left knee joint replacement surgery (Primary) - Cancel: XR Knee 3+ View With Kep'El Right - XR Knee 3+ View With Kep'El Left Quality Metrics: BMI: BMI is >= 25 and <30. (Overweight) The following options were offered after discussion;: Information on healthy weight added to patient's after visit summary. Tobacco: Marah Gonzalez reports that she has never smoked. She has never used smokeless tobacco. Plan: Doing well status post left total knee arthroplasty with Dr. Hall on 05/04/2025. I reviewed today's x-rays and clinical findings with the patient. I reassured her that all components are well positionwith no evidence of loosening or any fracture. We discussed reasons for the popping including inflammation of the soft tissue, scar tissue forming causing a pop. She has had improved pain since the initial incident. I encouraged her to continue ice, anti-inflammatories, physical therapy. I have given her a prescription for meloxicam. She will return to see Dr. Hall as scheduled, sooner if needed. Germania Perry PA-C [facility] Orthopedic Surgery Dictated using Dragon Speech Recognition. documented in this encounter Plan of Treatment Upcoming Encounters Date Type Department Care Team (Late st Contact Info) Description 07/07/2025 10:30 AM EST Office Visit [facility] ORTHOPEDICS & SPORTS MEDICINE [address] [address] Germania Perry PA-C [address] [address] 09/23/2025 1:00 PM EST Office Visit [facility] ENDOCRINOLOGY [address] [phone] Sara Arora PA [address] [address] documented as of this encounter Procedures Procedure Name Priority Date/Time Associated Diagnosis Comments XR KNEE 3+ VW W SUNRISE LEFT Routine 06/02/2025 11:02 AM EDT Aftercare following left knee joint replacement surgery documented in this encounter Results * XR Knee 3+ View With Kep'El Left (06/02/2025 11:02 AM EDT) Anatomical Region Laterality Modality Lower Extremities, Knee Left Xray Narrative 06/04/2025 1:12 PM EDT Left Knee Radiographs Indication: status-post left total knee arthroplasty Views: AP, lateral, and sunrise views of the left knee Comparison: no change compared to prior study, 05/26/2025 Findings: The components are well aligned, with no signs of loosening or failure. Soft tissue swelling noted. us Romero Hall MD IMG DIAGNOSTIC IMAGING ORDERAB LES Final Result documented in this encounter Visit Diagnoses Diagnosis Aftercare following left knee joint replacement surgery- Primary documented in this encounter Care Teams Rehabilitation Therapist Relationship Specialty Start Date End Date Deana Veras DO [address] [place] [address] PCP - General 10/06/15 documented as of this encounter
--- OUTSIDE RECORDS SUMMARY | 2025-06-28 14:47 | XMS_ITS | Encounter Summary ---
Author Organization [facility] Address [address] [place] [address] Care Team Providers Care Auto Bumper Straightener Name Role Phone Deana Veras Primary Care Provider [phone] Encounter Details Date Type Department Care Team (Late st Contact Info) Description 10/14/2023 Orders Only External Location [address] [place] [address] Provider, External Social History Tobacco Use Types Packs/Day Years Used Date Smoking Tobacco: Never Assessed Comments Unknown Sex and Gender Information Value Date Recorded Sex Assigned at Not on file Legal Sex Female 8:54 PM EDT Gender Identity Not on file Sexual Orientation Not on file documented as of this encounter Plan of Treatment Upcoming Encounters Date Type Department Care Team (Late st Contact Info) Description 02/09/2026 1:40 PM EDT Office Visit [facility] General Surgery [address] [place] [address] Carlton Vaz MD [address] [place] [phone] documented as of this encounter Procedures Procedure Name Priority Date/Time Associated Diagnosis Comments CT OUTSIDE IMAGES 10/14/2023 7:58 AM EDT documented in this encounter Results * CT OUTSIDE IMAGES (10/14/2023 7:58 AM EDT) Anatomical Region Laterality Modality Computed Tomogra phy 10/14/2023 7:58 AM EDT us External Provider IMG CT PROCEDURES Final Result documented in this encounter Visit Diagnoses Not on filedocumented in this encounter Care Teams Auto Bumper Straightener Relationship Specialty Start Date End Date Deana Veras DO [address] [place] [address] [place], [place] [phone] PCP - General 12/25/23 documented as of this encounter
--- OUTSIDE RECORDS SUMMARY | 2025-06-28 14:47 | XMS_ITS | Encounter Summary ---
Author Organization [facility] ([place], [place], [place], [place], [place]) Address [address] [place] [address] Care Team Providers Care Special Delivery Worker Name Role Phone Unavailable Primary Care Provider Unavailabl e Encounter Details Date Type Department Care Team (Late st Contact Info) Description 06/08/2020 Transcribed Document [facility] [address] [place] [address] ProviderTai MD [address] [phone] Social History Tobacco Use Types Packs/Day Years Used Date Smoking Tobacco: Never Assessed Comments Unknown Sex and Gender Information Value Date Recorded Sex Assigned at Not on file Legal Sex Female 5:29 PM CDT Gender Identity Not on file Sexual Orientation Not on file documented as of this encounter Miscellaneous Notes * Cerner Conversion Note - Tai ProviderMD - 06/08/2020 3: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 Authorization Entered On: 06/08/2020 15:25 EST Performed On: 06/08/2020 15:25 EST by Alanna Valentin Rn-Utilization Review Primary Insurance Authorization Authorization and Policy Numbers : Insurance 1 Health Plan: [employer] PPO Policy Number: [id number] Authorization Number: Insurance Primary Name : [employer] PPO Policy Number: [id number] Authorization Status-Primary : Notification only Reference Number-Primary : [id number] Authorization Number-Primary : [id number] Authorized Service Begin Date-Primary : 06/10/2020 EST Historical Authorization Comments-Primary : Comment 1: [employer] Medicare approved per availity for inpt (JULIA SOUZA RN-Utilization Review 06/03/2020 13:38) Alanna Valentin Rn-Utilization Review - 06/08/2020 15:25 EST Electronically signed by [facility] Conversion Black Powder Glazing Operator Cerner at 11/22/2022 3:01 PM CDT documented in this encounter Plan of Treatment Not on file documented as of this encounter Visit Diagnoses Not on filedocumented in this encounter
--- OUTSIDE RECORDS SUMMARY | 2025-06-28 14:47 | XMS_ITS | Encounter Summary ---
Author Organization [facility] ([place], [place], [place], [place], [place]) Address [address] [place] [address] Care Team Providers Care Rib Bender Name Role Phone Unavailable Primary Care Provider Unavailabl e Encounter Details Date Type Department Care Team (Late st Contact Info) Description 06/07/2020 Transcribed Document [facility] [place] Family Medicine [address] [place] [address] ProviderTai MD [address], [place] [id number] Social History Tobacco Use Types Packs/Day Years Used Date Smoking Tobacco: Never Assessed Comments Unknown Sex and Gender Information Value Date Recorded Sex Assigned at Not on file Legal Sex Female 5:29 PM CDT Gender Identity Not on file Sexual Orientation Not on file documented as of this encounter Miscellaneous Notes * Cerner Conversion Note - Historical ProviderMD - 06/07/2020 2:26 PM 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 PAT Adult Entered On: 06/07/2020 14:38 EST Performed On: 06/07/2020 14:26 EST by Renata Hinds RN Vital Measurements Temperature Source : Temporal artery scanning Temperature, Fahrenheit : 96.9 Deg F Clinical Temperature, C : 36.1 Deg C Pulse Method : Pulse Oximetry Peripheral Pulse Rate : 86 bpm Respiratory Rate : 14 Breaths/Min Blood Pressure Location : Arm, right upper Blood Pressure Source : Non-Invasive BP Device Blood Pressure Position : Sitting Systolic Blood Pressure : 130 mmHg Diastolic Blood Pressure : 81 mmHg Oxygen Saturation : 97 % Oxygen Therapy Mode : Room air Britany Fountain RN - 06/08/2020 12:40 EST Pain Assessment Pain Assessment : Initial assessment Pain Scale Goal : 3 Britany Fountain RN - 06/08/2020 12:34 EST Height and Weight, Clinical Dosing Height Source : Measured Height Entry Format : [place] Height, Feet : 0 ft(Converted to: 0 cm, 0 Inch) Height, Inches : 66.5 Inch(Converted to: 5 ft 6 Inch, 168.91 cm) Clinical Height : 168.91 cm Weight Source : Standing scale Weight Entry Format : [place] Clinical Dosing Weight : 95.45 kg Weight, Pounds : 210 lb Body Surface Area (BSA) : 2.06 m2 Body Mass Index : 33.5 kg/m2 (HI) Alliance Body Weight : 60 kg Britany Fountain RN - 06/08/2020 12:34 EST Health Histories Smoking Status : Never (less than 100 in lifetime; none in last 30 days) Smokeless Tobacco Status : Never Renata Hinds RN - 06/07/2020 14:26 EST Social History (As Of: 06/07/2020 14:38:28 EST) Tobacco: Never (less than 100 in lifetime) Smoking Status. Never Smokeless Tobacco Status. (Last Updated: 06/07/2020 14:17:07 EST by Renata Hinds RN) Alcohol: Alcohol Use History Yes. Days/Week: 1. Alcohol Use Frequency Monthly. (Last Updated: 06/07/2020 14:17:29 EST by Renata Hinds RN) Substance Abuse: Drug Use Hx: No. (Last Updated: 06/07/2020 14:17:39 EST by Renata Hinds RN) Nutrition/Health: Regular (Last Updated: 06/07/2020 14:26:55 EST by Renata Hinds, JONATHAN) Exercise: Comments: 06/07/2020 14:27 - Renata Hinds RN: none d/t back pain (Last Updated: 06/07/2020 14:27:03 EST by Renata Hinds RN) Home/Environment: Lives with Spouse. (Last Updated: 06/07/2020 14:27:27 EST by Renata Hinds RN) Employment/School: Retired (Last Updated: 06/07/2020 14:27:12 EST by Renata Hinds RN) Infectious Disease History Has the patient ever been tested for COVID-19? : No, Screening today for COVID-19 Where was the COVID-19 Testing completed? : [facility]; test scheduled 06/08/20 Where are the test results? : Results Pending Date of COVID-19 test known? : Yes Does patient have symptoms of COVID-19? : No COVID19 Screening : No Experiencing Infectious Disease Symptoms : No symptoms Physical contact outside [place] in the last 30 days : No Infectious Disease History : Chicken pox/Shingles (Comment: chicken pox as a child; shingles 10/2012 [Renata Hinds RN - 06/07/2020 14:26 EST] ) Tuberculosis Symptoms : None Renata Hinds RN - 06/07/2020 14:26 EST COVID19 PreProcedure Screening Is this an Emergent or Add on Procedure? : No Has patient been isolated since the test : No Exposed to COVID19 symptoms since test? : No Renata Hinds RN - 06/07/2020 14:26 EST Anesthesia/Transfusion History Family History of Anesthesia Reaction : Prior transfusion without reaction Blood Transfusion Acceptable to Patient : Yes Transfusion History : Prior anesthesia without reaction Family History of Anesthesia Reaction : None Renata Hinds RN - 06/07/2020 14:26 EST Advance Directive Patient has Advance Directive *Q : Yes, Advance Directive with the patient Advance Directive Type : Living will, Medical durable power of fire hose curer (proxy) Copy Advance Directive Verified/on Chart : No Advance Directive Comment : pt to bring with her 06/08/20 for PAT appt Renata Hinds RN - 06/07/2020 14:26 EST [place] Suicide Severity Rating Scale (C-SSRS) CSSRS Past Month Wish to be : No CSSRS Past Month Suicidal Thoughts : No CSSRS Lifetime Suicide Behavior : No Suicide Severity Rating Score : 0 Suicide Severity Rating : No Additional Care Required at this time Renata Hinds RN - 06/07/2020 14:26 EST Psychosocial History Currently in Unsafe Situation : No Renata Hinds RN - 06/07/2020 14:26 EST Teaching/Learning Assessment Barriers To Learning : None evident Individuals Taught : Patient Readiness to Learn : Cooperative Renata Hinds RN - 06/07/2020 14:26 EST General Info Preferred Name : Marah Arrived From : Home Mode of Arrival on Unit : Ambulatory Support Person/Pt Rep Name : Duc Gonzalez spouse Support Person/Pt Rep Contact Information : [phone] Emergency Contact #1 : Duc Gonzalez Emergency Contact #1 Emergency Contact #1 Relationship : spouse Emergency Contact #2 : none Emergency Contact #2 Phone Number : none Emergency Contact #2 Relationship : none Want Family/Rep/Phys Notified of Admit : Britany Little RN - 06/08/2020 12:34 EST Primary Language : Citizen Of [place] Communication Barrier : None Application Packaging Consultant Needed : No Renata Hinds RN - 06/07/2020 14:26 EST Dustin Scale Dustin Sensory Perception : Slightly limited Dustin Moisture : Rarely moist Dustin Activity : Walks occasionally Dsutin Mobility : Very limited Dustin Nutrition : Adequate Dustin Friction and Shear : No apparent problem Dustin Score : 18 Renata Hinds RN - 06/07/2020 14:26 EST Sleep Apnea Risk Assmt Hx of Obstructive Sleep Apnea Diagnosis : No Snore Loudly : Yes Tired, Fatigued, or Sleepy During Day : Yes Observed Stopping Breathing During Sleep : No Have/Are Being Treated for Hypertension : Yes BMI Greater Than 35 kg/m2 : Yes Age over 50 Years Old : Yes Neck Circumference Greater Than 40 cm : No Gender Male : No STOP-BANG Sleep Apnea Risk Level Score : 5 Renata Hinds RN - 06/07/2020 14:26 EST documented in this encounter Plan of Treatment Not on file documented as of this encounter Visit Diagnoses Not on filedocumented in this encounter
--- OUTSIDE RECORDS SUMMARY | 2025-06-28 14:47 | XMS_ITS | Encounter Summary ---
Author Organization [employer] ([place], [place], [place], [place], [place]) Address [address] [place] [address] Care Team Providers Care Electrician Substation Supervisor Name Role Phone Unavailable Primary Care Provider Unavailabl e Encounter Details Date Type Department Care Team (Late st Contact Info) Description 06/10/2020 Transcribed Document [facility] [place] Family Medicine [address] [place] [address] ProviderTai MD [address], [place] [id number] Social History Tobacco Use Types Packs/Day Years Used Date Smoking Tobacco: Never Assessed Comments Unknown Sex and Gender Information Value Date Recorded Sex Assigned at Not on file Legal Sex Female 5:29 PM CDT Gender Identity Not on file Sexual Orientation Not on file documented as of this encounter Miscellaneous Notes * Cerner Conversion Note - Historical ProviderMD - 06/10/2020 11:44 AM 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 Name: MARAH GONZALEZ/Sex: 1955 Female Med Rec #: [id number] Physician: MARLO RIOS MD-SNU Financial #: [id number] Pt. Type: I Room/Bed: 637/1 Admit/Disch: 06/10/20 07:02:00 - Institution: [facility] PreOp Case Times Entry 1 In Preop 06/10/20 08:25:00 Ready for Holding n/a Room Patient Ready for 06/10/20 08:51:00 Surgery Patient Out of Preop 06/10/20 11:05:00 Patient Out of n/a Holding Room Last Modified By: JOHN JOSEPH RN 06/10/20 15:51:00 [facility] PreOp Case Times Audit 06/10/20 15:51:00 Sheet Metal Layout Worker: TEJAL Modifier: ROSY <+> 1 Patient Out of Preop Finalized By: JOHN JOSEPH RN Document Signatures Signed By: JOHN JOSEPH RN 06/10/20 15:51 Electronically signed by Meaghan [facility] Conversion Chef [employer] Cerner at 11/22/2022 2:55 PM CDT documented in this encounter Plan of Treatment Not on file documented as of this encounter Visit Diagnoses Not on filedocumented in this encounter
--- OUTSIDE RECORDS SUMMARY | 2025-06-28 14:47 | XMS_ITS | Encounter Summary ---
Author Organization [employer] ([place], [place], [place], [place], [place]) Address [address] [place] [address] Care Team Providers Care Intake Counselor Name Role Phone Unavailable Primary Care Provider Unavailabl e Encounter Details Date Type Department Care Team (Late st Contact Info) Description 06/10/2020 Transcribed Document [facility] [place] Family Medicine [address] [place] [address] ProviderTai MD [address] [id number] Social History Tobacco Use Types Packs/Day Years Used Date Smoking Tobacco: Never Assessed Comments Unknown Sex and Gender Information Value Date Recorded Sex Assigned at Not on file Legal Sex Female 5:29 PM CDT Gender Identity Not on file Sexual Orientation Not on file documented as of this encounter Miscellaneous Notes * Cerner Conversion Note - Historical ProviderMD - 06/10/2020 1:51 PM CREW CALLER Evaluation, Occupational Therapy Entered On: 06/11/2020 15:17 EST Performed On: 06/11/2020 11:33 EST by MIKE CUELLO OTR/Sarahi General Information, OT Visit Type, OT : Initial evaluation Patient Orders : Order Date Order Ordering MD 06/10/2020 13:51 Occupational Therapy Evaluation and Treatme Ordered By: MARLO RIOS MD-SNU Active Diagnoses : 06/10/2020 12:00 Spondylolisthesis, lumbar region Therapy Diagnosis, OT : decreased fxl status due to weakness, decreased activity tolerance Onset of Problem, OT : 06/10/2020 EST Admission Date : 06/10/2020 07:02 Co-treated by, OT : Physical Therapist, Other: PT student Personal Devices : Personal Devices No Devices Recorded Assistive Devices : Assistive Devices No Devices Recorded Precautions in Place : Fall prevention measures, Spinal Precautions General Information Comment, OT : 64 yo female admitted s/p L4-5 posterior fusion. PMHx HTN. MIKE CUELLO OTR/Sarahi - 06/11/2020 15:07 EST General Status Patient Received Status : Supine in bed, HOB elevated Treatment Start Time : 06/11/2020 11:06 EST Patient Left Status : Up in chair, RN/PCT informed, Family/Visitors at bedside, All needs met and within reach RN/PCT Informed Comment : JONATHAN centeno OT eval and tx Treatment End Time : 06/11/2020 11:33 EST Treatment Time : 27 Minute(s) MIKE CUELLO OTR/Sarahi - 06/11/2020 15:07 EST History and Environment, OT Living Situation, Therapy : Home Patient Lives With : Spouse Persons Assisting Patient at Home : Alone, Spouse Professional Skilled Services : None Persons Providing Information : Patient Home Equipment, Therapy : Cane, Commode, Crutches, Shower Equipment, Walker Cane : Cane, single point Commode : Commode, bedside Crutches : Crutches, axillary Shower Equipment : Shower Chair, with back Walker : Walker, front wheel Home Setup : Basement, One story Stairs : Yes Stair Location(s) : Inside, Outside Inside Stairs, Number of Steps : 12 Stairs Inside Comment : Pt comments she doesn't need to go to basement Outside Stairs, Number of Steps : 5 Railing Outside : Yes Outside Railing Position : Bilateral MIKE CUELLO OTR/Sarahi - 06/11/2020 15:07 EST Prior LOF Bathing, OT : Assist needed Prior LOF Bed Mobility : Assist needed Prior LOF Upper Body Dressing, OT : Assist needed Prior LOF Lower Body Dressing, OT : Assist needed Prior LOF Toileting : Assist needed Prior LOF Transfer : Assist needed Prior LOF Grooming, OT : Assist needed Prior LOF for IADLs, OT : Assist needed MIKE CUELLO OTR/Sarahi - 06/11/2020 15:07 EST Prior LOF Assist with ADL Comment : provides assist as needed. MIKE CUELLO OTR/Sarahi - 06/11/2020 15:07 EST Upper Extremity Upper Extremity Dominance : Right Right UE Active ROM : WFL Right UE Strength : WFL Left UE Active ROM : WFL Left UE Strength : WFL MIKE CUELLO OTR/Sarahi - 06/11/2020 15:07 EST Right Upper Extremity MMT Shoulder Flexion 0-180 : 3/fair Shoulder Extension 0-60 : 3/fair Shoulder Abduction 0-180 : 3/fair Shoulder Adduction 0-180 : 3/fair Shoulder Internal Rotation 0-90 : 3/fair Shoulder External Rotation 0-90 : 3/fair Elbow Flexion 0-150 : 3/fair Elbow Extension 0-0 : 3/fair Wrist Flexion 0-80 : 3/fair Wrist Extension 0-70 : 3/fair Forearm Pronation 0-70 : 3/fair Forearm Supination 0-85 : 3/fair Ulnar Deviation 0-45 : 3/fair RadialDeviation 0-20 : 3/fair MIKE CUELLO OTR/Sarahi 06/11/2020 15:07 EST Left Upper Extremity MMT Shoulder Flexion 0-180 : 3/fair Shoulder Extension 0-60 : 3/fair Shoulder Abduction 0-180 : 3/fair Shoulder Adduction 0-180 : 3/fair Shoulder Internal Rotation 0-90 : 3/fair Shoulder External Rotation 0-90 : 3/fair Elbow Flexion 0-150 : 3/fair Elbow Extension 0-0 : 3/fair Wrist Flexion 0-80 : 3/fair Wrist Extension 0-70 : 3/fair Forearm Pronation 0-70 : 3/fair Forearm Supination 0-85 : 3/fair Ulnar Deviation 0-45 : 3/fair RadialDeviation 0-20 : 3/fair MIKE CUELLO OTR/Sarahi - 06/11/2020 15:07 EST Hand Reheater Helper Test : WFL Fine Motor Coordination Impaired : No MIKE CUELLO OTR/Sarahi 06/11/2020 15:07 EST Self Care/Home Management, OT Self Feeding Assist Level, OT : Independent, complete Grooming Assist Level, OT : Independent, complete Bathing Assist Level, OT : Assist, minimal Upper Body Dressing Assist Level, OT : Independent, complete Lower Body Dressing Assist Level, OT : Assist, maximal Toileting Assist Level : Supervision or set-up Toilet Transfer Assist Level : Supervision or set-up Bed/Chair/WC Transfer Assist Level : Supervision or set-up Bed/Chair/WC Transfer Device : Belt, gait, Walker, front wheel Bed/Chair/WC Transfer Comment : Pt walked extended fxl distance to increase endurance and safety for ADL w/ RWx and spv, no LOB or rest breaks. MIKE CUELLO OTR/Sarahi 06/11/2020 15:07 EST Functional Mobility Mobility Grid Bed Roll Right : Supervision/set-up Supine to Sit : Supervision/set-up Sit to Stand : Supervision/set-up Bed to Chair : Supervision/set-up Stand to Sit : Supervision/set-up MIKE CUELLO OTR/L 06/11/2020 15:07 EST Supine to Sit Device : Rails, Other: HOB elevated Sit to Stand Device : Belt, gait, Walker, front wheel Bed to Chair Device : Belt, gait, Walker, front wheel MIKE CUELLO OTR/Sarahi - 06/11/2020 15:07 EST Cognition Assessment, OT Orientation : Oriented x 4 Cognition Assessment, OT : Intact Comprehension Assessment, OT : Intact Safety/Judgment Assessment, OT : Intact Follows Basic Command Assessment, OT : Intact Attention Assessment : Present MIKE CUELLO OTR/Sarahi 06/11/2020 15:07 EST Indication Assessment, OT Occupational Therapy Indicated : Yes Problem List, OT : Impaired, activities daily living Potential Barriers, OT : None evident Rehabilitation Potential, OT : MIKE Bobby OTR/Sarahi - 06/11/2020 15:07 EST Plan of Care, OT OT Tx Plan/Goals Established w Patient : Yes OT Frequency Rehab : Five days per week OT Duration Rehab : Fourteen days OT Treatments Planned : Activities of daily living, Caregiver training, Functional mobility training, Safety education, Therapeutic activities, Therapeutic exercises MIKE CUELLO OTR/Sarahi 06/11/2020 15:07 EST Mcfp Goals, OT Dressing, Lower Body LTG Grid Goal #1 Activity : Dressing, Lower Body Assist : Supervision or set up Date to Meet : 06/25/2020 EST Goal Status : Initial goal MIKE CUELLO OTR/Sarahi 06/11/2020 15:07 EST Toilet Transfer LTG Grid Goal #1 Activity : Toilet Transfer, Ambulatory Assist : Independent, modified Date to Meet : 06/25/2020 EST Goal Status : Initial goal Comment : bathroom toilet, demo MIKE Brower OTR/L 06/11/2020 15:07 EST Treatment Note Subjective Comment : Pt agreeable Patient's Response to Treatment : good participation and tolerance Additional Objective Information : Pt participated in formal OT evaluation at bedside. Pt issed AE for LB dressing. Pt ed re: spinal precautions, log roll technique, AE. Pt demo'ed fair-good understanding of log roll w/ spv and VC to complete. Pt walked extended fxl distance to increase endurance and safety for ADL w/ RWx and spv, no LOB or rest breaks. Pt left in chair w/ needs in reach. Assessment : Pt would benefit from skilled OT services during admission. Plan for Treatment : see POC and LTG MIKE CUELLO OTR/Sarahi - 06/11/2020 15:07 EST Pain Assessment Pain Scaled Used : 0-10 Pain scale Pain Score Pre-Intervention : 3 Location : Incisional MIKE CUELLO OTR/Sarahi - 06/11/2020 15:07 EST Image 1 - Images currently included in the form version of this document have not been included in the text rendition version of the form. Anticipated Discharge Needs, OT/PT Anticipated Discharge to : Home, with family care Anticipated Home Equipment : None Recommend Continued Therapy at Discharge : No MIKE CUELLO OTR/Sarahi - 06/11/2020 15:[address] [facility] OT Charges OT Selfcare/Hm Mgmt Ea 15 Min : 1 OT Eval Low Complexity : 1 MIKE CUELLO OTR/Sarahi - 06/11/2020 15:07 EST documented in this encounter Plan of Treatment Not on file documented as of this encounter Visit Diagnoses Not on filedocumented in this encounter
--- OUTSIDE RECORDS SUMMARY | 2025-06-28 14:47 | XMS_ITS | Encounter Summary ---
Author Organization [employer] ([place], [place], [place], [place], [place]) Address [address] [place] [address] Care Team Providers Care Clerical Receptionist Name Role Phone Unavailable Primary Care Provider Unavailabl e Encounter Details Date Type Department Care Team (Late st Contact Info) Description 06/10/2020 Transcribed Document [facility] Family Medicine [facility] [place] [address] ProviderTai MD [address] [id number] Social History Tobacco Use Types Packs/Day Years Used Date Smoking Tobacco: Never Assessed Comments Unknown Sex and Gender Information Value Date Recorded Sex Assigned at Not on file Legal Sex Female 5:29 PM CDT Gender Identity Not on file Sexual Orientation Not on file documented as of this encounter Miscellaneous Notes * [employer] Conversion Note - Historical ProviderMD - 06/10/2020 7:01 AM TELECOMMUNICATIONS SUPPORT Admission History, Adult Entered On: 06/10/2020 15:34 EST Performed On: 06/10/2020 7:01 EST by Chidi Dawson, RN Advance Directive Patient has Advance Directive *Q : Yes, Advance Directive with the patient Advance Directive Type : Living will, Medical durable power of 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 (proxy) Copy Advance Directive Verified/on Chart : No Advance Directive Comment : pt to bring with her 06/08/20 for PAT appt Chidi Dawson RN - 06/10/2020 15:31 EST Anesthesia/Transfusion History Family History of Anesthesia Reaction : Prior transfusion without reaction Blood Transfusion Acceptable to Patient : Yes Transfusion History : Prior anesthesia without reaction Family History of Anesthesia Reaction : None Chidi Dawson RN - 06/10/2020 15:31 EST Functional Assessment Living Situation : Home Patient Lives With : Spouse Persons Assisting Patient at Home : Spouse Current Daily Living Assistance : None Sensory Deficits : Other: contacts Current Home Treatments : Apnea monitoring Chidi Dawson RN - 06/10/2020 15:31 EST General Info Preferred Name : Marah Arrived From : Home Mode of Arrival on Unit : Ambulatory Support Person/Pt Rep Name : Duc Gonzalez spouse Support Person/Pt Rep Contact Information : [phone] Want Family/Rep/Phys Notified of Admit : No Emergency Contact #1 : Duc Gonzalez Emergency Contact #1 Emergency Contact #1 Relationship : spouse Emergency Contact #2 : none Emergency Contact #2 Phone Number : none Emergency Contact #2 Relationship : none Primary Language : [place] Islander Communication Barrier : None Table And Desk Finisher Needed : No Chidi Dawson RN - 06/10/2020 15:31 EST Fall Risk Scales ABCs Fall Injury Risk Identification : Surgery ABC Fall Injury Risk : Moderate to high injury risk GARCIA Hx Falls Immediate/Within 3 Months : No Garcia Secondary Diagnosis : Yes GARCIA Use of Ambulatory Aid : Bed rest/Nurse assist GARCIA IV Therapy or IV Access : Yes Garcia Gait/Transferring : Weak Garcia Mental Status : Oriented to own ability GACRIA Fall Scale Risk Level : 25-45 Medium Risk [place] Fall Interventions : Adequate lighting, Assistive devices within reach, Bed in low position, Call device within reach, Fall prevention handout/education per facility policy, Frequent orientation to surroundings, Hourly comfort/safety rounds, Personal items within reach, Room free of clutter/spills, Wheels locked, Wires/Cords secured Barriers to Learning : None evident Chidi Dawson RN - 06/10/2020 15:31 EST Health Histories Smoking Status : Never (less than 100 in lifetime; none in last 30 days) Smokeless Tobacco Status : Never Chidi Dawson RN - 06/10/2020 15:31 EST Social History (As Of: 06/10/2020 15:34:09 EST) Tobacco: Never (less than 100 in lifetime) Smoking Status. Never Smokeless Tobacco Status. (Last Updated: 06/07/2020 14:17:07 EST by Renata Hinds, RN) Alcohol: Alcohol Use History Yes. Days/Week: 1. Alcohol Use Frequency Monthly. (Last Updated: 06/07/2020 14:17:29 EST by Renata Hinds, RN) Substance Abuse: Drug Use Hx: No. (Last Updated: 06/07/2020 14:17:39 EST by Renata Hinds, JONATHAN) Nutrition/Health: Regular (Last Updated: 06/07/2020 14:26:55 EST by Renata Hinds RN) Exercise: Comments: 06/07/2020 14:27 - Renata Hinds RN: none d/t back pain (Last Updated: 06/07/2020 14:27:03 EST by Renata Hinds RN) Home/Environment: Lives with Spouse. (Last Updated: 06/07/2020 14:27:27 EST by Renata Hinds RN) Employment/School: Retired (Last Updated: 06/07/2020 14:27:12 EST by Renata Hinds RN) Height and Weight, Clinical Dosing Height Source : Measured Height Entry Format : [place] Height, Feet : 0 ft(Converted to: 0 cm, 0 Inch) Height, Inches : 66.5 Inch(Converted to: 5 ft 6 Inch, 168.91 cm) Clinical Height : 168.91 cm Weight Source : Standing scale Weight Entry Format : [place] Clinical Dosing Weight : 95.45 kg Weight, Pounds : 210 lb Body Surface Area (BSA) : 2.06 m2 Body Mass Index : 33.5 kg/m2 (HI) [place] Body Weight : 60 kg Chidi Dawson RN - 06/10/2020 15:31 EST Infectious Disease History Has the patient ever been tested for COVID-19? : No, Screening today for COVID-19 Where was the COVID-19 Testing completed? : [facility] at [facility]; test scheduled 06/08/20 Where are the test results? : Results Pending Date of COVID-19 test known? : Yes Date of COVID-19 Test : 06/08/2020 EST Does patient have symptoms of COVID-19? : No COVID19 Screening : No Experiencing Infectious Disease Symptoms : No symptoms Physical contact outside [place] in the last 30 days : No Infectious Disease History : Chicken pox/Shingles Tuberculosis Symptoms : None Chidi Dawson RN - 06/10/2020 15:31 EST Influenza Vaccine Asmt, Adult Previous Vaccines from Immunization Schedule : No qualifying data available. Influenza Immunization, Current Season : Yes Influenza Immunization Comment : may of this year Chidi Dawson RN - 06/10/2020 15:31 EST Pneumococcal Vaccine Previous Vaccines from Immunization Schedule : No qualifying data available. Pneumonia Immunization Received : Yes Pneumonia Immunization Comment : may of this year Chidi Dawson RN - 06/10/2020 15:31 EST Order Details Patient Needs Meds Crushed/Liquid : No Chidi Dawson RN - 06/10/2020 15:31 EST Nutrition History Eating Poorly Due to Decreased Appetite : Yes Unplanned Weight Loss in Past 3-6 Months : No Malnutrition Screening Tool Total(mal) : 1 Malnutrition Screening Tool Risk Level : Patient not at risk Chidi Dawson RN - 06/10/2020 15:31 EST [place] Suicide Severity Rating Scale (C-SSRS) CSSRS Past Month Wish to be : No CSSRS Past Month Suicidal Thoughts : No CSSRS Lifetime Suicide Behavior : No Suicide Severity Rating Score : 0 Suicide Severity Rating : No Additional Care Required at this time Chidi Dawson RN - 06/10/2020 15:31 EST Psychosocial History Currently in Unsafe Situation : No Chidi Dawson RN - 06/10/2020 15:31 EST Sleep Apnea Risk Assmt Hx of [...] Sleep Apnea Risk Level Score : 5 Chidi Dawson RN - 06/10/2020 15:31 EST Valuables and Belongings Valuables and Belongings : Clothing Clothing : Outerwear Clothing Disposition : With patient Chidi Dawson RN - 06/10/2020 15:31 EST documented in this encounter Plan of Treatment Not on file documented as of this encounter Visit Diagnoses Not on filedocumented in this encounter
--- OUTSIDE RECORDS SUMMARY | 2025-06-28 14:47 | XMS_ITS | Encounter Summary ---
Author Organization [employer] ([place], [place], [place], [place], [place]) Address [address] [place] [address] Care Team Providers Care Attenuator Name Role Phone Unavailable Primary Care Provider Unavailabl e Encounter Details Date Type Department Care Team (Late st Contact Info) Description 06/11/2020 Transcribed Document [facility] Family Medicine [address] [place] [address] ProviderTai MD [address], [place] [id number] Social History Tobacco Use Types Packs/Day Years Used Date Smoking Tobacco: Never Assessed Comments Unknown Sex and Gender Information Value Date Recorded Sex Assigned at Not on file Legal Sex Female 5:29 PM CDT Gender Identity Not on file Sexual Orientation Not on file documented as of this encounter Miscellaneous Notes * [employer] Conversion Note - Tai ProviderMD - 06/11/2020 5:20 PM CHIEF LIBRARIAN BRANCH Nursing Discharge Summary Entered On: 06/11/2020 17:22 EST Performed On: 06/11/2020 17:20 EST by SERA NORRIS LPN Discharge Documentation Discharge Date/Time : 06/11/2020 17:30 EST Patient Disposition, General : Discharge Discharge To : Home with ambulatory/outpatient follow-up Mode Of Departure, General Discharge : Private vehicle Accompanied By, Discharge : Spouse IV Discontinued : Yes Personal Belongings With Patient : Yes Pt's Own Supply of Medications Returned : No patient supply of medications to return Prescriptions Given to Patient : Yes Medications Given to Patient : No Discharge Instructions Reviewed With, Opportunity For Questions Given : Patient, Spouse Patient Education Completed : Yes Number of Prescriptions Given : 2 Teaching Method : Explanation, Printed materials Teaching Evaluation : Verbalizes understanding Worker's Compensation Paperwork Completed : No SERA NORRIS LPN - 06/11/2020 17:20 EST Electronically signed by Meaghan, [facility] Conversion Civil Litigation Attorney Cerner at 11/22/2022 3:05 PM CDT documented in this encounter Plan of Treatment Not on file documented as of this encounter Visit Diagnoses Not on filedocumented in this encounter
--- OUTSIDE RECORDS SUMMARY | 2025-06-28 14:47 | XMS_ITS | Encounter Summary ---
Author Organization [employer] ([place], [place], [place], [place], [place]) Address [address] [place] [address] Care Team Providers Care Foam Machine Operator Name Role Phone Unavailable Primary Care Provider Unavailabl e Encounter Details Date Type Department Care Team (Late st Contact Info) Description 06/10/2020 Transcribed Document [facility] [place] Family Medicine [address] [place] [address] ProviderTai MD [address] [id number] Social History Tobacco Use Types Packs/Day Years Used Date Smoking Tobacco: Never Assessed Comments Unknown Sex and Gender Information Value Date Recorded Sex Assigned at Not on file Legal Sex Female 5:29 PM CDT Gender Identity Not on file Sexual Orientation Not on file documented as of this encounter Miscellaneous Notes * Cerner Conversion Note - Historical ProviderMD - 06/10/2020 11:44 AM PRESS LEADER [facility] Main OR IntraOp Summary Primary Physician: MARLO RIOS MD-SNU Finalized Date/Time: 06/12/20 14:26:24 Pt. Name: MARAH GONZALEZ/Sex: 1955 Female Med Rec #: [id number] Physician: MARLO RIOS MD-SNU Financial #: [id number] Pt. Type: I Room/Bed: 63/1 Admit/Disch: 06/10/20 07:02:00 - 06/11/20 18:47:00 Institution: [facility] IntraOp Case Attendance Entry 1 Entry 2 Entry 3 Case Attendee GABRIEL, MARLO KAY, ADRIENNE, CEASAR M, RN GULLETTE, RIK M. MD-SNU Role Performed Surgeon/Proceduralist, Ldr Rn, First Scrub, First First Time In 06/10/20 11:07:00 06/10/20 11:07:00 06/10/20 11:07:00 Time Out 06/10/20 13:39:00 06/10/20 12:30:00 06/10/20 13:39:00 Procedure MIS Posterior Fusion CT MIS Posterior Fusion CT MIS Posterior Fusion CT Guided Guided Guided Other Attendee Superficial Wound Closed By: Last Modified By: CEASAR DELEON, RN CEASAR DELEON, RN CEASAR DELEON, RN 06/10/20 13:41:08 06/10/20 13:41:08 06/10/20 13:41:08 Entry 4 Entry 5 Entry 6 Case Attendee Harish Vera, ZION WILLOUGHBY MIHAELA, MD-ANS Role Performed BALLROOM DANCER/Nurse Salon Designer Logistical Engineer Anesthesiologist Time In 06/10/20 11:07:00 06/10/20 11:07:00 06/10/20 11:07:00 Time Out 06/10/20 13:39:00 06/10/20 13:39:00 06/10/20 13:39:00 Procedure MIS Posterior Fusion CT MIS Posterior Fusion CT MIS Posterior Fusion CT Guided Guided Guided Other Attendee Superficial Wound Closed By: Last Modified By: CEASAR DELEON RN BRADY, CHRISTINA M, CEASAR BLUM, JONATHAN 06/10/20 13:41:08 06/10/20 13:41:08 06/10/20 13:41:08 Entry 7 Entry 8 Case Attendee Kip Schofield RN OTHER, ATTENDEE #1 Role Performed Ldr Rn, Second Vendor Time In 06/10/20 12:16:00 06/10/20 11:07:00 Time Out 06/10/20 13:39:00 06/10/20 13:39:00 Procedure MIS Posterior Fusion CT MIS Posterior Fusion CT Guided Guided Other Attendee RN KELSY PENN Superficial Wound Closed By: Last Modified By: CEASAR DELEON, RN CEASAR DELEON, RN 06/10/20 13:41:08 06/10/20 13:41:08 [facility] IntraOp Case Attendance Audit 06/10/20 13:41:08 Pressure Supervisor: BRADYCM Modifier: BRADYCM 1 <+> Time Out 1 <*> Procedure MIS Posterior Fusion CT Guided 2 <*> Procedure MIS Posterior Fusion CT Guided 3 <+> Time Out 3 <*> Procedure MIS Posterior Fusion CT Guided 4 <+> Time Out 4 <*> Procedure MIS Posterior Fusion CT Guided 5 <+> Time Out 5 <*> Procedure MIS Posterior Fusion CT Guided 6 <+> Time Out 6 <*> Procedure MIS Posterior Fusion CT Guided 7 <+> Time Out 7 <*> Procedure MIS Posterior Fusion CT Guided 8 <+> Time Out 8 <*> Procedure MIS Posterior Fusion CT Guided 06/10/20 13:21:34 Pressure Supervisor: BRADYCM Modifier: BRADYCM 2 <+> Time Out 2 <*> Procedure MIS Posterior Fusion CT Guided 06/10/20 12:19:18 Pressure Supervisor: BRADYCM Modifier: BRADYCM 1 <*> Procedure MIS Posterior Fusion CT Guided 2 <*> Procedure MIS Posterior Fusion CT Guided 3 <*> Procedure MIS Posterior Fusion CT Guided 4 <*> Procedure MIS Posterior Fusion CT Guided 5 <*> Procedure MIS Posterior Fusion CT Guided 6 <*> Procedure MIS Posterior Fusion CT Guided 7 <*> Procedure MIS Posterior Fusion CT Guided 8 <+> Time In 8 <*> Procedure MIS Posterior Fusion CT Guided 06/10/20 12:19:12 Pressure Supervisor: BRADYCM Modifier: BRADYCM <+> 7 Case Attendee <+> 7 Role Performed <+> 7 Time In <+> 7 Procedure <+> 7 Other Attendee <+> 8 Case Attendee <+> 8 Role Performed <+> 8 Procedure <+> 8 Other Attendee 06/10/20 11:57:07 Pressure Supervisor: BRADYCM Modifier: BRADYCM 1 <*> Procedure MIS Posterior Fusion CT Guided 2 <*> Procedure MIS Posterior Fusion CT Guided 3 <*> Procedure MIS Posterior Fusion CT Guided 4 <*> Procedure MIS Posterior Fusion CT Guided 5 <+> Time In 5 <*> Procedure MIS Posterior Fusion CT Guided 6 <+> Time In 6 <*> Procedure MIS Posterior Fusion CT Guided 06/10/20 11:51:06 Pressure Supervisor: BRADYCM Modifier: BRADYCM <+> 5 Case Attendee <+> 5 Role Performed <+> 5 Procedure <+> 6 Case Attendee <+> 6 Role Performed <+> 6 Procedure 06/10/20 11:48:18 Pressure Supervisor: BRADYCM Modifier: BRADYCM <+> 1 Procedure 2 <+> Time In 2 <*> Procedure MIS Posterior Fusion CT Guided 3 <+> Time In 3 <*> Procedure MIS Posterior Fusion CT Guided 4 <+> Time In 4 <*> Procedure MIS Posterior Fusion CT Guided 06/10/20 11:47:06 Pressure Supervisor: BRADYCM Modifier: BRADYCM <+> 2 Case Attendee <+> 2 Role Performed <+> 2 Procedure <+> 3 Case Attendee <+> 3 Role Performed <+> 3 Procedure <+> 4 Case Attendee <+> 4 Role Performed <+> 4 Procedure [facility] IntraOp Case Times Entry 1 Patient In Room Time 06/10/20 11:07:00 Out Room Time 06/10/20 13:39:00 Anesthesia Start Time 06/10/20 11:07:00 Stop Time 06/10/20 13:39:00 Surgery / Procedure Times Start Time 06/10/20 11:44:00 Stop Time 06/10/20 13:29:00 Last Modified By: CEASAR DELEON RN 06/10/20 13:41:07 [facility] IntraOp Case Times Audit 06/10/20 13:41:07 Pressure Supervisor: BRADYCM Modifier: BRADYCM <+> 1 Out Room Time <+> 1 Stop Time 06/10/20 13:29:15 Pressure Supervisor: BRADYCM Modifier: BRADYCM <+> 1 Stop Time [facility] IntraOp Cautery Entry 1 Entry 2 ESU Identification Cautery Type Monopolar ESU BiPolar ESU Cautery Type Comments ID Number [id number] ID Type Hospital Number Hospital Number Cautery Settings Cut Setting 45 8 Coag Setting 45 45 Blend Setting Bipolar Setting Argon Setting Argon Mcgee ESU Grounding Pad Ground Pad Type Adult Grounding Pad Type Comment Grounding Pad Site Right thigh Grounding Pad Site Comment Grounding Pad CEASAR DELEON RN Applied By Grounding Pad Site Warm, dry and intact Skin Condition Before Cautery Site Skin Condition Before Comment Grounding Pad Site Unchanged Skin Condition After Cautery Site Skin Condition After Comment Last Modified By: CEASAR DELEON RN CEASAR DELEON RN 06/10/20 11:59:39 06/10/20 11:59:56 [facility] IntraOp Cautery Audit 06/10/20 11:59:56 Pressure Supervisor: BRADYCM Modifier: BRADYCM <+> 2 Cautery Type <+> 2 Coag Setting <+> 2 Cut Setting <+> 2 ID Number <+> 2 ID Type [facility] IntraOp Communication Entry 1 Communication To Family/Significant other Comment START Communication By CEASAR DELEON RN Date and Time 06/10/20 11:47:00 Last Modified By: CEASAR DELEON RN 06/10/20 11:47:16 [facility] IntraOp Counts Verification Entry 1 Procedure MIS Posterior Fusion CT Guided Count Info Count Type Sponge, Sharps Counts Verification Baseline/pre-procedure Sequence Count Results Correct, surgeon notified Counts Performed By Count Performed By RIK NEVAREZ (Scrub) Count Performed By CEASAR DELEON, RN (RN) Last Modified By: CEASAR DELEON RN 06/10/20 11:51:17 [facility] IntraOp Counts Final Entry 1 Procedure MIS Posterior Fusion CT Guided Final Count Info Count Type Sponge, Sharps, Miscellaneous Counts Verification Skin Closure/end of Sequence procedure Count Results Correct, surgeon notified Counts Performed By Count Performed By RIK NEVAREZ (Scrub) Count Performed By Kip Schofield RN (RN) Last Modified By: CEASAR DELEON RN 06/10/20 13:24:49 [facility] IntraOp Departure from OR Entry 1 Integumentary Assessment Integumentary WDL Assessment WDL Transfer/Handoff Transfer to PACU Phase I Handoff Method Bedside/Face to face, Phone call Post-op Transport Stretcher/Patti Via Patient Transport CEASAR DELEON RN, Accompanied by Harish Vera CRNA Last Modified By: CEASAR DELEON RN 06/10/20 11:52:10 [facility] IntraOp Dressing and Packing Entry 1 Type Dressing Last Modified By: CEASAR DELEON RN 06/10/20 11:59:04 General Comments: COVERDERM [facility] IntraOp Fire Risk Assessment Entry 1 Fire Info Surgical Site or 0- No Incision Above the Xyphoid Open O2 Source 0- No (Mask or Cannula) Available Ignition 1- Yes (ESU, Laser, Light Source) Fire Risk 2 Assessment Score Fire Score Fire Risk Yes Assessment Complete Fire Risk CEASAR DELEON RN Assessment Verified By Fire Risk 06/10/20 11:52:00 Assessment Verified Date/Time Fire Risk Standard Fire Yes Safety Precautions Followed Last Modified By: CEASAR DELEON RN 06/10/20 11:53:23 [facility] IntraOp General Case Community Engagement Manager 1 Case Information OR OR 10 [facility] Case Level 1 Room Verified Yes Wound Class I - Clean Specialty SN Neurosurgery Anesthesia Type General ASA Class 2 Diagnosis Preop Diagnosis LUMBAR STENOSIS Postop Same As Preop No Postop Diagnosis PLEASE SEE MD NOTES. Last Modified By: CEASAR DELEON RN 06/10/20 11:58:56 [facility] IntraOp Implant Log Entry 1 Entry 2 Entry 3 Type Implant (Synthetic) Implant (Synthetic) Implant (Synthetic) Implant Log Implant Type Other Hardware Hardware Tissue Implant Type Implant BONE VIVIGEN FORMABLE IMP VPR PRM CFXFEN XTAB CONCORDE BUL LIZZIE Identification [id number] Description Implant Quantity 1 4 1 Implant Site OPSITE OP SITE OP SITE Implant [id number] Identification Model Number Implant Identification Serial Number Implant Identification Lot Number Implant Lifenet:Lifenet J&J:Depuy:Depuy Spine J&J:Depuy:Depuy Spine Identification Transplant Srv Retail Advertising Account Executive Name: Implant [id number] Identification Catalog Number Implant Size Implant Has an Yes Expiration Date Implant Expiration 05/17/21 Date Wasted Radioactive Material Time Implanted Tissue Implant Continue for Tissue Implant Documentation Tissue Identification Number Graft Prep Per Yes Retail Advertising Account Executive Instructions: Tissue Preparation Method: Reconstitution Solution: Reconstitution Solution Lot Number Reconstitution Solution Expiration Date: Thawing Solution Thawing Solution Lot Number Thawing Solution Expiration Date Preparation Materials, Other Preparation Materials, Other Lot Number Preparation Materials, Other Expiration Date Tissue Prepared/Processed By Retail Advertising Account Executive Yes Paperwork Completed Implant Type Comment Last Modified By: CEASAR DELEON RN BRADY, CHRISTINA M, RN BRADY, CHRISTINA M, RN 06/10/20 11:58:30 06/10/20 13:26:31 06/10/20 13:26:31 Entry 4 Entry 5 Type Implant (Synthetic) Implant (Synthetic) Implant Log Implant Type Hardware Hardware Tissue Implant Type Implant JACKIE SPINE VIPER MIS GREER PLY SCRW SET Identification [id number] Description Implant Quantity 2 4 Implant Site OP SITE OP SITE Implant Identification Model Number Implant Identification Serial Number Implant Identification Lot Number Implant J&J:Depuy:Depuy Spine J&J:Depuy:Depuy Spine Identification Retail Advertising Account Executive Name: Implant [id number] Identification Catalog Number Implant Size Implant Has an Expiration Date Implant Expiration Date Wasted Radioactive Material Time Implanted Tissue Implant Continue for Tissue Implant Documentation Tissue Identification Number Graft Prep Per Retail Advertising Account Executive Instructions: Tissue Preparation Method: Reconstitution Solution: Reconstitution Solution Lot Number Reconstitution Solution Expiration Date: Thawing Solution Thawing Solution Lot Number Thawing Solution Expiration Date Preparation Materials, Other Preparation Materials, Other Lot Number Preparation Materials, Other Expiration Date Tissue Prepared/Processed By Retail Advertising Account Executive Paperwork Completed Implant Type Comment Last Modified By: CEASAR DELEON RN BRADY, CHRISTINA M, RN 06/10/20 13:26:31 06/10/20 13:26:31 [facility] IntraOp Implant Log Audit 06/10/20 13:26:31 Pressure Supervisor: MELIA Modifier: MELIA <+> 2 Implant Identification Description <+> 2 Implant Identification Retail Advertising Account Executive Name: <+> 2 Implant Site <+> 2 Implant Quantity <+> 2 Implant Identification Catalog Number <+> 2 Implant Type <+> 2 Type <+> 3 Implant Identification Description <+> 3 Implant Identification Retail Advertising Account Executive Name: <+> 3 Implant Site <+> 3 Implant Quantity <+> 3 Implant Identification Catalog Number <+> 3 Implant Type <+> 3 Type <+> 4 Implant Identification Description <+> 4 Implant Identification Retail Advertising Account Executive Name: <+> 4 Implant Site <+> 4 Implant Quantity <+> 4 Implant Identification Catalog Number <+> 4 Implant Type <+> 4 Type <+> 5 Implant Identification Description <+> 5 Implant Identification Retail Advertising Account Executive Name: <+> 5 Implant Site <+> 5 Implant Quantity <+> 5 Implant Identification Catalog Number <+> 5 Implant Type <+> 5 Type [facility] IntraOp Intraoperative Assessment Entry 1 Handoff Method Bedside/Face to face, Phone call Valid History / Yes Physical in Chart Preoperative No Checklist Reviewed/Evaluated Allergies Reviewed Yes Patient is Latex No Sensitive Isolation Not applicable Precautions Noted Level of WDL Consciousness (WDL = Alert, Oriented to Person, Place, and Time) Skin Assessment Yes Verified Present Upon IVs Arrival to OR Last Modified By: CEASAR DELEON RN 06/10/20 11:53:44 [facility] IntraOp Intraoperative Equipment Entry 1 Type Equipment Equipment Equipment Charisma Suction System Intraop Monitoring Antiembolic Devices Antiembolic Devices Sequential compression device, knee high Antiembolic Device Bilateral Location Scopes Photo/Video Documentation Last Modified By: CEASAR DELEON RN 06/10/20 11:54:52 [facility] IntraOp Medication Admin Entry 1 Entry 2 Entry 3 Medication/Irrigant Bacitracin 50,00units lidocaine 1% w/ Neosporin 15Gm ointment powder vial epinephrine 1:100,000 - [id number] 30ml vial - [id number] Combo Med List Time Administered Route of IRRIGATION LOCAL TOPICAL Administration Dose Dose 61970 10 Unit of Measure units ml Volume Administered By MARLO RIOS TUTT, MATTHEW PAIGE, TUTT, MATTHEW PAIGE, MD-SNU MD-SNU MD-SNU Procedure Irrigation Irrigant Volume In Irrigant Volume Out Last Modified By: CEASAR DELEON RN BRADY, CHRISTINA M, RN BRADY, CHRISTINA M, RN 06/10/20 11:55:52 06/10/20 11:55:52 06/10/20 11:55:52 Entry 4 Entry 5 Medication/Irrigant thrombin 5000units SPNG SURGFOAM topical powder - [id number] Combo Med List Time Administered Route of TOPICAL TOPICAL Administration Dose Dose 5000 Unit of Measure units Volume Administered By MAROL RIOS TUTT, MATTHEW PAIGE, MD-SNU MD-SNU Procedure Irrigation Irrigant Volume In Irrigant Volume Out Last Modified By: CEASAR DELEON RN BRADY, CHRISTINA M, RN 06/10/20 11:55:52 06/10/20 11:55:52 [facility] IntraOp Patient Positioning Entry 1 Procedure MIS Posterior Fusion CT Guided Body Position Prone Left Arm Position Secured on padded arm board Right Arm Position Secured on padded arm board Left Leg Position Elevated Right Leg Position Elevated Feet Uncrossed Yes Pressure Points Yes Checked Positioning Devices Arm Board, Pillows, Pad, Arm, Safety Strap, Leg(s) Positioned By MARLO RIOS MD-SNU, CEASAR DELEON RN, Harish Vera CRNA Position Verified Positioning Yes Verified by Anesthesia Positioning Yes Verified by Surgeon Last Modified By: CEASAR DELEON RN 06/10/20 12:24:02 General Comments: AIRO TABLE WITH CHEST, HIP, & THIGH PADS USED. [facility] IntraOp Patient Positioning Audit 06/10/20 12:24:02 Pressure Supervisor: ADRIENNECM Modifier: BRADYCM 1 <*> Procedure MIS Posterior Fusion CT Guided 1 <+> Positioning Verified by Anesthesia 1 <+> Positioning Verified by Surgeon 1 <+> Positioned By [facility] IntraOp Sign In Entry 1 Patient, Site, Yes Procedure Identified Surgical Consent Yes Confirmed Relevant Surgical Yes Documents Available Surgical Site Yes Marked by person performing procedure Anesthesia Machine Yes Check Completed Medication Checks Yes Completed Allergies Yes Airway Difficult No Airway/Aspiration Risk Difficult No Airway/Aspiration Intervention Equipment Available Blood Loss Risk No Blood Loss No Intervention Equipment Prepared and Ready Blood Identifiers Not applicable Verified Per Policy Hypothermia Risk Yes Warming Measures Yes Taken Last Modified By: CEASAR DELEON RN 06/10/20 11:57:06 [facility] IntraOp Sign In Audit 06/10/20 11:57:06 Pressure Supervisor: MELIA Modifier: BRADYCM <+> 1 Difficult Airway/Aspiration Risk <+> 1 Difficult Airway/Aspiration Intervention Equipment Available <+> 1 Blood Loss Risk <+> 1 Blood Loss Intervention Equipment Prepared and Ready <+> 1 Hypothermia Risk <+> 1 Warming Measures Taken <+> 1 Blood Identifiers Verified Per Policy [facility] IntraOp Sign Out Entry 1 RN Confirmation Surgical Yes Procedure(s) Identified Instrument, Sponge Yes and Sharps Counts Correct/Documented Equipment Problems N/A Documented Specimen Labeled N/A Correctly Urinary Catheter N/A Documented in IView Russo Patient Yes Recovery Concerns Reviewed with Anesthesia Provider, Surgeon and RN Safety Checklist Yes Elements Complete? RN Sign Out Kip Schofield RN Signature RN Sign Out 06/10/20 13:41:00 Signature Date/Time Plan of Care Outcome - Fire Risk OUTCOME STATEMENT: Goal met Patient is free from injury related to surgical fire Plan of Care Outcome - Pt Positioning OUTCOME STATEMENT: Goal met Absence of signs and symptoms of positioning injury. Plan of Care Outcome - Skin Prep OUTCOME STATEMENT: Goal met Intraoperative care is consistent with measures to prevent infection Plan of Care Outcome - Xray/Images OUTCOME STATEMENT: Goal met Absence of observable signs or symptoms of radiation injury Plan of Care Outcome - Counts OUTCOME STATEMENT: Goal met Absence of signs and symptoms of injury related to extraneous objects Last Modified By: CEASAR DELEON RN 06/10/20 13:41:15 [facility] IntraOp Sign Out Audit 06/10/20 13:41:15 Pressure Supervisor: BRADYCM Modifier: BRADYCM <+> 1 RN Sign Out Signature <+> 1 RN Sign Out Signature Date/Time [facility] IntraOp Skin Prep Entry 1 Procedure MIS Posterior Fusion CT Guided Prescribed Yes Pre-Surgical Prep Completed Prep Area BACK Intraop Prep Integumentary WDL Assessment WDL Prep Agents Alcohol, Chlorhexadine gluconate, DuraPrep Prep by CEASAR DELEON RN Hair Removal Methods No hair removal performed Last Modified By: CEASAR DELEON RN 06/10/20 11:48:55 [facility] IntraOp Surgical Procedures Entry 1 Procedure MIS Posterior Fusion CT Guided Additional (MIS L4-5 TLIF) WITH Procedure AIRO Description Primary Procedure Yes Primary Surgeon MARLO RIOS MD-SNU Start 06/10/20 11:44:00 Stop 06/10/20 13:29:00 Anesthesia Type General Specialty SN Neurosurgery Wound Class I - Clean Last Modified By: CEASAR DELEON RN 06/10/20 13:29:21 [facility] IntraOp Surgical Procedures Audit 06/10/20 13:29:21 Pressure Supervisor: BRADYCM Modifier: BRADYCM <+> 1 Stop [facility] IntraOp Temp Regulation Devices Entry 1 Temp Regulation Temperature Forced Air Warming Regulation Device device Temperature Upper body Regulation Site Temperature MARLO RIOS, Regulation Device ANDREW Applied by Last Modified By: CEASAR DELEON RN 06/10/20 11:48:14 [facility] IntraOP Time Out Entry 1 Procedure to be MIS Posterior Fusion CT Performed Guided Time Out Time Out Pause Time 06/10/20 11:43:00 All activity Yes suspended (unless life threatening emergency) Team Verbally Correct patient Confirms Information identity, Correct side and site are marked, Consent form is present and accurate, Agreement on the procedure to be done, Correct patient position, Relevant images/results properly labeled/appropriately displayed, Confirm antibiotics have been administered, Confirm the skin prep has dried, Confirm prosthesis/implant/devic e is present, Performed in location of procedure after prepped/draped Antibiotic Yes Prophylaxis Administered Or In Progress Within the Last 60 Minutes Beta Analilia N/A Administered Venous Yes Thromboembolism Prophylaxis Required Anticipated Critical Events Surgeon None expected Anesthesia Provider None expected Nursing Assures Sterility of instruments, Equipment concerns or issues Essential Imaging Yes Labeled and Displayed Last Modified By: CEASAR DELEON RN 06/10/20 11:47:59 [facility] IntraOp X-Ray and Images Entry 1 X-Ray/Imaging Type Other Fluoroscopy Type Other Site OP SITE Motor Transport Inspector Name ZION GARCIA [facility] BRAINLAB AIRO Comment INTRAOPERATIVE CT SCANNER Last Modified By: CEASAR DELEON RN 06/10/20 12:25:21 [facility] IntraOp X-Ray and Images Audit 06/10/20 12:25:21 Pressure Supervisor: BRADYCM Modifier: BRADYCM 1 <*> Motor Transport Inspector Name Marah Kelly, Paper Latcher Case Comments <None> Finalized By: TONG MCGEE Document Signatures Signed By: CEASAR DELEON RN 06/10/20 13:41 TONG MCGEE 06/12/20 14:26 Unfinalized History Date/Time Username Reason for Unfinalizing Freetext Reason for Unfinalizing 06/12/20 14:24 [email or web address] Correct Billing Electronically signed by Meaghan [facility] Conversion Strip Cutting Machine Operator Cerner at 11/22/2022 2:59 PM CDT documented in this encounter Plan of Treatment Not on file documented as of this encounter Visit Diagnoses Not on filedocumented in this encounter
--- OUTSIDE RECORDS SUMMARY | 2025-06-28 14:47 | XMS_ITS | Encounter Summary ---
[facility] Organization [facility] Address [address] [place] [address] Care Team Providers Care Finisher Card Tender Name Role Phone TravisstephanieDeanagh Primary Care Provider [phone] Encounter Details Date Type Department Care Team (Late st Contact Info) Description 03/25/2025 Results Follow-Up [facility] ENDOCRINOLOGY [address] [facility] [address] [place] [address] Sara Arora PA [address] [facility] [address] [place] [address] Social History Tobacco Use Types Packs/Day Years [...] Feels Unsafe at Home or Work/School no 05/21/2023 Feels Threatened by Someone no 05/05 Does Anyone Try to Keep You From Having Contact with Others or Doing Things Outside Your Home? no 05/21/2023 Physical Signs of Abuse Present no 05/21/2023 Housing Stability Answer Date Recorded Current Living Arrangements home 05/05 Potentially Unsafe Housing Conditions none 05/21/2023 Disabilities Answer Date Recorded Difficulty Concentrating, Remembering or Making Decisions no 05/21/2023 Difficulty Managing Errands Independently no 05/21/2023 Education Answer Date Recorded Help with school or training? Not on file Preferred Language Mozambican 05/21/2023 Comments No Sex and Gender Information Value Date Recorded Sex Assigned at Female 12/28/2024 10:17 AM EDT Legal Sex Female 11:26 AM EDT Gender Identity Not on file Sexual Orientation Straight 12/28/2024 10 :17 AM EDT documented as of this encounter Plan of Treatment Upcoming Encounters Date Type Department Care Team (Late st Contact Info) Description 07/07/2025 10:30 AM EST Office Visit [facility] ORTHOP[facility]ICS & SPORTS MEDICINE [address] [address] Germania Perry PA-C [address] [address] 09/23/2025 1:00 PM EST Office Visit [facility] ENDOCRINOLOGY [address] [address] Sara Arora PA [address] [address] documented as of this encounter Visit Diagnoses Not on filedocumented in this encounter Care Teams Finisher Card Tender Relationship Specialty Start Date End Date Deana Veras DO [facility] [place] [address] PCP - General 10/06/15 documented as of this encounter
--- OUTSIDE RECORDS SUMMARY | 2025-06-28 14:47 | XMS_ITS | Encounter Summary ---
Author Organization [employer] ([place], [place], [place], [place], [place]) Address [address] [place] [address] Care Team Providers Care Clock And Watch Hands Dipper Name Role Phone Unavailable Primary Care Provider Unavailabl e Encounter Details Date Type Department Care Team (Late st Contact Info) Description 06/10/2020 Transcribed Document [facility] Family Medicine [address] [place] [address] ProviderTai MD [address] [place] [id number] Social History Tobacco Use Types Packs/Day Years Used Date Smoking Tobacco: Never Assessed Comments Unknown Sex and Gender Information Value Date Recorded Sex Assigned at Not on file Legal Sex Female 5:29 PM CDT Gender Identity Not on file Sexual Orientation Not on file documented as of this encounter Miscellaneous Notes * [employer]ner Conversion Note - Historical ProviderMD - 06/10/2020 11:44 AM SALES 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 Main OR PACU Summary Primary Physician: MARLO RIOS MD-SNU Finalized Date/Time: 06/10/20 15:11:02 Pt. Name: MARAH GONZALEZ/Sex: 1955 Female Med Rec #: [id number] Physician: MARLO RIOS MD-SNU Financial #: [id number] Pt. Type: I Room/Bed: 637/1 Admit/Disch: 06/10/20 07:02:00 - Institution: [facility] Main OR PACU I Case Times Entry 1 In PACU I 06/10/20 13:40:00 Ready for PACU 06/10/20 15:00:00 Discharge Discharge from PACU 06/10/20 15:00:00 I Last Modified By: MIKE PAYTON RN 06/10/20 15:09:28 Finalized By: MIKE PAYTON RN Document Signatures Signed By: MIKE PAYTON RN 06/10/20 15:11 Electronically signed by [facility] Conversion Emt Dispatcher Cerner at 11/22/2022 2:52 PM CDT documented in this encounter Plan of Treatment Not on file documented as of this encounter Visit Diagnoses Not on filedocumented in this encounter
--- OUTSIDE RECORDS SUMMARY | 2025-06-28 14:47 | XMS_ITS | Clinical Summary ---
Author Organization [employer] ([place], [place], [place], [place], [place]) Address [address] [place] [address] Care Team Providers Care Plastic Installer Name Role Phone Unavailable Primary Care Provider Unavailabl e Social History Tobacco Use Types Packs/Day Years Used Date Smoking Tobacco: Never Assessed Comments Unknown Sex and Gender Information Value Date Recorded Sex Assigned at Not on file Legal Sex Female 5:29 PM CDT Gender Identity Not on file Sexual Orientation Not on file Plan of Treatment Not on file
--- OUTSIDE RECORDS SUMMARY | 2025-06-28 14:47 | XMS_ITS | Encounter Summary ---
Author Organization [employer] ([place], [place], [place], [place], [place]) Address [address] [place] [address] Care Team Providers Care Childcare Aide Name Role Phone Unavailable Primary Care Provider Unavailabl e Encounter Details Date Type Department Care Team (Late st Contact Info) Description 06/10/2020 Transcribed Document [facility] Medicine [address] [place] [address] ProviderTai MD [address] [place] [id number] Social History Tobacco Use Types Packs/Day Years Used Date Smoking Tobacco: Never Assessed Comments Unknown Sex and Gender Information Value Date Recorded Sex Assigned at Not on file Legal Sex Female 5:29 PM CDT Gender Identity Not on file Sexual Orientation Not on file documented as of this encounter Miscellaneous Notes * [employer]ner Conversion Note - Historical ProviderMD - 06/10/2020 3:03 PM POLICY SERVICES REPRESENTATIVE Event Note Entered On: 06/10/2020 15:04 EST Performed On: 06/10/2020 15:03 EST by MIKE PAYTON RN Event Note Event Date/Time : 06/10/2020 14:45 EST Description of Event : Discussion with provider, Pt is nauseated 1/2 dose of phenergan order in PACU MIKE PAYTON RN - 06/10/2020 15:03 EST documented in this encounter Plan of Treatment Not on file documented as of this encounter Visit Diagnoses Not on filedocumented in this encounter
--- OUTSIDE RECORDS SUMMARY | 2025-06-28 14:47 | XMS_ITS | Encounter Summary ---
Author Organization [employer] ([place], [place], [place], [place], [place]) Address [address] [place] [address] Care Team Providers Care Tourist Agent Name Role Phone Unavailable Primary Care Provider Unavailabl e Encounter Details Date Type Department Care Team (Late st Contact Info) Description 06/10/[address] [facility] [address] [facility] [address] [place] [address] Dave Fatima MD [address] [facility] [address] [place] [address] Social History Tobacco Use Types Packs/Day Years Used Date Smoking Tobacco: Never Assessed Comments Unknown Sex and Gender Information Value Date Recorded Sex Assigned at Not on file Legal Sex Female 5:29 PM CDT Gender Identity Not on file Sexual Orientation Not on file documented as of this encounter Miscellaneous Notes * Cerner Conversion Note - Dave Fatima MD - 06/10/2020 2:50 PM EST DATE OF PROCEDURE: 06/10/2020 SURGEON: Dave Fatima MD PRIMARY CARE PHYSICIAN: Deana Veras. PREOPERATIVE DIAGNOSIS: L4-5 spondylolisthesis. POSTOPERATIVE DIAGNOSIS: L4-5 spondylolisthesis. INDICATION FOR PROCEDURE: L4-5 spondylolisthesis. PROCEDURES: 1. Minimally invasive L4-5 transforaminal lumbar interbody fusion. 2. Intraoperative CT scan with stereotactic navigation. 3. Use of intraoperative microscope. 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 DESCRIPTION OF PROCEDURE IN DETAIL: Once consent was noted to be on chart, Ms. Gonzalez was taken to the operating room. She was anesthetized and placed into the prone position on a Pako spine frame. All pressure points were carefully checked and padded. Preoperative antibiotics were given. A time-out was called. A low-dose CT scan was performed to plan the skin incisions as well as placed 2 Steinmann pins into the right iliac crest. A 2-pin fixator was placed on these pins and reference array for further stereotactic navigation. Vertical incisions were made approximately an inch in length, 5.5 cm bilateral to the midline at L4-5. The fascia was incised and a tubular dilator system was docked on the left at L4-5. The operating microscope was brought into the field. A high-speed drill and #2 and #3 Kerrison were used to perform a facetectomy on the left and a minimally invasive laminectomy across the midline for full decompression. The disk space was exposed. The medial facetectomy was performed on the left and right out to the medial pedicle wall of L5. The hemilaminectomy on the left extended upward and as we retracted the L5 nerve root, there were several large disk herniations which had herniated superiorly, which were resected. An annulotomy was performed and a complete diskectomy was performed. An 11 mm carbon fiber spacer packed with ViviGen and recycled lamina was placed into the disk space across the midline. The wound was copiously irrigated. No CSF was visualized. The retractor was removed after meticulous hemostasis obtained. A CT scan was performed of the L4-5 segment using the [employer] System along with the stereotactic navigation. 45 x 6 mm screws were placed into the pedicles at L4 and L5 bilaterally. A matthew was placed from L4 to L5 and set screws torqued to factory specimens. SPECIFICATIONS: Extension tabs were removed. 2-0 Vicryl closed the space and closed the skin subcuticularly. The skin was stapled. Bacitracin and Covaderm were applied. Steinmann pins were removed and ganes placed. SPECIMEN SENT: None. ESTIMATED BLOOD LOSS: 75 mL. DRAINS: None. COMPLICATIONS: None. /[id number] MD BARRY Christopher/JORGE / BARRY / MODL /[id number] CC: DO Maycol Denton documented in this encounter Plan of Treatment Not on file documented as of this encounter Visit Diagnoses Not on filedocumented in this encounter
--- OUTSIDE RECORDS SUMMARY | 2025-06-28 14:47 | XMS_ITS | Encounter Summary ---
Author Organization [employer] ([place], [place], [place], [place], [place]) Address [address] [facility] [address] [place] [address] Care Team Providers Care Repair Operator Name Role Phone Unavailable Primary Care Provider Unavailabl e Encounter Details Date Type Department Care Team (Late st Contact Info) Description 06/10/2020 Transcribed Document [facility] Radiology 1 [place] [address] Lala Godoy MD [address] [place] [address] Social History Tobacco Use Types Packs/Day Years Used Date Smoking Tobacco: Never Assessed Comments Unknown Sex and Gender Information Value Date Recorded Sex Assigned at Not on file Legal Sex Female 5:29 PM CDT Gender Identity Not on file Sexual Orientation Not on file documented as of this encounter Miscellaneous Notes * Cerner Conversion Note - Lala Godoy MD - 06/10/2020 11:11 AM EST Patient: MARAH GONZALEZ Age: 64 years Sex: Female : 1955 Associated Diagnoses: None Author: NATE LAWSON APRN-FAM 06/10/2020 cc: medical management awaiting posterior lumbar fusion per Dr. Fatima HPI: Patient is a 64 yo female admitted to [facility] per Dr. Fatima for a posterior lumbar fusion. Preoperatively patient was found to have advanced spondylolisthesis of the lumbar spine and elected surgical intervention after failing conservative treatment. Patient is followed perioperatively while hospitalized for medical management. patient is seen initially in preop. A/O. Has tolerated anesthesia on previous surgeries. Denies hx CVA, seizures, DVT, or sleep apnea. Non smoker. No alcohol use. No recent respiratory illness or antibiotics. Hx thyroid cancer- thyroid removed. HTN controlled on home meds. No incontinence. Hx diverticulitis with ileostomy- since reversed. Past Med Hx: Active Problems (11) Arthritis At risk for sleep apnea Back pain Chronic constipation Diverticulitis High blood pressure Hyperlipidemia Hypothyroidism after thyroidectomy for CA Ileostomy, history of, now reversed Peripheral neuropathy Seasonal allergies Active Procedures (15) bilateral quad blepharoplasty Bunionectomy bunionectomy colon resection emergency colon resection with ileostomy placement Endoscopic sinus surgery hammer toe repair Hysterectomy and bilateral salpingo-oophorectomy sample ileostomy reversal minimally invasive lumbar decompression parathroidectomy pelvic floor Cystocele repair pelvic organ prolapse rectocele repair Total Thyroidectomy vaginal vault suspension Family Hx: mother- 84yo DMII, [place] father- 66yo heart disease Social & Psychosocial Habits Alcohol 06/07/2020 Alcohol Use History, Social Habits Yes Days Per Week of Alcohol Use 1 Alcohol Use Frequency Monthly Employment/School 06/07/2020 Status: Retired Exercise Comment: none d/t back pain - 06/07/2020 14:27 - Renata Hinds RN Home/Environment 06/07/2020 Lives with: Spouse Nutrition/Health 06/07/2020 Type of diet: Regular Substance Abuse 06/07/2020 Recreational Drug Use History No Tobacco 06/07/2020 Smoking Status Never (less than 100 in l Smokeless Tobacco Status Never Allergies (1) Active Reaction Tape None Documented Home Medications (13) Active Angie 180 mg, Oral, Daily biotin 5,000 mcg, Oral, BID bisoprolol 5 mg, Oral, Daily black currant seed oil 1 Tab, Oral, BID Chewable Calcium with Vitamin D 1 Tab, Chew, Daily estradiol 0.075 mg/24 hours weekly transdermal film, extended release , Topical, [facility] fenofibrate 145 mg oral tablet 145 mg = 1 Tab, Oral, Daily Fish Oil 1000 mg oral capsule 1,000 mg = 1 Cap, Oral, BID Flonase 1 [place], Nostrils Both, Daily ipratropium 21 mcg/inh (0.03%) nasal spray 2 [place], Nasal, BID levothyroxine 175 mcg, Oral, Daily magnesium chloride 250 mg, Oral, BID omeprazole 20 mg, Oral, BID Constitutional: [No fevers, chills Eye: [No recent visual problems, eye discharge, eye pain, redness] HEENT: [No nasal congestion, sore throat, voice changes] Respiratory: [No shortness of breath, cough, pain on breathing, sputum production] Cardiovascular: [No Chest pain, palpitations, syncope, shortness of breath while laying flat] Gastrointestinal: [No nausea, vomiting, diarrhea, constipation] Genitourinary: [No hematuria, dysuria, incontinence Musculoskeletal: LBP with decreased ROM Integumentary: [No rash, pruritus Neurologic: +LLE weakness and pain Psychiatric: [No anxiety, depression Exam: Vitals Signs (last 24 hrs) Last Charted Minimum Maximum Temp 96.8 (JUN 10 08:43) 96.8 (JUN 10 08:43) 96.8 (JUN 10 08:43) Mon HR 87 (JUN 10 08:43) 87 (JUN 10 08:43) 87 (JUN 10 08:43) Resp Rate 20 (JUN 10 08:43) 20 (JUN 10 08:43) 20 (JUN 10 08:43) SBP 118 (JUN 10 08:43) 118 (JUN 10 08:43) 118 (JUN 10 08:43) DBP 85 (JUN 10 08:43) 85 (JUN 10 08:43) 85 (JUN 10 08:43) SpO2 99 (JUN 10 08:43) 99 (JUN 10 08:43) 99 (JUN 10 08:43) General: [Alert and oriented, no acute distress]. Neurologic: [Awake, alert, and oriented X3, CN II-XII intact]. Eye: [PERRL, EOMI, normal conjunctiva]. HENT: [Normocephalic, normal hearing, moist oral mucosa, no scleral icterus Neck: [Supple, non-tender, no lymphadenopathy]. Lungs: [Clear to auscultation, non-labored respiration]. Heart: [Normal rate, regular rhythm, no edema]. Abdomen: [Soft, non-tender, non-distended, normal bowel sounds, +obese abdomen Musculoskeletal: LBP with decreased ROM Skin: [Skin is warm, dry and pink, no rashes or lesions]. Psychiatric: [Cooperative, appropriate mood and affect]. Data: Labs (Last four charted values) WBC 8.7 (JUN 08) HB 15.0 (JUN 08) HCT H 46.2 (JUN 08) Plt 311 (JUN 08) Na 141 (JUN 08) K 3.6 (JUN 08) Cl 111 (JUN 08) CO2 26 (JUN 08) BUN H 28 (JUN 08) Cr 1.00 (JUN 08) Glu R H 133 (JUN 08) Ca L 8.3 (JUN 08) Impression; advanced spondylolisthesis Lspine -Awaiting a PLIF per Dr. Fatima obesity at risk for sleep apnea Hx HTN Hx thyroid cancer- removed Hx diverticulitis Hx peripheral neuropathy Plan: Monitor HTN; add PRN's, hold parameters bowel regimen incentive spirometer PT/OT DVT prophylaxis noted Pain management deferred to surgeon will monitor hb/hct daily for signs of ongoing acute blood loss will monitor bun/cr daily for signs of dehydration, prerenal azotemia will monitor for signs/symptoms of post-op wound infection or hospital acquired infectious process resume outpatient medication regimen for comorbidities assessment and treatment plan made in conjunction with Austin Godoy MD Scribed by Paola Alston documented in this encounter Plan of Treatment Not on file documented as of this encounter Visit Diagnoses Not on filedocumented in this encounter
--- OUTSIDE RECORDS SUMMARY | 2025-06-28 14:47 | XMS_ITS | Encounter Summary ---
Author Organization [employer] ([place], [place], [place], [place], [place]) Address [address] [address] Care Team Providers Care Public Health Professor Name Role Phone Unavailable Primary Care Provider Unavailabl e Encounter Details Date Type Department Care Team (Late st Contact Info) Description 06/03/2020 Transcribed Document [facility] [place] [address] [place] [address] ProviderTai MD [address] [place] [id number] Social History Tobacco Use Types Packs/Day Years Used Date Smoking Tobacco: Never Assessed Comments Unknown Sex and Gender Information Value Date Recorded Sex Assigned at Not on file Legal Sex Female 5:29 PM CDT Gender Identity Not on file Sexual Orientation Not on file documented as of this encounter Miscellaneous Notes * Cerner Conversion Note - Historical ProviderMD - 06/03/2020 1:38 PM CDT UM Authorization Entered On: 06/03/2020 13:39 EDT Performed On: 06/03/2020 13:38 EDT by JULIA SOUZA RN-Utilization Review Primary Insurance Authorization Authorization and Policy Numbers : Insurance 1 Health Plan: [employer] Policy Number: [id number] Authorization Number: Insurance Primary Name : [employer] Policy Number: [id number] Authorization Status-Primary : Notification only Reference Number-Primary : [id number] Authorization Number-Primary : [id number] Authorized Service Begin Date-Primary : 06/10/2020 EST Authorization Comments-Primary : [employer] Medicare approved per availity for inpt Historical Authorization Comments-Primary : No Authorization Comments Found JULIA SOUZA RN-Utilization Review - 06/03/2020 13:38 EDT documented in this encounter Plan of Treatment Not on file documented as of this encounter Visit Diagnoses Not on filedocumented in this encounter
--- OUTSIDE RECORDS SUMMARY | 2025-06-28 14:47 | XMS_ITS | Encounter Summary ---
[facility] Organization [facility] Address [address] [place] [address] Care Team Providers Care Vice President Of Nursing Name Role Phone TravisstephanieDeanagh Primary Care Provider [phone] Encounter Details Date Type Department Care Team (Late st Contact Info) Description 03/23/2025 Results Follow-Up [facility] ENDOCRINOLOGY [address] [facility] [address] [place] [address] Sara Arora PA [address] [facility] [address] [place] [address] Social History Tobacco Use Types [...] or training? Not on file Preferred Language Burundian 05/21/2023 Comments No Sex and Gender Information Value Date Recorded Sex Assigned at Female 12/28/2024 10:17 AM EDT Legal Sex Female 11:26 AM EDT Gender Identity Not on file Sexual Orientation Straight 12/28/2024 10 :17 AM EDT documented as of this encounter Plan of Treatment Upcoming Encounters Date Type Department Care Team (Late st Contact Info) Description 07/07/2025 10:30 AM EST Office Visit [facility] ORTHOPEDICS & SPORTS MEDICINE [address] [address] Germania Perry PA-C [address] [address] 09/23/2025 1:00 PM EST Office Visit [facility] ENDOCRINOLOGY [address] [address] Sara Arora PA [address] [address] documented as of this encounter Visit Diagnoses Not on filedocumented in this encounter Care Teams Vice President Of Nursing Relationship Specialty Start Date End Date Deana Veras DO [facility] [place] [address] PCP - General 10/06/15 documented as of this encounter
--- OUTSIDE RECORDS SUMMARY | 2025-06-28 14:48 | XMS_ITS | Encounter Summary ---
Author Organization [facility] Address [address] [place] [address] Care Team Providers Care Mangle Operator Garments Name Role Phone Deana Verasgh Primary Care Provider [phone] Encounter Details Date Type Department Care Team (Latest Contact Info) Description 05/04/2025 Travel Social History Tobacco Use Types Packs/Day Years [...] or training? Not on file Preferred Language Moroccan 04/20/2025 Comments No Sex and Gender Information [...] 8:31 AM EDT Stephanie Tierney RN * Day Suicide Severity Rating Scale (Screener/Recent Self-Report) Question Answer Date of Assessment Author 6. Suicidal Behavior (Lifetime) No 8:31 AM EDT Stephanie Tierney RN documented as of this encounter Plan of Treatment Upcoming Encounters Date Type Department Care Team (Late st Contact Info) Description 07/07/2025 10:30 AM EST Office Visit [facility] ORTHOPEDICS & SPORTS MEDICINE [address] [address] Germania Perry PA-C [address] [address] 09/23/2025 1:00 PM EST Office Visit [facility] ENDOCRINOLOGY [address] [address] Sara Arora PA [address] [id number] documented as of this encounter Visit Diagnoses Not on filedocumented in this encounter Care Teams Mangle Operator Garments Relationship Specialty Start Date End Date Deana Veras DO [facility] [place] [address] PCP - General 10/06/15 documented as of this encounter
--- OUTSIDE RECORDS SUMMARY | 2025-06-28 14:48 | XMS_ITS | Encounter Summary ---
Author Organization Healthcare Address [address] [place] [address] Care Team Providers Care Oil Well Shooter Name Role Phone Deana Veras Primary Care Provider [phone] Encounter Details Date Type Department Care Team (Late st Contact Info) Description 03/21/2022 Lab Requisition [facility] [address] [place] [address] Sara Arora PA [address] [place] [id number] Encounter for general adult medical examination without abnormal findings Social History Tobacco Use Types Packs/Day Years [...] Description 02/09/2026 1:40 PM EDT Office Visit [facility] [address] [place] [address] Carlton Vaz MD [address] [place] [phone] documented as of this encounter Procedures Procedure Name Priority Date/Time Associated Diagnosis Comments THYROGLOBULIN (INHOUSE- REFLEX ONLY) Routine 03/20/2022 3:00 PM EDT Encounter for general adult medical examination without abnormal findings THYROGLOBULIN ANTIBODY Routine 3:00 PM EDT Encounter for general adult medical examination without abnormal findings documented in this encounter Results * Thyroglobulin (InHouse) (03/20/2022 3:00 PM EDT) Thyroglobulin (Inhouse) 0.1 <=34.0 ng/mL 03/21/2022 11:47 AM EDT [facility] Blood Venous blood specimen / Unknown 03/20/2022 3:00 PM EDT 03/21/2022 9:27 AM EDT Narrative [facility] - 03/21/2022 11:47 AM EDT Performed by [employer] 2nd generation TG chemiluminescent immunoassay. Results obtained with different test methods or kits cannot be used interchangeably. Sara GUTIERREZ LAB BLOOD ORDERABLES Final Re sult Performing Organization Address [facility] Co de Phone Number [facility] [address] [place] [address] * Thyroglobulin Antibody (03/20/2022 3:00 PM EDT) Thyroglobulin Antibody <1.0 <4.0 IU/mL 03/21/2022 11:46 AM EDT [facility] Blood Venous blood specimen / Unknown 03/20/2022 3:00 PM EDT 03/21/2022 9:27 AM EDT Saraarmando Arora PA LAB BLOOD ORDERABLES Final Re sult Performing Organization Address City/[facility] Co de Phone Number [facility] [address] [place] [address] documented in this encounter Visit Diagnoses Diagnosis Encounter for general adult medical examination without abnormal findings documented in this encounter Care Teams Oil Well Shooter Relationship Specialty Start Date End Date Deana Veras DO [address] [place] [address] PCP - General 12/25/23 documented as of this encounter
--- OUTSIDE RECORDS SUMMARY | 2025-06-28 14:48 | XMS_ITS | Encounter Summary ---
Author Organization [facility] Address [address] [place] [address] Care Team Providers Care Motor Vehicle Operator Road Supervisor Name Role Phone Travisstephanie Deanamarco antonio Hinklegh Primary Care Provider [phone] Reason for Visit * Reason Onset Date Comments 1 week post-op call 05/11/2025 Encounter Details Date Type Department Care Team (Late st Contact Info) Description 05/11/2025 Telephone [facility] [address] [place] [address] Romero Hall MD [address] [place] [address] 1 week post-op call Social History Tobacco Use Types Packs/Day Years [...] or training? Not on file Preferred Language Palauan 04/20/2025 Comments No Sex and Gender Information Value Date Recorded Sex Assigned at Female 12/28/2024 10:17 AM EDT Legal Sex Female 11:26 AM EDT Gender Identity Not on file Sexual Orientation Straight 12/28/2024 10 :17 AM EDT documented as of this encounter Miscellaneous Notes * Telephone Encounter - Rashid Woodson - 05/13/2025 3:32 PM EDT Patient called back but had to leave a voicemail. Requested a call back. Rashid OttJOHANA)ALEXANDRA * Telephone Encounter - Rashid Woodson - 05/11/2025 11:34 AM EDT LVM with pt to see how she was doing 7 days s/p L TKA. Requested a call back. ALEXANDRA Hardy CMA (AAMA) * Telephone Encounter - Rashid Woodson - 05/11/2025 11:32 AM EDT Post-op Call # of days out from surgery: 7 days s/p L TKA Pain: Swelling: Current medications: Any refills needed: Incision: PT: [facility]: DVT prophylaxis: documented in this encounter Plan of Treatment Upcoming Encounters Date Type Department Care Team (Late st Contact Info) Description 07/07/2025 10:30 AM EST Office Visit [facility] [address] [address] Germania Perry PA-C [address] [facility] [address] [place] [address] 09/23/2025 1:00 PM EST Office Visit [facility] [address] [facility] [address] [place] [address] Sara Arora PA [address] [phone] documented as of this encounter Visit Diagnoses Not on filedocumented in this encounter Care Teams Motor Vehicle Operator Road Supervisor Relationship Specialty Start Date End Date Deana Veras DO [address] [place] [id number] PCP - General 10/06/15 documented as of this encounter
--- OUTSIDE RECORDS SUMMARY | 2025-06-28 14:48 | XMS_ITS | Data Portability ---
Author Organization [facility] TAL Joe FRISCO CLOSED Address [address] [place] [address] Care Team Providers Care Masonry Instructor Name Role Phone XAVIER TIWARI Primary Care Provider [phone] KELSEA COOL Referring Provider [phone] Assessment No assessment recorded. Plan of Treatment Reminders Order Date Submit Date Provider Last Modified By Organization Details Last Modified Time Details Appointments DERM VISIT 2024 03:00P M MALCOLM AVITIA COREMAKER BENCH Not available Not available Not available Lab surgical pathology study 2023 [facility], [address] [place] [address], [phone], 05/14/2024 09:13:27 surgical pathology study 2023 [facility], [address] [place] [address], [phone], 01/29/2024 10:52:29 Referral None recorded. Procedures None recorded. Surgeries None recorded. Imaging None recorded. Medication Orders fluoroura cil 5 % topical solution 2023 [facility], [address] [place] [address] [place], [id number], 07/06/2024 14:38:27 Patient TargetsNo targets recorded. Patient Instructions Encounter Date Encounter Id Patient Instructions Last Modified By Organization Details Last Modified Time 01/24/2023 [id number] Risks/Benefits/O p tions/Side Effects of diagnosis and treatment discussed. UV protection and signs of skin cancer discussed [email or web address] Not available 01/24/2023 14:00:29 01/28/2024 [id number] Risks/Benefits/O p tions/Side Effects of diagnosis and treatment discussed. UV protection and signs of skin cancer discussed [email or web address] Not available 01/28/2024 11:56:10 05/13/2024 [id number] Risks/Benefits/O p tions/Side Effects of diagnosis and treatment discussed. UV protection and signs of skin cancer discussed [email or web address] Not available 05/05/2024 15:34:29 01/27/2025 [id number] Risks/Benefits/O p tions/Side Effects of diagnosis and treatment discussed. UV protection and signs of skin cancer discussed [email or web address] Not available 01/27/2025 11:54:15 Reason for Referral None Reported. Results Created Date Observation Date Name Description Value Unit Range Abnormal Flag Note LastModifiedBy Organization Detail LastModifiedTime 01/28/20 24 01/28/2024 SURGI MATTHEW surgical SEE BELOW abnormal Depar tment of Patho logy Surgi matthew Patho logy Repor t NAME: MARAH GOSS PATH. 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 SOURC E OF SPECI MEN: SKIN BIOPS Y, FRONT AL CROWN CLINI MATTHEW INFOR MATIO N: D48.5 NEOPL ASM OF UNCER TAIN BEHAV IOR SKIN ISK R/O SCC Gross Descr iptio n: Recei fred in forma pierce label ed with the patie nt's name and desig nated fron dexter crown is a shave biops y of skin (0.7 x 0.8 x 0.2 cm). The epide rmal surfa ce is white and unrem arkab le. The joce n is inked blue. The speci men is bisec min and entir tanya submi tted in one casse tte label ed A1. LP 01/27 07:15 PM Micro scopi c Descr iptio n: A micro scopi c exami natio n has been perfo rmed and the resul t(s) are as noted above . SOLITARIO GONSALEZ M.D. Karina d Out Date: 01/28 10:52 Page 1 of 1 Not Available [facility] [address] [place], [address], 01/29/2024 10:52:29 05/13/20 24 05/13/2024 SURGI MATTHEW surgical SEE BELOW abnormal Depar tment of Patho logy Surgi matthew Patho logy Repor t NAME: MARAH GSOS PATH. 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 SOURC E OF SPECI MEN: SKIN BIOPS Y, FRONT AL CROWN CLINI MATTHEW INFOR MATIO N: D48.5 SPECI MEN COLLE CTION NOTES : R/O SCCIS Gross Descr iptio n: Recei fred in forma pierce label ed with the patie nt's name and desig nated fron dexter crown is a shave biops y of skin (0.9 x 0.7 x 0.3 cm). The epide rmal surfa ce is hugo-w rody and hugo-p ink, varie gated , granu lar, and rough ened. The joce n is inked blue. The speci men is trise cted and entir tanya submi tted in one casse tte label ed A1. SB 05/13 04:51 PM Micro scopi c Descr iptio n: A micro scopi c exami natio n has been perfo rmed and the resul t(s) are as noted above . SOLITARIO GONSALEZ M.D. Karina d Out Date: 05/14 09:13 Page 1 of 1 Not Available [facility] [address] [place], [address], 05/14/2024 09:13:27 Result Notes None recorded. 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 Active 2015 From Automated Load;Provi andi: Malcolm Avitia; atus: Active Not Available [facility] 6 09:41:13 Senile hyperkera tosis 022930680 Active 2015 From Automated Load;Provi andi: Malcolm Avitia;St atus: Active Not Available [facility] 6 09:41:13 Lentigo Active 2015 From Automated Load;Provi andi: Malcolm Avitia;St atus: Active Not Available [facility] 6 09:41:13 Hemangiom a 877083776 Active 2015 From Automated Load;Provi andi: Malcolm Avitia;St atus: Active Not Available [facility] 6 09:41:13 Lumbar radiculop athy 599817619 Active 2021 SAEID ARELLANO PA-C [address] [place], [address] , [facility] 09:37:19 Problem Notes None recorded. Procedures Surgical History Date Name Laterality Status Provider Name and Address Organization Details Recorded Time 01/28/20 Destruction BN Lesions completed Stephanie Lopez [facility] 01/27/2025 13:50:44 05/13/20 Destruction MN Lesion; scalp, neck, hand, foot, genitalia completed MALCOLM AVITIA, NANCY [address] [place], [address], [facility] 05/13/2024 12:20:36 05/13/20 24 Destruction Premalignant Lesion(s) completed Brielle Duran [facility] 05/13/2024 10:41:34 01/30/20 24 Destruction MN Lesion; scalp, neck, hand, foot, genitalia completed MALCOLM AVITIA APRN [address] [place], [address], [facility] 01/30/2024 12:11:16 01/28/20 24 Biopsy Skin Lesion; Tangential completed Torri Blackmon [facility] 01/28/2024 12:03:55 01/28/20 24 Destruction BN Lesions completed Torri Blackmon [facility] 01/28/2024 12:06:36 01/25/20 23 Destruction Premalignant Lesion(s) completed Ashley Nae [facility] 01/24/2023 14:01:36 01/26/20 22 Destruction Premalignant Lesion(s) completed Ashley Nae [facility] 01/25/2022 13:53:20 08/15/19 22 Destruction Premalignant Lesion(s) completed MARYANN JAQUEZ COREMAKER BENCH [address] [place], [address], [facility] 08/15/2021 12:11:01 05/10/20 21 Destruction Premalignant Lesion(s) completed Yesenia Ribera [facility] 05/10/2021 13:49:25 01/25/20 21 Biopsy Skin Lesion; Tangential completed MALCOLM AVITIA COREMAKER BENCH [address] [place], [address], [facility] 01/24/2021 16:15:33 01/25/20 21 Destruction BN Lesions completed MALCOLM AVITIA COREMAKER BENCH [address] [place], [address], [facility] 01/24/2021 16:12:29 03/01/20 20 Destruction BN Lesions completed Pat Lopez [facility] 03/01/2020 14:14:05 09/08/19 20 Destruction BN Lesions completed Heaven Hernandez [facility] 09/08/2019 14:03:45 02/26/20 19 Destruction Premalignant Lesion(s) completed Pat Lopez [facility] 02/25/2019 14:15:17 03/04/20 18 Biopsy Skin Lesion; Tangential completed Raymond Rae [facility] 03/04/2018 15:45:01 03/04/20 18 Destruction BN Lesions completed MALCOLM AVITIA COREMAKER BENCH [address] [place], [address], [facility] 03/04/2018 16:36:25 02/27/20 17 Destruction BN Lesions completed Eric Kim [facility] 02/26/2017 16:18:47 Remove tonsils and adenoids completed Ana Valerio [facility] 05/26/2020 10:26:22 extraction of wisdom tooth completed [facility] 05/26/2020 10:26:30 Unlisted px hands/fingers completed [facility] 05/26/2020 10:26:38 Unlisted px foot/toes completed [facility] 05/26/2020 10:26:47 hysterectomy completed [facility] 05/26/2020 10:27:04 excision of bunion completed [facility] 05/26/2020 10:29:13 Imaging Results None recorded. Procedure Notes None recorded. Medical Equipment None Reported. Allergies Allergen ID Allergen Name Allergen Category Reaction Reaction Severity Criticality Documentation Date Start Date Code Code System Note Provider Name and Address Organization Details Recorded Time 614268 adhesive tape environme nt,medica tion Not available Not available Not available 06/29/20162009 Comme nt: Creat ed By: Dedrick Tilley ;Crelarisa min Date: 06/22 2:10: 07 PM; Not Available [facility] 6 05:49:59 264710 Substance with sulfonami de structure and antibacte rial mechanism of action (substanc e) medicatio n angioedem a severe Not available 08/15/2021 [id number] SNOMED MARYANN JAQUEZ, COREMAKER BENCH [address] [place], [address] , [facility] 2 11:59:09 Medications Name Sig Start Date Stop Date Status Note LastModified by Organization Details LastModified Time cyclobenz aprine 10 mg tablet TAKE ONE TABLET BY MOUTH THREE TIMES DAILY NEEDED MAY CAUSE DROWSINE SS active Not Available Not Available No t Available amoxicill in 500 mg capsule TAKE ONE CAPSULE BY MOUTH THREE TIMES DAILY -- FINISH ALL MEDICINE -- active Not Available Not Available No t Available metformin 500 mg tablet active Not Available Not Available Not Available levothyro xine 175 mcg tablet TAKE ONE TABLET BY MOUTH DAILY active Not Available Not Available No t Available promethaz ine-DM 6.25 mg-15 mg/5 mL oral syrup TAKE 5ML BY MOUTH EVERY 6 HOURS NEEDED FOR COUGH MAY CAUSE DROWSINE SS active Not Available Not Available No t Available prednison e 10 mg tablet TAKE 2 TABLETS BY MOUTH EVERY DAY FOR 2 DAYS THEN 1 FOR 2 DAYS AND THEN 1/2 FOR 2 DAYS active Not Available Not Available No t Available clindamyc in HCl 300 mg capsule TAKE ONE CAPSULE BY MOUTH EVERY 8 HOURS FOR 10 DAYS -- FINISH ALL MEDICINE -- active Not Available Not Available No t Available Multiple Vitamin capsule Daily 02/26 completed Duration : 30 days;Dawson quency: daily;Me dication Descript ion: multivit amado; Dosage:1 ; Route:or al; refills: 3; Quantity :100 capsule Not Available Not Available Not Available atorvasta tin 10 mg tablet TAKE ONE TABLET BY MOUTH EVERY EVENING active Not Available Not Available No t Available ibuprofen 800 mg tablet TAKE ONE TABLET BY MOUTH EVERY 8 HOURS --TAKE WITH FOOD-- active Not Available Not Available No t Available fluconazo le 150 mg tablet TAKE ONE TABLET BY MOUTH FOR ONE DOSE active Not Available Not Available No t Available hydrocodo ne 5 mg-acetam inophen 325 mg tablet TAKE ONE TABLET BY MOUTH EVERY 6 HOURS NEEDED MAY CAUSE DROWSINE SS active Not Available Not Available No t Available meloxicam 15 mg tablet TAKE ONE TABLET BY MOUTH EVERY DAY FOR 15 DAYS --TAKE WITH FOOD-- active Not Available Not Available No t Available phenazopy ridine 200 mg tablet TAKE ONE TABLET BY MOUTH THREE TIMES DAILY --MAY DISCOLOR URINE-- active Not Available Not Available No t Available prednison e 20 mg tablet TAKE TWO TABLETS BY MOUTH EVERY DAY FOR FOUR DAYS, THEN 1 TABLET BY MOUTH EVERY DAY FOR FOUR DAYS, THEN ONE-HALF TABLET BY MOUTH EVERY DAY F active Not Available Not Available No t Available fluoroura cil 5 % topical cream APPLY a sufficie nt AMOUNT topicall y TO cover THE LESIONS in THE AFFECTED AREA(S) EVERY DAY. increase TO TWICE DAILY as tolerate d FOR 3 WEEKS. -- FOR EXTERNAL USE ONLY-- active Not Available Not Available No t Available estradiol 0.1 mg/24 hr semiweekl y transderm al patch APPLY ONE PATCH ON THE SKIN TWICE WEEKLY active Not Available Not Available No t Available Accu-Chek Softclix Lancets active Not Available Not Available Not Available acetamino phen 300 mg-codein e 30 mg tablet TAKE ONE TABLET BY MOUTH EVERY 4 TO 6 HOURS MAY CAUSE DROWSINE SS active Not Available Not Available No t Available ciproflox acin 500 mg tablet TAKE ONE TABLET BY MOUTH TWICE DAILY FOR 5 DAYS -- FINISH ALL MEDICINE -- active Not Available Not Available No t Available doxycycli ne monohydra te 100 mg tablet TAKE ONE TABLET BY MOUTH TWICE DAILY active Not Available Not Available No t Available triamcino lone acetonide 0.1 % topical cream APPLY TOPICALL Y TO THE AFFECTED AREA(S) TWICE DAILY active Not Available Not Available No t Available bisoprolo l fumarate 10 mg tablet active Medicati on Descript ion: bisoprol ol; Dosage:a s directed ; Route:or al; refills: 0 Not Available Not Available Not Available fluoroura cil 5 % topical solution APPLY A SUFFICIE NT AMOUNT TOPICALL Y TO COVER THE LESIONS IN THE AFFECTED AREA(S) TWICE DAILY FOR 3-6 WEEKS TOLERATE D active Not Available Not Available No t Available bisoprolo l fumarate 5 mg tablet TAKE ONE TABLET BY MOUTH EVERY DAY active Not Available Not Available No t Available famotidin e 20 mg tablet TAKE ONE TABLET BY MOUTH TWICE DAILY active Not Available Not Available No t Available Vitamin C 1,000 mg tablet TAKE ONE TABLET BY MOUTH EVERY EVENING active Not Available Not Available No t Available aspirin 325 mg tablet,de layed release TAKE ONE TABLET BY MOUTH EVERY DAY active Not Available Not Available No t Available meclizine 25 mg tablet TAKE 1/2 TO 1 TABLET BY MOUTH EVERY 8 HOURS NEEDED FOR dizzines s MAY CAUSE DROWSINE SS active Not Available Not Available No t Available cephalexi n 500 mg capsule TAKE ONE CAPSULE BY MOUTH TWICE DAILY -- FINISH ALL MEDICINE -- active Not Available Not Available No t Available erythromy nikkie 5 mg/gram (0.5 %) eye ointment active Not Available Not Available Not Available cyanocoba karie (vit B-12) 1,000 mcg/mL injection solution INJECT 1 ML INTRAMUS CULARLY ONCE A WEEK active Not Available Not Available No t Available esomepraz ole magnesium 40 mg capsule,d elayed release TAKE ONE CAPSULE BY MOUTH EVERY DAY active Not Available Not Available No t Available neomycin- polymyxin -dexameth 3.5 mg/mL-10, 000 unit/mL-0 .1% eye drops INSTILL ONE DROP IN EACH EYE FOUR TIMES DAILY FOR FOUR DAYS active Not Available Not Available No t Available levothyro xine 150 mcg tablet TAKE ONE TABLET BY MOUTH EVERY DAY active Not Available Not Available No t Available nystatin- triamcino lone 100,000 unit/g-0. 1 % topical cream APPLY TOPICALL Y TO THE AFFECTED AREA(S) TWICE DAILY (IN THE MORNING AND IN THE EVENING) active Not Available Not Available No t Available BD Luer-Leonard Syringe 3 mL 25 gauge x 1 USE with b-12 injectio n DIRECTED active Not Available Not Available No t Available omeprazol e 20 mg capsule,d elayed release TAKE ONE CAPSULE BY MOUTH TWICE DAILY active Not Available Not Available No t Available diclofena c sodium 75 mg tablet,de layed release TAKE ONE TABLET BY MOUTH TWICE DAILY DIRECTED --TAKE WITH FOOD-- active Not Available Not Available No t Available folic acid 1 mg tablet TAKE ONE TABLET BY MOUTH EVERY DAY active Not Available Not Available No t Available hydrocort isone 2.5 % topical cream APPLY A THIN LAYER TO THE AFFECTED AREA(S) BY TOPICAL ROUTE 2 TIMES PER DAY FOR 1-2 WEEKS NEEDED FOR FLARES 2019 active Not Available Not Available Not Avai lable mupirocin 2 % topical ointment APPLY TOPICALL Y TO THE AFFECTED AREA(S) TWICE DAILY FOR 5 DAYS active Not Available Not Available No t Available gabapenti n 100 mg capsule TAKE ONE CAPSULE BY MOUTH THREE TIMES DAILY active Not Available Not Available No t Available nystatin 100,000 unit/gram topical powder apply 1 gram topicall y TO THE affected area(s) TWICE DAILY UNDER breasts active Not Available Not Available No t Available azelastin e 137 mcg (0.1 %) nasal spray instill 1-2 SPRAYS IN EACH NOSTRIL TWICE DAILY active Not Available Not Available No t Available oxycodone -acetamin ophen 7.5 mg-325 mg tablet Take 1 tablet every 6 hours by oral route as needed. active Not Available Not Available No t Available methylpre dnisolone 4 mg tablets in a dose pack TAKE ACCORDIN G TO PACKAGE INSTRUCT IONS --TAKE WITH FOOD-- -- FINISH ALL MEDICINE -- active Not Available Not Available No t Available ipratropi um bromide 42 mcg (0.06 %) nasal spray INSTILL 2 SPRAYS IN EACH NOSTRIL THREE TIMES DAILY active Not Available Not Available No t Available oxybutyni n chloride 5 mg tablet TAKE 1/2 TABLET BY MOUTH EVERY DAY AT BEDTIME active Not Available Not Available No t Available ondansetr on 4 mg disintegr ating tablet DISSOLVE ONE TABLET in MOUTH EVERY 8 HOURS NEEDED FOR NAUSEA active Not Available Not Available No t Available fluticaso ne propionat e 50 mcg/actua tion nasal spray,elsie pension INSTILL 2 SPRAYS IN EACH NOSTRIL EVERY DAY active Not Available Not Available No t Available metformin ER 500 mg tablet,ex tended release 24 hr TAKE TWO TABLETS BY MOUTH TWICE DAILY --TAKE WITH FOOD-- active Not Available Not Available No t Available ipratropi um bromide 21 mcg (0.03 %) nasal spray INSTILL 2 SPRAYS IN EACH NOSTRIL TWICE DAILY NEEDED active Not Available Not Available No t Available esomepraz ole magnesium 20 mg capsule,d elayed release TAKE ONE CAPSULE BY MOUTH EVERY MORNING active Not Available Not Available No t Available oxycodone 5 mg tablet TAKE ONE TABLET BY MOUTH EVERY 4 HOURS NEEDED FOR moderate pain MAY CAUSE DROWSINE SS active Not Available Not Available No t Available hydroxyzi ne pamoate 25 mg capsule TAKE 1 TO 2 CAPSULE( S) BY MOUTH EVERY 8 HOURS active Not Available Not Available No t Available Bactrim DS 800 mg-160 mg tablet Take 1 tablet twice a day by oral route. 08/15 completed Not Available Not Available Not Available escitalop marla 10 mg tablet TAKE ONE TABLET BY MOUTH EVERY DAY active Not Available Not Available No t Available cyclobenz aprine 5 mg tablet active Not Available Not Available No t Available chlorhexi dine gluconate 0.12 % mouthwash SWISH 1 TABLESPO ONFUL (15 ML) BY MOUTH GENTLY FOR 30 SECONDS AND SPIT OUT TWICE DAILY active Not Available Not Available No t Available magnesium citrate active Medicati on Descript ion: magnesiu m citrate; Dosage:a s directed ; refills: 0 Not Available Not Available Not Available Vitamin B-12 active Not Available Not Available Not Available levothyro xine active Not Available Not Available Not Available calcium active Not Available Not Avail able Not Available ipratropi um bromide active Not Available Not Available Not Available Fish Oil active Medicati on Descript ion: omega-3 polyunsa turated fatty acids; Dosage:a s directed ; Route:or al; refills: 0 Not Available Not Available Not Available folic acid 09/08 completed Not Available Not Available Not Available biotin active Not Available Not Availa ble Not Available simvastat in 02/26 completed Medicati on Descript ion: simvasta tin; Dosage:a s directed ; Route:or al; refills: 0 Not Available Not Available Not Available Vitamin D active Not Available Not Heide ilable Not Available fluticaso ne propionat e active Not Available Not Available Not Available Metamucil active Not Available Not Heide ilable Not Available Angie Daily active Frequenc y: daily;Me dication Descript ion: fexofena dine; Dosage:1 ; Route:or al; refills: 0; Quantity :30 Not Available Not Available Not Available Vivelle-D ot active Medicati on Descript ion: estradio l; Dosage:a s directed ; Route:tr ansderma l; refills: 0 Not Available Not Available Not Available Miralax active Not Available Not Avail able Not Available fenofibra te active Not Available Not Available Not Available fenofibra te nanocryst allized 145 mg tablet TAKE 1 TABLET BY MOUTH ONCE DAILY active Not Available Not Available No t Available FeroSul 325 mg (65 mg iron) tablet TAKE ONE TABLET BY MOUTH EVERY EVENING active Not Available Not Available No t Available Probiotic Formula 10 billion cell(2 billion ea) capsule 09/08 completed Medicati on Descript ion: bifidoba cterium- lactobac illus; Route:or al; refills: 0 Not Available Not Available Not Available Accu-Chek Guide test strips active Not Available Not Available Not Available Accu-Chek Guide Glucose Meter active Not Available Not Available Not Available BinaxNOW COVID-19 Ag Self Test kit TEST DIRECTED TODAY active Not Available Not Available No t Available Ozempic 0.25 mg or 0.5 mg (2 mg/3 mL) subcutane ous pen injector INJECT 0.5MG SUBCUTAN EOUSLY ONCE A WEEK active Not Available Not Available No t Available Vitals None Recorded Social History Question Answer Notes LastModified by Organizat ion Details LastModified Time Tobacco Smoking Status Never Smoker Eric Kim [facility] 02/26/2017 16:04:50 How Much Tobacco Do You Chew? None Information not available 03/01/2020 What Was The Date Of Your Most Recent Tobacco Screening? 02/26/2017 Information n ot available 09/22/2019 Sex: Female Functional Status Question Answer Note LastModified by Organizat ion Details LastModified Time Do you or have you ever used smokeless tobacco? Never used smokeless tobacco Information not available 03/01/2020 Do you or have you ever used e-cigarettes or vape? Never used electronic cigarettes Information not available 03/01/2020 Mental Status None recorded. Family History Nothing Reported Notes:NO FAMILY HX OF MM Medical History Condition Response Varicose Veins N Skin Problems N Autoimmune disease N Squamous Cell Carcinoma N Basal Cell Carcinoma Y Skin Cancer Y Eczema N Melanoma N Other Skin Condition N Acne N Gynecological HistoryNo gynecological history recorded. Obstetrics History GPAL:G 0 P 0 0 0 0 Past Encounters Encounter ID Performer Location Encounter Start Date Encounter Closed Date Diagnosis/Indication Diagnosis SNOMED-CT Code Diagnosis ICD10 Code Diagnosis IMO Codes Diagnosis Note [id number] [facility] [address] 11/05/2016 23:06:10 11/05/2016 23:06:10 [id number] NANCY FRANK GY [place] [address] [place] [address] 02/26/2017 15:51:43 02/28/2017 11:25:46 Solar lentiginosis 397998730 L81.4 BENIGN APPEARANCE , PT REASSURED Multiple b enign melanocytic nevi 876497770 D22.9 BENIGN APPEARANCE , PT REASSURED & ADVISED TO RTC WITH ANY CHANGES Senile hyperkeratosis 39 2499583 L82.1 BENIGN APPEARANCE , PT REASSURED History of malignant basal cell neoplasm of skin 885524650 Z85.828 NO RECURRENCE Hemangioma 677616830 D18 .00 BENIGN APPEARANCE , PT REASSURED Inflamed s eborrheic keratosis 028346012 L82.0 RECURRENT SQUAMOPROL IFERATIVE LESION PER BIOPSY LAST YEAR - SUPERFICIA L CLINICALLY LOOKS MORE IRRITATED VERRUCOUS VS ISK WILL TRY CRYO X 1DISCUSSED BX VS CRYO. PT DECLINED BX TODAY. SHE WANTS TO CRYO AND RECHECK IF PERSISTS. DAILY UV PROTECTION DISCUSSED [id number] NANCY FRANK GY [facility] [address] [place] [address] 03/04/2018 15:10:16 03/04/2018 15:53:10 Solar lentiginosis 263479501 L81.4 BENIGN APPEARANCE , PT REASSURED Multiple b enign melanocytic nevi 110815425 D22.9 BENIGN APPEARANCE , PT REASSURED & ADVISED TO RTC WITH ANY CHANGES Senile hyperkeratosis 39 2776077 L82.1 CRYO TO 2 ON LEFT LATTER-DAY AND RIGHT MASTOID OTHERS BENIGN APPEARANCE , PT REASSURED Hemangioma 096303650 D18 .00 BENIGN APPEARANCE , PT REASSURED History of malignant basal cell neoplasm of skin 690913531 Z85.828 NO EVIDENCE OF RECURRENCE Skin sensa tion disturbance 46135679 R20.9 Neoplasm o f uncertain behavior of skin 37194452 D48.5 R/O VALDEZ FRONTAL SCALP SHAVE BIOPSY ED&C X 3 SEE PROCEDURE NOTE CONSENT SIGNED WOUND CARE INSTRUCTIO NS PROVIDED FOLLOW UP PER PATH/PRN. [id number] NANCY FRANK GY [place] [address] [address] [address] [place] [address] 02/25/2019 13:40:42 02/25/2019 14:21:02 Solar lentiginosis [id number] L81.4 BENIGN APPEARANCE , PT REASSURED Multiple b enign melanocytic nevi 922237359 D22.9 BENIGN APPEARANCE , PT REASSURED & ADVISED TO RTC WITH ANY CHANGES Senile hyperkeratosis 39 3609451 L82.1 BENIGN APPEARANCE , PT REASSURED Hemangioma 474378788 D18 .00 BENIGN APPEARANCE , PT REASSURED History of malignant basal cell neoplasm of skin 762727718 Z85.828 NO RECURRENCE RECOMMEND ANNUAL FSE History of actinic keratosis 1891288464 104 Z87.2 NO EVIDENCE OF RECURRENCE Actinic keratosis 720024 007 L57.0 CRYO X6 RISKS OF CRYO SURGERY DISCUSSED; POST OP CARE INSTRUCTIO NS PROVIDED. VERBAL CONSENT TO TREAT GIVEN BY PATIENT. RECHECK IF PERSISTING AFTER TREATMENT. Longitudin al nail ridge 234858444 L60.8 BENIGN APPEARANCE , PT REASSURED [id number] NANCY FRANK [facility] [address] [place] [address] 09/08/2019 13:43:31 09/08/2019 14:23:52 Inflamed seborrheic keratosis 608550445 L82.0 CRYO x1 RISKS OF CRYO SURGERY DISCUSSED; POST OP CARE INSTRUCTIO NS PROVIDED. VERBAL CONSENT TO TREAT GIVEN BY PATIENT. RECHECK IF PERSISTING AFTER TREATMENT. 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 BENIGN APPEARANCE , PT REASSURED Multiple b enign melanocytic nevi 698795045 D22.9 BENIGN APPEARANCE , PT REASSURED & ADVISED TO RTC WITH ANY CHANGES Hemangioma 782886114 D18 .00 BENIGN APPEARANCE , PT REASSURED History of malignant basal cell neoplasm of skin 492828818 Z85.828 NO EVIDENCE OF RECURRENCE RECOMMEND ANNUAL FSE Longitudin al nail ridge 119530601 L60.8 BENIGN APPEARANCE , PT REASSURED Raised yara orrheic keratosis 5865703598 45375 L82.1 BENIGN APPEARANCE , PT REASSURED Inflamed s eborrheic keratosis 770915496 L82.0 CRYO X4 RISKS OF CRYO SURGERY DISCUSSED; POST OP CARE INSTRUCTIO NS PROVIDED. VERBAL CONSENT TO TREAT GIVEN BY PATIENT. RECHECK IF PERSISTING AFTER TREATMENT. FRONTAL SCALP- BIOPSY PROVEN HYPERKERAT OTIC VERRUCOID KERATOSIS - 2015 RECHECK IF PERSISTING COULD REBIOPSY DISCUSSED Skin sensa tion disturbance 04531313 R20.9 [id number] MARLO FATIMA MD [facility] [address] [place] [address] 05/26/2020 09:46:38 06/08/2020 10:11:04 Lumbar spondylolisthesis [id number] 14736 M43.16 Time spent reviewing images, discussing the diagnosis and coordinati ng care: 30min [id number] MARLO FATIMA MD SURGERY SCHEDULE [address] [place] [address] 06/14/2020 11:35:12 06/15/2020 08:13:34 [id number] MARLO FATIMA MD [facility] [address] [place] [address] 06/27/2020 14:57:31 06/28/2020 14:19:51 [id number] MARLO FATIMA MD [facility] [address] [place] [address] 07/18/2020 14:49:05 07/18/2020 17:53:08 Postoperative care 224041154 Z48.89 [id number] SAEID ARELLANO PA-C [facility] [address] [place] [address] 09/26/2020 12:25:57 09/26/2020 15:33:12 Postoperative care 147938672 Z48.89 64-year-ol d female status post an L4-L5 MIS TLIF by Dr. Fatima on June 10, 2020. x-rays reviewed show stable placement of the hardware without evidence of loosening. I've given her a copy of these. We will relax our postoperat ct restrictio ns and allow her to resume normal daily activities as she tolerates. We are pleased with her progress thus far but she understand s that it may take a whole year to completely heal from the surgery. Encouraged her to stay active. We will tentativel y schedule a follow-up in 3 months with another set of x-rays to track her progress, should she feel like she is continuing to improve she may cancel this appointmen t. pt seen by myself and Dr Fatima. [id number] HIRAM SANCHEZ PA-C [facility] [address] [place] [address] 12/26/2020 12:22:34 2020 10:56:40 Lumbar spondylosis 217497928 M47.398 [id number] MALCOLM AVITIA [facility] [address] [place] [address] 01/24/2021 15:21:05 01/24/2021 15:52:02 Solar lentiginosis 827479071 L81.4 BENIGN APPEARANCE ,RECOMMEND SUN PROTECTIVE CLOTHING AND EQUATE SPORT SUNSCREEN AND CERAVE AM SUNSCREEN LOTION OTC DAILY. Multiple b enign melanocytic nevi 213863477 D22.9 BENIGN APPEARANCE , PT REASSURED & ADVISED TO RTC WITH ANY CHANGES Raised yara orrheic keratosis 6016209170 45591 L82.1 BENIGN APPEARANCE , PT REASSURED Hemangioma 179235320 D18 .00 BENIGN APPEARANCE , PT REASSURED History of malignant basal cell neoplasm of skin 178045773 Z85.828 NO EVIDENCE OF RECURRENCE RECOMMEND ANNUAL FSE Inflamed s eborrheic keratosis 821844590 L82.0 CRYO X1 RISKS OF CRYO SURGERY DISCUSSED; POST OP CARE INSTRUCTIO NS PROVIDED. VERBAL CONSENT TO TREAT GIVEN BY PATIENT. RECHECK IF PERSISTING AFTER TREATMENT. Sebaceous hyperplasia 23 3374889 L21.8 BENIGN APPEARANCE , PT REASSURED Neoplasm o f uncertain behavior of skin 57950090 D48.5 R/O SCC INSITU -TREATED WITH CRYO IN PAST BIOPSY 2 X 2016 FAVORED VERRUCOID KERATOSIS 2018 FAVORED AK-EDC HAS BEEN PERFORMED RETURNEDFR ONTAL CROWN SHAVE BIOPSY CONSENT SIGNED WOUND CARE INSTRUCTIO NS PROVIDED FOLLOW UP PER PATH Skin tag [id number] L91.8 BENIGN APPEARANCE [id number] MALCOLM AVITIA [facility] [address] [place] [address] 03/07/2021 14:16:38 03/07/2021 14:57:32 Actinic keratosis 897132747 L57.0 PER BIOPSY BACK IN JANUARY 24 RECURRENT SO TRIED EFUDEX CREAM QD-BID X 3 WEEKS OFF 2 WEEKS STILL APPEARS PRESENT WILL REPEAT BID X 3 WEEKS IF SHE CAN STAND THEN RECHECK 2 MONTHS MAKE SURE RESOLVEDRI SKS EFUDEX DISCUSSED UV PROTECTION RECOMMENDE D [id number] MALCOLM AVITIA [facility] [address] [place] [address] 05/10/2021 13:27:14 05/10/2021 14:01:29 Actinic keratosis 783226228 L57.0 CRYO X 2FRONTAL CROWN WAS BIOPSIED THEN TREATED WITH EFUDEX MOSTLY RESOLVED MINIMAL RESIDUAL CRYO TODAY AND THEN NEW LESION ON CHEST CRYORISKS OF CRYO SURGERY DISCUSSED; POST OP CARE INSTRUCTIO NS PROVIDED. VERBAL CONSENT TO TREAT GIVEN BY PATIENT. RECHECK IF PERSISTING AFTER TREATMENT. KEEP ANNUAL FSE DISCUSSED COULD SPOT TREAT NEW AKS THIS WINTER BID X 3 WEEKS PRN IF ANY PERSISTING RECOMMEND RECHECK [id number] MALCOLM AVITIA [facility] [address] [place] [address] 08/15/2021 11:46:31 08/15/2021 12:56:59 Lentiginosis 249528164 L81.4 BENIGN APPEARANCE , REASSURANC E PROVIDEDRE COMMEND SUN PROTECTIVE CLOTHING AND EQUATE SPORT SUNSCREEN AND CERAVE AM SUNSCREEN LOTION OTC DAILY. Raised yara orrheic keratosis 4938305844 00833 L82.1 BENIGN APPEARANCE , PT REASSURED Actinic keratosis 007 L57.0 CRYO X 2FRONTAL CROWN WAS BIOPSIED THEN TREATED WITH EFUDEX RESOLVED LOOKS LIKE FEWNEW LESIONS TODAYRISKS OF CRYO SURGERY DISCUSSED; POST OP CARE INSTRUCTIO NS PROVIDED. VERBAL CONSENT TO TREAT GIVEN BY PATIENT. RECHECK IF PERSISTING AFTER TREATMENT. KEEP ANNUAL FSE JANUARY CHEST AKS HAVE RESOLVED - NEW SKIN PINK AND SMOOTH, NO PAPULES GOOD REACTION S/P EFUDEX IN FALL Epidermoid cyst 24274454 6 K09.8 BENIGN APPEARANCE DISCUSSED TREATMENT OPTIONS IF BOTHERSOME TO PATIENTDEF ERRED FOR NOW; WILL MONITOR [id number] SAEID ARELLANO PA-C [facility] [address] [place] [address] 09/18/2021 08:49:49 09/19/2021 11:59:36 Lumbar radiculopathy 434186949 M54.16 65-year-ol d female with history of an L4-L5 TLIF on 06/10/[address] Fatima with worsening low back pain and left leg pain. She also has right anterior groin pain, but this suspected to be due to hip arthritis. She is scheduled for a hip replacemen t in November. Given the patient's condition doing symptoms and history of lumbar fusion, we need to the patient's imaging. I am suspicious that she has developed an issue at the L5-S1 segment. I will order a lumbar MRI with and without contrast. We'll also order a lumbar CT scan to rule out pseudoarth rosis. We'll also check some standing flexion extension x-rays rule out instabilit y given the mechanical nature of her symptoms. We'll also start the patient on a steroid taper as well as diclofenac . She understand s to wait until she is done with steroid prior to starting the diclofenac . While the patient back after the images are completed to discuss any further treatment recommenda tions which may include injections at other levels for surgical interventi on. [id number] RAMILA FARLEY PA-C [facility] [address] [address] [address] [place] [address] 10/23/2021 11:15:07 10/26/2021 16:47:02 Lumbar radiculopathy 191133054 M54.16 Patient is a 65-year-ol d female being seen today for follow-up of back pain. Previous L4-L5 TLIF on 06/10/[address] Fatima. Pain is in the back and radiates down the back of both lower extremitie s. Pain stops at the knee on the right side and goes down the lateral calf on the left side. Left side worse than right side. Patient has taken medication but has not done any recent therapy or pain management . She is scheduled for right hip replacemen t next week but wanted to come in to discuss her surgery options with us today. After discussing options with the patient in length the patient has ultimately decided to cancel her hip surgery and move forward with the back surgery as she does believe most of her pain is coming from back related issues. We will be extending her previous L4-L5 TLIF up to L2 and down to iliac using aero navigation . Use a spine model to explain the surgery and discussed benefits, risk, downtime, postop care. The patient understand s and is happy with this plan. She will be scheduled with Afsaneh today. Patient seen by myself and Dr. Fatima today. New lumbar CT and lumbar MRI on 09/22/2021 at the [facility] C T shows stable placement of hardware. MRI shows acute herniation on the right at L3-4 and more moderate findings at L2-3 and L5-S1 with bilateral foraminal stenosis at each level. [id number] MARLO FATIMA MD SURGERY SCHEDULE [address] [place] [address] 12/20/2021 12:00:48 12/20/2021 13:47:25 [id number] MARLO FATIMA MD [facility] [address] [place] [address] 12/21/2021 10:27:26 12/21/2021 15:09:21 [id number] GINNY GRAY PA-C [facility] [address] [place] [address] 01/15/2022 10:29:17 01/15/2022 20:57:42 Lumbar radiculopathy 630096492 M54.16 [id number] MALCOLM AVITIA [facility]N [facility] [address] [place] [address] 01/25/2022 13:35:47 01/25/2022 14:13:37 Solar lentiginosis 939576896 L81.4 BENIGN APPEARANCE ,RECOMMEND SUN PROTECTIVE CLOTHING AND EQUATE SPORT SUNSCREEN AND CERAVE AM SUNSCREEN LOTION OTC DAILY. Multiple b enign melanocytic nevi 421571176 D22.9 BENIGN APPEARANCE , MONITOR & ADVISED TO RTC WITH ANY CHANGES Raised yara orrheic keratosis 3036927908 27560 L82.1 BENIGN APPEARANCE , PT REASSURED Hemangioma 758023386 D18 .00 BENIGN APPEARANCE , PT REASSURED History of malignant basal cell neoplasm of skin 457664798 Z85.828 NO EVIDENCE OF RECURRENCE RECOMMEND ANNUAL FSE Sebaceous hyperplasia 23 4577038 L21.8 BENIGN APPEARANCE , PT REASSURED Skin tag 075535342 L91.8 BENIGN APPEARANCE Actinic keratosis 763136 007 L57.0 CRYO X 4RISKS OF CRYO SURGERY DISCUSSED; POST OP CARE INSTRUCTIO NS PROVIDED. VERBAL CONSENT TO TREAT GIVEN BY PATIENT. IRON IF PERSISTING .RECOMMEND ANNUAL FSE [id number] HIRAM SANCHEZ PA-C [facility] [address] [place] [address] 04/30/2022 12:30:19 05/02/2022 15:23:12 [id number] GINNY GRAY PA-C [facility] [address] [place] [address] 09/03/2022 12:46:14 09/04/2022 07:28:05 Lumbar radiculopathy 623728975 M54.16 [id number] NANCY FRANK G[facility] [place] [address] [place] [address] 01/24/2023 13:42:33 01/24/2023 15:41:55 Solar lentiginosis 488995348 L81.4 BENIGN APPEARANCE , PT REASSUREDR ECOMMEND SUN PROTECTIVE CLOTHING AND EQUATE SPORT SUNSCREEN AND CERAVE AM SUNSCREEN LOTION OTC DAILY. Multiple b enign melanocytic nevi 131858442 D22.9 BENIGN APPEARANCE , MONITOR & ADVISED TO RTC WITH ANY CHANGES Raised yara orrheic keratosis 6387952292 77819 L82.1 BENIGN APPEARANCE , PT REASSURED Hemangioma 539792207 D18 .00 BENIGN APPEARANCE , PT REASSURED History of malignant basal cell neoplasm of skin 114248331 Z85.828 NO EVIDENCE OF RECURRENCE RECOMMEND ANNUAL FSE Sebaceous hyperplasia 23 6605222 L21.8 BENIGN APPEARANCE , PT REASSURED Skin tag 222498615 L91.8 BENIGN APPEARANCE , PT REASSURED Actinic keratosis 626762 007 L57.0 CRYO X 3RISKS OF CRYO SURGERY DISCUSSED; POST OP CARE INSTRUCTIO NS PROVIDED. VERBAL CONSENT TO TREAT GIVEN BY PATIENT. IRON IF PERSISTING .RECOMMEND ANNUAL FSE Purpura 878064892 D69.2 BENIGN APPEARANCE , PT REASSURED [id number] NANCY FRANK [facility] [place] [address] [place] [address] 01/28/2024 11:44:59 01/28/2024 12:32:28 Solar lentiginosis 296215165 L81.4 BENIGN APPEARANCE , PT REASSUREDR ECOMMEND SUN PROTECTIVE CLOTHING AND EQUATE SPORT SUNSCREEN AND CERAVE AM SUNSCREEN LOTION OTC DAILY. Multiple b enign melanocytic nevi 038302197 D22.9 BENIGN APPEARANCE , MONITOR & ADVISED TO RTC WITH ANY CHANGES Raised yara orrheic keratosis 6294364916 07643 L82.1 BENIGN APPEARANCE , PT REASSURED Hemangioma 960518075 D18 .00 BENIGN APPEARANCE , PT REASSURED History of malignant basal cell neoplasm of skin 453619593 Z85.828 NO EVIDENCE OF RECURRENCE RECOMMEND ANNUAL FSE Sebaceous hyperplasia 23 2964424 L21.8 BENIGN APPEARANCE , PT REASSURED Skin tag 657099240 L91.8 BENIGN APPEARANCE , PT REASSURED Purpura 905919929 D69.2 BENIGN APPEARANCE , PT REASSURED Neoplasm o f uncertain behavior of skin 73529963 D48.5 ISK R/O SCCLOCATIO N: FRONTAL CROWNGEL FOAM/PRESS URE BANDAGESHA VE BX TAKEN TODAYSEE PROCEDURE NOTECONNARCISO Ervin SIGNEDWOUN D CARE INSTRUCTIO NS PROVIDEDPH SEJAL TAKENFOLLO W UP PER PATH/PRN Inflamed s eborrheic keratosis 256465377 L82.0 CRYO X2 RISKS OF CRYO SURGERY DISCUSSED; POST OP CARE INSTRUCTIO NS PROVIDED. VERBAL CONSENT TO TREAT GIVEN BY PATIENT. RECHECK IF PERSISTING AFTER TREATMENT. History of actinic keratosis 8631132688 104 Z87.2 NO EVIDENCE OF RECURRENCE RECOMMENDE D ANNUAL FSE [id number] MALCOLM AVITIA [facility] [address] [place] [address] 01/30/2024 11:37:05 01/30/2024 12:20:16 Squamous cell carcinoma in situ of skin 280785560 D04.9 BX PROVEN SCCISLOCAT ION: FRONTAL CROWNED&C X3GEL FOAM/PRESS URE BANDAGESEE PROCEDURE NOTECONNARCISO Ervin SIGNEDWOUN D CARE INSTRUCTIO GABBY PROVIDEDF/ U 3 MONTHS [id number] MALCOLM AVITIA [facility] [address] [place] [address] 05/13/2024 10:08:00 05/13/2024 11:16:50 Actinic keratosis 022123515 L57.0 CRYO X 4RISKS OF CRYO SURGERY DISCUSSED; POST OP CARE INSTRUCTIO NS PROVIDED. VERBAL CONSENT TO TREAT GIVEN BY PATIENT. IRON IF PERSISTING .RECOMMEND ANNUAL FSE Neoplasm o f uncertain behavior of skin 98413887 D48.5 DISCUSSED FURTHER TX OPTIONSED& C AND BX TODAY VS MOHS VS TOPICALS AROUND SCAR DISCUSSED RISKS OF MALIGNANCY SHE DEFERS MOHS CURRENTLY WOULD LIKE TO TRY BELOW FIRSTPT HAS UPCOMING PROCEDURE AND CAN NOT TX WITH CHEMOTHERA PY CREAM UNTIL AFTER.THEN WILL START FLUOROURAC IL 5% BID FOR 3-6 WEEKS. EXPECTED REACTION AND UV PROTECTION DISCUSSED R/O SCCISLOCAT ION: FRONTAL CROWNGEL FOAM/PRESS URE BANDAGESHA VE BX TAKEN TODAYSEE PROCEDURE NOTECONNARCISO Ervin SIGNEDWOUN D CARE INSTRUCTIO GABBY PROVIDEDPH SEJAL TAKENFOLLO W UP PER PATH/PRN LOCATION: FRONTAL CROWNED&C X3GEL FOAM/PRESS URE BANDAGESEE PROCEDURE NOTECONNARCISO Ervin SIGNEDWOUN D CARE INSTRUCTIO GABBY PROVIDEDPH SEJAL TAKENFOLLO W UP PER PATH AND 3 MONTHS Squamous c ell carcinoma in situ of skin 861828095 D04.9 BX PROVEN SCCIS SEE ABOVELOCAT ION: FRONTAL CROWNED&C X3GEL FOAM/PRESS URE BANDAGESEE PROCEDURE NOTECONNARCISO Ervin SIGNEDWOUN D CARE INSTRUCTIO GABBY PROVIDEDF/ U 3 MONTHS [id number] MALCOLM AVITIA [facility] [address] [place] [address] 01/27/2025 13:19:10 01/27/2025 13:59:54 Solar lentiginosis 092162721 L81.4 RECOMMEND SUN PROTECTIVE CLOTHING AND EQUATE SPORT SUNSCREEN AND CERAVE AM SUNSCREEN LOTION OTC DAILYDISCU SSED RISKS INHERENT TO CHEMICAL SUNSCREENS INCLUDING PHOTOALLER GIC, PHOTOTOXIC , ALLERGIC CONTACT AND IRRITANT CONTACT DERMATITIS .BENIGN APPEARANCE , PT REASSURED & ADVISED TO RTC WITH ANY CHANGES Multiple b enign melanocytic nevi 153598773 D22.9 BENIGN APPEARANCE , MONITOR & ADVISED TO RTC WITH ANY CHANGES Raised yara orrheic keratosis 1713823085 19910 L82.1 BENIGN APPEARANCE , PT REASSURED Hemangioma 582024742 D18 .00 BENIGN APPEARANCE , PT REASSURED History of malignant basal cell neoplasm of skin 298749076 Z85.828 NO EVIDENCE OF RECURRENCE RECOMMEND ANNUAL FSE Sebaceous hyperplasia 23 0590409 L21.8 BENIGN APPEARANCE , PT REASSURED Skin tag 736436950 L91.8 BENIGN APPEARANCE , PT REASSURED Purpura 184177540 D69.2 BENIGN APPEARANCE , PT REASSURED Inflamed s eborrheic keratosis 659086773 L82.0 CRYO X 3 PT REQUEST RISKS OF CRYO SURGERY DISCUSSED; POST OP CARE INSTRUCTIO NS PROVIDED. VERBAL CONSENT TO TREAT GIVEN BY PATIENT. RECHECK IF PERSISTING AFTER TREATMENT. History of actinic keratosis 3144268632 104 Z87.2 NO EVIDENCE OF RECURRENCE RECOMMENDE D ANNUAL FSE Squamous c ell carcinoma in situ 395372922 D09.9 42771 BX PROVEN LAST 05-13-24 PERSISTING DISCUSSED RISKSDISCU SSED FURTHER TX -RECOMMEND MOHS SINCE PERSISTING AFTER CRYO, EDCX 3, AND FLUOURACIL REFERRAL SENT TO DR TUTTLE OFFICE TODAY Generalize d essential telangiectasia 579099420 I78.8 [id number] BENIGN APPEARANCE , PT REASSURED Health Concerns Section Related Observation LastModified by Organization Detai ls LastModified Time None Recorded Concern Status LastModified by Organization Details LastModified Time None Recorded Advance Directives Directive None Recorded Payers Insurance Date Sequence Insurance Name Policy Number Policy Auguste Covered Member ID Auguste Member ID Guarantor Name 01/24/2025 1 [employer] (MEDICARE REPLACEMENT/A DVANTAGE - PPO) Marah A Carlos [id number] Marah A Carlos 08/28/2022 1 [place] Marah A Carlos [id number] Marah A Carlos 08/28/2022 1 [place] [id number] Marah A Carlos [id number] Marah A Carlos Notes Date Note Type Note Provider Name and Address Organization Details Recorded Time 01/24/2023 text/html ROS as noted in the HPI ESTABLISHED PT - HISTORY OF BCC 1) FSE- PT DESIRES TO HAVE SPOTS ON ENTIRE BODY EXAMINED TODAY. 2) PT C/O LESIONS ON SCALP AND CHEST (-)ITCH/BLEED/PA IN Denies any other new, changing, or bleeding lesions, or other rashes. Patient feels well today and in a good mood. No family history of melanoma. MALCOLM AVITIA, NANCY [address] [place], [address], [facility] 01/24/2023 14:07:04 01/28/2024 text/html ROS as noted in the [facility] ESTABLISHED PT - HISTORY OF BCC 1) FSE- PT DESIRES TO HAVE SPOTS ON ENTIRE BODY EXAMINED TODAY. 2) PT C/O MULTIPLE LESION ON BODY Denies any other new, changing, or bleeding lesions, or other rashes. Patient feels well today and in a good mood. No family history of melanoma. MALCOLM AVITIA, NANCY [address] [place], [address], [facility] 01/28/2024 12:39:07 01/30/2024 text/html ESTABLISHED PT 1) PT IS HERE TODAY FOR EDC X3 BX PROVEN SCCIS ON FRONTAL CROWN Denies any other new, changing, or bleeding lesions, or other rashes. Patient feels well today and in a good mood. No family history of melanoma. MALCOLM AVITIA, COREMAKER BENCH [address] [place], [address], [facility] 01/30/2024 12:12:08 05/13/2024 text/html ROS as noted in the HPI ESTABLISHED PT - HX SCCIS, BCC 1) PT IS HERE TODAY FOR 4 MONTH F/U FROM ED&C ON FRONTAL CROWN. STATES THAT IT HEALED WELL, BUT THERE ARE STILL SOME BUMPS IN THE AREA AND WOULD LIKE TO HAVE IT EVALUATED. Denies any other new, changing, or bleeding lesions, or other rashes. Patient feels well today and in a good mood. No family history of melanoma. MALCOLM AVITIA, COREMAKER BENCH [address] [place], [address], [facility] 05/14/2024 16:50:35 01/27/2025 text/html ROS as noted in the HPI ESTABLISHED PT - HX BCC, SCCIS 1) FSE- PT DESIRES TO HAVE SPOTS ON ENTIRE BODY EXAMINED TODAY. 2) PT C/O LESION ON SCALP X SEVERAL YEARS (+)ITCH (-)BLEED/PAIN. STATES THAT THIS HAS BEEN A ONGOING PROBLEM SHE HAS HAD THIS AREA BX IN THE PAST. PT HAS HAD 2 BX'S ON THE FRONTAL CROWN THAT WAS BX PROVEN SCCIS. 3) PT C/O LESION ON UPPER BACK X 1 MONTH (+) ITCH MOSTLY WHEN PT GETS HOT. 4) PT C/O LESION ON L SHOULDER X MONTHS THAT SHE DESCRIBES A HARD SCAB. (-) BLEED/ITCH/PAIN. NO TX Denies any other new, changing, or bleeding lesions, or other rashes. Patient feels well today and in a good mood. No family history of melanoma. MALCOLM AVITIA, COREMAKER BENCH [address] [place], [address], [facility] 01/27/2025 14:57:07 OBGyn Episode No OBEpisode recorded.
--- OUTSIDE RECORDS SUMMARY | 2025-06-28 14:48 | XMS_ITS | Encounter Summary ---
Author Organization Healthcare Address [address] [place] [address] Care Team Providers Care Automobile Accessories Installer Name Role Phone Deana Veras Primary Care Provider [phone] Encounter Details Date Type Department Care Team (Late st Contact Info) Description 03/13/2021 Lab Requisition [facility] [address] [place] [address] Sara Arora PA [address] [place] [id number] Encounter for general adult medical examination without [...] Description 02/09/2026 1:40 PM EDT Office Visit [facility] [address], [address] [place] [address] Carlton Vaz MD [address] [place] [phone] documented as of this encounter Procedures Procedure Name Priority Date/Time Associated Diagnosis Comments THYROGLOBULIN (INHOUSE- REFLEX ONLY) Routine 03/13/2021 12:54 PM EDT Encounter for general adult medical examination without abnormal findings THYROGLOBULIN ANTIBODY Routine 12:54 PM EDT Encounter for general adult medical examination without abnormal findings documented in this encounter Results * Thyroglobulin (InHouse) (03/13/2021 12:54 PM EDT) Thyroglobulin (Inhouse) <0.1 <=34.0 ng/mL 03/13/2021 11:42 PM EDT [facility] Blood Venous blood specimen / Unknown 03/13/2021 12:54 PM EDT 03/13/2021 6:53 PM EDT Narrative [facility] - 03/13/2021 11:42 PM EDT Thyroglobulin measured by 2nd generation immunoassay. Thyroglobulin antibodies may interfere with thyroglobulin measurements. Consider ordering Thyroglobulin measurement by LC/MS/MS if TG antibody concentrations are elevated. Sara Maite [facility] LAB BLOOD ORDERABLES Final Re sult Performing Organization Address City/[facility] Co de Phone Number [facility] [address] [place] [address] * Thyroglobulin Antibody (03/13/2021 12:54 PM EDT) Thyroglobulin Antibody <1.0 <4.0 IU/mL 03/13/2021 11:42 PM EDT HEALTHCARE [facility] Blood Venous blood specimen / Unknown 03/13/2021 12:54 PM EDT 03/13/2021 6:53 PM EDT [facility] LAB BLOOD ORDERABLES Final Re sult Performing Organization Address City/[facility]/ZIP Co de Phone Number [facility]ALTH[facility]ARE [facility] [address] [place] [address] documented in this encounter Visit Diagnoses Diagnosis Encounter for general adult medical examination without abnormal findings documented in this encounter Care Teams Automobile Accessories Installer Relationship Specialty Start Date End Date Deana Veras DO [address] [place] [address] PCP - General 12/25/23 documented as of this encounter
--- OUTSIDE RECORDS SUMMARY | 2025-06-28 14:48 | XMS_ITS | Encounter Summary ---
Author Organization [employer] ([place], [place], [place], [place], [place]) Address [address] [place] [address] Care Team Providers Care Rda Name Role Phone Unavailable Primary Care Provider Unavailabl e Encounter Details Date Type Department Care Team (Late st Contact Info) Description 06/11/2020 Transcribed Document [facility] [address] [place] [address] Lala Godoy MD [facility] [address] [address] Social History Tobacco Use Types Packs/Day Years Used Date Smoking Tobacco: Never Assessed Comments Unknown Sex and Gender Information Value Date Recorded Sex Assigned at Not on file Legal Sex Female 5:29 PM CDT Gender Identity Not on file Sexual Orientation Not on file documented as of this encounter Miscellaneous Notes * Cerner Conversion Note - Lala Godoy MD - 06/11/2020 11:15 AM EST Patient: MARAH GONZALEZ Age: 64 years Sex: Female : 1955 Associated Diagnoses: None Author: NATE LAWSON APRN-DALIA 06/10/2020 cc: medical management s/p posterior lumbar fusion per Dr. Fatima S: patient found lying quietly in bed. A/o. Unable to urinate overnight- grewal anchored. This has happened after previous surgeries- resolved spontaneously within a few days. LBP adequately controlled. Denies dyspnea, fever/chills, n/v. Bowels have not yet moved but patient is passing gas. She has not yet been out of bed with therapy. HPI: Patient is a 64 yo female admitted to [facility] per Dr. Fatima for a posterior lumbar [...] vault suspension Family Hx: mother- 84yo DMII, [place] father- 66yo heart disease Social & Psychosocial [...] weekly transdermal film, extended release , Topical, [facility] fenofibrate 145 mg oral tablet 145 mg = 1 Tab, Oral, Daily Fish Oil 1000 mg oral capsule 1,000 mg = 1 Cap, Oral, BID Flonase 1 [place], Nostrils Both, Daily ipratropium 21 mcg/inh (0.03%) nasal spray 2 [place], Nasal, BID levothyroxine 175 mcg, Oral, Daily [...] nausea, vomiting, diarrhea, constipation] Genitourinary: [No hematuria, +urinary retention- grewal intact Musculoskeletal: LBP with decreased ROM Integumentary: [No rash, pruritus Neurologic: +LLE weakness and pain Psychiatric: [No anxiety, depression Exam: Vitals Signs (last 24 hrs) Last Charted Minimum Maximum Temp 98.4 (JUN 11 05:) 97.6 (JUN 10:) 98.7 (JUN 10:40) Mon HR 84 (JUN 11 05:00) 59 (JUN 10:22) 89 (JUN 10:40) Resp Rate 16 (JUN 11 05:00) 16 (JUN 10:40) 18 (JUN 10:18) SBP H 147 (JUN 11 05:00) 116 (JUN 10 14:30) H 160 (JUN 10:40) DBP 79 (JUN 11 05:00) 62 (JUN 10 14:30) 83 (JUN 10 17:40) MAP 95 (JUN 11 05:00) 84 (JUN 10 14:30) 108 (JUN 10 13:40) SpO2 94 (JUN 11:00) L 93 (JUN 10:18) 100 (JUN 10:22) General: [Alert and oriented, no acute distress]. [...] Data: Labs (Last four charted values) WBC H 12.0 (JUN 11) 8.7 (JUN 08) HB 12.4 (JUN 11) 15.0 (JUN 08) HCT 38.4 (JUN 11) H 46.2 (JUN 08) Plt 247 (JUN 11) 311 (JUN 08) Na 139 (JUN 11) 141 (JUN 08) K 4.2 (JUN 11) 3.6 (JUN 08) Cl 111 (JUN 11) 111 (JUN 08) CO2 22 (JUN 11) 26 (JUN 08) BUN 16 (JUN 11) H 28 (JUN 08) Cr 0.90 (JUN 11) 1.00 (JUN 08) Glu R H 157 (JUN 11) H 133 (JUN 08) Ca L 7.4 (JUN 11) L 8.3 (JUN 08) Impression; advanced spondylolisthesis Lspine -s/p a PLIF per Dr. Fatima obesity at risk for sleep apnea Hx HTN Hx thyroid cancer- removed Hx diverticulitis Hx peripheral neuropathy post op urinary retention Plan: I spoke with Dr. Fatima- pt is ready for discharge home from surgical standpoint discontinue grewal start bethanechol 10mg TID- pt can go home on this med x 3 days if effective and can dc home later today if able to urinate If unable to urinate by this afternoon, will replace grewal and dc home tomorrow with grewal in place- can f/u with PCP or HH for removal Monitor HTN; add PRN's, hold parameters bowel [...]
--- OUTSIDE RECORDS SUMMARY | 2025-06-28 14:48 | XMS_ITS | Encounter Summary ---
Author Organization [employer] ([place], [place], [place], [place], [place]) Address [address] [place] [address] Care Team Providers Care Box Sealing Inspector Name Role Phone Unavailable Primary Care Provider Unavailabl e Encounter Details Date Type Department Care Team (Late st Contact Info) Description 06/10/2020 Transcribed Document [facility] [address] [place] [address] ProviderTai MD [address], [place] [id number] Social History Tobacco Use Types Packs/Day Years Used Date Smoking Tobacco: Never Assessed Comments Unknown Sex and Gender Information Value Date Recorded Sex Assigned at Not on file Legal Sex Female 5:29 PM CDT Gender Identity Not on file Sexual Orientation Not on file documented as of this encounter Miscellaneous Notes * Cerner Conversion Note - Historical ProviderMD - 06/10/2020 10:00 PM TECHNICAL PRODUCER Pain Assessment Entered On: 06/11/2020 1:48 EST Performed On: 06/10/2020 22:19 EST by Chidi Flaherty RN Intervention Information: acetaminophen Performed by Chidi Flaherty RN on 06/10/2020 21:19:00 EST acetaminophen,650mg Oral Pain Assessment Pain Assessment : Follow-up assessment Pain Scale Goal : 4 Pain Scale Used : 0-10 Scale Chidi Flaherty RN - 06/11/2020 1:47 EST Pain Scale Intensity : 4 Chidi Flaherty RN - 06/11/2020 1:47 EST Image 4 - Images currently included in the form version of this document have not been included in the text rendition version of the form. documented in this encounter Plan of Treatment Not on file documented as of this encounter Visit Diagnoses Not on filedocumented in this encounter
--- OUTSIDE RECORDS SUMMARY | 2025-06-28 14:48 | XMS_ITS | Encounter Summary ---
Author Organization [facility] Address [address] [place] [address] Care Team Providers Care Chief Operator Reformer Name Role Phone TravisDeana brown Gena Primary Care Provider [phone] Encounter Details Date Type Department Care Team (Late st Contact Info) Description 05/31/2025 Telephone [facility]IC[facility] [address] [place] [address] Germania Perry PA-C [address] [place] [address] Social History Tobacco Use Types Packs/Day Years [...] or training? Not on file Preferred Language Tuvaluan 04/20/2025 Comments No Sex and Gender Information Value Date Recorded Sex Assigned at Female 12/28/2024 10:17 AM EDT Legal Sex Female 11:26 AM EDT Gender Identity Not on file Sexual Orientation Straight 12/28/2024 10 :17 AM EDT documented as of this encounter Miscellaneous Notes * Telephone Encounter - Alaina Ortega MA - 05/31/2025 3:50 PM EDT I called the patient to see if she could come in Saturday. She said she could and preferred [place] location. I offered her to come in around 10:30am and she accepted. * Telephone Encounter - Munira Dang RegSched Rep - 05/31/2025 2:13 PM EDT Patient called she had L Total Knee surgery on 05/04/25 and she tweaked something in her knee. She tries to flex and bend its about 9/10 in terms of pain she says he sure she felt a pop and hears whenshe tries to flex or bend it. Please advise documented in this encounter Plan of Treatment Upcoming Encounters Date Type Department Care Team (Late st Contact Info) Description 07/07/2025 10:30 AM EST Office Visit [facility] [address] [facility] [address] [address] Germania Perry PA-C [address] [address] 09/23/2025 1:00 PM EST Office Visit [facility] ENDOCRINOLOGY [address] [address] Sara Arora PA [address] [address] documented as of this encounter Visit Diagnoses Not on filedocumented in this encounter Care Teams Chief Operator Reformer Relationship Specialty Start Date End Date Deana Veras DO [address] [place] [address] PCP - General 10/06/15 documented as of this encounter
--- OUTSIDE RECORDS SUMMARY | 2025-06-28 14:48 | XMS_ITS | Encounter Summary ---
Author Organization [employer] ([place], [place], [place], [place], [place]) Address [address] [place] [address] Care Team Providers Care Cable Tv Installer Name Role Phone Unavailable Primary Care Provider Unavailabl e Encounter Details Date Type Department Care Team (Late st Contact Info) Description 06/11/2020 Transcribed Document [facility] Medicine [address] [place] [address] Tai Pyle MD [address], [place] [id number] Social History Tobacco Use Types Packs/Day Years Used Date Smoking Tobacco: Never Assessed Comments Unknown Sex and Gender Information Value Date Recorded Sex Assigned at Not on file Legal Sex Female 5:29 PM CDT Gender Identity Not on file Sexual Orientation Not on file documented as of this encounter Miscellaneous Notes * Cerner Conversion Note - Tai Pyle MD - 06/11/2020 5:20 PM PRECINCT POLICE CAPTAIN Patient Education Materials Follows: Spinal Fusion, Adult, Care After This sheet gives you information about how to care for yourself after your procedure. Your health care provider may also give you more specific instructions. If you have problems or questions, contact your health care provider. What can I expect after the procedure? After the procedure, it is common to have: ??? Back pain and stiffness. ??? Pain in the incision area. Follow these instructions at home: Medicines ??? Take vqom-ydo-duwqkki and prescription medicines only as told by your health care provider. These include any pain medicines or blood thinning medicines (anticoagulants). ??? If you were prescribed an antibiotic medicine, take it as told by your health care provider. Do not stop taking the antibiotic even if you start to feel better. ??? Do not drive for 24 hours if you received a medicine to help you relax (sedative). ??? Do not drive or use heavy machinery while taking prescription pain medicine. If you have a brace: ??? Wear the brace as told by your health care provider. Remove it only as told by your health care provider. ??? Keep the brace clean. Managing pain, stiffness, and swelling ??? If directed, put ice on the injured area: ? If you have a removable brace, remove it as told by your health care provider. ? Put ice in a plastic bag. ? Place a towel between your skin and the bag. ? Leave the ice on for 20 minutes, 2-3 times a day. Incision care ??? Follow instructions from your health care provider about how to take care of your incision. Make sure you: ? Wash your hands with soap and water before you change your bandage (dressing). If soap and water are not available, use hand bible reader. ? Change your dressing as told by your health care provider. ? Leave stitches (sutures), skin glue, or adhesive strips in place. These skin closures may need to be in place for 2 weeks or longer. If adhesive strip edges start to loosen and curl up, you may trim the loose edges. Do not remove adhesive strips completely unless your health care provider tells you to do that. ??? Keep your incision clean and dry. Do not take baths, swim, or use a hot tub until your health care provider approves. ??? Check your incision area every day for signs of infection. Check for: ? More redness, swelling, or pain. ? Fluid or blood. ? Warmth. ? Pus or a bad smell. Physical activity ??? Rest and protect your back as much as possible. ??? Follow instructions from your health care provider about how to move and use good posture to help your spine heal. ??? Do not lift anything that is heavier than 8 lb (3.6 kg) or as told by your health care provider. ??? Do not twist or bend at the waist until your health care provider approves. ??? Avoid: ? Pushing and pulling motions. ? Lifting anything over your head. ? Sitting or lying down in the same position for long periods of time. ??? Do not exercise until your health care provider approves. Once your health care provider has approved exercise, ask him or her what kinds of exercises you can do to make your back stronger (physical therapy). General instructions ??? Wear compression stockings and walk at least every few hours as told by your health care provider. Doing this will help to prevent blood clots and reduce swelling in your legs. ??? Do not use any products that contain nicotine or tobacco, such as cigarettes and e-cigarettes. These can delay bone healing. If you need help quitting, ask your health care provider. ??? To prevent or treat constipation while you are taking prescription pain medicine, your health care provider may recommend that you: ? Drink enough fluid to keep your urine clear or pale yellow. ? Take gsuc-guz-wgbbcur or prescription medicines. ? Eat foods that are high in fiber, such as fresh fruits and vegetables, whole grains, and beans. ? Limit foods that are high in fat and processed sugars, such as fried and sweet foods. ??? Keep all follow-up visits as told by your health care provider. This is important. Contact a health care provider if: ??? You have pain that gets worse or does not get better with medicine. ??? Your legs or feet become painful or swollen. ??? You have more redness, swelling, or pain around your incision. ??? You have fluid or blood coming from your incision. ??? Your incision feels warm to the touch. ??? You have pus or a bad smell coming from your incision. ??? You have a fever. ??? You vomit or feel nausea. ??? You have weakness or numbness in your legs that is new or getting worse. ??? You have trouble controlling urination or bowel movements. Get help right away if: ??? You have severe pain. ??? You have chest pain. ??? You have trouble breathing. ??? You develop a cough. These symptoms may represent a serious problem that is an emergency. Do not wait to see if the symptoms will go away. Get medical help right away. Call your local emergency services (911 in the [place] Do not drive yourself to the hospital. Summary ??? It is common to have pain at the back and incision area. ??? Icing and pain medicines may help to control the pain. Follow directions from your health care provider. ??? Rest and protect your back as much as possible. Do not twist or bend at the waist. Get up and walk at least every few hours as told by your health care provider. This information is not intended to replace advice given to you by your health care provider. Make sure you discuss any questions you have with your health care provider. Document Released: 02/08/2006 Document Revised: 04/11/2019 Document Reviewed: 07/10/2017 [email or web address] Patient Education ? 2020 [employer]. documented in this encounter Plan of Treatment Not on file documented as of this encounter Visit Diagnoses Not on filedocumented in this encounter
--- OUTSIDE RECORDS SUMMARY | 2025-06-28 14:48 | XMS_ITS | Encounter Summary ---
Author Organization [employer] ([place], [place], [place], [place], [place]) Address [address] [place] [address] Care Team Providers Care Coding Compliance Specialist Name Role Phone Unavailable Primary Care Provider Unavailabl e Encounter Details Date Type Department Care Team (Late st Contact Info) Description 06/11/2020 Transcribed Document [facility] [place] [address] [place] [address] ProviderTai MD [address], [place] [phone] Social History Tobacco Use Types Packs/Day Years Used Date Smoking Tobacco: Never Assessed Comments Unknown Sex and Gender Information Value Date Recorded Sex Assigned at Not on file Legal Sex Female 5:29 PM CDT Gender Identity Not on file Sexual Orientation Not on file documented as of this encounter Miscellaneous Notes * Cerner Conversion Note - Tai ProviderMD - 06/11/2020 10:24 AM CUSTOMER ADVISOR SPECIALIST [facility] Authorization Entered On: 06/11/2020 10:24 EST Performed On: 06/11/2020 10:24 EST by Alanna Valentin Rn-Utilization Review Primary Insurance Authorization Authorization and Policy Numbers : Insurance 1 Health Plan: [employer] PPO Policy Number: [id number] Authorization Number: [id number] Insurance Primary Name : [employer] PPO Policy Number: [id number] Authorization Status-Primary : Notification only Reference Number-Primary : [id number] Authorization Number-Primary : [id number] Authorized Service Begin Date-Primary : 06/10/2020 EST Historical Authorization Comments-Primary : Comment 1: [employer] Medicare approved per availity for inpt (JULIA SOUZA RN-Utilization Review 06/03/2020 13:38) Alanna Valentin Rn-Utilization Review - 06/11/2020 10:24 EST Electronically signed by Meaghan, [facility] Conversion Insecticide Supervisor Cerner at 11/22/2022 2:52 PM CDT documented in this encounter Plan of Treatment Not on file documented as of this encounter Visit Diagnoses Not on filedocumented in this encounter
--- OUTSIDE RECORDS SUMMARY | 2025-06-28 14:48 | XMS_ITS | Encounter Summary ---
Author Organization [employer] ([place], [place], [place], [place], [place]) Address [address] [place] [address] Care Team Providers Care Weapons Electrical Engineering Officer Name Role Phone Unavailable Primary Care Provider Unavailabl e Encounter Details Date Type Department Care Team (Late st Contact Info) Description 06/11/2020 Transcribed Document [facility] [place] Family Medicine [address] [place] [address] ProviderTai MD [address], [place] [id number] Social History Tobacco Use Types Packs/Day Years Used Date Smoking Tobacco: Never Assessed Comments Unknown Sex and Gender Information Value Date Recorded Sex Assigned at Not on file Legal Sex Female 5:29 PM CDT Gender Identity Not on file Sexual Orientation Not on file documented as of this encounter Miscellaneous Notes * Cerner Conversion Note - Historical ProviderMD - 06/11/2020 2:00 AM MS SQL DBA Rate And Cost Analyst Details Entered On: 06/11/2020 1:49 EST Performed On: 06/11/2020 2:00 EST by Chidi Flaherty RN Order Details Transport Mode Order Detail : Bed (including specialty) Isolation Precautions Order Detail : Standard Precautions IV Order Detail : 1 Nurse Collect Order Detail : 0 Lift/Transfer : Moderate assist Central Line Order Detail : No Room Service : Appropriate Arterial Line : No Patient Needs Meds Crushed/Liquid : No Chidi Flaherty RN - 06/11/2020 1:48 EST documented in this encounter Plan of Treatment Not on file documented as of this encounter Visit Diagnoses Not on filedocumented in this encounter
--- OUTSIDE RECORDS SUMMARY | 2025-06-28 14:48 | XMS_ITS | Clinical Summary ---
[facility] Address [address] [place] [address] Care Team Providers Care Block Paver Name Role Phone Rito Deanamarco antonio Hinklegh Primary Care Provider [phone] Allergies Active Allergy Reactions Criticality Noted Date Comments Adhesive Tape Rash Low 06/22/2010 Sulfa Antibiotics Rash Medium 03/13/2021 Wound Dressing Adhesive Rash Low 02/05/2024 blisters Medications fluticasone (FLONASE) 50 MCG/ACT nasal spray 2 sprays by Each Nare route Daily. 0 Active fenofibrate (TRICOR) 145 MG tablet Take 1 tablet by mouth Daily. 1 Active estradiol (VIVELLE-DOT) 0.1 MG/24HR patch 1 patch 2 (Two) Times a Week. Sundays and 1 Active bisoprolol (ZEBeta) 5 MG tablet Take 1 tablet by mouth Every Evening. 0 Active magnesium gluconate 250 MG tablet tablet Take 2 tablets by mouth 2 (Two) Times a Day. Active fexofenadine (AMA) 180 MG tablet Take 1 tablet by mouth Daily. Active Calcium Carb-Cholecalci ferol 600-400 MG-UNIT tablet Take 600 mg by mouth 2 (two) times a day. Active BLACK CURRANT SEED OIL PO Take 1 dose by mouth 2 (two) times a day. Active metFORMIN ER (GLUCOPHAGE-XR) 500 MG 24 hr tablet Take 2 tablets by mouth 2 (Two) Times a Day. 2 Active METAMUCIL FIBER PO Take 1 dose by mouth Every Evening. Active polyethylene glycol (MIRALAX) 17 GM/SCOOP powder Take 17 g by mouth Daily. Active Biotin 5 MG tablet Take 1 tablet by mouth 2 (Two) Times a Day. Active atorvastatin (LIPITOR) 10 MG tablet Take 1 tablet by mouth Every Evening. 3 Active ascorbic acid (VITAMIN C) 1000 MG tablet Take 1 tablet by mouth Every Other Day. Active escitalopram (LEXAPRO) 10 MG tablet Take 1 tablet by mouth Daily. Active esomeprazole (nexIUM) 20 MG capsule Take 1 capsule by mouth Every Morning. 5 Active Ozempic, 0.25 or 0.5 MG/DOSE, 2 MG/3ML solution pen-injector Inject 0.5 mg under the skin into the appropriate area as directed 1 (One) Time Per Week. 5 Active ipratropium (ATROVENT) 0.06 % nasal spray INSTILL 2 SPRAYS IN EACH NOSTRIL THREE TIMES DAILY 5 Active levothyroxine (SYNTHROID, LEVOTHROID) 137 MCG tablet Take 1 tablet by mouth Daily. NEW DOSE 90 tablet 1 5 Active ferrous sulfate 325 (65 FE) MG tablet Take 1 tablet by mouth Daily With Breakfast. Active ropivacaine (NAROPIN) 0.2 % infusion (INFUSYSTEM) 4 mg/hr by Peripheral Nerve route Continuous. 5 Active oxyCODONE (Roxicodone) 5 MG immediate release tabletIndicatio ns:S/P TKR (total knee replacement), left Take 1 tablet by mouth Every 4 (Four) Hours As Needed for Moderate Pain. 30 tablet 05/05/2025 11:31 AM EDT 5 Active aspirin (ASPIR) 81 MG EC tablet Take 1 tablet by mouth 2 (Two) Times a Day. 60 tablet 05/05/2025 11:31 AM EDT 5 Active meloxicam (MOBIC) 15 MG tablet Take 1 tablet by mouth Daily. 30 tablet 2 5 Active Active Problems Problem Noted Date Diagnosed Date S/P TKR (total knee replacement), left 5 Primary osteoarthritis of left knee 04/12/2025 Degenerative arthritis of left knee 04/12/2025 S/P total knee arthroplasty, right 05/21/2023 Degenerative arthritis of right knee 05/08/2023 Postoperative pain 06/13/2022 HTN (hypertension) 06/12/2022 DM2 (diabetes mellitus, type 2) 06/12/2022 GERD (gastroesophageal reflux disease) Status post total replacement of right hip 06/12 Primary osteoarthritis of right hip 07/03/2021 History of thyroid cancer 09/12/2020 Overview (09/12/2020): total thyroidectomy 07/22/14--pathology papillary - multifocal - biggest 2.2cm with some extrathyroidal extension. 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 negative neck u/s 02/2015, negative WBS and thyroglobulin 09/2015, negative neck u/s 02/2016, negative neck ultrasound 01/2018, negative neck u/s 01/2019, negative neck u/s 03/2020 Postsurgical hypothyroidism 09/12/2020 Encounters Date Type Department Care Team Description 06/02/2025 10:30 AM EDT Office Visit [facility] [address] [address] Germania Perry PA-C Aftercare following left knee joint replacement surgery (Primary Dx) 06/02/2025 Travel 05/31/2025 Telephone [facility] [address] [address] Germania Perry PA-C 05/26/2025 11:20 AM EDT Office Visit [facility] [address] [address] Germania Perry PA-C Aftercare following left knee joint replacement surgery (Primary Dx) 05/26/2025 Travel 05/11/2025 Telephone [facility] [address] [address] Romero Hall MD 1 week post-op call 05/04/2025 10:55 AM EDT Anesthesia Event Converted [facility] ANESTHESIA [address] [place] [address] 05/04/2025 10:29 AM EDT Anesthesia Event [facility] OR [address] [place] [address] Richardson Fernandez Jr., MD [facility] 05/04/2025 9:44 AM EDT - 05/04/2025 12:13 PM EDT Surgery [facility] OR [address] [place] [address] Romero Hall MD TOTAL KNEE ARTHROPLASTY WITH CORI ROBOT [64681 (CPT )] 05/04/2025 7:58 AM EDT - 05/05/2025 12:44 PM EDT Hospital Encounter [facility] 3G [address] [place] [address] Romero Hall MD S/P TKR (total knee replacement), left (Primary Dx); Primary osteoarthritis of left knee Discharge Disposition: Home or Self Care 05/04/2025 Travel 04/27/2025 Pre-Procedure Screening [facility] [address] [address] Rashid Woodson 04/20/2025 1:30 PM EDT Pre-Admission Testing [facility] PREADMISSION T [address] [place] [address] Primary osteoarthritis of left knee 04/20/2025 Travel 04/12/2025 8:40 AM EDT Office Visit [facility] [address] [place] [address] Romero Hall MD Primary osteoarthritis of left knee (Primary Dx) 04/12/2025 Travel from Last 3 Months Immunizations Immunization Administration Dates Next Due COVID-19 (MODERNA) 1st,2nd,3 rd Dose Monovalent 04/05/2021,11/02/2020,10/05/2020 COVID-19 (MODERNA) BIVALENT 12+YRS 04/16/2022 COVID-19 (MODERNA) Monovalen t Original Booster 09/26/2021 Family History Medical History Relation Name Comments Cancer Brother Chidi Lomeli Heart disease Father Diabetes Mother Patricia Lomeli Heart disease Mother Patricia Lomeli Relation Name Status Comments Brother Chidi Lomeli Father Mother Patricia Lomeli Social History Tobacco Use Types Packs/Day Years Used Date Smoking Tobacco: Never Smokeless Tobacco: Never Tobacco Cessation:Counseling Given: No Alcohol Use Standard Drinks/Week Comments Not Currently [...] or training? Not on file Preferred Language Luxembourger 04/20/2025 Comments No Sex and Gender Information Value Date Recorded Sex Assigned at Female 12/28/2024 10:17 AM EDT Legal Sex Female 11:26 AM EDT Gender Identity Not on file Sexual Orientation Straight 12/28/2024 10 :17 AM EDT Last Filed Vital Signs Vital Sign Reading Time Taken Comments Blood Pressure 140/70 06/02/2025 10:49 AM EDT Pulse 76 05/05/2025 7:32 AM EDT Temperature 36 C (96.8 F) 05/26/2025 11:18 AM EDT Respiratory Rate 16 05/05/2025 7:32 AM EDT Oxygen Saturation 95% 05/05/2025 7:32 AM EDT Inhaled Oxygen Concentration - - Weight 78.5 kg (173 lb) 06/02/2025 10:49 AM EDT Height 167.6 cm (5' 5.98 ) 06/02/2025 10:49 AM E DT Body Mass Index 27.94 06/02/2025 10:49 AM EDT Plan of Treatment Upcoming Encounters Date Type Department Care Team (Late st Contact Info) Description 07/07/2025 10:30 AM EST Office Visit [facility] [address] [address] Germania Perry PA-C [address] [address] 09/23/2025 1:00 PM EST Office Visit [facility] ENDOCRINOLOGY [address] [place] [id number] Sara Arora PA [address] [place] [address] Health Maintenance Due Date Last Done Comments DIABETIC FOOT EXAM 12/30/1965 URINE MICROALBUMIN-CREATININ E RATIO (uACR) 12/30/1963 MAMMOGRAM 1993 COLOGUARD 1998 COLON CANCER SCREENING 5 YEA R SIGMOIDOSCOPY 1998 CT COLONOGRAPHY 1998 FECAL OCCULT BLOOD TEST 1998 FIT Testing (1 year) 1998 DXA SCAN 01/27/2017 01/27/2015 ZOSTER VACCINE (2 of 2) 04/06/2020 02/10/2020 ANNUAL WELLNESS VISIT 06/09/2020 HEPATITIS C SCREENING 06/09/2020 Pneumococcal Vaccine 50+ (2 of 2 - PCV) 05/05/2022 05/05/2021 COVID-19 Vaccine (8 - Modern a risk season) 2025 04/23/2024, 05/01/2023, 04/16/2022, Additional history exists HEMOGLOBIN A1C 10/18/2025 04/20/2025, 05/05, 05/31/2022 DIABETIC EYE EXAM 10/28/2025 10/28/2024, , 02/12/2023 COLONOSCOPY 08/05/2030 08/05/2020, 0210/2019, 08/05/2019 COLORECTAL CANCER SCREENING 08/05/2030 TDAP/TD VACCINES (3 - Td or Tdap) 04/23/2034 024, 10/06/1996 INFLUENZA VACCINE Completed 04/13/2025, , 05/01/2023, Additional history exists Medical Devices Implanted Type Area Ic Designer Custom Device Identifier Shelf Expiration Date Model / Serial / Lot Totl Hip 2 Mobl Harry Nephew - [id number] Implanted:Q ty: 1 on 06/12/2022 by Romero Hall MD at [facility] Implant Right : Hip HARRY AND NEPHEW CAPHIPTOALDUALMOBILI TY / / Dev Contrl Tiss Stratafix Spiral Mncryl Ud 3/0 Pls 60cm - [id number] Implanted:Q ty: 1 on 06/12/2022 by Romero Hall MD at [facility] Implant Right : Hip [employer] J AND J 03/04/2024 [id number] / / [id number] Dev Contrl Tiss Stratafix Symm Pds Plus Oniel Ct-1 45cm - [id number] Implanted:Q ty: 1 on 06/12/2022 by Romero Hall MD at [facility] Implant Right : Hip [employer] DIV OF J AND J 12/03/2023 [id number] / / [id number] Shll Acet R3 3h Std 52mm - [id number] Implanted:Q ty: 1 on 06/12/2022 by Romero Hall MD at [facility] Implant Right : Hip H[employer] NEPHEW [id number] 02/29/2032 [id number] / / [id number] [facility] Hd Reflection 6.5x25mm - [id number] Implanted:Q ty: 1 on 06/12/2022 by Romero Hall MD at [facility] Implant Right : Hip [employer]HEW 11/16/2031 [id number] / / [id number] Liner Hip Or3o 2/Mobl Sz40/52 - [id number] Implanted:Q ty: 1 on 06/12/2022 by Romero Hall MD at [facility] Implant Right : Hip [employer]HEW 02/21/2031 [id number] / / [id number] Stem Fem/Hip Polarstem W/Colr Std Sz2 - [id number] Implanted:Q ty: 1 on 06/12/2022 by Romero Hall MD at [facility] Implant Right : Hip [employer] [id number] 11/08/2028 [id number] / / [id number] Insrt Hip Or3o 2/Mobl Xlpe Sz22/40 - [id number] Implanted:Q ty: 1 on 06/12/2022 by Romero Hall MD at [facility] Implant Right : Hip [employer]HEW 07/05/2031 [id number] / / [id number] Hd Fem/Hip Oxinium Tpr 07/18 22mm Pls0 - [id number] Implanted:Q ty: 1 on 06/12/2022 by Romero Hall MD at [facility] Implant Right : Hip [employer]HEW [id number] 11/25/2031 [id number] / / [id number] Cmt Bone Palacos R Hi/Visc 1x40 - [id number] Implanted:Q ty: 2 on 05/21/2023 by Romero Hall MD at [facility] Implant Right : Knee [facility] [id number] 09/04/2027 [id number] / / [id number] Dev Contrl Tiss Stratafix Spiral Mncryl Ud 3/0 Pls 60cm - [id number] Implanted:Q ty: 1 on 05/21/2023 by Romero Hall MD at [facility] Implant Right : Knee [employer] J AND J [id number] 02/01/2025 [id number] / / [id number] Dev Contrl Tiss Stratafix Symm Pds Plus Oniel Ct-1 45cm - [id number] Implanted:Q ty: 1 on 05/21/2023 by Romero Hall MD at [facility] Implant Right : Knee [employer] DIV OF Mariano AND J [id number] 11/02/2024 [id number] / / [id number] Fem Legion Oxinium Cr Nrw Sz5n Rt - [id number] Implanted:Q ty: 1 on 05/21/2023 by Romero Hall MD at [facility] Implant Right : Knee [employer] [id number] 01/19/2033 [id number] / / [id number] Base Tib/Kn Gen2 Nonpor Ti Sz3 Rt - [id number] Implanted:Q ty: 1 on 05/21/2023 by Romero Hall MD at [facility] Implant Right : Knee [employer] [id number] 01/03/2033 [id number] / / [id number] Patella Resrf Gen2 7.5x32mm - [id number] Implanted:Q ty: 1 on 05/21/2023 by Romero Hall MD at [facility] Implant Right : Knee [employer] [id number] 04/07/2033 [id number] / / [id number] Insrt Art/Kn Legion Cr Hf Xlpe Sz3to4 10mm - [id number] Implanted:Q ty: 1 on 05/21/2023 by Romero Hall MD at [facility] Implant Right : Knee [employer] [id number] 12/11/2032 [id number] / / [id number] Totl Kn Saulo Harry Nephew - [id number] Implanted:Q ty: 1 on 05/21/2023 by Romero Hall MD at [facility] Implant Right : Knee [employer]W [id number] / / Cmt Bone Palacos R Hi/Visc 1x40 - [id number] Implanted:Q ty: 1 on 05/04/2025 by Romero Hall MD at [facility] Implant Left: Knee [facility] 08/04/2029 [id number] / / [id number] Cmt Bone Palacos R Hi/Visc 1x40 - [id number] Implanted:Q ty: 1 on 05/04/2025 by Romero Hall MD at [facility] Implant Left: Knee [facility] 04/04/2029 [id number] / / [id number] Dev Contrl Tiss Stratafix Symm Pds Plus Oniel Ct-1 45cm - [id number] Implanted:Q ty: 1 on 05/04/2025 by Romero Hall MD at [facility] Implant Left: Knee [employer] DIV OF AND J 10/02/2026 [id number] / / [id number] Dev Contrl Tiss Stratafix Spiral Mncryl Ud 3/0 Pls 60cm - [id number] Implanted:Q ty: 1 on 05/04/2025 by Romero Hall MD at [facility] Implant Left: Knee [employer] AND J 10/02/2026 [id number] / / [id number] Comp Fem Legion Oxinium Cr Nrw Sz5 Lt - [id number] Implanted:Q ty: 1 on 05/04/2025 by Romero Hall MD at [facility] Implant Left: Knee [employer] 12/15/2034 [id number] / / [id number] Base Tib/Kn Gen2 Nonpor Ti Sz3 Lt - [id number] Implanted:Q ty: 1 on 05/04/2025 by Romero Hall MD at [facility] Implant Left: Knee [employer] 11/27/2034 [id number] / / [id number] Patella Resrf Gen2 7.5x32mm - [id number] Implanted:Q ty: 1 on 05/04/2025 by Romero Hall MD at [facility] Implant Left: Knee [employer] 12/12/2034 [id number] / / [id number] Insrt Art/Kn Legion Cr Hf Xlpe Sz3to4 10mm - [id number] Implanted:Q ty: 1 on 05/04/2025 by Romero Hall MD at [facility] Implant Left: Knee [employer] 01/13/2035 [id number] / / [id number] Totl Kn Saulo Harry Nephew - [id number] Implanted:Q ty: 1 on 05/04/2025 by Romero Hall MD at [facility] Implant Left: Knee H[employer] [id number] / / Back Hardware Procedures Procedure Name Priority Date/Time Associated Diagnosis Comments XR KNEE 3+ VW W SUNRISE LEFT Routine 06/02/2025 11:02 AM EDT Aftercare following left knee joint replacement surgery XR KNEE 3+ VW W SUNRISE LEFT Routine 05/26/2025 11:34 AM EDT Aftercare following left knee joint replacement surgery BASIC METABOLIC PANEL Routine 05/05/2025 5:13 AM EDT CBC (NO DIFF) Routine 05/05/2025 5:13 AM EDT XR KNEE 1 OR 2 VW LEFT STAT 05/04/2025 12:57 PM EDT ANESTHESIA PERIPHERAL BLOCK Routine 05/04/2025 12:26 PM EDT SPINAL Routine 05/04/2025 10:49 AM EDT ND ARTHRP KNE CONDYLE&PLATU MEDIAL&LAT COMPARTMENTS 05/04/2025 10:15 AM EDT Primary osteoarthritis of left knee Special Needs * POCT GLUCOSE FINGERSTICK Routine 05/04/2025 9:15 AM EDT ECG 12-LEAD Routine 04/20/2025 2:17 PM EDT CBC AND DIFFERENTIAL Routine 04/20/2025 1:44 PM EDT Primary osteoarthritis of left knee CBC WITH AUTO DIFFERENTIAL Routine 04/20/2025 1:44 PM EDT Primary osteoarthritis of left knee C-REACTIVE PROTEIN Routine 04/20/2025 1: 44 PM EDT Primary osteoarthritis of left knee SEDIMENTATION RATE Routine 04/20/2025 1: 44 PM EDT Primary osteoarthritis of left knee HEMOGLOBIN A1C Routine 04/20/2025 1:44 PM EDT Primary osteoarthritis of left knee APTT Routine 04/20/2025 1:44 PM EDT Primary osteoarthritis of left knee PROTIME-INR Routine 04/20/2025 1:44 PM EDT Primary osteoarthritis of left knee BASIC METABOLIC PANEL Routine 04/20/2025 1:44 PM EDT Primary osteoarthritis of left knee XR KNEE 4+ VW LEFT Routine 04/12/2025 9: 29 AM EDT Primary osteoarthritis of left knee SCANNED - EYE EXAM 10/28/2024 DEXA BONE DENSITY AXIAL Routine 01/27/2015 9:56 AM EDT from Last 3 Months or Most Recently Relevant to Health Maintenance Results * XR Knee 3+ View With [place] Left (06/02/2025 11:02 AM EDT) Only the most recent of2 resultswithin the time period is included. Anatomical Region Laterality Modality Lower Extremities, Knee Left Xray Narrative 06/04/2025 1:12 PM EDT Left Knee Radiographs Indication: status-post left total knee arthroplasty Views: AP, lateral, and sunrise views of the left knee Comparison: no change compared to prior study, 05/26/2025 Findings: The components are well aligned, with no signs of loosening or failure. Soft tissue swelling noted. Romero Hall MD IMG DIAGNOSTIC IMAGING ORDERAB LES Final Result * (ABNORMAL) CBC (No Diff) (05/05/2025 5:13 AM EDT) WBC 15.22(H) 3.40 - 10.80 10*3/mm3 05/05/2025 5:25 AM EDT [facility] RBC 3.78 3.77 - 5.28 10*6/mm3 05/05/2025 5:25 AM EDT [facility] Hemoglobin 10.8(L) 12.0 - 15.9 g/dL 05/05/2025 5:25 AM EDT [facility] Hematocrit 33.5(L) 34.0 - 46.6 % 05/05/2025 5:25 AM EDT [facility] MCV 88.6 79.0 - 97.0 fL 05/05/2025 5:25 AM EDT [facility] MCH 28.6 26.6 - 33.0 pg 05/05/2025 5:25 AM EDT [facility] MCHC 32.2 31.5 - 35.7 g/dL 05/05/2025 5:25 AM EDT [facility] RDW 15.0 12.3 - 15.4 % 05/05/2025 5:25 AM EDT [facility] RDW-SD 48.8 37.0 - 54.0 fl 05/05/2025 5:25 AM EDT [facility] MPV 10.4 6.0 - 12.0 fL 05/05/2025 5:25 AM EDT [facility] Platelets 316 140 - 450 10*3/mm3 05/05/2025 5:25 AM EDT [facility] Blood Venipuncture / Unknown 05/05/2025 5:13 AM EDT 05/05/2025 5:19 AM EDT us Romero Hall MD LAB BLOOD ORDERABLES Final Res ult [facility]
[address] [place] [address], * (ABNORMAL) Basic Metabolic Panel (05/05/2025 5:13 AM EDT) Only the most recent of2 resultswithin the time period is included. Glucose 110(H) 65 - 99 mg/dL 05/05/2025 6:16 AM EDT [facility] BUN 12.7 8.0 - 23.0 mg/dL 05/05/2025 6:16 AM EDT [facility] Creatinine 0.80 0.57 - 1.00 mg/dL 05/05/2025 6:16 AM EDT [facility] Sodium 137 136 - 145 mmol/L 05/05/2025 6:16 AM EDT [facility] Potassium 4.3 3.5 - 5.2 mmol/L 05/05/2025 6:16 AM EDT [facility] Chloride 105 98 - 107 mmol/L 05/05/2025 6:16 AM EDT [facility] CO2 21.3(L) 22.0 - 29.0 mmol/L 05/05/2025 6:16 AM EDT [facility] Calcium 7.6(L) 8.6 - 10.5 mg/dL 05/05/2025 6:16 AM EDT [facility] BUN/Creatinine Ratio 15.9 7.0 - 25.0 05/05/2025 6:16 AM T [facility] Anion Gap 10.7 5.0 - 15.0 mmol/L 05/05/2025 6:16 AM T [facility] eGFR 78.9 >60.0 mL/min/1.7 3 05/05/2025 6:16 AM T [facility] Blood Venipuncture / Unknown 05/05/2025 5:13 AM EDT 05/05/2025 5:19 AM EDT [facility] - 05/05/2025 6:16 AM EDT GFR [...] Alford MD LAB BLOOD ORDERABLES Final Result [facility]
[address] [place] [address], * XR Knee 1 or 2 View Left (05/04/2025 12:57 PM EDT) Anatomical Region Laterality Modality Lower Extremities, Knee [facility] 05/04/2025 12:5 9 PM EDT Impressions 05/04/2025 12:59 PM EDT Impression: Postoperative changes of knee arthroplasty without radiographic evidence of immediate complication. Electronically Signed: Jarad Sanches MD 05/04/2025 12:59 PM EDT Workstation ID: [id number] Narrative 05/04/2025 12:59 PM EDT XR KNEE [...] MD 05/04/2025 12:59 PM EDT Workstation ID: [id number] Romero Hall MD IMG DIAGNOSTIC IMAGING ORDERAB LES Final Result * BH AN PERIPHERAL BLOCK CATHETER (05/04/2025 [...] catheter connection. Performed by: Mic Geller SRNA Richardson Fernandez Jr., MD ANESTHESIA ORDERABLES F inal Result * [facility] AN SPINAL TRAY (05/04/2025 10:49 AM EDT) Narrative Stu Olivera CRNA - 05/04/2025 10:49 AM EDT Stu [...] timeout performed Spinal Block Prep: Patient Position:sitting District Loss Prevention Manager:cap, gloves, sterile barriers and mask Prep:Chloraprep Patient [...] flow was obtained and LA was injected: us Richardson Fernandez Jr., MD ANESTHESIA ORDERABLES F inal Result * POC Glucose Once (05/04/2025 9:15 AM EDT) Pathologist [facility] Glucose 82 70 - 130 mg/dL 05/04/2025 9:20 AM EDT [facility] Comment:Serial Number: [id number]: [id number] Blood 05/04/2025 9:15 AM EDT 05/04/2025 9:20 AM EDT us Richardson Fernandez Jr., MD POINT OF CARE TEST ALTAF GARCIA Final Result [facility]
[address] [place] [address], * ECG 12 Lead (04/20/2025 2:17 PM EDT) QT Interval 390 ms BH ECG QTC Interval 429 ms ECG 04/20/2025 2:17 PM EDT 04/21/2025 8:48 AM EDT Narrative ECG - 04/21/2025 8:48 AM EDT Test Reason : Pre-Op / Pre-Procedure Blood Pressure : */* mmHG Vent. Rate : 73 BPM Atrial Rate : 73 BPM P-R Int : 142 ms QRS Dur : 80 ms QT Int : 390 ms P-R-T Axes : 6 -28 8 degrees QTcB Int : 429 ms Normal sinus rhythm Minimal voltage criteria for LVH, may be normal variant ( R in aVL ) Borderline ECG When compared with ECG of 15-May-2023 09:39, No significant change was found Confirmed by Madhu Armas ([id number]) on 04/21/2025 8:48:17 AM Referred By: Confirmed By: Madhu Armas Procedure Note Madhu Armas MD - 04/21/2025 Test Reason : Pre-Op / Pre-Procedure Blood Pressure : */* mmHG Vent. Rate : 73 BPM Atrial Rate : 73 BPM P-R Int : 142 ms QRS Dur : 80 ms QT Int : 390 ms P-R-T Axes : 6 -28 8 degrees QTcB Int : 429 ms Normal sinus rhythm Minimal voltage criteria for LVH, may be normal variant ( R in aVL ) Borderline ECG When compared with ECG of 15-May-2023 09:39, No significant change was found Confirmed by Madhu Armas ([id number]) on 04/21/2025 8:48:17 AM Referred By: Confirmed By: Madhu Armas us Romero Hall MD ECG ORDERABLES Final Result ECG * (ABNORMAL) CBC Auto Differential (04/20/2025 1:44 PM EDT) WBC 10.47 3.40 - 10.80 10*3/mm3 04/20/2025 2:12 PM EDT [facility] RBC 4.80 3.77 - 5.28 10*6/mm3 04/20/2025 2:12 PM EDT [facility] Hemoglobin 13.4 12.0 - 15.9 g/dL 04/20/2025 2:12 PM EDT [facility] Hematocrit 42.3 34.0 - 46.6 % 04/20/2025 2:12 PM EDT [facility] MCV 88.1 79.0 - 97.0 fL 04/20/2025 2:12 PM EDT [facility] MCH 27.9 26.6 - 33.0 pg 04/20/2025 2:12 PM EDT [facility] MCHC 31.7 31.5 - 35.7 g/dL 04/20/2025 2:12 PM EDT [facility] RDW 15.3 12.3 - 15.4 % 04/20/2025 2:12 PM EDT [facility] RDW-SD 49.4 37.0 - 54.0 fl 04/20/2025 2:12 PM EDT [facility] MPV 10.3 6.0 - 12.0 fL 04/20/2025 2:12 PM EDT [facility] Platelets 352 140 - 450 10*3/mm3 04/20/2025 2:12 PM EDT [facility] Neutrophil % 65.7 42.7 - 76.0 % 04/20/2025 2:12 PM EDT [facility] Lymphocyte % 24.0 19.6 - 45.3 % 04/20/2025 2:12 PM EDT [facility] Monocyte % 6.0 5.0 - 12.0 % 04/20/2025 2:12 PM EDT [facility] Eosinophil % 2.4 0.3 - 6.2 % 04/20/2025 2:12 PM EDT [facility] Basophil % 0.8 0.0 - 1.5 % 04/20/2025 2:12 PM EDT [facility] Immature Grans % 1.1(H) 0.0 - 0.5 % 04/20/2025 2:12 PM EDT [facility] Neutrophils, Absolute 6.88 1.70 - 7.00 10*3/mm3 04/20/2025 2:12 PM EDT [facility] Lymphocytes, Absolute 2.51 0.70 - 3.10 10*3/mm3 04/20/2025 2:12 PM EDT [facility] Monocytes, Absolute 0.63 0.10 - 0.90 10*3/mm3 04/20/2025 2:12 PM EDT [facility] Eosinophils, Absolute 0.25 0.00 - 0.40 10*3/mm3 04/20/2025 2:12 PM EDT [facility] Basophils, Absolute 0.08 0.00 - 0.20 10*3/mm3 04/20/2025 2:12 PM EDT [facility] Immature Grans, Absolute 0.12(H) 0.00 - 0.05 10*3/mm3 04/20/2025 2:12 PM EDT [facility] nRBC 0.0 0.0 - 0.2 /100 WBC 04/20/2025 2:12 PM EDT [facility] Blood Venipuncture / Unknown 04/20/2025 1:44 PM EDT 04/20/2025 2:01 PM EDT Romero Hall MD LAB BLOOD ORDERABLES Final Res ult [facility]
[address] [place] [address], * APTT (04/20/2025 1:44 PM EDT) PTT 32.0 22.0 - 39.0 seconds 04/20/2025 2:31 PM EDT [facility] Blood Venipuncture / Unknown 04/20/2025 1:44 PM EDT 04/20/2025 2:01 PM EDT Narrative [facility] - 04/20/2025 2:31 PM EDT PTT = The equivalent PTT values for the therapeutic range of heparin levels at 0.3 to 0.5 U/ml are 60 to 70 seconds. us Romero Hall MD LAB BLOOD ORDERABLES Final Res ult Performing Organization Address City/[facility] Co de Phone Number [facility]
[address] [place] [address], * Sedimentation rate (04/20/2025 1:44 PM EDT) [facility] Sed Rate 7 0 - 30 mm/hr 04/20/2025 2:46 PM EDT [facility] Blood Venipuncture / Unknown 04/20/2025 1:44 PM EDT 04/20/2025 2:01 PM EDT Romero Hall MD LAB BLOOD ORDERABLES Final Res ult Performing Organization Address [facility] de Phone Number [facility]
[address] [place] [address], * Protime-INR (04/20/2025 1:44 PM EDT) [facility] Protime 12.9 12.2 - 15.3 Seconds 04/20/2025 2:31 PM EDT [facility] INR 0.92 0.89 - 1.12 04/20/2025 2:31 PM EDT [facility] Blood Venipuncture / Unknown 04/20/2025 1:44 PM EDT 04/20/2025 2:01 PM EDT us Romero Hall MD LAB BLOOD ORDERABLES Final Res ult Performing Organization Address [facility] Co de Phone Number [facility]
[address] [place] [address], * C-reactive protein (04/20/2025 1:44 PM EDT) [facility] C-Reactive Protein <0.30 0.00 - 0.50 mg/dL 04/20/2025 2:28 PM EDT [facility] Blood Venipuncture / Unknown 04/20/2025 1:44 PM EDT 04/20/2025 2:01 PM EDT Romero Hall MD LAB BLOOD ORDERABLES Final Res ult Performing Organization Address [facility] Co de Phone Number [facility]
[address] [place] [address], * Hemoglobin A1c (04/20/2025 1:44 PM EDT) Hemoglobin A1C 5.23 4.80 - 5.60 % 04/20/2025 2:22 PM EDT [facility] Blood Venipuncture / Unknown 04/20/2025 1:44 PM EDT 04/20/2025 2:01 PM EDT Narrative [facility] - 04/20/2025 2:22 PM EDT Hemoglobin A1C Ranges: Increased Risk for Diabetes 5.7% to 6.4% Diabetes >= 6.5% Diabetic Goal < 7.0% Romero Hall MD LAB BLOOD ORDERABLES Final Res ult Performing Organization Address [facility] Co de Phone Number [facility]
[address] [place] [address], * XR Knee 4+ View Left (04/12/2025 9:29 AM EDT) Anatomical Region Laterality Modality Lower Extremities, Knee Left Xray Narrative 04/12/2025 9:37 AM EDT Left Knee Radiographs Indication: left knee pain Views: Standing AP's and skiers of both knees, with lateral and sunrise views of the left knee Comparison: 04/13/2024 Findings: Bone contact medial compartment, tricompartmental osteophytes, advanced knee arthritis, worsening compared to the previous imaging. us Romero Hall MD IMG DIAGNOSTIC IMAGING ORDERAB LES Final Result * EYE EXAM SCANNED (10/28/2024) Anatomical Region Laterality Modality Other Carlton Storm MD CHART REVIEW TABS Final Result * DEXA BONE DENSITY AXIAL (01/27/2015 9:56 AM EDT) Anatomical Region Laterality Modality Wrist, Hip, L-spine N/A Radiographic Imaging 01/27/2015 9:56 AM EDT Narrative 01/27/2015 2:01 PM EDT EXAMINATION: DUAL-ENERGY X-RAY ABSORPTIOMETRY (DXA) INDICATION: 59-year-old patient status post oophorectomy. COMPARISON: None PROCEDURE: A DXA scan was performed using a Hologic densitometer. The lumbar spine was evaluated as well as both total hips. The L2 and L3 vertebral bodies were excluded. The T-score compares the patient's bone mineral density with the peak bone mass of young normal patients. According to criteria established by the World Health Organization, patients with T-scores between 1.0 and 2.5 standard deviations BELOW the mean are osteopenic (low bone mass). Patients with T-scores EQUAL TO OR GREATER than 2.5 standard deviations below the mean are osteoporotic. The Z-score compares the patient bone mineral density with age and sex matched peers. According to the International Society for Clinical Densitometry's 2007 consensus conference: In women prior to menopause and men less than age 50, Z-scores, not T-scores are preferred. A Z-score of -2.0 or lower is defined as below the expected range for age and a Z-score above -2.0 is within the expected range for age. The WHO diagnostic criteria may be applied in women in the menopausal transition. Osteoporosis cannot be diagnosed in men under age 50 on the basis of BMD alone. TECHNICAL QUALITY: The study is of good technical quality. RESULTS: Lumbar Spine: The BMD measured in the L1 and L4 region is 1.474 g/cm2. The average T-score is 4.0. The Z-score is 5.4. Left Total Hip: The BMD measured at the left total proximal femur is 1.000 g/cm2. The T-score is 0.5. The Z-score is 1.5. Left Femoral Neck: The BMD measured at the left femoral neck is 0.821 g/cm2. The T-score is -0.3. The Z-score is 1.1. Right Total Hip: The BMD measured at the right total proximal femur is 0.980 g/cm2. The T-score is 0.3. The Z-score is 1.3. Right Femoral Neck: The BMD measured at the right femoral neck is 0.893 g/cm2. The T-score is 0.4. The Z-score is 1.7. IMPRESSION- The patient has normal bone mass. The bone density is significantly higher in the lumbar spine. This is likely secondary to degenerative changes. Recommend correlation with any known plain films. All the treatment decisions require clinical judgment and consideration of individual patient factors, including patient preferences, co-morbidities, previous drug use, risk factors not captured in the FRAX model (frailty, falls, vitamin D deficiency, increased bone turnover, interval significant decline in bone density) and possible under or over estimation of fracture risk by FRAX. Approaches to reduce osteoporosis related fracture risk include optimizing calcium and vitamin D status, appropriate weight bearing exercises and fall-prevention measurements. The National Osteoporosis Foundation recommends (http://www.nof.org/hcp/practice/dshjzdam-yba-dyxphizn-guidelines/clinic ans-guide) that FDA-approved medical therapies be considered in postmenopausal women and men aged equal or greater than 50 years with : a) hip or vertebral (clinical or morphometric) fracture; b) T-score of -2.5 or less at the spine or hip; c) Ten-year fracture probability by FRAX of greater than 3% for hip fracture of greater than 20% for major osteoporotic fracture. Secondary causes of bone loss should be evaluated if clinically indicated since the etiology of low BMD cannot be determined by BMD measurement alone. FOLLOWUP: Consider repeating the study in 2-3 years to reassess the patient's status or sooner if there is some new clinical indication. INTERVAL CHANGE: This is the patient's baseline exam at this facility. At this facility, the least significant change in the BMD at the left\right hip with 95% confidence is 0.086543 gm/cm2 and and 0.245241 g/cm2 at the lumbar spine. DE: 01/27/2015 Reading Radiologist- DAFNE MELGAR Releasing RadiologistRuthy MELGAR Released Date Time- 01/27/15 1628 All Around Patternmaker- Brenda Chidi Boyer MD IMG DXA ORDERABLES Final Result from Last 3 Months or Most Recently Relevant to Health Maintenance Insurance Medicare [employer] PPO Advance Directives Documents on File Type Date Recorded Patient University Administrator Expl anation LIVING WILL - SCAN 05/31/2022 2:13 PM DELMI ING WILL/HEALTH CARE SURROGATE, BHLLYNETTE, 08/13/2003 P[employer] [place] CONTRACTOR - SCAN 05/31/2022 2:13 PM POA, ANDRA, 10/16/19 00 * CPR (Attempt to Resuscitate) (Latest Code Status on File) Date Activated Date Inactivated Comments 05/04/2025 2:10 PM 05/05/2025 2:49 PM Question Answer Comments Code Status (Patient has no pulse and is not breathing): CPR (Attempt to Resuscitate) Medical Interventions (Patie nt has pulse or is breathing): Full Support * CPR (Attempt to Resuscitate) Date Activated Date Inactivated Comments 05/21/2023 1:16 PM 05/23/2023 2:34 PM Question Answer Comments Code Status (Patient has no pulse and is not breathing): CPR (Attempt to Resuscitate) Medical Interventions (Patie nt has pulse or is breathing): Full Support * CPR (Attempt to Resuscitate) Date Activated Date Inactivated Comments 06/12/2022 2:46 PM 06/13/2022 5:25 PM Question Answer Comments Code Status (Patient has no pulse and is not breathing): CPR (Attempt to Resuscitate) Medical Interventions (Patie nt has pulse or is breathing): Full Support Release to patient: Routine Release Care Teams Block Paver Relationship Specialty Start Date End Date Deana Veras DO [address] [place] [address] PCP - General 10/06/15
--- OUTSIDE RECORDS SUMMARY | 2025-06-28 14:48 | XMS_ITS | Encounter Summary ---
Author Organization [employer] ([place], [place], [place], [place], [place]) Address [address] [place] [address] Care Team Providers Care Weaver Hand Loom Name Role Phone Unavailable Primary Care Provider Unavailabl e Encounter Details Date Type Department Care Team (Late st Contact Info) Description 06/11/2020 Transcribed Document [facility] [place] [address] [place] [address] ProviderTai MD [address] [place], [place] [id number] Social History Tobacco Use Types Packs/Day Years Used Date Smoking Tobacco: Never Assessed Comments Unknown Sex and Gender Information Value Date Recorded Sex Assigned at Not on file Legal Sex Female 5:29 PM CDT Gender Identity Not on file Sexual Orientation Not on file documented as of this encounter Miscellaneous Notes * Cerner Conversion Note - Historical ProviderMD - 06/11/2020 5:20 PM DIE PRESSER Stroke/Warfarin Instructions Entered On: 06/11/2020 17:20 EST Performed On: 06/11/2020 17:20 EST by SERA NORRIS LPN Stroke/Warfarin Instructions Stroke/TIA Discharge Ins : N/A Warfarin Discharge Ins : N/A SERA NORRIS LPN - 06/11/2020 17:20 EST Electronically signed by Meaghan [facility] Conversion [place] Wellness Coordinator Cerner at 11/22/2022 2:45 PM CDT documented in this encounter Plan of Treatment Not on file documented as of this encounter Visit Diagnoses Not on filedocumented in this encounter
--- OUTSIDE RECORDS SUMMARY | 2025-06-28 14:48 | XMS_ITS | Encounter Summary ---
Author Organization [employer] ([place], [place], [place], [place], [place]) Address [address] [place] [address] Care Team Providers Care Plastics Fabricator Name Role Phone Unavailable Primary Care Provider Unavailabl e Encounter Details Date Type Department Care Team (Late st Contact Info) Description 06/11/2020 Transcribed Document [facility] [address] [address] [facility] [address] [place] [address] Marlo Rios MD [address] [facility] [place] [address] [place] [address] Social History Tobacco Use Types Packs/Day Years Used Date Smoking Tobacco: Never Assessed Comments Unknown Sex and Gender Information Value Date Recorded Sex Assigned at Not on file Legal Sex Female 5:29 PM CDT Gender Identity Not on file Sexual Orientation Not on file documented as of this encounter Miscellaneous Notes * Cerner Conversion Note - Marlo Rios MD - 06/11/2020 11:01 AM EST Patient: MARAH GONZALEZ Age: 64 years Sex: Female : 1955 Associated Diagnoses: None Author: MARLO RIOS MD-SNU Subjective Doing well this AM. Improvement in nerve pain. Incisional pain. Grewal place ~5am. Vitals Signs (last 24 hrs) Last Charted Minimum Maximum Temp 98.4 (JUN 11 05:00) 97.6 (JUN 10 15:22) 98.7 (JUN 10 13:40) Mon HR 84 (JUN 11 05:00) 59 (JUN 10 15:22) 89 (JUN 10 13:40) Resp Rate 16 (JUN 11 05:00) 16 (JUN 10 13:40) 18 (JUN 10 23:18) SBP H 147 (JUN 11 05:00) 116 (JUN 10 14:30) H 160 (JUN 10 13:40) DBP 79 (JUN 11 05:00) 62 (JUN 10 14:30) 83 (JUN 10 17:40) MAP 95 (JUN 11 05:00) 84 (JUN 10 14:30) 108 (JUN 10 13:40) SpO2 94 (JUN 11 05:00) L 93 (JUN 10 23:18) 100 (JUN 10 15:22) Physical Exam 12/07 LE grewal Laboratory Values: JUN 11 02:25 139 111 16 / H 157 4.2 22 0.90 \ JUN 11 02:25 \ 12.4 / H 12.0 247 / 38.4 \ Radiology Results (Last 48 hours) [id number] -- 06/10/2020 07:[address] in OR (06/10/2020 13:30) Result: CT LUMBAR SPINE 06/10/2020 4:05 PMHISTORY: Intraoperative lumbar spine fusion. PROCEDURE: Axial images were obtained in the operative suite through thelumbar spine by computed tomography. This study was performed withtechniques to keep radiation doses as low as reasonably achievable,(ALARA). Individualized dose reduction techniques using automatedexposure control or adjustment of mA and/or kV according to the patientsize were employed.FINDINGS: Posterior hardware is noted. There is diffuse degenerativedisc disease. There is a midline supraumbilical hernia containing fatand a portion of transverse colon. No evidence of obstruction.IMPRESSION: Intraoperative CT for hardware placement as detailed above. Images reviewed, interpreted, and dictated by Dr. Peewee Whitfield.Transcribed by Joey Gates PA-C, R.T. (N), C N M T.I have personally viewed, interpreted and dictated the examination. Ihave read and agree with the above final transcribed report. Assessment s/p L4-5 TLIF Plan - home today if urinary issues resolve. Discussed with hospitalist. documented in this encounter Plan of Treatment Not on file documented as of this encounter Visit Diagnoses Not on filedocumented in this encounter
--- OUTSIDE RECORDS SUMMARY | 2025-06-28 14:48 | XMS_ITS | Encounter Summary ---
Author Organization [employer] ([place], [place], [place], [place], [place]) Address [address] [place] [address] Care Team Providers Care Criminal Investigative Agent Name Role Phone Unavailable Primary Care Provider Unavailabl e Encounter Details Date Type Department Care Team (Late st Contact Info) Description 06/10/2020 Transcribed Document [facility] [place] [facility] [address] [place] [address] ProviderTai MD [address], [place] [phone] Social History Tobacco Use Types Packs/Day Years Used Date Smoking Tobacco: Never Assessed Comments Unknown Sex and Gender Information Value Date Recorded Sex Assigned at Not on file Legal Sex Female 5:29 PM CDT Gender Identity Not on file Sexual Orientation Not on file documented as of this encounter Miscellaneous Notes * Cerner Conversion Note - Historical ProviderMD - 06/10/2020 1:51 PM LAUNDRY MACHINE MECHANIC Evaluation, Physical Therapy Entered On: 06/11/2020 12:22 EST Performed On: 06/11/2020 11:31 EST by PEEWEE VALENCIA Student-Physical Therapist General Information, PT Visit Type, PT : Initial evaluation Patient Orders : Order Date Order Ordering 06/10/2020 13:51 Physical Therapy Eval and Treat Ordered By: MARLO RIOS MD-SNU Active Diagnoses : 06/10/2020 12:00 Spondylolisthesis, lumbar region Therapy Diagnosis, PT : Impaired functional mobility and ambulation Onset of Problem, PT : 06/10/2020 EST Admission Date : 06/10/2020 07:02 Co-treated by, PT : Occupational Therapist Assisted by, PT : Physical Therapist Personal Devices : Personal Devices No Devices Recorded Assistive Devices : Assistive Devices No Devices Recorded Precautions in Place : Spinal Precautions General Information Comment, PT : Reason for Admit: L4-L5 Spondyllisthesis Sx: L4-L5 Fusion PMH: Thyroid cx, HTN, Diverticulits w/ ileostomey, peripheral Neuropathy PEEWEE VALENCIA Student-Physical Therapist - 06/11/2020 12:10 EST General Status Patient Received Status : Supine in bed Treatment Start Time : 06/11/2020 11:07 EST Patient Left Status : Up in chair, RN/PCT informed, Family/Visitors at bedside, Communication board completed, All needs met and within reach RN/PCT Informed Comment : RN advised PTx was okay Treatment End Time : 06/11/2020 11:31 EST Treatment Time : 24 Minute(s) PEEWEE VALENCIA Student-Physical Therapist - 06/11/2020 12:10 EST History and Environment Living Situation, Therapy : Home Patient Lives With : Spouse Persons Assisting Patient at Home : Alone, Spouse Professional Skilled Services : None Persons Providing Information : Patient Home Equipment Therapy, PT : Cane, Commode, Crutches, Shower Equipment, Walker Cane : Cane, single point Commode : Commode, bedside Crutches : Crutches, axillary Shower Equipment : Shower bench, with back Walker : Walker, standard Home Setup : Basement Stairs : Yes Stair Location(s) : Inside, Outside Inside Stairs, Number of Steps : 12 Stairs Inside Comment : Pt comments she doesn't need to go to basement Outside Stairs, Number of Steps : 5 Railing Outside : Yes Outside Railing Position : Bilateral PEEWEE VALENCIA Student-Physical Therapist - 06/11/2020 12:10 EST Prior Level of Function PT GRID Prior LOF Ambulation, Household : Independent Prior LOF Ambulation, Community : Independent Prior LOF Bed Mobility : Independent Prior LOF Toileting : Independent Prior LOF Transfer : Independent PEEWEE VALENCIA Student-Physical Therapist - 06/11/2020 12:10 EST Prior LOF Assist with ADL Comment : Pt reports owning DME, but being able to shower, cook and ambulate independently without AD prior to surgery. Pt only needed assitance from spouse in order to dress. PEEWEE VALENCIA Student-Physical Therapist - 06/11/2020 12:10 EST Upper Extremity Upper Extremity Dominance : Right Right UE Active ROM : WFL Right UE Strength : WFL Left UE Active ROM : WFL Left UE Strength : WFL Upper Extremity Strength Impaired : No Right UE Strength : WFL Left UE Strength : WFL PEEWEE VALENCIA Student-Physical Therapist - 06/11/2020 12:10 EST Lower Extremity RLE Active ROM : WFL Right LE Strength : WFL LLE Active ROM : WFL Left LE Strength : WFL PEEWEE VALENCIA Student-Physical Therapist - 06/11/2020 12:10 EST Functional Mobility Functional MobilityComment : Pt was required cues initially for bed mobility tasks and sit to stand. PEEWEE VALENCIA Student-Physical Therapist - 06/11/2020 12:24 EST PEEWEE VALENCIA Student-Physical Therapist - 06/11/2020 12:24 EST Mobility Grid Bed Roll Left : Supervision/set-up Bed Scooting : Supervision/set-up Supine to Sit : Supervision/set-up Sit to Stand : Supervision/set-up Stand to Sit : Rehab Modified independence PEEWEE VALENCIA Student-Physical Therapist - 06/11/2020 12:10 EST Bed Mobility Scooting Device : Rails Supine to Sit Device : Rails PEEWEE VALENCIA Student-Physical Therapist - 06/11/2020 12:10 EST Sit to Stand Device : Belt, gait, Walker, front wheel CHARLES SANCHES, PT - 06/11/2020 13:50 EST Stand to Sit Device : Belt, gait, Walker, front wheel PEEWEE VALENCIA Student-Physical Therapist - 06/11/2020 12:10 EST Gait Training/Assessment, PT Gait Assistance Level : Independent, modified Walking Distance : 340 feet Ambulatory Devices : Gait belt, Walker, front wheel Gait Deviations : Yes Left Lower Gait Deviation : Carolin, decreased Right Lower Gait Deviation : Carolin, decreased Gait Training Comment : Pt initially started gait with supervision, but progressed quickly to modified independence. Pt did not take any rest breaks, commented on posterior leg fatgue at end of walk. Stair(s) Ascend/Descend Training : Yes Number of Stairs : 5 Stair(s) Assist Devices : Rails, one Stair Assist : Supervision Stair Training Comment : Pt performed stair negotiation with a reciprocal pattern. PEEWEE VALENCIA Student-Physical Therapist - 06/11/2020 12:24 EST Cognition Assessment, PT Orientation : Oriented x 4 Safety/Judgment Comment : alert and safe Follows Basic Command Assessment : alert and follows basic commands Attention Assessment : Present PEEWEE VALENCAI Student-Physical Therapist - 06/11/2020 12:24 EST Edu Topics Physical Therapy Education Grid Balance Training : Returns demonstration Bed Mobility Training : Returns demonstration Gait Training : Returns demonstration Home Program/Exercises : Verbalizes understanding Home Safety : Verbalizes understanding Precaution/Contraindication : Returns demonstration, Verbalizes understanding Role of Physical Therapy : Returns demonstration, Verbalizes understanding Safety : Verbalizes understanding, Returns demonstration Therapeutic Exercises : Verbalizes understanding Transfer Training : Returns demonstration, Verbalizes understanding Use of Assistive Device : Returns demonstration, Verbalizes understanding CHARLES SANCHES, PT - 06/11/2020 13:50 EST Indication Assesessment, PT Physical Therapy Indicated : No PEEWEE VALENCIA Student-Physical Therapist - 06/11/2020 12:24 EST Physical Therapy Not Indicated : Other: mod I and able to demonstrate safety with all mobiltiy with a RWx CHARLES SANCHES, PT - 06/11/2020 13:50 EST Plan of Care, PT PT Tx Plan/Goals Established w Patient : Yes Plan of Care Comment, PT : Pt will be discharged at this time. PEEWEE VALENCIA Student-Physical Therapist - 06/11/2020 12:24 EST Treatment Note Subjective Comment : Pt agreed to PTx Assessment : Pt presents with BLE and trunk weakness, s/p lumbar fusion. Pt able to perform all bed mobility tasks today with some cueing required to maintain precautions, but as session progressed pt functioned with modified independence. Pt's gait training with RWx went well, able to complete task with modified independence and only started to feel fatigue at end of session. Pt is being discharged from hospital this afternoon and will be discharged from PTx at this time. PEEWEE VALENCIA Student-Physical Therapist - 06/11/2020 12:24 EST Plan for Treatment : Discharge from PTx PT in agreement with PT student documentation. CHARLES SANCHES, PT - 06/11/2020 13:50 EST Pain Assessment Pain Scaled Used : 0-10 Pain scale Pain Score Pre-Intervention : 4 Location : Incisional, Lumbar Pain Comment : Pt only complained of incisional pain, and towards end of session commented on posterior leg fatigue. PEEWEE VALENCIA Student-Physical Therapist - 06/11/2020 12:24 EST Image 1 - Images currently included in the form version of this document have not been included in the text rendition version of the form. Anticipated Discharge Needs, OT/PT Anticipated Discharge to : Home, with family care, Home, with home health, Outpatient rehabilitation Anticipated Home Equipment : Belt, gait, Walker Recommend Continued Therapy at Discharge : Yes Walker : Walker, front wheel PEEWEE VALENCIA Student-Physical Therapist - 06/11/2020 12:[address] [facility] Charg[facility] PT Eval Low Complexity : 1 PEEWEE VALENCIA Student-Physical Therapist - 06/11/2020 12:24 EST Electronically signed by Meaghan [facility] Conversion [employer] Cerner at 11/22/2022 3:08 PM CDT documented in this encounter Plan of Treatment Not on file documented as of this encounter Visit Diagnoses Not on filedocumented in this encounter
--- OUTSIDE RECORDS SUMMARY | 2025-06-28 14:48 | XMS_ITS | Encounter Summary ---
Author Organization [facility] Address [address] [place] [address] Care Team Providers Care Sand Cleaning Machine Operator Name Role Phone Deana Verasgh Primary Care Provider [phone] Encounter Details Date Type Department Care Team (Latest Contact Info) Description 06/02/2025 Travel Social History Tobacco Use Types Packs/Day [...] or training? Not on file Preferred Language Northern Irish 04/20/2025 Comments No Sex and Gender Information Value Date Recorded Sex Assigned at Female 12/28/2024 10:17 AM EDT Legal Sex Female 11:26 AM EDT Gender Identity Not on file Sexual Orientation Straight 12/28/2024 10 :17 AM EDT documented as of this encounter Plan of Treatment Upcoming Encounters Date Type Department Care Team (Late st Contact Info) Description 07/07/2025 10:30 AM EST Office Visit [facility] [address] [facility] [address] [place] [address] Germania Perry PA-C [address] [facility] [address] [place] [address] 09/23/2025 1:00 PM EST Office Visit [facility] ENDOCRINOLOGY [address] [facility] [address] [place] [id number] Sara Arora PA [address] [facility] [address] [place] [id number] documented as of this encounter Visit Diagnoses Not on filedocumented in this encounter Care Teams Sand Cleaning Machine Operator Relationship Specialty Start Date End Date Deana Veras DO [address] [place] [id number] PCP - General 10/06/15 documented as of this encounter
--- OUTSIDE RECORDS SUMMARY | 2025-06-28 14:48 | XMS_ITS | Encounter Summary ---
Author Organization [employer] ([place], [place], [place], [place], [place]) Address [address] [place] [address] Care Team Providers Care Web Operations Manager Name Role Phone Unavailable Primary Care Provider Unavailabl e Encounter Details Date Type Department Care Team (Late st Contact Info) Description 06/11/2020 Transcribed Document [facility] [place] [facility] [address] [place] [address] ProviderTai MD [address], [place] [id number] Social History Tobacco Use Types Packs/Day Years Used Date Smoking Tobacco: Never Assessed Comments Unknown Sex and Gender Information Value Date Recorded Sex Assigned at Not on file Legal Sex Female 5:29 PM CDT Gender Identity Not on file Sexual Orientation Not on file documented as of this encounter Miscellaneous Notes * Cerner Conversion Note - Historical ProviderMD - 06/11/2020 6:00 AM LAP MACHINE OPERATOR Pain Assessment Entered On: 06/11/2020 6:38 EST Performed On: 06/11/2020 6:23 EST by Chidi Flaherty RN Intervention Information: acetaminophen Performed by Chidi Flaherty RN on 06/11/2020 05:23:00 EST acetaminophen,650mg Oral Pain Assessment Pain Assessment : Follow-up assessment Pain Scale Goal : 4 Pain Scale Used : 0-10 Scale Chidi Flaherty RN - 06/11/2020 6:38 EST Pain Scale Intensity : 4 Chidi Flaherty RN - 06/11/2020 6:38 EST Image 4 - Images currently included in the form version of this document have not been included in the text rendition version of the form. documented in this encounter Plan of Treatment Not on file documented as of this encounter Visit Diagnoses Not on filedocumented in this encounter
--- OUTSIDE RECORDS SUMMARY | 2025-06-28 14:48 | XMS_ITS | Encounter Summary ---
Author Organization [employer] ([place], [place], [place], [place], [place]) Address [address] [place] [address] Care Team Providers Care Keysmith Name Role Phone Unavailable Primary Care Provider Unavailabl e Encounter Details Date Type Department Care Team (Late st Contact Info) Description 06/11/2020 Transcribed Document [facility] [place] [facility] [address] [place] [address] ProviderTai MD [address] [place] [address] Social History Tobacco Use Types Packs/Day Years Used Date Smoking Tobacco: Never Assessed Comments Unknown Sex and Gender Information Value Date Recorded Sex Assigned at Not on file Legal Sex Female 5:29 PM CDT Gender Identity Not on file Sexual Orientation Not on file documented as of this encounter Miscellaneous Notes * Cerner Conversion Note - Tai ProviderMD - 06/11/2020 5:23 PM [place] [place] [address] MARAH GONZALEZ :1955 Visit Time:06/10/2020 Your Visit Summary Your Care Team Admitting Physician - MARLO RIOS MD-U Attending Physician - MARLO RIOS MD-SNU Primary Care Physician - XAVIER TIWARI DO-[facility] Referring Physician - MARLO RIOS MD-NITZA Your Diagnosis Spondylolisthesis, lumbar region Other spondylosis with myelopathy, lumbar region, Other spondylosis with myelopathy, lumbar region Discharge Vitals Temperature 36.8 ??C Heart Rate (Monitored) 91 Respiratory Rate 18 Blood Pressure 147/83 What to do next Instructions From Your Care Team no BLT, bending,lifting or twisting movements. Do not lift more than 4-5 pounds. Call MD for fever greater than 101 degrees F for 24 hours; call for drainage that saturates your dressing; if your incision is red or swollen; your pain medicine doesn't help lower your pain Follow-Up Appointments Follow Up with MARLO RIOS When 07/21/2020 10:45 AM EST Comments on 07/21/2020 @ 10:00 am you have a lumbar xray scheduled at the [facility] office in the [facility] on [address]. After your xray is completed, then drive to Dr. Rios's office in the office [place]. Where: [address] [facility] [address] [place] [address]- Business (1) [address] [facility] [address] (SATURDAY ONLY) [place] [address]- Business (1) Follow Up with MARLO RIOS When 06/27/2020 03:15 PM EST Comments wound check Where: [address] [facility] [address] [place] [address]- Business (1) Medications What How Much When Instructions Next Dose biotin 5,000 Microgram(s) Oral Two Times A Day 06/11 @10pm bisoprolol 5 Milligram(s) Oral Every Day 06/12 @ 9am calcium-vitamin D (Chewable Calcium with Vitamin D) 1 Tablet(s) Chew Every Day 06/12 @ 9am estradiol (estradiol 0.075 mg/ 24 hours weekly transdermal film, extended release) Topical , Saturday ask office on Saturday fenofibrate (fenofibrate 145 mg oral tablet) 1 Tablet(s) Oral Every Day 06/12 @ 9am fexofenadine (Angie) 180 Milligram(s) Oral Every Day 06/12 @ 9am fluticasone nasal (Flonase) 1 [place](s) Nostrils Both Every Day 06/12 @ 9am ipratropium nasal (ipratropium 21 mcg/ inh (0.03%) nasal spray) 2 [place](s) Nasal Two Times A Day 06/11 @ 9pm levothyroxine 175 Microgram(s) Oral Every Day 06/12 @ 7am magnesium chloride 250 Milligram(s) Oral Two Times A Day 11/7 @ 8pm Non Formulary (black currant seed oil) 1 Tablet(s) Oral Two Times A Day anytime omega-3 polyunsaturated fatty acids (Fish Oil 1000 mg oral capsule) 1 Capsule(s) Oral Two Times A Day 117 @ 9pm omeprazole 20 Milligram(s) Oral Two Times A Day 11/8 @ 9pm Take your medications faithfully. Do NOT skip medication. Do NOT stop taking medications without the direction of a physician. Carry a list of your medications with you at all times, and take this medication list with you to your first follow up visit. Report any side effects. Avoid herbal remedies unless discussed with your physician. As part of your treatment plan, your physician may have prescribed a limited course of a controlled substance. This medication may be given to help people with moderate or severe pain or for other medical conditions, but there are risks involved with treatment. Common side effects may include nausea, constipation, drowsiness, sweating, itching, dry mouth, and rash. More serious side effects may include cognitive and motor impairment, like problems with thinking, concentrating, alertness, and movement (e.g. slowed reflexes), and driving and operating heavy machinery can be dangerous. It is important for you to talk to your physician if you have these side effects or questions. These controlled substances can produce physical dependence and be habit-forming if taken for an extended period of time, which means that the body has gotten used to them and may experience withdrawal symptoms if they are abruptly stopped. Withdrawal symptoms can include runny nose, sweating, goose bumps, diarrhea, abdominal cramping, rapid heartbeat, difficulty sleeping, and nervousness. Please dispose of unused and medications per your retail pharmacy guidance. Allergies Tape Immunizations This Visit No Immunizations Found Education Materials Spinal Fusion, Adult, Care After This sheet [...] these instructions at home: Medicines ??? Take jcfm-vwh-puchmfx and prescription medicines only as told by [...] and water are not available, use hand piercer operator. ? Change your dressing as told by [...] urine clear or pale yellow. ? Take ruxw-gje-ckkgafy or prescription medicines. ? Eat foods that [...] right away. Call your local emergency services (584 in the [place] Do not drive yourself [...] 02/08/2006 Document Revised: 04/11/2019 Document Reviewed: 07/10/2017 [email or web address] Patient Education ?? 2020 [employer]. acetaminophen and oxycodone (a SEET a MIN oh fen and OX i KOE done) Endocet 10/325, Endocet 2.5/325, Endocet 5/325, Endocet 7.5/325, Nalocet, Percocet, Primlev What is the most important information I should know about acetaminophen and oxycodone? MISUSE OF OPIOID MEDICINE CAN CAUSE ADDICTION, OVERDOSE, OR . Keep the medication in a place where others cannot get to it. An overdose of acetaminophen can damage your liver or cause . Call your doctor at once if you have pain in your upper stomach, loss of appetite, dark urine, or jaundice (yellowing of your skin or eyes). Taking opioid medicine during may cause life-threatening withdrawal symptoms in the . Fatal side effects can occur if you use opioid medicine with alcohol, or with other drugs that cause drowsiness or slow your breathing. Stop taking this medicine and call your doctor right away if you have skin redness or a rash that spreads and causes blistering and peeling. What is acetaminophen and oxycodone? Acetaminophen and oxycodone is a combination medicine used to relieve moderate to severe pain. Acetaminophen and oxycodone may also be used for purposes not listed in this medication guide. What should I discuss with my healthcare provider before taking acetaminophen and oxycodone? You should not use this medicine if you are allergic to acetaminophen or oxycodone, or if you have: ?? severe asthma or breathing problems; or ?? a blockage in your stomach or intestines. Tell your doctor if you have ever had: ?? breathing problems, sleep apnea; ?? liver disease; ?? a drug or alcohol addiction; ?? kidney disease; ?? a head injury or seizures; ?? urination problems; or ?? problems with your thyroid, pancreas, or gallbladder. If you use opioid medicine while you are , your baby could become dependent on the drug. This can cause life-threatening withdrawal symptoms in the baby after it is born. Babies born dependent on opioids may need medical treatment for several weeks. Do not breastfeed. This medicine can pass into breast milk and cause drowsiness, breathing problems, or in a nursing baby. How should I take acetaminophen and oxycodone? Follow all directions on your prescription label. Never take this medicine in larger amounts, or for longer than prescribed. An overdose can damage your liver or cause . Tell your doctor if you feel an increased urge to use more of this medicine. Never share this medicine with another person, especially someone with a history of drug abuse or addiction. MISUSE CAN CAUSE ADDICTION, OVERDOSE, OR . Keep the medicine in a place where others cannot get to it. Selling or giving away acetaminophen and oxycodone is against the law. Measure liquid medicine carefully. Use the dosing syringe provided, or use a medicine dose-measuring device (not a kitchen spoon). If you need surgery or medical tests, tell the doctor ahead of time that you are using this medicine. You should not stop using this medicine suddenly. Follow your doctor's instructions about tapering your dose. Store at room temperature away from moisture and heat. Keep track of your medicine. You should be aware if anyone is using it improperly or without a prescription. Do not keep leftover opioid medication. Just one dose can cause in someone using this medicine accidentally or improperly. Ask your pharmacist where to locate a drug take-back disposal program. If there is no take-back program, flush the unused medicine down the toilet. What happens if I miss a dose? Since this medicine is used for pain, you are not likely to miss a dose. Skip any missed dose if it is almost time for your next dose. Do not use two doses at one time. What happens if I overdose? Seek emergency medical attention or call the Poison Help line at . An overdose of acetaminophen and oxycodone can be fatal. The first signs of an acetaminophen overdose include loss of appetite, nausea, vomiting, stomach pain, sweating, and confusion or weakness. Later symptoms may include pain in your upper stomach, dark urine, and yellowing of your skin or the whites of your eyes. Overdose can also cause severe muscle weakness, pinpoint pupils, very slow breathing, extreme drowsiness, or coma. What should I avoid while taking acetaminophen and oxycodone? Avoid driving or operating machinery until you know how this medicine will affect you. Dizziness or drowsiness can cause falls, accidents, or severe injuries. Do not drink alcohol. Dangerous side effects or could occur. Ask a doctor or pharmacist before using any other medicine that may contain acetaminophen (sometimes abbreviated as APAP). Taking certain medications together can lead to a fatal overdose. What are the possible side effects of acetaminophen and oxycodone? Get emergency medical help if you have signs of an allergic reaction: hives; difficulty breathing; swelling of your face, lips, tongue, or throat. Opioid medicine can slow or stop your breathing, and may occur. A person caring for you should seek emergency medical attention if you have slow breathing with long pauses, blue colored lips, or if you are hard to wake up. In rare cases, acetaminophen may cause a severe skin reaction that can be fatal. This could occur even if you have taken acetaminophen in the past and had no reaction. Stop taking this medicine and call your doctor right away if you have skin redness or a rash that spreads and causes blistering and peeling. Call your doctor at once if you have: ?? noisy breathing, sighing, shallow breathing, breathing that stops during sleep; ?? a light-headed feeling, like you might pass out; ?? weakness, tiredness, fever, unusual bruising or bleeding; ?? confusion, unusual thoughts or behavior; ?? problems with urination; ?? liver problems--nausea, upper stomach pain, tiredness, loss of appetite, dark urine, lisseth-colored stools, jaundice (yellowing of the skin or eyes); or ?? low cortisol levels-- nausea, vomiting, loss of appetite, dizziness, worsening tiredness or weakness. Seek medical attention right away if you have symptoms of serotonin syndrome, such as: agitation, hallucinations, fever, sweating, shivering, fast heart rate, muscle stiffness, twitching, loss of coordination, nausea, vomiting, or diarrhea. Serious side effects may be more likely in older adults and those who are overweight, malnourished, or debilitated. Long-term use of opioid medication may affect fertility (ability to have children) in men or women. It is not known whether opioid effects on fertility are permanent. Common side effects include: ?? dizziness, drowsiness, feeling tired; ?? feelings of extreme happiness or sadness; ?? nausea, vomiting, stomach pain; ?? constipation; or ?? headache. This is not a complete list of side effects and others may occur. Call your doctor for medical advice about side effects. You may report side effects to FDA at 6-995-RDT-3772. What other drugs will affect acetaminophen and oxycodone? You may have breathing problems or withdrawal symptoms if you start or stop taking certain other medicines. Tell your doctor if you also use an antibiotic, antifungal medication, heart or blood pressure medication, seizure medication, or medicine to treat HIV or hepatitis C. Opioid medication can interact with many other drugs and cause dangerous side effects or . Be sure your doctor knows if you also use: ?? cold or allergy medicines, bronchodilator asthma/COPD medication, or a diuretic ('water pill'); ?? medicines for motion sickness, irritable bowel syndrome, or overactive bladder; ?? other narcotic medications--opioid pain medicine or prescription cough medicine; ?? a sedative like Valium--diazepam, alprazolam, lorazepam, Xanax, Klonopin, Versed, and others; ?? drugs that make you sleepy or slow your breathing--a sleeping pill, muscle relaxer, medicine to treat mood disorders or mental illness; ?? drugs that affect serotonin levels in your body--a stimulant, or medicine for depression, Parkinson's disease, migraine headaches, serious infections, or nausea and vomiting. This list is not complete. Other drugs may affect acetaminophen and oxycodone, including prescription and cbem-pcw-hyfezxp medicines, vitamins, and herbal products. Not all possible interactions are listed here. Where can I get more information? Your doctor or pharmacist can provide more information about acetaminophen and oxycodone. Remember, keep this and all other medicines out of the reach of children, never share your medicines with others, and use this medication only for the indication prescribed. Every effort has been made to ensure that the information provided by [employer] is accurate, up-to-date, and complete, but no guarantee is made to that effect. Drug information contained herein may be time sensitive. [employer] information has been compiled for use by healthcare practitioners and consumers in the [place] and therefore [employer] does not warrant that uses outside of the [place] are appropriate, unless specifically indicated otherwise. [employer] drug information does not endorse drugs, diagnose patients or recommend therapy. [employer] drug information is an informational resource designed to assist licensed healthcare practitioners in caring for their patients and/or to serve consumers viewing this service as a supplement to, and not a substitute for, the expertise, skill, knowledge and judgment of healthcare practitioners. The absence of a warning for a given drug or drug combination in no way should be construed to indicate that the drug or drug combination is safe, effective or appropriate for any given patient. [employer] does not assume any responsibility for any aspect of healthcare administered with the aid of information [employer] provides. The information contained herein is not intended to cover all possible uses, directions, precautions, warnings, drug interactions, allergic reactions, or adverse effects. If you have questions about the drugs you are taking, check with your doctor, nurse or pharmacist. Copyright 9562-1882 [employer]. Version: .. Revision Date: 08/26/2019. cyclobenzaprine (katie live) Amrix, Comfort Pac with Cyclobenzaprine, Fexmid What is the most important information I should know about cyclobenzaprine? You should not use cyclobenzaprine if you have a thyroid disorder, heart block, congestive heart failure, a heart rhythm disorder, or you have recently had a heart attack. Do not use cyclobenzaprine if you have taken an MAO inhibitor in the past 14 days, such as isocarboxazid, linezolid, phenelzine, rasagiline, selegiline, or tranylcypromine. What is cyclobenzaprine? Cyclobenzaprine is a muscle relaxant. It works by blocking nerve impulses (or pain sensations) that are sent to your brain. Cyclobenzaprine is used together with rest and physical therapy to relieve muscle spasms caused by painful conditions such as an injury. Cyclobenzaprine may also be used for purposes not listed in this medication guide. What should I discuss with my healthcare provider before taking cyclobenzaprine? You should not use cyclobenzaprine if you are allergic to it, or if you have: ?? a thyroid disorder; ?? heart block, heart rhythm disorder, congestive heart failure; or ?? if you have recently had a heart attack. Cyclobenzaprine is not approved for use by anyone younger than 15 years old. Do not use cyclobenzaprine if you have taken an MAO inhibitor in the past 14 days. A dangerous drug interaction could occur. MAO inhibitors include isocarboxazid, linezolid, phenelzine, rasagiline, selegiline, and tranylcypromine. Some medicines can interact with cyclobenzaprine and cause a serious condition called serotonin syndrome. Be sure your doctor knows if you also take stimulant medicine, opioid medicine, herbal products, or medicine for depression, mental illness, Parkinson's disease, migraine headaches, serious infections, or prevention of nausea and vomiting. Ask your doctor before making any changes in how or when you take your medications. Tell your doctor if you have ever had: ?? liver disease; ?? glaucoma; ?? enlarged prostate; or ?? problems with urination. It is not known whether this medicine will harm an unborn baby. Tell your doctor if you are or plan to become . It may not be safe to breast-feed while using this medicine. Ask your doctor about any risk. Older adults may be more sensitive to the effects of this medicine. How should I take cyclobenzaprine? Follow all directions on your prescription label and read all medication guides or instruction sheets. Your doctor may occasionally change your dose. Use the medicine exactly as directed. Cyclobenzaprine is usually taken once daily for only 2 or 3 weeks. Follow your doctor's dosing instructions very carefully. Swallow the capsule whole and do not crush, chew, break, or open it. Take the medicine at the same time each day. Call your doctor if your symptoms do not improve after 3 weeks, or if they get worse. Store at room temperature away from moisture, heat, and light. What happens if I miss a dose? Take the medicine as soon as you can, but skip the missed dose if it is almost time for your next dose. Do not take two doses at one time. What happens if I overdose? Seek emergency medical attention or call the Poison Help line at . An overdose of cyclobenzaprine can be fatal. Overdose symptoms may include severe drowsiness, vomiting, fast heartbeats, tremors, agitation, or hallucinations. What should I avoid while taking cyclobenzaprine? Avoid driving or hazardous activity until you know how this medicine will affect you. Your reactions could be impaired. Avoid drinking alcohol. Dangerous side effects could occur. What are the possible side effects of cyclobenzaprine? Get emergency medical help if you have signs of an allergic reaction: hives; difficult breathing; swelling of your face, lips, tongue, or throat. Stop using cyclobenzaprine and call your doctor at once if you have: ?? fast or irregular heartbeats; ?? chest pain or pressure, pain spreading to your jaw or shoulder; or ?? sudden numbness or weakness (especially on one side of the body), slurred speech, balance problems. Seek medical attention right away if you have symptoms of serotonin syndrome, such as: agitation, hallucinations, fever, sweating, shivering, fast heart rate, muscle stiffness, twitching, loss of coordination, nausea, vomiting, or diarrhea. Serious side effects may be more likely in older adults. Common side effects may include: ?? drowsiness, tiredness; ?? headache, dizziness; ?? dry mouth; or ?? upset stomach, nausea, constipation. This is not a complete list of side effects and others may occur. Call your doctor for medical advice about side effects. You may report side effects to FDA at 7-340-SJV-9019. What other drugs will affect cyclobenzaprine? Using cyclobenzaprine with other drugs that make you drowsy can worsen this effect. Ask your doctor before using opioid medication, a sleeping pill, a muscle relaxer, or medicine for anxiety or seizures. Tell your doctor about all your other medicines, especially: ?? bupropion (Zyban, for smoking cessation); ?? meperidine; ?? tramadol; ?? verapamil; ?? cold or allergy medicine that contains an antihistamine (Benadryl and others); ?? medicine to treat Parkinson's disease; ?? medicine to treat excess stomach acid, stomach ulcer, motion sickness, or irritable bowel syndrome; ?? medicine to treat overactive bladder; or ?? bronchodilator asthma medication. This list is not complete. Other drugs may affect cyclobenzaprine, including prescription and xbon-sxd-rdlfmja medicines, vitamins, and herbal products. Not all possible drug interactions are listed here. Where can I get more information? Your pharmacist can provide more information about cyclobenzaprine. Remember, keep this and all other medicines out of the reach of children, never share your medicines with others, and use this medication only for the indication prescribed. Every effort has been made to ensure that the information provided by [employer] is accurate, up-to-date, and complete, but no guarantee is made to that effect. Drug information contained herein may be time sensitive. [employer] information has been compiled for use by healthcare practitioners and consumers in the [place] and therefore [employer] does not warrant that uses outside of the [place] are appropriate, unless specifically indicated otherwise. [employer] drug information does not endorse drugs, diagnose patients or recommend therapy. [employer] drug information is an informational resource designed to assist licensed healthcare practitioners in caring for their patients and/or to serve consumers viewing this service as a supplement to, and not a substitute for, the expertise, skill, knowledge and judgment of healthcare practitioners. The absence of a warning for a given drug or drug combination in no way should be construed to indicate that the drug or drug combination is safe, effective or appropriate for any given patient. [employer] does not assume any responsibility for any aspect of healthcare administered with the aid of information [employer] provides. The information contained herein is not intended to cover all possible uses, directions, precautions, warnings, drug interactions, allergic reactions, or adverse effects. If you have questions about the drugs you are taking, check with your doctor, nurse or pharmacist. Copyright 9008-2469 [employer]. Version: 5.01. Revision Date: 04/30/2018. Emergency Awareness and Preventative Care STROKE is an EMERGENCY Every Minute Counts Act FAST and Check for these signs: FACE Does the face look uneven? ARM Does one arm drift down? SPEECH Does their speech sound strange? TIME Call at any sign of stroke Stroke Risk Factors Atrial Fibrillation (irregular heartbeat) Diabetes Family history of stroke Heart Disease Heavy alcohol use High Blood Pressure High Cholesterol Physical inactivity and obesity Smoking Cigarette Smoking The facts are clear, cigarette smoking will shorten your life. Smoking can cause many illnesses along the way. As a healthcare provider, we recommend that you stop smoking. Assistance with quitting is available by contacting 9-178-HORYNOW. This is a free resource providing counseling, support, and referral. Or you may contact your personal physician. [place] Suicide Prevention Lifeline: The National Suicide Prevention Lifeline is a national network of local crisis centers that provides free and confidential emotional support to people in suicidal crisis or emotional distress 24 hours a day, 7 days a week. Don't Wait! Stop a Heart Attack Before it Starts What is a heart attack? A heart attack is damage or to a part of the heart from severely decreased or lack of blood flow to the heart. Over time, arteries can become narrow from the buildup of fat and cholesterol, which is called plaque. The plaque can rupture causing a blood clot to form. When the blood clot forms, the artery can become severely narrowed or completely blocked, causing a heart attack. Heart attack is the leading cause of in the [place]. 85% of muscle damage occurs within the first 2 hours. Delay in the recognition of heart attack symptoms increases the chances of . Know the early symptoms of a heart attack: Nausea Feeling of fullness in chest Jaw Pain Pain that travels down one or both arms Fatigue/being tired Anxiety Back Pain Chest pressure, squeezing, or discomfort Shortness of breath Sweating, or a cold sweat Feeling of impending doom There are unusual signs of a heart attack, too! Women, the elderly, and diabetics may present with atypical symptoms: Fainting/dizziness Weakness Confusion Risk Factors for a Heart Attack Some heart disease risk factors, such as age and family history, cannot be changed. Others, like smoking and lack of exercise, can be changed. Smoking High Cholesterol High Blood Pressure Family History Obesity Age Gender (Males are at higher risk) Lack of Exercise Diabetes Diet Stress Excessive Alcohol Intake If you or someone you know is experiencing the signs and symptoms of a heart attack, DON???T DELAY. Call immediately and seek help. If someone collapses, perform CPR! Do not attempt to drive if you are having symptoms of heart attack. Hands-Only CPR Why Hands-Only CPR? Hands-Only CPR has been shown to be as effective as conventional CPR for cardiac arrests that occur outside of a hospital. Survival depends on immediately receiving CPR from someone nearby. How do you perform Hands-Only CPR? There are two easy steps: Call 9-1-1 if you see a teen or adult collapse Push hard and fast in the center of the chest at a beat of 100 beats per minute. Save a life! 4 WAYS TO GET AHEAD OF SEPSIS SEPSIS is a MEDICAL EMERGENCY. Time matters! Infections put you and your family at risk for a life-threatening condition called sepsis. Sepsis is the body's extreme response to an infection. It is life-threatening, and without timely treatment, sepsis can rapidly lead to tissue damage, organ failure, and . Sepsis happens when an infection you already have-in your skin, lungs, urinary tract or somewhere else-triggers a chain reaction throughout your body. 1 PREVENT INFECTIONS Take good care of chronic conditions. Talk to your doctor about getting the recommended vaccines. 2 PRACTICE GOOD HYGIENE Wash your hands frequently. Keep cuts or open sores clean and covered until they are healed. 3 KNOW THE SYMPTOMS Confusion or disorientation Shortness of breath High heart rate Fever, shivering, or feeling very cold Extreme pain or discomfort Clammy or sweaty skin 4 ACT FAST Get medical care IMMEDIATELY if you suspect sepsis or if you have an infection that is not getting better or is getting worse. To learn more about sepsis and how to prevent infections, visit www.cdc.gov/sepsis. Test Results Laboratory or Other Results This Visit (last charted value for your 06/10/2020 visit) Hematology 06/11/2020 2:25 AM WBC: 12.0 K/uL -- Normal range between ( 4.5 and 10.5 ) RBC: 4.22 Million/uL -- Normal range between ( 3.93 and 5.22 ) Hct: 38.4 % -- Normal range between ( 34.1 and 44.9 ) Hgb: 12.4 g/dL -- Normal range between ( 11.2 and 15.7 ) Platelet Count: 247 K/uL -- Normal range between ( 163 and 369 ) MCH: 29.4 pg -- Normal range between ( 25.6 and 32.2 ) MCHC: 32.3 Gram/dL -- Normal range between ( 32.2 and 36.5 ) MCV: 91.0 fL -- Normal range between ( 79.0 and 94.8 ) Slide Review: No Eos %: 0.2 % -- Normal range between ( 0.0 and 7.0 ) [place] #: 0.70 K/uL -- Normal range between ( 0.16 and 1.00 ) Eos #: 0.02 x10(3)/uL -- Normal range between ( 0.00 and 0.80 ) [place] %: 5.8 % -- Normal range between ( 3.0 and 9.0 ) Baso %: 0.6 % -- Normal range between ( 0.0 and 1.5 ) Baso #: 0.07 x10(3)/uL -- Normal range between ( 0.00 and 0.20 ) RDW: 14.8 % -- Normal range between ( 11.7 and 14.9 ) Neut %: 81.1 % -- Normal range between ( 34.0 and 71.0 ) Neut #: 9.75 K/uL -- Normal range between ( 1.56 and 6.13 ) Lymph %: 10.4 % -- Normal range between ( 19.3 and 53.1 ) Lymph #: 1.25 x10(3)/uL -- Normal range between ( 1.00 and 3.90 ) MPV: 11.0 fL -- Normal range between ( 9.4 and 12.4 ) IG#: 0.23 x10(3)/uL -- Normal range between ( 0.00 and 0.05 ) IG%: 1.90 % -- Normal range between ( 0.00 and 0.60 ) Urinalysis 06/08/2020 12:46 PM Ur RBC: 0-2 /HPF Urine Nitrite: Negative Urine Leukocyte Esterase: Small Urine Appearance: Turbid Urine Glucose Dipstick: Negative Urine Blood Dipstick: Negative Urine Type: U CleanCatch Urine Urobilinogen Dipstick: 1.0 EU/dL Urine Protein Dipstick: Negative Ur Bacteria: 3+ Ur Squamous Epithelial Cells: 0-2 /HPF Urine Color: Yellow Ur Transitional Epi Cells: 0-2 Ur WBC: 5-10 /HPF Urine Ketones Dipstick: Negative Ur Mucous: 1+ Urine pH Dipstick: 7.0 -- Normal range between ( 6.0 and 8.0 ) Urine Bilirubin Dipstick: Negative Urine Specific [place]ster: 1.023 -- Normal range between ( 1.005 and 1.030 ) Microbiology 06/08/2020 11:20 AM Novel Coronavirus 2019: Negative General Chemistry 06/11/2020 2:25 AM Creatinine Level: 0.90 mg/dL -- Normal range between ( 0.55 and 1.02 ) Sodium Level: 139 mmol/L -- Normal range between ( 136 and 146 ) Potassium Level: 4.2 mmol/L -- Normal range between ( 3.5 and 5.1 ) Chloride Level: 111 mmol/L -- Normal range between ( 102 and 112 ) Carbon Dioxide Level: 22 mmol/L -- Normal range between ( 21 and 32 ) Anion Gap: 10 -- Normal range between ( 9 and 20 ) Bun/Creatinine: 17.8 -- Normal range between ( 8.0 and 20.0 ) Calcium Level: 7.4 mg/dL -- Normal range between ( 8.4 and 10.1 ) eGFR : >60 mL/min/1.73m2 eGFR NonAfrican: >60 mL/min/1.73m2 Glucose Level: 157 mg/dL -- Normal range between ( 74 and 106 ) Blood Urea Nitrogen: 16 mg/dL -- Normal range between ( 7 and 22 ) Diagnostic Radiology 06/10/2020 1:[address] in OR: CR CT in OR Patient Name:MARAH GONZALEZ I have received and understand this information and was given the opportunity to ask questions. Patient/Interactive Media Designer Name: Patient/Interactive Media Designer Signature: Relationship to Patient: Clinician/Hospital Interactive Media Designer Signature: Date: Electronically signed by Interface, [facility] Conversion Oracle [address] Sql Developer Karyn at 11/22/2022 2:59 PM CDT documented in this encounter Plan of Treatment Not on file documented as of this encounter Visit Diagnoses Not on filedocumented in this encounter
--- OUTSIDE RECORDS SUMMARY | 2025-06-28 14:48 | XMS_ITS | Encounter Summary ---
Author Organization [employer] ([place], [place], [place], [place], [place]) Address [address] [place] [address] Care Team Providers Care Forepart Laster Name Role Phone Unavailable Primary Care Provider Unavailabl e Encounter Details Date Type Department Care Team (Late st Contact Info) Description 06/11/2020 Transcribed Document [facility] Family Medicine [address] [place] [address] ProviderTai MD [address] [id number] Social History Tobacco Use Types Packs/Day Years Used Date Smoking Tobacco: Never Assessed Comments Unknown Sex and Gender Information Value Date Recorded Sex Assigned at Not on file Legal Sex Female 5:29 PM CDT Gender Identity Not on file Sexual Orientation Not on file documented as of this encounter Miscellaneous Notes * Cerner Conversion Note - Historical ProviderMD - 06/11/2020 12:37 PM B2B APPOINTMENT SETTER Discharge Summary, PT Entered On: 06/11/2020 12:39 EST Performed On: 06/11/2020 12:37 EST by PEEWEE VALENCIA Student-Physical Therapist Discharge Summary Reason for Discharge : Discharge order Discharged to, Therapy : Home, with home health Discharge Equipment, PT : Walker Walker : Walker, front wheel PEEWEE VALENCIA Student-Physical Therapist - 06/11/2020 12:37 EST Discharge Summary Comment, PT : Pt is being discharged from hospital this afternoon. She is currently able to perform all functional mobility and ambulation tasks with supervision- modified independence. Discharging from PTx at this time. PT in agreement with PT student documentation. CHARLES SANCHES, PT - 06/11/2020 13:55 EST Electronically signed by [facility] Conversion Supervisor Mails Cerjason at 11/22/2022 2:49 PM CDT documented in this encounter Plan of Treatment Not on file documented as of this encounter Visit Diagnoses Not on filedocumented in this encounter
--- OUTSIDE RECORDS SUMMARY | 2025-06-28 14:48 | XMS_ITS | Referral Summary ---
Author Organization [employer] ([place], [place], [place], [place], [place]) Address [address] [address] Care Team Providers Care Network Operations Lead Name Role Phone Unavailable Primary Care Provider [...]
--- OUTSIDE RECORDS SUMMARY | 2025-06-28 14:48 | XMS_ITS | Clinical Summary ---
Author Organization [facility] Address [address] [place] [id number] Care Team Providers Care Tricot Knitting Machine Operator Name Role Phone Deana Veras DO Primary Care Provider [phone] Allergies Active Allergy Reactions Criticality Noted Date Comments Sulfa Drugs Rash Medium 03/13/2021 Wound Dressing Adhesive Rash Low 02/05/2024 blisters Medications ascorbic acid (Vitamin C) 1000 MG tablet Take 1 tablet (1,000 mg) by mouth every other day. Active atorvastatin (Lipitor) 10 MG tablet Take 1 tablet (10 mg) by mouth 1 (one) time each day in the evening. Active Biotin 5 MG tablet Take 5 mg by mouth 1 (one) time each day in the evening. Active bisoprolol (Zebeta) 5 MG tablet Take 1 tablet (5 mg) by mouth every night. 4 Active Calcium Carb-Cholecalci ferol 600-10 MG-MCG tablet Take 600 mg by mouth twice a day. Active cholecalciferol (Vitamin D-3) 125 MCG (5000 UT) capsule Take 2,000 Units by mouth 2 (two) times a day. Active escitalopram (Lexapro) 10 MG tablet Take 1 tablet (10 mg) by mouth 1 (one) time each day. 4 Active estradiol (Vivelle-DOT) 0.1 MG/24HR Place 1 patch on the skin 2 (two) times a week. Patches changed and Saturday 4 Active fenofibrate (Tricor) 145 MG tablet Take 1 tablet (145 mg) by mouth 1 (one) time each day. 4 Active fexofenadine (Angie) 180 MG tablet Take 1 tablet (180 mg) by mouth every night. Active fluticasone (Flonase) 50 MCG/ACT nasal spray Administer 1 spray into each nostril 1 (one) time each day. 4 Active folic acid (Folvite) 1 MG tablet Take 1 tablet (1,000 mcg) by mouth every other day. Active ipratropium (Atrovent) 0.03 % nasal spray Administer 1 spray into each nostril 2 (two) times a day. 4 Active levothyroxine (Synthroid, Levoxyl) 150 MCG tablet Take 1 tablet (150 mcg) by mouth 1 (one) time each day. Active Magnesium Gluconate 250 MG tablet Take 500 mg by mouth twice a day. Active metFORMIN XR (Glucophage-XR) 500 MG 24 hr tablet Take 2 tablets (1,000 mg) by mouth 2 (two) times a day. 4 Active omeprazole (PriLOSEC) [address] capsule Take 1 capsule (20 mg) by mouth 2 (two) times a day. 4 Active Black Currant Seed Oil 500 MG capsule Take by mouth 2 (two) times a day. Active psyllium (Metamucil) 58.6 % packet Take 1 packet by mouth every night. Active polyethylene glycol (Miralax) 17 g packet Take 17 g by mouth every night. Active oxyCODONE (Roxicodone) 5 MG immediate release tablet Take 1 tablet (5 mg) by mouth every 6 (six) hours if needed for severe pain. 30 tablet 4 Active gabapentin (Neurontin) 100 MG capsule Take 1 capsule (100 mg) by mouth 3 (three) times a day. 90 capsule 4 Active promethazine-de xtromethorphan (Phenergan-DM) 6.25-15 MG/5ML syrup TAKE 5ML BY MOUTH EVERY 6 HOURS NEEDED FOR COUGH MAY CAUSE DROWSINESS 4 Active esomeprazole (NexIUM) [address] capsule Take 1 capsule by mouth daily. 5 Active Ozempic, 0.25 or 0.5 MG/DOSE, 2 MG/3ML solution pen-injector 5 Active Active Problems Problem Noted Date Diagnosed Date Incisional hernia without obstruction or gangren e 12/25/2023 Family History Medical History Relation Name Comments Colon cancer Brother 1 Asthma Brother 2 Chas lomeli Heart disease Father Teddy Lomeli Diabetes Mother Patricia Lomeli Heart disease Mother Patricia Lomeli Anesthesia problems Neg Hx Malig Hyperthermia Neg Hx Relation Name Status Comments Brother 1 Brother 2 Chas lomeli Father Teddy Lomeli Mother Patricia Lomeli Social History Tobacco Use Types Packs/Day Years Used Date Smoking Tobacco: Never Passive Smoke Exposure: Never Smokeless Tobacco: Never Tobacco Cessation:Counseling Given: Not Answered Alcohol Use Standard Drinks/Week Comments Yes 0 (1 standard drink = 0.6 oz pur e alcohol) beer occasionally PHQ-2 Answer Date Recorded Patient Health Questionnaire-2 Score 0 01/20/2025 PHQ-9 Answer Date Recorded Patient Health Questionnaire-9 Score 0 01/20/2025 CAGE ASSESSMENT Answer Date Recorded Cage unable to access Not on file 02/20/2024 Cage max number of drinks Not on file 2023 Cage Beverages a week Not on file 02/20/2024 Have you ever felt you should CUT down on your d rinking? 0 02/20/2024 Have you been ANNOYED by people criticizing your drinking? 0 02/20/2024 Have you felt GUILTY about your drinking? 0 02/20/2024 Have you had a drink first t denys in the morning (EYE-TOUR DIRECTOR) to steady your nerves or to get rid of a hangover? 0 02/20/2024 CAGE Questionnaire Score 0 024 Comments No Sex and Gender Information Value Date Recorded Sex Assigned at Not on file Legal Sex Female 8:54 PM EDT Gender Identity Not on file Sexual Orientation Not on file Last Filed Vital Signs Vital Sign Reading Time Taken Comments Blood Pressure 135/84 01/20/2025 2:46 PM EDT Pulse 86 01/20/2025 2:46 PM EDT Temperature 36.3 C (97.3 F) 01/20/2025 2:46 PM EDT Respiratory Rate 16 07/22/2024 10:3 5 AM EST Oxygen Saturation 97% 07/22/2024 10: 35 AM EST Inhaled Oxygen Concentration - - Weight 80.2 kg (176 lb 11.2 oz) 01/20/2025 2:46 PM EDT Height 166.4 cm (5' 5.51 ) 01/20/2025 2:46 PM ED T Body Mass Index 28.95 01/20/2025 2:46 PM EDT Plan of Treatment Upcoming Encounters Date Type Department Care Team (Late st Contact Info) Description 02/09/2026 1:40 PM EDT Office Visit [place] [facility] [address], [address] [place] [address] Carlton Vaz MD [address] [facility] [address] [place] [phone] Health Maintenance Due Date Last Done Comments [facility]-Hepatitis C Screening 1955 [facility]-Medicare Annual Wellness (AWV) 1955 [facility]-/Child/Adol SDOH Screenings 1955 [facility]- SDOH Screenings 12/30/1971 [facility]-Adult SDOH Screenings 12/30/1971 [facility]-Breast Cancer Screening 12/30/2003 [facility]-Zoster Vaccines (1 of 2) 12/30/2003 [facility]-Bone Density Scan 01/27/2017 01/27/2015 [facility]-Pneumococcal Vaccine: 50+ Years (2 of 2 - PCV) 05/05/2022 05/05/2021 [id number] Vaccine (2024- season) 2025 04/23/2024, 05/01/2023, 04/16/2022, Additional history exists [facility]-Influenza Vaccine (#1) 04/05/202504/23, 05/01/2023, 05/14/2022, Additional history exists [facility]-Depression Screening 01/20/2026 01/20/2025, 01/03 [facility]-DTaP,Tdap,and Td Vaccines (2 - Td or Tdap) 04/23/2034 04/23/2024, 10/06/1996 [facility]-Diabetes: Hemoglobin A1C Discontinued 05/15/2023, 05/31/2022 [facility]-RSV Vaccine: 60+ Years or Completed 07/25/2023 [facility]-Obesity Intervention Completed 025, 07/22/2024, 02/26/2024, Additional history exists HPV Vaccines Aged Out No longer eligi ble based on patient's age to complete this topic [facility]-HIB Vaccines Aged Out No longer e ligible based on patient's age to complete this topic [facility]-Hepatitis A Vaccines Aged Out No longer eligible based on patient's age to complete this topic [facility]-IPV Vaccines Aged Out No longer e ligible based on patient's age to complete this topic [facility]-Rotavirus Vaccines Aged Out No lo nger eligible based on patient's age to complete this topic Medical Devices Implanted Type Area Floor Cashier Device Identifier Shelf Expiration Date Model / Serial / Lot Biomaterial Enform 30cm X 30cm - [id number] - [id number] Implanted:Qty: 1 on 02/20/2024 by Carlton Vaz MD at [facility] N/A: Abdomen [id number] 07/22/2026 [id number] / [id number] / Insurance MEDICARE Advance Directives Documents on File Type Date Recorded Patient Stave Inspector Expl anation Advance Directives and Living Will 12/25/2023 * Full Code (Latest Code Status on File) Date Activated Date Inactivated Comments 02/20/2024 3:11 PM 02/23/2024 7:10 PM Question Answer Comments Patient has decision-making capacity? Yes Care Teams Tricot Knitting Machine Operator Relationship Specialty Start Date End Date Deana Veras DO [address] [place] [address] [phone] (work) PCP - General 12/25/23
--- OUTSIDE RECORDS SUMMARY | 2025-06-28 14:48 | XMS_ITS | Encounter Summary ---
Author Organization [facility] Address [address] [place] [address] Care Team Providers Care Entry Level Recruiter Name Role Phone Deana Verasgh Primary Care Provider [phone] Encounter Details Date Type Department Care Team (Latest Contact Info) Description 05/26/2025 Travel Social History Tobacco Use Types Packs/Day [...] or training? Not on file Preferred Language Qatari 04/20/2025 Comments No Sex and Gender Information Value Date Recorded Sex Assigned at Female 12/28/2024 10:17 AM EDT Legal Sex Female 11:26 AM EDT Gender Identity Not on file Sexual Orientation Straight 12/28/2024 10 :17 AM EDT documented as of this encounter Plan of Treatment Upcoming Encounters Date Type Department Care Team (Late st Contact Info) Description 07/07/2025 10:30 AM EST Office Visit [facility] [address] [facility] [address] [place] [address] Germania Perry PA-C [address] [facility] [address] [place] [address] 09/23/2025 1:00 PM EST Office Visit [facility] [address] [facility] [address] [place] [id number] Sara Arora PA [address] [employer] [address] [place] [id number] documented as of this encounter Visit Diagnoses Not on filedocumented in this encounter Care Teams Entry Level Recruiter Relationship Specialty Start Date End Date Deana Veras DO [address] [place] [id number] PCP - General 10/06/15 documented as of this encounter
[2025-06-28 16:23] LABS: Thyroid Stimulating Hormone 2.85 uIU/mL (0.465-4.68)
[2025-06-28 16:34] LABS: Free T4 (Free Thyroxine) 1.59 ng/dl (0.78-2.19)
== END 2025-06-28 23:59 | disposition home or self-care (01) ==
LOC: LAB 14:39
PROVIDERS: PCP Family Medicine; Visit Provider Physician Assistant
DX: E89.0 Postprocedural hypothyroidism (principal)
CPT/HCPCS: 36415; 84439; 84443

== ENCOUNTER 2025-06-30 13:00 | Outpatient (RCR) | payer MEDICARE, SELFPAY | END 2025-06-30 23:59 | disposition home or self-care (01) | LOC: PT 13:00 | PROVIDERS: Visit Provider Physician Assistant | DX: Z47.1 Aftercare following joint replacement surgery (principal); Z96.652 Presence of left artificial knee joint | CPT/HCPCS: 97110; 97530 ==